=== PATIENT | male | born 1935 | race Caucasian/White ===

== ENCOUNTER 2018-10-29 09:13 | Inpatient (IN) | payer OTHER, MEDICARE ==
[2018-10-29 09:27] VITALS: BMI 27.1
--- NOTE | 2018-10-29 09:31 | PDOC ---
History of Present Illness - General Chief Complaint: Urinary Problem Stated Complaint: PAIN Time Seen by Provider: 10/29/18 09:29 History Source: Patient - History of Present Illness Initial Comments: 10/29/18 09:51 83 year old male with a PMH of CAD, HLD, HTN, Gout, Anemia, B-12, Diverticulitis , Prostate CA (s/p seed implantation), nephrolithiasis presents to the ED c/o 2 day h/o hematuria and assocaited abdominal fullness. Hematuria noted yesterday evening and hematuria with decreased urination/abdominal pressure prompting visit to the ED this morning. No associated fevers/chills. The patient denies chest pain, shortness of breath, diarrhea/constipation, nausea vomiting. 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 Jay Jay Rhodes As per EMR, patient last evaluated in our ED in 06/2013 for rectal bleed. Past History - Past Medical History Allergies/Adverse Reactions: Allergies Allergy/AdvReac Type Severity Reaction Status Date / Time No Known Allergies Allergy Verified 10/29/18 09:23 Home Medications: Ambulatory Orders Omeprazole [Prilosec (RX)] 20 mg PO DAILY #0 capsule.dr 07/13/13 Simvastatin [Zocor -] 40 mg PO HS #0 tablet 07/13/13 Tamsulosin HCl [Flomax -] 0.4 mg PO DAILY #0 cap.er.24h 07/13/13 Aspirin [ASA -] 81 mg PO DAILY 11/09/15 Multivitamins [Multivit ([facility] Formul[facility])] 1 tab PO DAILY 11/09/15 Polyethylene Glycol 3350 [Miralax 119 gm Btl -] 17 gm PO DAILY 11/09/15 Psyllium Husk (with Sugar) [Metamucil Packet] 3.4 gm PO HS 11/09/15 Amlodipine Besylate 5 mg PO DAILY 10/29/18 Fenofibrate Nanocrystallized [Tricor] 160 mg PO DAILY 10/29/18 Metoprolol Succinate [Toprol Xl] 50 mg PO DAILY 10/29/18 Anemia: No Asthma: No Cancer: Yes (PROSTATE) Cardiac Disorders: No CVA: No COPD: No CHF: No Dementia: No Diabetes: No GI Disorders: Yes (DIVERTICULOSIS/DIVERTICULITIS) Disorders: Yes (PROSTATE DISEASE WITH SEED IMPLANTATION,RADIATION) HTN: Yes Hypercholesterolemia: Yes Liver Disease: No Seizures: No Thyroid Disease: No - Surgical History Abdominal Surgery: Yes (BILATERAL INGUINAL HERNIA) Appendectomy: No Cardiac Surgery: No Cholecystectomy: No Lung Surgery: No Neurologic Surgery: No Orthopedic Surgery: No - Immunization History Immunization Up to Date: Yes - Suicide/Smoking/Psychosocial Hx Smoking Status: No Smoking History: Never smoked Have you smoked in the past 12 months: No Number of Cigarettes Smoked Daily: 0 Hx Alcohol Use: No Drug/Substance Use Hx: No Substance Use Type: None Hx Substance Use Treatment: No Review of Systems - Review of Systems Constitutional: No: Chills, Fever HEENTM: No: Blurred Vision, Double Vision Respiratory: No: Shortness of Breath Cardiac (ROS): No: Chest Pain, Lightheadedness, Palpitations, Syncope ABD/GI: No: Constipated, Diarrhea *Physical Exam - Vital Signs Last Vital Signs Temp Pulse Resp BP Pulse Ox 97.8 F 88 18 202/87 H 97 10/29/18 09:23 10/29/18 09:23 10/29/18 09:23 10/29/18 09:23 10/29/18 09:23 - Physical Exam General Appearance: Yes: Nourished, Appropriately Dressed HEENT: positive: Normal Voice, Hearing Grossly Normal Neck: positive: Trachea midline, Supple Respiratory/Chest: positive: Lungs Clear Cardiovascular: positive: S1, S2 Gastrointestinal/Abdominal: positive: Normal Bowel Sounds, Soft, Other ( suprapubic distension, TTP) Male Genitalia: negative: CVAT Extremity: positive: Normal Capillary Refill, Normal Inspection Integumentary: positive: Normal Color, Dry, Warm Neurologic: positive: Fully Oriented, Alert Moderate Sedation - Procedure Monitoring Vital Signs: Procedure Monitoring Vital Signs Temperature 97.8 F 10/29/18 09:23 Pulse Rate 88 10/29/18 09:23 Respiratory Rate 18 10/29/18 09:23 Blood Pressure 202/87 H 10/29/18 09:23 O2 Sat by Pulse Oximetry (%) 97 10/29/18 09:23 ED Treatment Course - LABORATORY CBC & Chemistry Diagram: 10/29/18 09:30 10/29/18 09:30 Medical Decision Making - Medical Decision Making 10/29/18 09:51 83 year old male PMH of nephrolithiasis and Prostate CA (s/p seed placement) w/ gross hematuria and suprapubic pain. No flank pain. Hypertensive (208/87) @ presentation. Bedside U/S shows 610 mL in bladder No CVA tenderness on PE. Frontal diagnosis: nephrolithiasis, UTI, renal failure as well as urinary retention 2/2 BPH vs. obstructive nephrolithiasis vs. Prostate CA. Will place triple lumen catheter for CBI. Consider U/S or CT scan for evaluation of renal/ bladder pathology if SiSx not improved with catheterization. Morphine for pain control. 10/29/18 10:32 Unable to advance triple lumen past prostate 10/29/18 10:46 16 [place] coudet placed; bloody urine returned 10/29/18 11:18 Patient reassessed @ bedside, s/p Morphine Repeat BP 183/77 Bag shows 600+ mL of chong hematuria 10/29/18 12:23 Attending discussed case w/ Dr. Aguirre; patient likely requires CBI given continuous hematuria. Will admit for CBI. Attending counseled patient on plan of care, amenable to admission Case d/w with Kylie Jackson; patient admitted to Dr. Roman *DC/Admit/Observation/Transfer Diagnosis at time of Disposition: Hematuria - Discharge Dispostion Condition at time of disposition: Fair Decision to Admit order: Yes - Referrals - Patient Instructions - Post Discharge Activity
--- NOTE | 2018-10-29 09:32 | PDOC ---
Attending Attestation - HPI HPI: The patient is an 83 year old male, with a significant PMH of coronary disease, HLD, HTN, gout, anemia, B12 deficiency, diverticulitis, and prostate cancer (s/ p seed implantation), who presents to the emergency department today complaining of hematuria and abdominal distention/pressure for 2 days. Patient reports a normal urination last night, tinged with blood. This morning, he could not urinate and reports associated abdominal pressure and distention, which is what prompted his visit to the ED. The patient denies chest pain, shortness of breath, headache and dizziness. Denies fever, chills, nausea, vomit, diarrhea and constipation. Denies dysuria. Allergies: NKA Past surgical history: Prostate seed implants, bilateral renal nephrolithiasis, bilateral cataract repair, and hernia repair. Social history: No reported PCP: Dr. Rhodes 10/29/18 10:12 - Medical Decision Making 11:02 AM- Spoke with Dr. Huston concerning patient, he is aware of patient's state 12:04 AM- Updated Dr. Huston on patient's admission Documentation prepared by AJIT Tellez, acting as medical clinic manager for Ric Hyatt MD. 10/29/18 10:12 <Jaelyn Haque - Last Filed: 10/29/18 12:08> - Resident Resident Name: Bronwyn Jacques - ED Attending Attestation I have performed the following: I have examined & evaluated the patient, The case was reviewed & discussed with the resident, I agree w/resident's findings & plan, Exceptions are as noted - HPI HPI: 10/29/18 09:31 83 year old male with history of coronary disease, gout, hyperlipidemia, hypertension, anemia, B12 deficiency, diverticulitis, prostate ca c/ seed implantation presents with abdominal distension and hematuria. The patient urinated normally yesterday yesterday tonight. This morning, noted increasing lower abdominal pressure and hematuria/blood clots. No fevers, chills. Denies dysuria. No nausea, vomiting, diarrhea. - Physicial Exam PE: 10/29/18 09:56 GENERAL: Awake, alert, and fully oriented, uncomfortable appearing. HEAD: No signs of trauma EYES: EOMI, sclera anicteric, conjunctiva clear ENT: Auricles normal inspection, hearing grossly normal, nares patent, Moist mucosa NECK: Normal ROM, supple ABDOMEN: +distended. lower abdominal discomfort on palpation. No guarding, no rebound. No masses EXTREMITIES: Normal range of motion, no edema. No clubbing or cyanosis. No cords, erythema, or tenderness NEUROLOGICAL: Cranial nerves II through XII grossly intact. Normal speech, SKIN: Warm, Dry, normal turgor, no rashes or lesions noted. - Medical Decision Making 10/29/18 09:56 Vital Signs Temp Pulse Resp BP Pulse Ox 97.8 F 88 18 202/87 H 97 10/29/18 09:23 10/29/18 09:23 10/29/18 09:23 10/29/18 09:23 10/29/18 09:23 Differential includes: urinary retention in setting of possibly hemorrhagic cystitis, prostatitis. Bedside ultrasound to visualize post void residual. If retaining urine, place a three way catheter for bladder irrigation. Labs to r/o renal failure. UA to r/o UTI Reassess. 10/29/18 11:29 CBC, BMP 10/29/18 09:30 10/29/18 09:30 CMP Sodium 139 mmol/L (136-145) 10/29/18 09:30 Potassium 3.9 mmol/L (3.5-5.1) 10/29/18 09:30 Chloride 107 mmol/L (98-107) 10/29/18 09:30 Carbon Dioxide 20 mmol/L (21-32) L 10/29/18 09:30 Anion Gap 11 MMOL/L (8-16) 10/29/18 09:30 BUN 19 mg/dL (7-18) H 10/29/18 09:30 Creatinine 0.8 mg/dL (0.55-1.3) 10/29/18 09:30 Creat Clearance w eGFR > 60 (>60) 10/29/18 09:30 Random Glucose 122 mg/dL (74-106) H 10/29/18 09:30 Calcium 9.4 mg/dL (8.5-10.1) 10/29/18 09:30 Total Bilirubin 0.5 mg/dL (0.2-1) 10/29/18 09:30 AST 22 U/L (15-37) 10/29/18 09:30 ALT 21 U/L (13-61) 10/29/18 09:30 Alkaline Phosphatase 48 U/L (45-117) 10/29/18 09:30 Total Protein 7.2 g/dl (6.4-8.2) 10/29/18 09:30 Albumin 3.8 g/dl (3.4-5.0) 10/29/18 09:30 UA pending. Triple lumen batres catheter for bladder irrigation attempted. However, unable to advance past prostate. 16 [place] coudet placed, with return of approx 700 cc of bloody urine. Pt drained but with lots of blood. Dr. Lopez consulted and he is aware. If patient continues to have persistent bloody drainage, will need to admit for CBI. <Ric Hyatt - Last Filed: 10/29/18 18:12> Heart Score/ECG Review #1 ECG reviewed & interpreted by me at: 12:30 10/29/18 18:12 NSR 74, LVH, no std/kristyn, left axis deviation, QTC 432 msec <Ric Hyatt - Last Filed: 10/29/18 18:12>
[2018-10-29] MEDS ORDERED: morphine CARPU-JECT 4 MG/1 ML DISP.SYRIN IVPUSH ONE (09:48)
[2018-10-29] MEDS ORDERED: morphine SULFATE 4 MG/ML VIAL ONE (10:02)
[2018-10-29 10:05] LABS: BASO % 0.2 % (0-2.0); EOS % 0.6 % (0-4.5); HEMATOCRIT 43.7 % (35.4-49); LYMPH % 11.5 % (8-40); MCHC 34.3 g/dl (32.0-35.9); MEAN CELL VOLUME 90.4 fl (80-96); MEAN PLT VOLUME 9.7 fl (7.5-11.1); MONO % 6.9 % (3.8-10.2); NEUT % 80.8 % (42.8-82.8); PLATELET COUNT 252 K/MM3 (134-434); RBC 4.84 M/mm3 (4.00-5.60); RDW 13.7 % (11.9-15.9); WHITE BLOOD COUNT 11.7 K/mm3 (4.0-10.0)
[2018-10-29 10:41] LABS: ALBUMIN 3.8 g/dl (3.4-5.0); ALK PHOS 48 U/L (45-117); ANION GAP 11 MMOL/L (8-16); BILIRUBIN,TOTAL 0.5 mg/dL (0.2-1); BLOOD UREA NITROGEN 19 mg/dL (7-18); CALCIUM 9.4 mg/dL (8.5-10.1); CHLORIDE 107 mmol/L (98-107); CO2 20 mmol/L (21-32); CREATININE 0.8 mg/dL (0.55-1.3); GLUCOSE,RANDOM 122 mg/dL (74-106); POTASSIUM 3.9 mmol/L (3.5-5.1); SGOT/AST 22 U/L (15-37); SGPT/ALT 21 U/L (13-61); SODIUM 139 mmol/L (136-145); TOT PROT 7.2 g/dl (6.4-8.2)
--- NOTE | 2018-10-29 13:12 | CON.GU ---
Consult - History of Present Illness History of Present Illness: 83 yo male with h/p prostate cancer s/p seed placement years ago. Now admitted with suprapubic pain, urinary retention and gross hematuria. No flank pain - Alcohol/Substance Use Hx Alcohol Use: No - Smoking History Smoking history: Never smoked Have you smoked in the past 12 months: No Aproximately how many cigarettes per day: 0 Home Medications - Allergies Allergies/Adverse Reactions: Allergies Allergy/AdvReac Type Severity Reaction Status Date / Time No Known Allergies Allergy Verified 10/29/18 09:23 - Home Medications Home Medications: Ambulatory Orders Fenofibrate Nanocrystallized [Tricor] 145 mg PO DAILY #0 tablet 07/13/13 Mesalamine Suppository [Canasa Suppository -] 1,000 mg RC HS #0 supp 07/13/13 Metoprolol/Hydrochlorothiazide [Metoprolol-Hctz 50-25 mg Tab] 1 each PO DAILY # 0 tablet 07/13/13 Omeprazole [Prilosec (RX)] 20 mg PO DAILY #0 capsule.dr 07/13/13 Simvastatin [Zocor -] 40 mg PO HS #0 tablet 07/13/13 Tamsulosin HCl [Flomax -] 0.4 mg PO DAILY #0 cap.er.24h 07/13/13 Aspirin [ASA -] 81 mg PO DAILY 11/09/15 Cholecalciferol (Vitamin D3) [Vitamin D3] 1,000 unit PO DAILY 11/09/15 Docusate Sodium [Colace -] 200 mg PO HS 11/09/15 Multivitamins [Multivit ([facility])] 1 tab PO DAILY 11/09/15 Polyethylene Glycol 3350 [Miralax 119 gm Btl -] 17 gm PO DAILY 11/09/15 Psyllium Husk (with Sugar) [Metamucil Packet] 3.4 gm PO HS 11/09/15 Review of Systems - Review of Systems Genitourinary: reports: Hematuria Physical Exam- Vital Signs: Vital Signs Temperature 97.8 F 10/29/18 09:23 Pulse Rate 77 10/29/18 12:33 Respiratory Rate 18 10/29/18 12:33 Blood Pressure 151/59 L 10/29/18 12:33 O2 Sat by Pulse Oximetry (%) 98 10/29/18 12:33 Renal/: Yes: Batres Present, Hematuria Labs: CBC, BMP 10/29/18 09:30 10/29/18 09:30 Problem List - Problems (1) Gross hematuria Assessment/Plan: batres to SD, start flomax, irrigate batres, hold ASA, CT scan ordered, await culture Code(s): R31.0 - GROSS HEMATURIA
--- NOTE | 2018-10-29 13:21 | HP ---
Admitting History and Physical - Primary Care Physician PCP: Osmin Rhodes - Admission Chief Complaint: hematuria History of Present Illness: 83 year old male pmh of HTN, HLD,CAD, prostate ca s/p xrt/implanted seed comes in with hematuria. Pt reports inability to void adequately since this am. When attempted to void, he noted only drops of bright red blood. Due to inability to empty bladder, he reports having increased bladder pressure/pain which urged him to come to ED. He currently feels better after batres placement. He denies any chest pain, sob, lightheadedness, fever/chills, dysuria, abd pain, n/v/d, or recent medication change. Pt is without any other significant complaint. History Source: Patient, Medical Record Limitations to Obtaining History: No Limitations - Past Medical History Cardiovascular: Yes: CAD, HTN, Hyperlipdemia Gastrointestinal: Yes: Hemorrhoids Renal/: Yes: Cancer (bladder ca s/p radiation,implanted seed, 07/02) - Past Surgical History Past Surgical History: Yes: Hernia Repair, Tonsillectomy - Smoking History Smoking history: Never smoked Have you smoked in the past 12 months: No Aproximately how many cigarettes per day: 0 - Alcohol/Substance Use Hx Alcohol Use: No History of Substance Use: reports: None - Social History Usual Living Arrangement: Yes: With Spouse ADL: Independent History of Recent Travel: No Home Medications - Allergies Allergies/Adverse Reactions: Allergies Allergy/AdvReac Type Severity Reaction Status Date / Time No Known Allergies Allergy Verified 10/29/18 09:23 - Home Medications Home Medications: Ambulatory Orders Omeprazole [Prilosec (RX)] 20 mg PO DAILY #0 capsule.dr 07/13/13 Simvastatin [Zocor -] 40 mg PO HS #0 tablet 07/13/13 Tamsulosin HCl [Flomax -] 0.4 mg PO DAILY #0 cap.er.24h 07/13/13 Aspirin [ASA -] 81 mg PO DAILY 11/09/15 Multivitamins [Multivit ([facility] Formul[facility])] 1 tab PO DAILY 11/09/15 Polyethylene Glycol 3350 [Miralax 119 gm Btl -] 17 gm PO DAILY 11/09/15 Psyllium Husk (with Sugar) [Metamucil Packet] 3.4 gm PO HS 11/09/15 Amlodipine Besylate 5 mg PO DAILY 10/29/18 Fenofibrate Nanocrystallized [Tricor] 160 mg PO DAILY 10/29/18 Metoprolol Succinate [Toprol Xl] 50 mg PO DAILY 10/29/18 Family Disease History - Family Disease History Family Disease History: Heart Disease: Mother, Other: Father (Renal failure) Review of Systems Findings/Remarks: as per hpi Physical Examination Vital Signs: Vital Signs Temperature 97.8 F 10/29/18 09:23 Pulse Rate 77 10/29/18 12:33 Respiratory Rate 18 10/29/18 12:33 Blood Pressure 151/59 L 10/29/18 12:33 O2 Sat by Pulse Oximetry (%) 98 10/29/18 12:33 Constitutional: Yes: Well Nourished, No Distress, Calm Cardiovascular: Yes: Regular Rate and Rhythm, Murmur Respiratory: Yes: WNL, Regular, CTA Bilaterally. No: Accessory Muscle Use, SOB , Tachypnea, Wheezes Gastrointestinal: Yes: WNL, Normal Bowel Sounds, Soft. No: Distention, Tenderness Renal/: Yes: Batres Present, Hematuria Edema: Yes Edema: LLE: Trace, RLE: Trace Neurological: Yes: WNL, Alert, Oriented Psychiatric: Yes: WNL, Alert, Oriented Labs: CBC, BMP 10/29/18 09:30 10/29/18 09:30 Imaging - Results Cat Scan: Pending Problem List - Problems (1) Gross hematuria Assessment/Plan: persists bladder distention/pressure resolved s/p batres UA reviewed-uti less likely await urine culture abd/pelvic ct pending hold asa saline irrigation q4hrs flomax urology following Code(s): R31.0 - GROSS HEMATURIA (2) Leukocytosis Assessment/Plan: borderline elevation await infectious work up monitor for now Code(s): D72.829 - ELEVATED WHITE BLOOD CELL COUNT, UNSPECIFIED (3) CAD (coronary artery disease) Assessment/Plan: no acute ACS continue statin, hold asa Code(s): I25.10 - ATHSCL HEART DISEASE OF [place] CORONARY ARTERY W/O ANG PCTRS Qualifiers: Coronary Disease-Associated Artery/Lesion type: [place] artery [place] vs. transplanted heart: [place] heart Associated angina: without angina Qualified Code(s): I25.10 - Atherosclerotic heart disease of [place] coronary artery without angina pectoris (4) HTN (hypertension) Assessment/Plan: controlled continue metoprolol, amlodipine Code(s): I10 - ESSENTIAL (PRIMARY) HYPERTENSION Qualifiers: Hypertension type: essential hypertension Qualified Code(s): I10 - Essential (primary) hypertension (5) HLD (hyperlipidemia) Assessment/Plan: stable continue statin Code(s): E78.5 - HYPERLIPIDEMIA, UNSPECIFIED Assessment/Plan Dispo: home when urology cleared
[2018-10-29 13:42] LABS: URINE APPEARANCE CLOUDY; URINE BILIRUBIN NEGATIVE (<2.0 mg/dL); URINE COLOR RED; URINE GLUCOSE (UA) NEGATIVE (NEGATIVE); URINE KETONE NEGATIVE (NEGATIVE); URINE LEUK ESTERASE NEGATIVE (NEGATIVE); URINE NITRITE NEGATIVE (NEGATIVE); URINE PROTEIN 2+ (NEGATIVE); URINE UROBILINOGEN NEGATIVE mg/dL (0.2-1.0)
[2018-10-29] MEDS ORDERED: TAMSULOSIN HCL 0.4 MG CAP ONE (14:59)
[2018-10-29] MEDS: TAMSULOSIN HCL 0.4 MG CAP PO SCH (15:02)
--- NOTE | 2018-10-29 16:14 | EKG ---
Test Reason : Blood Pressure : / mmHG Vent. Rate : 074 BPM Atrial Rate : 074 BPM P-R Int : 158 ms QRS Dur : 112 ms QT Int : 390 ms P-R-T Axes : 071 -26 009 degrees QTc Int : 432 ms NORMAL SINUS RHYTHM MINIMAL VOLTAGE CRITERIA FOR LVH, MAY BE NORMAL VARIANT SEPTAL INFARCT , AGE UNDETERMINED ABNORMAL ECG WHEN COMPARED WITH ECG OF 10-JUL-2013 11:19, SEPTAL INFARCT IS NOW PRESENT Confirmed by SAMEER BERNARD, COLLEEN ([id number]) on 10/29/2018 4:13:59 PM Referred By: Confirmed By:COLLEEN ESTRELLA MD
[2018-10-29] MEDS: amLODIPine BESYLATE 5 MG TABLET (FP) PO SCH (19:04)
[2018-10-29] MEDS ORDERED: DEXTROSE 5%-WATER - 50 ML IVPB ONE (19:11)
[2018-10-29] MEDS ORDERED: cefTRIAXone SODIUM 1 GM VIAL ONE (19:11)
[2018-10-29] MEDS: CEFTRIAXONE 1 GM in DEXTROSE 5%-WATER - 50 ML IVPB SCH (19:34)
[2018-10-29] MEDS: ATORVASTATIN CA 20 MG TABLET (FP) PO SCH (22:52)
[2018-10-30 07:18] LABS: BASO % 0.4 % (0-2.0); HEMOGLOBIN 12.7 GM/dL (11.7-16.9); LYMPH % 11.4 % (8-40); MCH 29.9 pg (25.7-33.7); MCHC 32.5 g/dl (32.0-35.9); MEAN CELL VOLUME 91.8 fl (80-96); MEAN PLT VOLUME 10.2 fl (7.5-11.1); MONO % 9.2 % (3.8-10.2); PLATELET COUNT 208 K/MM3 (134-434); RBC 4.25 M/mm3 (4.00-5.60); RDW 13.7 % (11.9-15.9); WHITE BLOOD COUNT 11.4 K/mm3 (4.0-10.0)
[2018-10-30 07:44] LABS: ANION GAP 9 MMOL/L (8-16); BLOOD UREA NITROGEN 18 mg/dL (7-18); CALCIUM 8.4 mg/dL (8.5-10.1); CHLORIDE 108 mmol/L (98-107); CO2 22 mmol/L (21-32); CREATININE 0.6 mg/dL (0.55-1.3); GLUCOSE,RANDOM 92 mg/dL (74-106); POTASSIUM 3.8 mmol/L (3.5-5.1); SODIUM 139 mmol/L (136-145)
--- NOTE | 2018-10-30 09:20 | PN ---
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, Physician Chief Complaint: Pt sitting in bed in no acute distress. reports feeling better. denies any chest pain, sob, dysuria, flank pain, n/v/d - Current Medication List Current Medications: Active Medications Amlodipine Besylate (Norvasc -) 5 mg PO DAILY [facility] Last Admin: 10/29/18 19:04 Dose: 5 mg Atorvastatin Calcium (Lipitor -) 20 mg PO HS [facility] Last Admin: 10/29/18 22:52 Dose: 20 mg Ceftriaxone Sodium 1 gm/ (Dextrose) 50 mls @ 100 mls/hr IVPB DAILY [facility]; Protocol Last Admin: 10/29/18 19:34 Dose: 100 mls/hr Metoprolol Succinate (Toprol Xl -) 50 mg PO DAILY [facility] Last Admin: 10/29/18 19:04 Dose: 50 mg Polyethylene Glycol (Miralax (For Daily Use) -) 17 gm PO DAILY [facility] Tamsulosin HCl (Flomax -) 0.4 mg PO DAILY@0830 [facility] Last Admin: 10/29/18 15:02 Dose: 0.4 mg - Objective Vital Signs: Vital Signs Temperature 98.4 F 10/30/18 05:30 Pulse Rate 65 10/30/18 05:30 Respiratory Rate 18 10/30/18 05:30 Blood Pressure 127/70 10/30/18 05:30 O2 Sat by Pulse Oximetry (%) 95 10/29/18 21:28 Constitutional: Yes: Well Nourished, No Distress, Calm Cardiovascular: Yes: Regular Rate and Rhythm, Murmur Respiratory: Yes: WNL, Regular, CTA Bilaterally. No: Accessory Muscle Use, SOB , Tachypnea, Wheezes Gastrointestinal: Yes: WNL, Normal Bowel Sounds, Soft. No: Distention, Tenderness Genitourinary: Yes: [place] Present, Hematuria. No: CVA Tenderness - Left, CVA Tenderness - Right Extremities: Yes: WNL Edema: No Neurological: Yes: WNL, Alert, Oriented Psychiatric: Yes: WNL, Alert, Oriented Labs: CBC, BMP 10/30/18 06:30 10/30/18 06:30 Assessment/Plan (1) Gross hematuria Assessment/Plan: persists abd/pelvic ct- 5mm left UPJ stone w/ hydronephrosis urine culture neg, however will continue empiric ceftriaxone until urine clears hold asa saline irrigation q4hrs flomax urology following Code(s): R31.0 - GROSS HEMATURIA (2) Ureteral calculus, left Assessment/Plan: as above Code(s): N20.1 - CALCULUS OF URETER (3) 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 Assessment/Plan: as above monitor renal function tx underlying Code(s): N13.2 - HYDRONEPHROSIS WITH RENAL AND URETERAL CALCULOUS OBSTRUCTION (4) Leukocytosis Assessment/Plan: borderline elevation await infectious work up monitor for now Code(s): D72.829 - ELEVATED [place] BLOOD CELL COUNT, UNSPECIFIED (5) CAD (coronary artery disease) Assessment/Plan: no acute ACS continue statin, hold asa Code(s): I25.10 - ATHSCL HEART DISEASE OF [place] CORONARY ARTERY W/O ANG PCTRS Qualifiers: Coronary Disease-Associated Artery/Lesion type: [place] artery [place] vs. transplanted heart: [place] heart Associated angina: without angina Qualified Code(s): I25.10 - Atherosclerotic heart disease of [place] coronary artery without angina pectoris (6) HTN (hypertension) Assessment/Plan: controlled continue metoprolol, amlodipine Code(s): I10 - ESSENTIAL (PRIMARY) HYPERTENSION Qualifiers: Hypertension type: essential hypertension Qualified Code(s): I10 - Essential (primary) hypertension (7) HLD (hyperlipidemia) Assessment/Plan: stable continue statin Code(s): E78.5 - HYPERLIPIDEMIA, UNSPECIFIED Dispo: home when urology cleared
[2018-10-30] MEDS ORDERED: cefTRIAXone SODIUM 1 GM VIAL ONE (09:51)
[2018-10-30] MEDS ORDERED: DEXTROSE 5%-WATER - 50 ML IVPB ONE (09:52)
[2018-10-30] MEDS: amLODIPine BESYLATE 5 MG TABLET (FP) PO SCH (10:24)
[2018-10-30] MEDS: TAMSULOSIN HCL 0.4 MG CAP PO SCH (10:24)
[2018-10-30] MEDS: POLYETHYLENE GLYCOL 3350 119 GM BTL PO SCH (10:24)
[2018-10-30] MEDS: CEFTRIAXONE 1 GM in DEXTROSE 5%-WATER - 50 ML IVPB SCH (10:25)
--- NOTE | 2018-10-30 12:03 | PN ---
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 (short form) - Note 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: still with hematuria batres irrigated today CT with 5mm Left UPJ stone and hydronephrosis but pt denies flank pain no suprapubic pain cont flomax, abx hold ASA cont bladder irrigation Problem List - Problems (1) Gross hematuria Code(s): R31.0 - GROSS HEMATURIA
[2018-10-30] MEDS: SODIUM CHLORIDE 1,000 ML IV SCH (17:19)
[2018-10-30] MEDS: ATORVASTATIN CA 20 MG TABLET (FP) PO SCH (21:53)
[2018-10-31] MEDS: SODIUM CHLORIDE 1,000 ML IV SCH ×2 (04:18→19:30)
[2018-10-31 06:41] LABS: BASO % 1.1 % (0-2.0); EOS % 2.9 % (0-4.5); HEMATOCRIT 37.2 % (35.4-49); HEMOGLOBIN 12.9 GM/dL (11.7-16.9); LYMPH % 13.5 % (8-40); MCH 31.6 pg (25.7-33.7); MCHC 34.8 g/dl (32.0-35.9); MEAN CELL VOLUME 90.9 fl (80-96); MEAN PLT VOLUME 9.8 fl (7.5-11.1); MONO % 8.8 % (3.8-10.2); NEUT % 73.7 % (42.8-82.8); PLATELET COUNT 202 K/MM3 (134-434); RBC 4.09 M/mm3 (4.00-5.60); RDW 13.8 % (11.9-15.9); WHITE BLOOD COUNT 9.9 K/mm3 (4.0-10.0)
[2018-10-31 07:22] LABS: ANION GAP 8 MMOL/L (8-16); BLOOD UREA NITROGEN 17 mg/dL (7-18); CALCIUM 7.9 mg/dL (8.5-10.1); CHLORIDE 109 mmol/L (98-107); CO2 23 mmol/L (21-32); CREATININE 0.6 mg/dL (0.55-1.3); GLUCOSE,RANDOM 90 mg/dL (74-106); POTASSIUM 3.7 mmol/L (3.5-5.1); SODIUM 140 mmol/L (136-145)
--- NOTE | 2018-10-31 09:58 | PN ---
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 (short form) - Note 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: still with hematuria, slightly improved no suprapubic pain/no flank pain urine cx neg WBC now normal cont flomax hold ASA cont bladder irrigation Problem List - Problems (1) Gross hematuria Code(s): R31.0 - GROSS HEMATURIA
[2018-10-31] MEDS ORDERED: DEXTROSE 5%-WATER - 50 ML IVPB ONE (10:14)
[2018-10-31] MEDS ORDERED: cefTRIAXone SODIUM 1 GM VIAL ONE (10:14)
[2018-10-31] MEDS: CEFTRIAXONE 1 GM in DEXTROSE 5%-WATER - 50 ML IVPB SCH (10:16)
[2018-10-31] MEDS: TAMSULOSIN HCL 0.4 MG CAP PO SCH (10:16)
[2018-10-31] MEDS: amLODIPine BESYLATE 5 MG TABLET (FP) PO SCH (10:16)
[2018-10-31] MEDS: POLYETHYLENE GLYCOL 3350 119 GM BTL PO SCH (10:17)
--- NOTE | 2018-10-31 13:09 | PN ---
Physical Exam: SUBJECTIVE: Patient seen and examined, denies any abdominal or back pain or urinary symptoms, dyspnea or new concerns. Tolerating diet, no fevers/chills. OBJECTIVE: Vital Signs Period Temp Pulse Resp BP Sys/Donald Pulse Ox Last 24 Hr 97.9 F-98.4 F 62-70 18-20 137-149/49-58 94-96 GENERAL: The patient is awake, alert, and fully oriented, in no acute distress. HEAD: Normal with no signs of trauma. EYES: PERRL, extraocular movements intact, sclera anicteric, conjunctiva clear. No ptosis. ENT: Ears normal, nares patent, oropharynx clear without exudates, moist mucous membranes. NECK: Trachea midline, full range of motion, supple. LUNGS: Breath sounds equal, clear to auscultation bilaterally, no wheezes, no crackles, no accessory muscle use. HEART: Regular rate and rhythm, S1, S2 ABDOMEN: Soft, nontender, nondistended, normoactive bowel sounds, no guarding, no rebound, no CVA or suprpubic tenderness, ongoing bloody drainage in batres bag MUSCULOSKELETAL: no spinal tenderness EXTREMITIES: 2+ pulses, warm, well-perfused, no edema. PSYCH: Normal mood, normal affect. SKIN: Warm, dry, normal turgor, no rashes or lesions noted Laboratory Results - last 24 hr 10/31/18 10/31/18 05:50 05:50 WBC 9.9 RBC 4.09 Hgb 12.9 Hct 37.2 MCV 90.9 MCH 31.6 MCHC 34.8 RDW 13.8 Plt Count 202 MPV 9.8 Absolute Neuts (auto) 7.3 Neutrophils % 73.7 Lymphocytes % 13.5 Monocytes % 8.8 Eosinophils % 2.9 Basophils % 1.1 Nucleated RBC % 0 Sodium 140 Potassium 3.7 Chloride 109 H Carbon Dioxide 23 Anion Gap 8 BUN 17 Creatinine 0.6 Creat Clearance w eGFR > 60 Random Glucose 90 Calcium 7.9 L Active Medications Generic Name Dose Route Start Last Admin Trade Name Freq PRN Reason Stop Dose Admin Amlodipine Besylate 5 mg 10/29/18 16:15 10/31/18 10:16 Norvasc - PO 5 mg DAILY SHELLIE Administration Atorvastatin Calcium 20 mg 10/29/18 22:00 10/30/18 21:53 Lipitor - PO 20 mg HS SHELLIE Administration Ceftriaxone Sodium 1 gm/ 50 mls @ 100 mls/hr 10/29/18 18:30 10/31/18 10:16 Dextrose IVPB 100 mls/hr DAILY SHELLIE Administration Protocol Sodium Chloride 1,000 mls @ 100 mls/hr 10/30/18 16:45 10/31/18 04:18 Normal Saline - IV 100 mls/hr ASDIR SHELLIE Administration Metoprolol Succinate 50 mg 10/29/18 16:30 10/31/18 10:16 Toprol Xl - PO 50 mg DAILY SHELLIE Administration Polyethylene Glycol 17 gm 10/30/18 10:00 10/31/18 10:17 Miralax (For Daily Use) - PO 17 gm DAILY SHELLIE Administration Tamsulosin HCl 0.4 mg 10/29/18 13:29 10/31/18 10:16 Flomax - PO 0.4 mg DAILY@0830 SHELLIE Administration Microbiology 10/29/18 13:20 Urine - Urine Clean Catch Urine Culture - Final NO GROWTH OBTAINED ASSESSMENT/PLAN: 83 HTN, HLD,CAD, prostate ca s/p xrt/implanted seeds, nephrolithiasis admitted with hematuria and obstructing left ureteropelvic junction stone with mild to mod hydronephrosis -Hematuria -Obtructing left ureteropelvic junction stone with mild to moderate hydronephrosis -Prostate ca s/p xrt/implanted seeds -HTN -HLD -CAD Plan: Ongoing hematuria, h/h hemodynamics stable. Urology input noted. Will follow up for possible cystoscopy if fails to improve. Continue flomax Discussed with Dr. Huston, given stable Cr and no pain concerns from obstructive stone, conservative management for now. Continue IVF. Urine cx neg. WBC normalized. D/c ceftriaxone and monitor. Continue amlodipine/metoprolol/statin. DVTPPX with SCDs. Dispo plan for home d/c when medical issues resolve. Plan discussed with patient and nursing in detail, all questions answered. Visit type - Emergency Visit Emergency Visit: Yes ED Registration Date: 10/30/18 Care time: The patient presented to the Emergency Department on the above date and was hospitalized for further evaluation of their emergent condition. - New Patient This patient is new to me today: No - Critical Care Critical Care patient: No - Discharge Referral Referred to [facility] Med P.C.: No
[2018-10-31] MEDS: PANTOPRAZOLE 40 MG TABLET (FP) PO SCH (16:05)
[2018-10-31] MEDS: ATORVASTATIN CA 20 MG TABLET (FP) PO SCH (21:38)
[2018-11-01] MEDS: SODIUM CHLORIDE 1,000 ML IV SCH ×2 (02:10→21:41)
[2018-11-01 06:50] LABS: BASO % 0.6 % (0-2.0); EOS % 3.7 % (0-4.5); HEMATOCRIT 39.6 % (35.4-49); HEMOGLOBIN 12.8 GM/dL (11.7-16.9); LYMPH % 15.2 % (8-40); MCH 29.4 pg (25.7-33.7); MCHC 32.3 g/dl (32.0-35.9); MEAN PLT VOLUME 9.5 fl (7.5-11.1); MONO % 8.1 % (3.8-10.2); NEUT % 72.4 % (42.8-82.8); PLATELET COUNT 196 K/MM3 (134-434); RBC 4.35 M/mm3 (4.00-5.60); RDW 13.8 % (11.9-15.9)
--- NOTE | 2018-11-01 07:19 | PN ---
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 (short form) - Note 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: afebrile urine less bloody, pink this am no suprapubic pain/no flank pain urine cx neg WBC remains normal, HCT stable cont flomax hold ASA cont bladder irrigation trial of void when urine clear Problem List - Problems (1) Gross hematuria Code(s): R31.0 - GROSS HEMATURIA
[2018-11-01] MEDS ORDERED: DEXTROSE 5%-WATER - 50 ML IVPB ONE (09:52)
[2018-11-01] MEDS ORDERED: cefTRIAXone SODIUM 1 GM VIAL ONE (09:52)
[2018-11-01] MEDS: PANTOPRAZOLE 40 MG TABLET (FP) PO SCH (10:08)
[2018-11-01] MEDS: amLODIPine BESYLATE 5 MG TABLET (FP) PO SCH (10:08)
[2018-11-01] MEDS: POLYETHYLENE GLYCOL 3350 119 GM BTL PO SCH (10:09)
[2018-11-01] MEDS: CEFTRIAXONE 1 GM in DEXTROSE 5%-WATER - 50 ML IVPB SCH (10:09)
[2018-11-01] MEDS: TAMSULOSIN HCL 0.4 MG CAP PO SCH (10:09)
[2018-11-01 12:32] LABS: ANION GAP 7 MMOL/L (8-16); BLOOD UREA NITROGEN 15 mg/dL (7-18); CHLORIDE 110 mmol/L (98-107); CO2 24 mmol/L (21-32); CREATININE 0.6 mg/dL (0.55-1.3); GLUCOSE,RANDOM 86 mg/dL (74-106); POTASSIUM 3.7 mmol/L (3.5-5.1); SODIUM 142 mmol/L (136-145)
--- NOTE | 2018-11-01 14:24 | PN ---
Physical Exam: SUBJECTIVE: Patient seen and examined, ongoing bloody urine, no new fevers/ chills, back or abdominal pain or urinary symptoms. OBJECTIVE: Vital Signs Period Temp Pulse Resp BP Sys/Donald Pulse Ox Last 24 Hr 97.6 F-97.9 F 66-72 18-18 144-155/56-70 96-96 GENERAL: The patient is awake, alert, and fully oriented, in no acute distress. HEAD: Normal with no signs of trauma. EYES: PERRL, extraocular movements intact, sclera anicteric, conjunctiva clear. No ptosis. ENT: Ears normal, nares patent, oropharynx clear without exudates, moist mucous membranes. NECK: Trachea midline, full range of motion, supple. LUNGS: Breath sounds equal, clear to auscultation bilaterally, no wheezes, no crackles, no accessory muscle use. HEART: Regular rate and rhythm, S1, S2 without murmur, rub or gallop. ABDOMEN: Soft, nontender, nondistended, normoactive bowel sounds, no guarding, no rebound, no hepatosplenomegaly, no masses. EXTREMITIES: 2+ pulses, warm, well-perfused, no edema. NEUROLOGICAL: Cranial nerves II through XII grossly intact. Normal speech, gait not observed. PSYCH: Normal mood, normal affect. SKIN: Warm, dry, normal turgor, no rashes or lesions noted Laboratory Results - last 24 hr 11/01/18 11/01/18 05:55 05:55 WBC 9.0 RBC 4.35 Hgb 12.8 Hct 39.6 MCV 91.0 MCH 29.4 MCHC 32.3 RDW 13.8 Plt Count 196 MPV 9.5 Absolute Neuts (auto) 6.5 Neutrophils % 72.4 Lymphocytes % 15.2 Monocytes % 8.1 Eosinophils % 3.7 Basophils % 0.6 Nucleated RBC % 0 Sodium 142 Potassium 3.7 Chloride 110 H Carbon Dioxide 24 Anion Gap 7 L BUN 15 Creatinine 0.6 Creat Clearance w eGFR > 60 Random Glucose 86 Calcium 8.0 L Active Medications Generic Name Dose Route Start Last Admin Trade Name Freq PRN Reason Stop Dose Admin Amlodipine Besylate 5 mg 10/29/18 16:15 11/01/18 10:08 Norvasc - PO 5 mg DAILY SHELLIE Administration Atorvastatin Calcium 20 mg 10/29/18 22:00 10/31/18 21:38 Lipitor - PO 20 mg HS SHELLIE Administration Sodium Chloride 1,000 mls @ 100 mls/hr 10/30/18 16:45 11/01/18 02:10 Normal Saline - IV 100 mls/hr ASDIR SHELLIE Administration Metoprolol Succinate 50 mg 10/29/18 16:30 11/01/18 10:08 Toprol Xl - PO 50 mg DAILY SHELLIE Administration Pantoprazole Sodium 40 mg 10/31/18 16:00 11/01/18 10:08 Protonix - PO 40 mg DAILY SHELLIE Administration Polyethylene Glycol 17 gm 10/30/18 10:00 11/01/18 10:09 Miralax (For Daily Use) - PO 17 gm DAILY SHELLIE Administration Tamsulosin HCl 0.4 mg 10/29/18 13:29 11/01/18 10:09 Flomax - PO 0.4 mg DAILY@0830 SHELLIE Administration Microbiology 10/29/18 13:20 Urine - Urine Clean Catch Urine Culture - Final NO GROWTH OBTAINED ASSESSMENT/PLAN: 83 HTN, HLD,CAD, prostate ca s/p xrt/implanted seeds, nephrolithiasis admitted with hematuria and obstructing left ureteropelvic junction stone with mild to mod hydronephrosis -Hematuria -Obtructing left ureteropelvic junction stone with mild to moderate hydronephrosis -Prostate ca s/p xrt/implanted seeds -HTN -HLD -CAD Plan: Ongoing hematuria, h/h, hemodynamics stable. Urology input noted. Will follow up for possible cystoscopy if fails to improve. Continue flomax Discussed with Dr. Huston, given stable Cr and no pain concerns from obstructive stone, conservative management for now. Continue IVF. Urine cx neg. WBC normalized. D/c ceftriaxone and monitor. Voiding trial when hematuria clears. Continue amlodipine/metoprolol/statin. DVTPPX with SCDs. Dispo plan for home d/c when medical issues resolve. Plan discussed with patient and nursing in detail, all questions answered. Visit type - Emergency Visit Emergency Visit: Yes ED Registration Date: 10/30/18 Care time: The patient presented to the Emergency Department on the above date and was hospitalized for further evaluation of their emergent condition. - New Patient This patient is new to me today: No - Critical Care Critical Care patient: No - Discharge Referral Referred to [facility] Med P.C.: No
[2018-11-01] MEDS: ATORVASTATIN CA 20 MG TABLET (FP) PO SCH (21:41)
[2018-11-02 06:36] LABS: BASO % 0.6 % (0-2.0); EOS % 3.8 % (0-4.5); HEMATOCRIT 36.3 % (35.4-49); HEMOGLOBIN 12.8 GM/dL (11.7-16.9); LYMPH % 12.4 % (8-40); MCH 31.7 pg (25.7-33.7); MCHC 35.4 g/dl (32.0-35.9); MEAN CELL VOLUME 89.6 fl (80-96); MEAN PLT VOLUME 9.9 fl (7.5-11.1); MONO % 7.6 % (3.8-10.2); NEUT % 75.6 % (42.8-82.8); PLATELET COUNT 204 K/MM3 (134-434); RBC 4.05 M/mm3 (4.00-5.60); RDW 13.4 % (11.9-15.9); WHITE BLOOD COUNT 9.4 K/mm3 (4.0-10.0)
[2018-11-02 07:35] LABS: ANION GAP 8 MMOL/L (8-16); BLOOD UREA NITROGEN 15 mg/dL (7-18); CHLORIDE 110 mmol/L (98-107); CO2 22 mmol/L (21-32); CREATININE 0.6 mg/dL (0.55-1.3); GLUCOSE,RANDOM 88 mg/dL (74-106); POTASSIUM 3.8 mmol/L (3.5-5.1); SODIUM 141 mmol/L (136-145)
[2018-11-02] MEDS: PANTOPRAZOLE 40 MG TABLET (FP) PO SCH (09:04)
[2018-11-02] MEDS: amLODIPine BESYLATE 5 MG TABLET (FP) PO SCH (09:04)
[2018-11-02] MEDS: POLYETHYLENE GLYCOL 3350 119 GM BTL PO SCH (09:04)
[2018-11-02] MEDS: TAMSULOSIN HCL 0.4 MG CAP PO SCH (09:05)
--- NOTE | 2018-11-02 09:28 | PN ---
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, Physician Chief Complaint: Pt sitting in bed in no acute distress. urine clearing up. denies any chest pain , sob, dysuria, flank pain, n/v/d - Current Medication List Current Medications: Active Medications Amlodipine Besylate (Norvasc -) 5 mg PO DAILY [facility] Last Admin: 11/02/18 09:04 Dose: 5 mg Atorvastatin Calcium (Lipitor -) 20 mg PO HS [facility] Last Admin: 11/01/18 21:41 Dose: 20 mg Sodium Chloride (Normal Saline -) 1,000 mls @ 100 mls/hr IV ASDIR [facility] Last Admin: 11/01/18 21:41 Dose: 100 mls/hr Metoprolol Succinate (Toprol Xl -) 50 mg PO DAILY [facility] Last Admin: 11/02/18 09:05 Dose: 50 mg Pantoprazole Sodium (Protonix -) 40 mg PO DAILY [facility] Last Admin: 11/02/18 09:04 Dose: 40 mg Polyethylene Glycol (Miralax (For Daily Use) -) 17 gm PO DAILY [facility] Last Admin: 11/02/18 09:04 Dose: 17 gm Tamsulosin HCl (Flomax -) 0.4 mg PO DAILY@0830 [facility] Last Admin: 11/02/18 09:05 Dose: 0.4 mg - Objective Vital Signs: Vital Signs Temperature 97.8 F 11/02/18 06:00 Pulse Rate 65 11/02/18 06:00 Respiratory Rate 18 11/02/18 06:00 Blood Pressure 144/53 L 11/02/18 06:00 O2 Sat by Pulse Oximetry (%) 95 11/01/18 21:00 Constitutional: Yes: Well Nourished, No Distress, Calm Cardiovascular: Yes: Regular Rate and Rhythm, Murmur Respiratory: Yes: WNL, Regular, CTA Bilaterally. No: Accessory Muscle Use, SOB , Tachypnea, Wheezes Gastrointestinal: Yes: WNL, Normal Bowel Sounds, Soft, Abdomen, Obese. No: Distention, Tenderness Genitourinary: Yes: Galindo Present, Hematuria (improving) Extremities: Yes: WNL Edema: No Neurological: Yes: WNL, Alert, Oriented Psychiatric: Yes: WNL, Alert, Oriented Labs: CBC, BMP 11/02/18 06:00 11/02/18 06:00 Assessment/Plan (1) Gross hematuria Assessment/Plan: improving abd/pelvic ct- 5mm left UPJ stone w/ hydronephrosis hold asa saline irrigation q4hrs flomax possible cystoscopy per uro Code(s): R31.0 - GROSS HEMATURIA (2) Ureteral calculus, left Assessment/Plan: as above Code(s): N20.1 - CALCULUS OF URETER (3) 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 Assessment/Plan: as above monitor renal function tx underlying Code(s): N13.2 - HYDRONEPHROSIS WITH RENAL AND URETERAL CALCULOUS OBSTRUCTION (4) Leukocytosis Assessment/Plan: borderline elevation await infectious work up monitor for now Code(s): D72.829 - ELEVATED WHITE BLOOD CELL COUNT, UNSPECIFIED (5) CAD (coronary artery disease) Assessment/Plan: no acute ACS continue statin, hold asa Code(s): I25.10 - ATHSCL HEART DISEASE OF [place] CORONARY ARTERY W/O ANG PCTRS Qualifiers: Coronary Disease-Associated Artery/Lesion type: [place] artery [place] vs. transplanted heart: [place] heart Associated angina: without angina Qualified Code(s): I25.10 - Atherosclerotic heart disease of [place] coronary artery without angina pectoris (6) HTN (hypertension) Assessment/Plan: controlled continue metoprolol, amlodipine Code(s): I10 - ESSENTIAL (PRIMARY) HYPERTENSION Qualifiers: Hypertension type: essential hypertension Qualified Code(s): I10 - Essential (primary) hypertension (7) HLD (hyperlipidemia) Assessment/Plan: stable continue statin Code(s): E78.5 - HYPERLIPIDEMIA, UNSPECIFIED Dispo: home when urology cleared
--- NOTE | 2018-11-02 13:16 | PN ---
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 (short form) - Note 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: afebrile urine color similar no suprapubic pain/no flank pain WBC remains normal, HCT stable cont flomax hold ASA cont bladder irrigation trial of void when urine clear cystoscopy later this week if hematuria fails to clear Problem List - Problems (1) Gross hematuria Code(s): R31.0 - GROSS HEMATURIA
[2018-11-02] MEDS: SODIUM CHLORIDE 1,000 ML IV SCH (16:10)
[2018-11-02] MEDS: ATORVASTATIN CA 20 MG TABLET (FP) PO SCH (22:26)
[2018-11-03] MEDS: SODIUM CHLORIDE 1,000 ML IV SCH ×2 (01:30→21:34)
[2018-11-03 06:27] LABS: BASO % 0.6 % (0-2.0); EOS % 3.8 % (0-4.5); HEMATOCRIT 38.2 % (35.4-49); HEMOGLOBIN 12.5 GM/dL (11.7-16.9); LYMPH % 15.7 % (8-40); MCH 29.6 pg (25.7-33.7); MCHC 32.8 g/dl (32.0-35.9); MEAN CELL VOLUME 90.4 fl (80-96); MEAN PLT VOLUME 10.1 fl (7.5-11.1); MONO % 8.5 % (3.8-10.2); NEUT % 71.4 % (42.8-82.8); PLATELET COUNT 195 K/MM3 (134-434); RBC 4.22 M/mm3 (4.00-5.60); RDW 13.2 % (11.9-15.9)
[2018-11-03 06:57] LABS: ANION GAP 9 MMOL/L (8-16); BLOOD UREA NITROGEN 14 mg/dL (7-18); CHLORIDE 110 mmol/L (98-107); CO2 23 mmol/L (21-32); CREATININE 0.6 mg/dL (0.55-1.3); GLUCOSE,RANDOM 84 mg/dL (74-106); POTASSIUM 3.9 mmol/L (3.5-5.1); SODIUM 142 mmol/L (136-145)
--- NOTE | 2018-11-03 09:32 | PN ---
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 (short form) - Note 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: afebrile urine less bloody no suprapubic pain/no flank pain cont flomax hold ASA cont bladder irrigation renal sono to r/o hydronephrosis, if still present then will plan for cystoscopy/laser litho of ureteral stone on Problem List - Problems (1) Gross hematuria Code(s): R31.0 - GROSS HEMATURIA
[2018-11-03] MEDS: PANTOPRAZOLE 40 MG TABLET (FP) PO SCH (09:40)
[2018-11-03] MEDS: TAMSULOSIN HCL 0.4 MG CAP PO SCH (09:40)
[2018-11-03] MEDS: amLODIPine BESYLATE 5 MG TABLET (FP) PO SCH (09:40)
[2018-11-03] MEDS: POLYETHYLENE GLYCOL 3350 119 GM BTL PO SCH (09:40)
--- NOTE | 2018-11-03 09:54 | PN ---
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, Physician Chief Complaint: Pt sitting in bed in no acute distress. urine clearing up. denies any chest pain , sob, dysuria, flank pain, n/v/d - Current Medication List Current Medications: Active Medications Amlodipine Besylate (Norvasc -) 5 mg PO DAILY [facility] Last Admin: 11/03/18 09:40 Dose: 5 mg Atorvastatin Calcium (Lipitor -) 20 mg PO HS [facility] Last Admin: 11/02/18 22:26 Dose: 20 mg Sodium Chloride (Normal Saline -) 1,000 mls @ 100 mls/hr IV ASDIR [facility] Last Admin: 11/03/18 01:30 Dose: 100 mls/hr Metoprolol Succinate (Toprol Xl -) 50 mg PO DAILY [facility] Last Admin: 11/03/18 09:40 Dose: 50 mg Pantoprazole Sodium (Protonix -) 40 mg PO DAILY [facility] Last Admin: 11/03/18 09:40 Dose: 40 mg Polyethylene Glycol (Miralax (For Daily Use) -) 17 gm PO DAILY [facility] Last Admin: 11/03/18 09:40 Dose: 17 gm Tamsulosin HCl (Flomax -) 0.4 mg PO DAILY@0830 [facility] Last Admin: 11/03/18 09:40 Dose: 0.4 mg - Objective Vital Signs: Vital Signs Temperature 98.0 F 11/03/18 06:00 Pulse Rate 67 11/03/18 06:00 Respiratory Rate 20 11/03/18 06:00 Blood Pressure 155/60 11/03/18 06:00 O2 Sat by Pulse Oximetry (%) 94 L 11/02/18 21:00 Constitutional: Yes: Well Nourished, No Distress, Calm Respiratory: Yes: WNL, Regular, CTA Bilaterally. No: Accessory Muscle Use, SOB , Tachypnea, Wheezes Gastrointestinal: Yes: WNL, Normal Bowel Sounds, Soft, Abdomen, Obese. No: Distention, Tenderness Genitourinary: Yes: Galindo Present, Hematuria. No: Bladder Distention Extremities: Yes: WNL Edema: No Neurological: Yes: WNL, Alert, Oriented Psychiatric: Yes: WNL, Alert, Oriented Labs: CBC, BMP 11/03/18 06:00 11/03/18 06:00 Assessment/Plan (1) Gross hematuria Assessment/Plan: improving abd/pelvic ct- 5mm left UPJ stone w/ hydronephrosis hold asa saline irrigation q4hrs flomax renal us to assess hydronephrosis possible cystoscopy on urology following Code(s): R31.0 - GROSS HEMATURIA (2) Ureteral calculus, left Assessment/Plan: as above Code(s): N20.1 - CALCULUS OF URETER (3) 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 Assessment/Plan: as above renal function stable as above Code(s): N13.2 - HYDRONEPHROSIS WITH RENAL AND URETERAL CALCULOUS OBSTRUCTION (4) Leukocytosis Assessment/Plan: borderline elevation await infectious work up monitor for now Code(s): D72.829 - ELEVATED WHITE BLOOD CELL COUNT, UNSPECIFIED (5) CAD (coronary artery disease) Assessment/Plan: no acute ACS continue statin, hold asa Code(s): I25.10 - ATHSCL HEART DISEASE OF [place] CORONARY ARTERY W/O ANG PCTRS Qualifiers: Coronary Disease-Associated Artery/Lesion type: [place] artery [place] vs. transplanted heart: [place] heart Associated angina: without angina Qualified Code(s): I25.10 - Atherosclerotic heart disease of [place] coronary artery without angina pectoris (6) HTN (hypertension) Assessment/Plan: controlled continue metoprolol, amlodipine Code(s): I10 - ESSENTIAL (PRIMARY) HYPERTENSION Qualifiers: Hypertension type: essential hypertension Qualified Code(s): I10 - Essential (primary) hypertension (7) HLD (hyperlipidemia) Assessment/Plan: stable continue statin Code(s): E78.5 - HYPERLIPIDEMIA, UNSPECIFIED Dispo: home when urology cleared
[2018-11-03] MEDS ORDERED: amLODIPine BESYLATE 5 MG TABLET (FP) PO ONE (13:11)
[2018-11-03] MEDS: ATORVASTATIN CA 20 MG TABLET (FP) PO SCH (21:34)
[2018-11-04 06:13] LABS: BASO % 0.6 % (0-2.0); EOS % 3.7 % (0-4.5); HEMOGLOBIN 12.6 GM/dL (11.7-16.9); LYMPH % 15.1 % (8-40); MCHC 33.1 g/dl (32.0-35.9); MEAN CELL VOLUME 90.8 fl (80-96); MEAN PLT VOLUME 9.9 fl (7.5-11.1); MONO % 8.2 % (3.8-10.2); NEUT % 72.4 % (42.8-82.8); PLATELET COUNT 193 K/MM3 (134-434); RBC 4.19 M/mm3 (4.00-5.60); RDW 13.5 % (11.9-15.9); WHITE BLOOD COUNT 8.7 K/mm3 (4.0-10.0)
[2018-11-04 06:38] LABS: ANION GAP 7 MMOL/L (8-16); BLOOD UREA NITROGEN 12 mg/dL (7-18); CALCIUM 8.3 mg/dL (8.5-10.1); CHLORIDE 110 mmol/L (98-107); CO2 25 mmol/L (21-32); CREATININE 0.6 mg/dL (0.55-1.3); GLUCOSE,RANDOM 88 mg/dL (74-106); SODIUM 142 mmol/L (136-145)
[2018-11-04] MEDS: SODIUM CHLORIDE 1,000 ML IV SCH ×2 (06:39→21:23)
[2018-11-04] MEDS: TAMSULOSIN HCL 0.4 MG CAP PO SCH (09:00)
[2018-11-04] MEDS: amLODIPine BESYLATE 5 MG TABLET (FP) PO SCH (09:00)
[2018-11-04] MEDS: PANTOPRAZOLE 40 MG TABLET (FP) PO SCH (09:00)
[2018-11-04] MEDS: POLYETHYLENE GLYCOL 3350 119 GM BTL PO SCH (09:00)
--- NOTE | 2018-11-04 12:56 | PN ---
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, Physician Chief Complaint: Pt sitting in bed in no acute distress. still w/ hematuria. denies any chest pain, sob, dysuria, flank pain, n/v/d - Current Medication List Current Medications: Active Medications Amlodipine Besylate (Norvasc -) 5 mg PO DAILY [facility] Last Admin: 11/04/18 09:00 Dose: 5 mg Atorvastatin Calcium (Lipitor -) 20 mg PO HS [facility] Last Admin: 11/03/18 21:34 Dose: 20 mg Sodium Chloride (Normal Saline -) 1,000 mls @ 100 mls/hr IV ASDIR [facility] Last Admin: 11/04/18 06:39 Dose: 100 mls/hr Metoprolol Succinate (Toprol Xl -) 50 mg PO DAILY [facility] Last Admin: 11/04/18 09:00 Dose: 50 mg Pantoprazole Sodium (Protonix -) 40 mg PO DAILY [facility] Last Admin: 11/04/18 09:00 Dose: 40 mg Polyethylene Glycol (Miralax (For Daily Use) -) 17 gm PO DAILY [facility] Last Admin: 11/04/18 09:00 Dose: 17 gm Tamsulosin HCl (Flomax -) 0.4 mg PO DAILY@0830 [facility] Last Admin: 11/04/18 09:00 Dose: 0.4 mg - Objective Vital Signs: Vital Signs Temperature 97.9 F 11/04/18 08:58 Pulse Rate 72 11/04/18 08:58 Respiratory Rate 18 11/04/18 08:58 Blood Pressure 149/56 L 11/04/18 08:58 O2 Sat by Pulse Oximetry (%) 94 L 11/04/18 08:58 Constitutional: Yes: Well Nourished, No Distress, Calm Cardiovascular: Yes: Regular Rate and Rhythm, Murmur Respiratory: Yes: WNL, Regular, CTA Bilaterally. No: Accessory Muscle Use, Wheezes Gastrointestinal: Yes: WNL, Normal Bowel Sounds, Soft. No: Distention, Tenderness Genitourinary: Yes: Galindo Present, Hematuria Extremities: Yes: WNL Edema: No Neurological: Yes: WNL, Alert, Oriented Psychiatric: Yes: WNL, Alert, Oriented Labs: CBC, BMP 11/04/18 06:00 11/04/18 06:00 Assessment/Plan (1) Gross hematuria Assessment/Plan: persists renal us- no evidence of hydronephrosis hold asa saline irrigation q4hrs flomax cystoscopy tmrw urology following Code(s): R31.0 - GROSS HEMATURIA (2) Ureteral calculus, left Assessment/Plan: as above Code(s): N20.1 - CALCULUS OF URETER (3) 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 Assessment/Plan: as above renal function stable as above Code(s): N13.2 - HYDRONEPHROSIS WITH RENAL AND URETERAL CALCULOUS OBSTRUCTION (4) Leukocytosis Assessment/Plan: resolved infectious work up neg Code(s): D72.829 - ELEVATED WHITE BLOOD CELL COUNT, UNSPECIFIED (5) CAD (coronary artery disease) Assessment/Plan: no acute ACS continue statin, hold asa Code(s): I25.10 - ATHSCL HEART DISEASE OF [place] CORONARY ARTERY W/O ANG PCTRS Qualifiers: Coronary Disease-Associated Artery/Lesion type: [place] artery [place] vs. transplanted heart: [place] heart Associated angina: without angina Qualified Code(s): I25.10 - Atherosclerotic heart disease of [place] coronary artery without angina pectoris (6) HTN (hypertension) Assessment/Plan: controlled continue metoprolol, amlodipine Code(s): I10 - ESSENTIAL (PRIMARY) HYPERTENSION Qualifiers: Hypertension type: essential hypertension Qualified Code(s): I10 - Essential (primary) hypertension (7) HLD (hyperlipidemia) Assessment/Plan: stable continue statin Code(s): E78.5 - HYPERLIPIDEMIA, UNSPECIFIED Dispo: home when urology cleared
--- NOTE | 2018-11-04 15:47 | EKG ---
Test Reason : Blood Pressure : / mmHG Vent. Rate : 065 BPM Atrial Rate : 065 BPM P-R Int : 194 ms QRS Dur : 116 ms QT Int : 408 ms P-R-T Axes : 020 -29 008 degrees QTc Int : 424 ms NORMAL SINUS RHYTHM LEFT VENTRICULAR HYPERTROPHY WITH QRS WIDENING ABNORMAL ECG WHEN COMPARED WITH ECG OF 29-OCT-2018 12:28, NO SIGNIFICANT CHANGE WAS FOUND Confirmed by MUSA BERNARD, MICHEL ([id number]) on 11/04/2018 3:46:31 PM Referred By: Abdulaziz BOLES Confirmed By:MICHEL VIGIL MD
--- NOTE | 2018-11-04 16:47 | CON.CARD ---
Cardiology Consult (text) - Consultation Consultation Note: cc: hematuria hpi: 83 m hx htn,hld, prostate ca s/p xrt/seeds, here with hematuria. No hx hrt dz, no cp sob palps dizzy loc pnd orthopnea le edema. Going for cysto/ laser litho of stone tomorrow. pmh: per hpi psh: hernia social: no tob fam: no premature cad ros: per hpi; no nvd fever cough sung vision changes gib wt loss meds: Home Medications Medication Instructions Recorded Omeprazole [Prilosec (RX)] 20 mg PO DAILY #0 capsule.dr 07/13/13 Simvastatin [Zocor -] 40 mg PO HS #0 tablet 07/13/13 Tamsulosin HCl [Flomax -] 0.4 mg PO DAILY #0 cap.er.24h 07/13/13 Aspirin [ASA -] 81 mg PO DAILY 11/09/15 Multivitamins [Multivit ([facility] 1 tab PO DAILY 11/09/15 Formulary)] Polyethylene Glycol 3350 [Miralax 17 gm PO DAILY 11/09/15 119 gm Btl -] Psyllium Husk (with Sugar) 3.4 gm PO HS 11/09/15 [Metamucil Packet] Amlodipine Besylate 5 mg PO DAILY 10/29/18 Fenofibrate Nanocrystallized 160 mg PO DAILY 10/29/18 [Tricor] Metoprolol Succinate [Toprol Xl] 50 mg PO DAILY 10/29/18 pe: Vital Signs Period Temp Pulse Resp BP Sys/Donadl Pulse Ox Last 24 Hr 97.3 F-98.2 F 62-72 16-18 131-154/43-67 94-94 nad no jvd rrr s1s2 no mrg cta bl nl eff aaox3 no le e/c/c abd nt nd pos bs no jaundice diaphoresis pos dp pt no carotid bruits Laboratory Last Values WBC 8.7 K/mm3 (4.0-10.0) 11/04/18 06:00 RBC 4.19 M/mm3 (4.00-5.60) 11/04/18 06:00 Hgb 12.6 GM/dL (11.7-16.9) 11/04/18 06:00 Hct 38.0 % (35.4-49) 11/04/18 06:00 MCV 90.8 fl (80-96) 11/04/18 06:00 MCH 30.0 pg (25.7-33.7) 11/04/18 06:00 MCHC 33.1 g/dl (32.0-35.9) 11/04/18 06:00 RDW 13.5 % (11.9-15.9) 11/04/18 06:00 Plt Count 193 K/MM3 (134-434) 11/04/18 06:00 MPV 9.9 fl (7.5-11.1) 11/04/18 06:00 Absolute Neuts (auto) 6.3 K/mm3 (1.5-8.0) 11/04/18 06:00 Neutrophils % 72.4 % (42.8-82.8) 11/04/18 06:00 Lymphocytes % 15.1 % (8-40) 11/04/18 06:00 Monocytes % 8.2 % (3.8-10.2) 11/04/18 06:00 Eosinophils % 3.7 % (0-4.5) 11/04/18 06:00 Basophils % 0.6 % (0-2.0) 11/04/18 06:00 Nucleated RBC % 0 % (0-0) 11/04/18 06:00 Sodium 142 mmol/L (136-145) 11/04/18 06:00 Potassium 4.0 mmol/L (3.5-5.1) 11/04/18 06:00 Chloride 110 mmol/L (98-107) H 11/04/18 06:00 Carbon Dioxide 25 mmol/L (21-32) 11/04/18 06:00 Anion Gap 7 MMOL/L (8-16) L 11/04/18 06:00 BUN 12 mg/dL (7-18) 11/04/18 06:00 Creatinine 0.6 mg/dL (0.55-1.3) 11/04/18 06:00 Creat Clearance w eGFR > 60 (>60) 11/04/18 06:00 Random Glucose 88 mg/dL (74-106) 11/04/18 06:00 Calcium 8.3 mg/dL (8.5-10.1) L 11/04/18 06:00 Total Bilirubin 0.5 mg/dL (0.2-1) 01/03/19 09:30 AST 22 U/L (15-37) 10/29/18 09:30 ALT 21 U/L (13-61) 10/29/18 09:30 Alkaline Phosphatase 48 U/L (45-117) 10/29/18 09:30 Total Protein 7.2 g/dl (6.4-8.2) 10/29/18 09:30 Albumin 3.8 g/dl (3.4-5.0) 10/29/18 09:30 Urine Color Red 10/29/18 13:20 Urine Appearance Cloudy 10/29/18 13:20 Urine pH 8.0 (5.0-8.0) 10/29/18 13:20 Ur Specific [place] 1.012 (1.010-1.035) 10/29/18 13:20 Urine Protein 2+ (NEGATIVE) H 10/29/18 13:20 Urine Glucose (UA) Negative (NEGATIVE) 10/29/18 13:20 Urine Ketones Negative (NEGATIVE) 10/29/18 13:20 Urine Blood 3+ (NEGATIVE) H 10/29/18 13:20 Urine Nitrite Negative (NEGATIVE) 10/29/18 13:20 Urine Bilirubin Negative (<2.0 mg/dL) 10/29/18 13:20 Urine Urobilinogen Negative mg/dL (0.2-1.0) 10/29/18 13:20 Ur Leukocyte Esterase Negative (NEGATIVE) 10/29/18 13:20 Urine WBC (Auto) 5 /hpf (3-5) 10/29/18 13:20 Urine RBC (Auto) 2067 /hpf (0-3) 10/29/18 13:20 echo 03/2012: nl lvef, mild ar ecg: sr, nl intervals, no ischemic changes, no sig change priors a/p: 83 m hx htn,hld, prostate ca s/p xrt/seeds, here with hematuria. htn: -cont toprol, norvasc hld: -cont statin hematuria: -gu following -no cardiac contraindications to planned cysto/laser litho.
[2018-11-04] MEDS: ATORVASTATIN CA 20 MG TABLET (FP) PO SCH (21:23)
[2018-11-05 06:15] LABS: BASO % 0.6 % (0-2.0); HEMATOCRIT 37.9 % (35.4-49); HEMOGLOBIN 12.5 GM/dL (11.7-16.9); LYMPH % 13.5 % (8-40); MCH 29.7 pg (25.7-33.7); MCHC 32.9 g/dl (32.0-35.9); MEAN CELL VOLUME 90.2 fl (80-96); MONO % 8.2 % (3.8-10.2); NEUT % 73.7 % (42.8-82.8); PLATELET COUNT 207 K/MM3 (134-434); RDW 13.5 % (11.9-15.9); WHITE BLOOD COUNT 9.4 K/mm3 (4.0-10.0)
[2018-11-05 06:45] LABS: ANION GAP 6 MMOL/L (8-16); BLOOD UREA NITROGEN 12 mg/dL (7-18); CALCIUM 8.2 mg/dL (8.5-10.1); CHLORIDE 108 mmol/L (98-107); CO2 25 mmol/L (21-32); CREATININE 0.6 mg/dL (0.55-1.3); GLUCOSE,RANDOM 83 mg/dL (74-106); SODIUM 139 mmol/L (136-145)
[2018-11-05] MEDS: SODIUM CHLORIDE 1,000 ML IV SCH (06:45)
[2018-11-05] MEDS: amLODIPine BESYLATE 5 MG TABLET (FP) PO SCH (09:27)
[2018-11-05] MEDS: TAMSULOSIN HCL 0.4 MG CAP PO SCH (09:28)
[2018-11-05] MEDS: PANTOPRAZOLE 40 MG TABLET (FP) PO SCH (09:28)
[2018-11-05] MEDS: POLYETHYLENE GLYCOL 3350 119 GM BTL PO SCH (09:28)
--- NOTE | 2018-11-05 11:27 | PN ---
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 (short form) - Note 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: s: no cp sob palps dizzy o: Vital Signs Period Temp Pulse Resp BP Sys/Donald Pulse Ox Last 24 Hr 97.9 F-98.6 F 63-73 16-20 131-169/43-71 94 nad no jvd rrr s1s2 no mrg cta bl nl eff aaox3 no le e/c/c abd nt nd pos bs no jaundice diaphoresis Current Medications Generic Name Dose Route Start Last Admin Trade Name Freq PRN Reason Stop Dose Admin Amlodipine Besylate 5 mg 10/29/18 16:15 11/05/18 09:27 Norvasc - PO 5 mg DAILY SHELLIE Administration Atorvastatin Calcium 20 mg 10/29/18 22:00 11/04/18 21:23 Lipitor - PO 20 mg HS SHELLIE Administration Sodium Chloride 1,000 mls @ 100 mls/hr 10/30/18 16:45 11/05/18 06:45 Normal Saline - IV 100 mls/hr ASDIR SHELLIE Administration Metoprolol Succinate 50 mg 10/29/18 16:30 11/05/18 09:27 Toprol Xl - PO 50 mg DAILY SHELLIE Administration Pantoprazole Sodium 40 mg 10/31/18 16:00 11/05/18 09:28 Protonix - PO Not Given DAILY [facility] Polyethylene Glycol 17 gm 10/30/18 10:00 11/05/18 09:28 Miralax (For Daily Use) - PO Not Given DAILY [facility] Tamsulosin HCl 0.4 mg 10/29/18 13:29 11/05/18 09:28 Flomax - PO Not Given DAILY@0830 [facility] CBC, BMP 11/05/18 05:55 11/05/18 05:55 echo 03/2012: nl lvef, mild ar ecg: sr, nl intervals, no ischemic changes, no sig change priors a/p: 83 m hx htn,hld, prostate ca s/p xrt/seeds, here with hematuria. htn: -cont toprol, norvasc hld: -cont statin hematuria: -gu following -no cardiac contraindications to planned cysto/laser litho.
--- NOTE | 2018-11-05 11:33 | PN ---
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, Physician Chief Complaint: Pt sitting in bed in no acute distress. still w/ hematuria. denies any chest pain, sob, dysuria, flank pain, n/v/d - Current Medication List Current Medications: Active Medications Amlodipine Besylate (Norvasc -) 5 mg PO DAILY [facility] Last Admin: 11/05/18 09:27 Dose: 5 mg Atorvastatin Calcium (Lipitor -) 20 mg PO HS [facility] Last Admin: 11/04/18 21:23 Dose: 20 mg Sodium Chloride (Normal Saline -) 1,000 mls @ 100 mls/hr IV ASDIR [facility] Last Admin: 11/05/18 06:45 Dose: 100 mls/hr Metoprolol Succinate (Toprol Xl -) 50 mg PO DAILY [facility] Last Admin: 11/05/18 09:27 Dose: 50 mg Pantoprazole Sodium (Protonix -) 40 mg PO DAILY [facility] Last Admin: 11/05/18 09:28 Dose: Not Given Polyethylene Glycol (Miralax (For Daily Use) -) 17 gm PO DAILY [facility] Last Admin: 11/05/18 09:28 Dose: Not Given Tamsulosin HCl (Flomax -) 0.4 mg PO DAILY@0830 [facility] Last Admin: 11/05/18 09:28 Dose: Not Given - Objective Vital Signs: Vital Signs Temperature 98.6 F 11/05/18 09:25 Pulse Rate 68 11/05/18 09:25 Respiratory Rate 20 11/05/18 09:25 Blood Pressure 169/65 11/05/18 09:25 O2 Sat by Pulse Oximetry (%) 94 L 11/04/18 21:00 Constitutional: Yes: Well Nourished, No Distress, Calm Cardiovascular: Yes: Regular Rate and Rhythm, Murmur Respiratory: Yes: WNL, Regular, CTA Bilaterally. No: Accessory Muscle Use, Poor Air Entry, Rhonchi, SOB, SOB on Exertion, Tachypnea, Wheezes Gastrointestinal: Yes: WNL, Normal Bowel Sounds, Soft, Abdomen, Obese. No: Distention, Tenderness Genitourinary: Yes: Galindo Present, Hematuria Extremities: Yes: WNL Edema: No Neurological: Yes: WNL, Alert, Oriented Psychiatric: Yes: WNL, Alert, Oriented Labs: CBC, BMP 11/05/18 05:55 11/05/18 05:55 Assessment/Plan (1) Gross hematuria Assessment/Plan: persists renal us- no evidence of hydronephrosis hold asa saline irrigation q4hrs flomax cystoscopy today urology following Code(s): R31.0 - GROSS HEMATURIA (2) Ureteral calculus, left Assessment/Plan: as above Code(s): N20.1 - CALCULUS OF URETER (3) 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 Assessment/Plan: as above renal function stable as above Code(s): N13.2 - HYDRONEPHROSIS WITH RENAL AND URETERAL CALCULOUS OBSTRUCTION (4) Leukocytosis Assessment/Plan: ruled out Code(s): D72.829 - ELEVATED WHITE BLOOD CELL COUNT, UNSPECIFIED (5) CAD (coronary artery disease) Assessment/Plan: no acute ACS continue statin, hold asa Code(s): I25.10 - ATHSCL HEART DISEASE OF [place] CORONARY ARTERY W/O ANG PCTRS Qualifiers: Coronary Disease-Associated Artery/Lesion type: [place] artery [place] vs. transplanted heart: [place] heart Associated angina: without angina Qualified Code(s): I25.10 - Atherosclerotic heart disease of [place] coronary artery without angina pectoris (6) HTN (hypertension) Assessment/Plan: controlled continue metoprolol, amlodipine Code(s): I10 - ESSENTIAL (PRIMARY) HYPERTENSION Qualifiers: Hypertension type: essential hypertension Qualified Code(s): I10 - Essential (primary) hypertension (7) HLD (hyperlipidemia) Assessment/Plan: stable continue statin Code(s): E78.5 - HYPERLIPIDEMIA, UNSPECIFIED Dispo: home when urology cleared
[2018-11-05] MEDS ORDERED: amLODIPine BESYLATE 5 MG TABLET (FP) PO ONE (11:45)
[2018-11-05] MEDS ORDERED: LIDOCAINE HCL 2% JELLY 10 ML CARTRIDGE ONE (12:47)
[2018-11-05] MEDS ORDERED: ceFAZolin SODIUM 1 GM VIAL IVPB ONE ×2 (13:08)
[2018-11-05] MEDS ORDERED: ceFAZolin SODIUM 1 GM VIAL ONE (13:08)
[2018-11-05] MEDS ORDERED: IOHEXOL 300 MG/ML INFUS..BTL IV ONE (13:11)
[2018-11-05] MEDS ORDERED: LIDOCAINE HCL 2% JELLY 10 ML CARTRIDGE TP ONE (13:34)
--- NOTE | 2018-11-05 13:41 | OP ---
Operative Note - Note: Operative Date: 11/05/18 Pre-Operative Diagnosis: hematuria/left ureteral stone Operation: cysto/evac of clots/left ureteroscopy/laser litho Post-Operative Diagnosis: Same as Pre-op Surgeon: Tevin Huston Anesthesia: General Operative Report Dictated: Yes
[2018-11-05] MEDS ORDERED: oxyCODONE HCL 5 MG TABLET PO PRN (13:54)
[2018-11-05] MEDS ORDERED: PROMETHAZINE HCL 25 MG/1 ML VIAL IVPUSH PRN (13:54)
[2018-11-05] MEDS ORDERED: ONDANSETRON 4 MG/2 ML VIAL IVPUSH PRN (13:54)
--- NOTE | 2018-11-05 14:29 | OP ---
DATE OF OPERATION: DATE OF DICTATION: 11/05/2018 PREOPERATIVE DIAGNOSIS: Gross hematuria and left ureteral stone. POSTOPERATIVE DIAGNOSIS: Gross hematoma and left ureteral stone. PROCEDURE: Cystoscopy, evacuation of clots, left ureteroscopy, laser lithotripsy, and stent placement. SURGEON: Tevin Huston MD INDICATION: The patient is an 83-year-old male with a history of prostate cancer, status post radioactive seeds in the past now with persistent post hematuria and CT findings of a 5-mm obstructing stone in the left kidney taken to the OR for an ureteroscopy, laser lithotripsy, and cystoscopy. DESCRIPTION OF PROCEDURE: The patient was taken to the OR, laid supine on the operating table. After cardiac monitoring administered, general anesthesia was established and he was prepped and draped in the dorsal lithotomy position. The 22-sheath [place] cystoscope was inserted without difficulty the normal prosthetic urethra was erythematous and indicative of recent bleeding. The bladder was visualized and there were several clots noted in the bladder and these were evacuated with the Bragster evacuator but no tumors or stones were noted in the bladder. Attention was turned to the left ureteral orifice and this was intubated with a ureteral catheter. Contrast was injected for a retrograde pyelogram. There was hydronephrosis to the level of the proximal ureter where the stone was seen. A guidewire was advanced and a dual lumen catheter was then advanced and then the second guidewire was advanced to the level of the stone. Over the second guidewire a flexible ureteroscope was advanced to the level of the some. The stone was seen in the ureter, it was pulverized to a fine dust in 1 to 2 mm fragments with the Holmium laser fiber until the whole stone was fragmented. Repeat ureteroscopy revealed no evidence of any residual stone fragments. The ureteroscope was then removed and a 7-[place]omb[place] 24-cm double-tip pigtail stent was then advanced in a monorail fashion. Fluoroscopy confirmed the stent to be in a good position. The patient was then awoken from anesthesia and transferred to the recovery room in stable condition. There were no complications. ESTIMATED BLOOD LOSS: Minimal. Ronny [id number]
--- NOTE | 2018-11-06 08:39 | PN ---
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 (short form) - Note 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: POD #1 - s/p cysto/laser lithotripsy/stent placement. VSS. Pt. doing well, resting comfortably in bed. No complaints. No apparent anesthetic complications noted. Continue current care.
[2018-11-06] MEDS: amLODIPine BESYLATE 5 MG TABLET (FP) PO SCH (09:58)
[2018-11-06] MEDS: TAMSULOSIN HCL 0.4 MG CAP PO SCH (09:58)
[2018-11-06] MEDS ORDERED: amLODIPine BESYLATE 5 MG TABLET (FP) PO SCH (10:00)
--- NOTE | 2018-11-06 10:11 | PN ---
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, Physician Chief Complaint: Pt sitting in bed in no acute distress. still w/ hematuria. denies any chest pain, sob, dysuria, flank pain, n/v/d - Current Medication List Current Medications: Active Medications Amlodipine Besylate (Norvasc -) 5 mg PO DAILY [facility] Last Admin: 11/06/18 09:58 Dose: 5 mg Metoprolol Succinate (Toprol Xl -) 50 mg PO DAILY [facility] Last Admin: 11/06/18 09:58 Dose: 50 mg Oxycodone HCl (Roxicodone -) 5 mg PO Q4H PRN PRN Reason: PAIN LEVEL 1-5 Stop: 11/06/18 13:53 Tamsulosin HCl (Flomax -) 0.4 mg PO DAILY@0830 [facility] Last Admin: 11/06/18 09:58 Dose: 0.4 mg - Objective Vital Signs: Vital Signs Temperature 98.1 F 11/05/18 22:00 Pulse Rate 69 11/05/18 22:00 Respiratory Rate 18 11/05/18 22:00 Blood Pressure 134/54 L 11/05/18 22:00 O2 Sat by Pulse Oximetry (%) 95 11/05/18 21:00 Constitutional: Yes: Well Nourished, No Distress, Calm Cardiovascular: Yes: Regular Rate and Rhythm, Murmur Respiratory: Yes: WNL, Regular, CTA Bilaterally. No: Accessory Muscle Use, SOB , Tachypnea, Wheezes Gastrointestinal: Yes: WNL, Normal Bowel Sounds, Soft. No: Distention, Tenderness Genitourinary: Yes: Galindo Present, Hematuria Extremities: Yes: WNL Edema: No Neurological: Yes: WNL, Alert, Oriented Psychiatric: Yes: WNL, Alert, Oriented Labs: CBC, BMP 11/05/18 05:55 11/05/18 05:55 Assessment/Plan (1) Gross hematuria Assessment/Plan: persists, slight improvement s/p cystoscopy/stent hold asa saline irrigation q4hrs flomax urology following Code(s): R31.0 - GROSS HEMATURIA (2) Ureteral calculus, left Assessment/Plan: as above Code(s): N20.1 - CALCULUS OF URETER (3) 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 Assessment/Plan: as above renal function stable Code(s): N13.2 - HYDRONEPHROSIS WITH RENAL AND URETERAL CALCULOUS OBSTRUCTION (4) Leukocytosis Assessment/Plan: ruled out Code(s): D72.829 - ELEVATED [place] BLOOD CELL COUNT, UNSPECIFIED (5) CAD (coronary artery disease) Assessment/Plan: no acute ACS continue statin, hold asa Code(s): I25.10 - ATHSCL HEART DISEASE OF [place] CORONARY ARTERY W/O ANG PCTRS Qualifiers: Coronary Disease-Associated Artery/Lesion type: [place] artery [place] vs. transplanted heart: [place] heart Associated angina: without angina Qualified Code(s): I25.10 - Atherosclerotic heart disease of [place] coronary artery without angina pectoris (6) HTN (hypertension) Assessment/Plan: controlled continue metoprolol, amlodipine Code(s): I10 - ESSENTIAL (PRIMARY) HYPERTENSION Qualifiers: Hypertension type: essential hypertension Qualified Code(s): I10 - Essential (primary) hypertension (7) HLD (hyperlipidemia) Assessment/Plan: stable continue statin Code(s): E78.5 - HYPERLIPIDEMIA, UNSPECIFIED Dispo: home when urology cleared, left message for to call back, has not received a response
--- NOTE | 2018-11-06 15:14 | PN ---
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 (short form) - Note 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: - Note 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: s: no cp sob palps dizzy, s/p cysto/stent. +hematuria o: Vital Signs Period Temp Pulse Resp BP Sys/Donald Pulse Ox Last 24 Hr 97.7 F-98.5 F 63-69 16-20 134-155/54-68 94-99 nad no jvd rrr s1s2 no mrg cta bl nl eff aaox3 no le e/c/c abd nt nd pos bs no jaundice diaphoresis Current Medications Amlodipine Besylate (Norvasc -) 5 mg PO DAILY [facility] Last Admin: 11/06/18 09:58 Dose: 5 mg Metoprolol Succinate (Toprol Xl -) 50 mg PO DAILY [facility] Last Admin: 11/06/18 09:58 Dose: 50 mg Tamsulosin HCl (Flomax -) 0.4 mg PO DAILY@0830 [facility] Last Admin: 11/06/18 09:58 Dose: 0.4 mg echo 03/2012: nl lvef, mild ar ecg: sr, nl intervals, no ischemic changes, no sig change priors a/p: 83 m hx htn,hld, prostate ca s/p xrt/seeds, here with hematuria. htn: -cont toprol, norvasc hld: -cont statin hematuria: -gu following, holding home aspirin - s/p cystoscopy/stent
--- NOTE | 2018-11-06 15:31 | DS ---
Physical Examination Vital Signs: Vital Signs Temperature 97.7 F 11/06/18 14:18 Pulse Rate 64 11/06/18 14:18 Respiratory Rate 18 11/06/18 14:18 Blood Pressure 153/57 L 11/06/18 14:18 O2 Sat by Pulse Oximetry (%) 95 11/06/18 09:00 Labs: CBC, BMP 11/05/18 05:55 11/05/18 05:55 Discharge Summary Reason For Visit: HEMATURIA Current Active Problems CAD (coronary artery disease) (Acute) Gross hematuria (Acute) HLD (hyperlipidemia) (Acute) HTN (hypertension) (Acute) Hematuria (Acute) 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 (Acute) Left nephrolithiasis (Acute) Leukocytosis (Acute) Ureteral calculus, left (Acute) Hospital Course: 83 year old male pmh of prostate ca s/p xrt/implanted seed, admitted for evaluation of hematuria and acute urinary retention. UA/UC negative. Acute urinary retention resolved s/p batres. Hematuria persisted, abd/pelvic CT revealed 5mm left UPJ stone w/ hydronephrosis. Repeat Renal US revealed b/l nephrolithiasis w/ no signs of hydronephrosis. pt underwent cystoscopy/stent placement yesterday, source of bleeding appears from prostate per urology. Case discussed w/ urology and pt has been cleared for discharge home with batres. Otherwise, pt has remained stable throughout his stay, vitals stable, labs unremarkable. Advise follow up with urology on Friday. Pt is medically stable for discharge home Condition: Good - Instructions Diet, Activity, Other Instructions: hold aspirin batres care f/u as directed Referrals: Tevin Huston MD [Staff Physician] - 11/09/18 Osmin Rhodes MD [Primary Care Provider] - 1 Week Disposition: VNS/HOME HEALTH CARE - Home Medications Comprehensive Discharge Medication List: Ambulatory Orders Omeprazole [Prilosec (RX)] 20 mg PO DAILY #0 capsule. 07/13/13 Simvastatin [Zocor -] 40 mg PO HS #0 tablet 07/13/13 Tamsulosin HCl [Flomax -] 0.4 mg PO DAILY #0 cap.er.24h 07/13/13 Multivitamins [Multivit ([facility] Formul[facility])] 1 tab PO DAILY 11/09/15 Polyethylene Glycol 3350 [Miralax 119 gm Btl -] 17 gm PO DAILY 11/09/15 Psyllium Husk (with Sugar) [Metamucil Packet] 3.4 gm PO HS 11/09/15 Amlodipine Besylate 5 mg PO DAILY 10/29/18 Fenofibrate Nanocrystallized [Tricor] 160 mg PO DAILY 10/29/18 Metoprolol Succinate [Toprol Xl] 50 mg PO DAILY 10/29/18
[2018-11-07] MEDS: TAMSULOSIN HCL 0.4 MG CAP PO SCH (08:18)
[2018-11-07] MEDS: amLODIPine BESYLATE 5 MG TABLET (FP) PO SCH (09:18)
--- NOTE | 2018-11-07 10:19 | PN ---
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 (short form) - Note 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: s: no cp sob palps dizzy o: Vital Signs Period Temp Pulse Resp BP Sys/Donald Pulse Ox Last 24 Hr 97.7 F-98.3 F 64-79 16-20 139-153/54-63 95 nad no jvd rrr s1s2 no mrg cta bl nl eff aaox3 no le e/c/c abd nt nd pos bs no jaundice diaphoresis Current Medications Generic Name Dose Route Start Last Admin Trade Name Freq PRN Reason Stop Dose Admin Amlodipine Besylate 5 mg 11/06/18 10:00 11/07/18 09:18 Norvasc - PO 5 mg DAILY SHELLIE Administration Metoprolol Succinate 50 mg 11/06/18 10:00 11/07/18 09:18 Toprol Xl - PO 50 mg DAILY SHELLIE Administration Tamsulosin HCl 0.4 mg 11/06/18 09:19 11/07/18 08:18 Flomax - PO 0.4 mg DAILY@0830 SHELLIE Administration CBC, BMP 11/05/18 05:55 11/05/18 05:55 echo 03/2012: nl lvef, mild ar ecg: sr, nl intervals, no ischemic changes, no sig change priors a/p: 83 m hx htn,hld, prostate ca s/p xrt/seeds, here with hematuria. htn: -cont toprol, norvasc hld: -cont statin hematuria, renal stone: -s/p ureter stent -gu following
--- NOTE | 2018-11-07 15:58 | PN ---
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, Physician Chief Complaint: Mr Trammell is without complaint. Denies cp, sob, n/v. - Current Medication List Current Medications: Active Medications Amlodipine Besylate (Norvasc -) 5 mg PO DAILY [facility] Last Admin: 11/07/18 09:18 Dose: 5 mg Metoprolol Succinate (Toprol Xl -) 50 mg PO DAILY [facility] Last Admin: 11/07/18 09:18 Dose: 50 mg Tamsulosin HCl (Flomax -) 0.4 mg PO DAILY@0830 [facility] Last Admin: 11/07/18 08:18 Dose: 0.4 mg - Objective Vital Signs: Vital Signs Temperature 36.8 C 11/07/18 14:53 Pulse Rate 69 11/07/18 14:53 Respiratory Rate 18 11/07/18 14:53 Blood Pressure 135/54 L 11/07/18 14:53 O2 Sat by Pulse Oximetry (%) 95 11/07/18 09:00 Constitutional: Yes: Well Nourished, No Distress, Calm Cardiovascular: Yes: Regular Rate and Rhythm. No: Gallop, Murmur, Rub Respiratory: Yes: Regular, CTA Bilaterally. No: Rales, Rhonchi, Wheezes Gastrointestinal: Yes: Normal Bowel Sounds, Soft. No: Distention, Tenderness Extremities: Yes: WNL Edema: No Labs: CBC, BMP 11/05/18 05:55 11/05/18 05:55 Problem List - Problems (1) Gross hematuria Code(s): R31.0 - GROSS HEMATURIA (2) Ureteral calculus, left Code(s): N20.1 - CALCULUS OF URETER (3) 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 Code(s): N13.2 - HYDRONEPHROSIS WITH RENAL AND URETERAL CALCULOUS OBSTRUCTION (4) CAD (coronary artery disease) Code(s): I25.10 - ATHSCL HEART DISEASE OF [place] CORONARY ARTERY W/O ANG PCTRS Qualifiers: Coronary Disease-Associated Artery/Lesion type: [place] artery [place] vs. transplanted heart: [place] heart Associated angina: without angina Qualified Code(s): I25.10 - Atherosclerotic heart disease of [place] coronary artery without angina pectoris (5) HLD (hyperlipidemia) Code(s): E78.5 - HYPERLIPIDEMIA, UNSPECIFIED (6) HTN (hypertension) Code(s): I10 - ESSENTIAL (PRIMARY) HYPERTENSION Qualifiers: Hypertension type: essential hypertension Qualified Code(s): I10 - Essential (primary) hypertension Assessment/Plan -continue current management -seen by PT today per family request -discharge order in place, family will pick patient up in the morning
[2018-11-08] MEDS: TAMSULOSIN HCL 0.4 MG CAP PO SCH (08:42)
[2018-11-08] MEDS: amLODIPine BESYLATE 5 MG TABLET (FP) PO SCH (09:00)
--- NOTE | 2018-11-08 12:59 | DS ---
Physical Examination Vital Signs: Vital Signs Temperature 36.7 C 11/08/18 06:00 Pulse Rate 75 11/08/18 06:00 Respiratory Rate 20 11/08/18 06:00 Blood Pressure 147/71 11/08/18 06:00 O2 Sat by Pulse Oximetry (%) 96 11/07/18 21:00 Constitutional: Yes: Well Nourished, No Distress, Calm Cardiovascular: Yes: Regular Rate and Rhythm. No: Gallop, Murmur, Rub Respiratory: Yes: Regular, CTA Bilaterally. No: Rales, Rhonchi, Wheezes Gastrointestinal: Yes: Normal Bowel Sounds, Soft. No: Distention, Tenderness Renal/: Yes: Batres Present Extremities: Yes: WNL Edema: No Labs: CBC, BMP 11/05/18 05:55 11/05/18 05:55 Discharge Summary Reason For Visit: HEMATURIA Current Active Problems CAD (coronary artery disease) (Acute) Gross hematuria (Acute) HLD (hyperlipidemia) (Acute) HTN (hypertension) (Acute) Hematuria (Acute) 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 (Acute) Left nephrolithiasis (Acute) Leukocytosis (Acute) Ureteral calculus, left (Acute) Hospital Course: Please refer to discharge summary dictated on 11/06 for full course. Discharge was disputed and family requested PT to see. PT came and saw the patient, recommended rolling walker. This was ordered. Discharge has been approved. Condition: Good - Instructions Diet, Activity, Other Instructions: hold aspirin batres care f/u as directed Referrals: Tevin Huston MD [Staff Physician] - 11/09/18 Osmin Rhodes MD [Primary Care Provider] - 1 Week Disposition: VNS/HOME HEALTH CARE - Home Medications Comprehensive Discharge Medication List: Ambulatory Orders Omeprazole [Prilosec (RX)] 20 mg PO DAILY #0 capsule.dr 07/13/13 Simvastatin [Zocor -] 40 mg PO HS #0 tablet 07/13/13 Tamsulosin HCl [Flomax -] 0.4 mg PO DAILY #0 cap.er.24h 07/13/13 Multivitamins [Multivit ([facility] Formul[facility])] 1 tab PO DAILY 11/09/15 Polyethylene Glycol 3350 [Miralax 119 gm Btl -] 17 gm PO DAILY 11/09/15 Psyllium Husk (with Sugar) [Metamucil Packet] 3.4 gm PO HS 11/09/15 Amlodipine Besylate 5 mg PO DAILY 10/29/18 Fenofibrate Nanocrystallized [Tricor] 160 mg PO DAILY 10/29/18 Metoprolol Succinate [Toprol Xl] 50 mg PO DAILY 10/29/18 Osvaldo [Ultra-Light Rollator] 1 each ASDIR #1 each 11/08/18
[2018-11-08 16:11] VITALS: BP 152/56; PULSE 73; TEMP 98.2
== END 2018-11-08 15:32 | disposition home health service (06) | DRG 670 ==
LOC: JER 09:13 → JERBED 11:56 → J4S 18:13 → OBSVTOIN 10-30 16:27
PROVIDERS: ADMIT Hospitalist; ATTEND Nurse Practitioner Family
PROC: 3C1ZX8Z Irrigation of Indwelling Device using Irrigating Substance, External Approach (ICD-10-PCS; 2018-10-30)
PROC: 0TC78ZZ Extirpation of Matter from Left Ureter, Via Natural or Artificial Opening Endoscopic (ICD-10-PCS; principal; 2018-11-05 12:00)
PROC: BT1DZZZ Fluoroscopy of Right Kidney, Ureter and Bladder (ICD-10-PCS; 2018-11-05 12:00)
PROC: 0TCB8ZZ Extirpation of Matter from Bladder, Via Natural or Artificial Opening Endoscopic (ICD-10-PCS; 2018-11-05 12:00)
DX: N13.2 Hydronephrosis with renal and ureteral calculous obstruction (principal); R31.0 Gross hematuria; I25.10 Atherosclerotic heart disease of native coronary artery without angina pectoris; I10 Essential (primary) hypertension; E78.5 Hyperlipidemia, unspecified; K57.30 Diverticulosis of large intestine without perforation or abscess without bleeding; Z85.46 Personal history of malignant neoplasm of prostate; M10.9 Gout, unspecified; D51.9 Vitamin B12 deficiency anemia, unspecified; D72.829 Elevated white blood cell count, unspecified
CPT/HCPCS: 36415; 74018-TC-FY; 74178-TC; 76000-TC-FY; 76775-TC; 80048; 80053; 81003; 81015; 85025; 87086; 93005; 93010; 94760; 97116-GP; 99283-25; G0378; J7030

== ENCOUNTER 2018-11-20 03:28 | Emergency (ER) | payer OTHER, MEDICARE ==
[2018-11-20 03:43] VITALS: TEMP 97.7; BMI 23.7
--- NOTE | 2018-11-20 04:01 | PDOC ---
History of Present Illness - General Chief Complaint: Urinary Problem Stated Complaint: PCP SENT - History of Present Illness Initial Comments: 11/20/18 04:11 83M pmh of prostate CA s/p rad therapy/seed sent by Dr Huston fore urinary retention. Pt has been having recurrent and worsening episodes of obstruction 2 /2 prostate. He states that he just recently had an indwelling catheter removed with good UOP. This evening, his UOP decreased to a trickle and then stopped completely around 10pm. By 2am he was distended and very uncomfortable. No n/v, sob, cp, f/c, sick contacts, recent travel Past History - Past Medical History Allergies/Adverse Reactions: Allergies Allergy/AdvReac Type Severity Reaction Status Date / Time No Known Allergies Allergy Verified 11/20/18 03:42 Home Medications: Ambulatory Orders Omeprazole [Prilosec (RX)] 20 mg PO DAILY #0 capsule. 07/13/13 Simvastatin [Zocor -] 40 mg PO HS #0 tablet 07/13/13 Tamsulosin HCl [Flomax -] 0.4 mg PO DAILY #0 cap.er.24h 07/13/13 Multivitamins [Multivit ([facility] Formul[facility])] 1 tab PO DAILY 11/09/15 Polyethylene Glycol 3350 [Miralax 119 gm Btl -] 17 gm PO DAILY 11/09/15 Psyllium Husk (with Sugar) [Metamucil Packet] 3.4 gm PO HS 11/09/15 Amlodipine Besylate 5 mg PO DAILY 10/29/18 Fenofibrate Nanocrystallized [Tricor] 160 mg PO DAILY 10/29/18 Metoprolol Succinate [Toprol Xl] 50 mg PO DAILY 10/29/18 Walker [Ultra-Light Rollator] 1 each ASDIR #1 each 11/08/18 Sulfamethoxazole/Trimethoprim [Bactrim Ds -] 1 tab PO BID #6 tablet 11/20/18 Anemia: No Asthma: No Cancer: Yes (PROSTATE) Cardiac Disorders: No CVA: No COPD: No CHF: No Dementia: No Diabetes: No GI Disorders: Yes (DIVERTICULOSIS/DIVERTICULITIS) Disorders: Yes (PROSTATE DISEASE WITH SEED IMPLANTATION,RADIATION) HTN: Yes Hypercholesterolemia: Yes Liver Disease: No Seizures: No Thyroid Disease: No - Surgical History Abdominal Surgery: Yes (BILATERAL INGUINAL HERNIA) Appendectomy: No Cardiac Surgery: No Cholecystectomy: No Lung Surgery: No Neurologic Surgery: No Orthopedic Surgery: No - Immunization History Immunization Up to Date: Yes - Suicide/Smoking/Psychosocial Hx Smoking Status: No Smoking History: Never smoked Have you smoked in the past 12 months: No Number of Cigarettes Smoked Daily: 0 Information on smoking cessation initiated: No Hx Alcohol Use: No Drug/Substance Use Hx: No Substance Use Type: None Hx Substance Use Treatment: No Review of Systems - Review of Systems Comments:: 11/20/18 04:14 10 systems negative except as noted in HPI *Physical Exam - Vital Signs Last Vital Signs Temp Pulse Resp BP Pulse Ox 97.7 F 98 H 18 161/88 99 11/20/18 03:42 11/20/18 03:42 11/20/18 03:42 11/20/18 03:42 11/20/18 03:42 - Physical Exam Comments: 11/20/18 04:15 GENERAL: Well-appearing, well-nourished. No apparent distress. HEENT: Normocephalic, atraumatic. PERRL, EOM intact. CARDIOVASCULAR: Normal S1, S2. Regular rate and rhythm. PULMONARY: Clear to auscultation bilaterally. ABDOMEN: Soft, non-tender, no distended, batres was already placed and draining clear yellow urine when I examined the patient EXTREMITIES: Normal ROM in all four extremities. No gross deformities. SKIN: Warm, dry. No rash NEUROLOGICAL: No focal neurological deficits. Moderate Sedation - Procedure Monitoring Vital Signs: Procedure Monitoring Vital Signs Temperature 97.7 F 11/20/18 03:42 Pulse Rate 98 H 11/20/18 03:42 Respiratory Rate 18 11/20/18 03:42 Blood Pressure 161/88 11/20/18 03:42 O2 Sat by Pulse Oximetry (%) 99 11/20/18 03:42 Medical Decision Making - Medical Decision Making 11/20/18 04:17 Patient with acute recurrence of urinary retention from known etiology Spoke with Dr. Huston prior to patient's arrival. Will place batres catheter with leg bag, follow up with Dr. Huston within the week f/u ua, ucx *DC/Admit/Observation/Transfer Diagnosis at time of Disposition: Urinary (tract) obstruction - Discharge Dispostion Disposition: HOME Condition at time of disposition: Improved Decision to Admit order: No - Prescriptions Prescriptions: Sulfamethoxazole/Trimethoprim [Bactrim Ds -] 1 tab PO BID #6 tablet - Referrals - Patient Instructions - Post Discharge Activity
[2018-11-20 04:10] LABS: URINE APPEARANCE CLEAR; URINE BILIRUBIN NEGATIVE (<2.0 mg/dL); URINE COLOR LTYELLOW; URINE GLUCOSE (UA) NEGATIVE (NEGATIVE); URINE KETONE NEGATIVE (NEGATIVE); URINE LEUK ESTERASE TRACE (NEGATIVE); URINE NITRITE NEGATIVE (NEGATIVE); URINE PROTEIN 1+ (NEGATIVE); URINE UROBILINOGEN NEGATIVE mg/dL (0.2-1.0)
[2018-11-20 04:50] LABS: URINE BACTERIA RARE /hpf (NONE SEEN); URINE HYALINE CAST 1 /lpf; URINE MUCUS RARE
[2018-11-20 05:52] VITALS: BP 157/79; PULSE 92
== END 2018-11-20 05:58 | disposition home or self-care (01) ==
LOC: JER 03:28
PROC: 0T9B70Z Drainage of Bladder with Drainage Device, Via Natural or Artificial Opening (ICD-10-PCS; principal; 2018-11-20)
DX: N13.8 Other obstructive and reflux uropathy (principal); I10 Essential (primary) hypertension; E78.00 Pure hypercholesterolemia, unspecified; Z85.46 Personal history of malignant neoplasm of prostate; Z87.19 Personal history of other diseases of the digestive system
CPT/HCPCS: 51702; 81003; 81015; 87086; 99282-25

== ENCOUNTER 2019-12-26 12:44 | Emergency (ER) | payer OTHER, MEDICARE ==
[2019-12-26 12:49] VITALS: TEMP 97.8; BMI 26.4
--- NOTE | 2019-12-26 13:19 | PDOC ---
History of Present Illness - General Chief Complaint: Urinary Catheter Problem Stated Complaint: ABDOMINAL PAIN Time Seen by Provider: 12/26/19 13:17 Past History - Past Medical History Allergies/Adverse Reactions: Allergies Allergy/AdvReac Type Severity Reaction Status Date / Time No Known Allergies Allergy Verified 11/20/18 03:42 Home Medications: Ambulatory Orders Omeprazole [Prilosec (RX)] 20 mg PO DAILY #0 capsule.dr 07/13/13 Simvastatin [Zocor -] 40 mg PO HS #0 tablet 07/13/13 Tamsulosin HCl [Flomax -] 0.4 mg PO DAILY #0 cap.er.24h 07/13/13 Multivitamins [Multivit ([facility] Formul[facility])] 1 tab PO DAILY 11/09/15 Polyethylene Glycol 3350 [Miralax 119 gm Btl -] 17 gm PO DAILY 11/09/15 Psyllium Husk (with Sugar) [Metamucil Packet] 3.4 gm PO HS 11/09/15 Amlodipine Besylate 5 mg PO DAILY 10/29/18 Fenofibrate Nanocrystallized [Tricor] 160 mg PO DAILY 10/29/18 Metoprolol Succinate [Toprol Xl] 50 mg PO DAILY 10/29/18 Walker [Ultra-Light Rollator] 1 each MC ASDIR #1 each 11/08/18 Sulfamethoxazole/Trimethoprim [Bactrim Ds -] 1 tab PO BID #6 tablet 11/20/18 Cephalexin [Keflex] 500 mg PO BID 14 Days #28 capsule 12/26/19 Anemia: No Asthma: No Cancer: Yes (PROSTATE) Cardiac Disorders: No CVA: No COPD: No CHF: No Dementia: No Diabetes: No GI Disorders: Yes (DIVERTICULOSIS/DIVERTICULITIS) Disorders: Yes (PROSTATE DISEASE WITH SEED IMPLANTATION,RADIATION) HTN: Yes Hypercholesterolemia: Yes Liver Disease: No Seizures: No Thyroid Disease: No - Surgical History Abdominal Surgery: Yes (BILATERAL INGUINAL HERNIA) Appendectomy: No Cardiac Surgery: No Cholecystectomy: No Lung Surgery: No Neurologic Surgery: No Orthopedic Surgery: No - Immunization History Immunization Up to Date: Yes - Psycho Social/Smoking Cessation Hx Smoking Status: No Smoking History: Never smoked Have you smoked in the past 12 months: No Number of Cigarettes Smoked Daily: 0 Hx Alcohol Use: No Drug/Substance Use Hx: No Substance Use Type: None Hx Substance Use Treatment: No *Physical Exam - Vital Signs Last Vital Signs Temp Pulse Resp BP Pulse Ox 97.8 F 73 18 197/87 H 99 12/26/19 12:46 12/26/19 12:46 12/26/19 12:46 12/26/19 12:46 12/26/19 12:46 12/26/19 14:06 84 y/o male PMH prostate CA s/p rad c/o abdominal pain. Pt reports that for the last year he has required a chronic Galindo, which is changed every month at Dr. Lopez's office. His next appointment is this coming Friday. He last emptied his leg bag yesterday and it was clear-yellow urine. He denies FNVD, chills, and constipation. He noted that the bag was not filling as it normally does and came to the ED. While here, his Galindo Catheter was changed and he experienced immediate relief. No new meds/herbs, drugs/supplements No recent illness, sick contacts, or recent travel REVIEW OF SYSTEMS CONSTITUTIONAL: Absent: fever, chills, diaphoresis, generalized weakness, malaise, loss of appetite, weight change HEENT: Absent: rhinorrhea, nasal congestion, throat pain, throat swelling, difficulty swallowing, mouth swelling, ear pain, eye pain, visual changes CARDIOVASCULAR: Absent: chest pain, syncope, palpitations, irregular heart rate, lightheadedness , peripheral edema RESPIRATORY: Absent: cough, shortness of breath, dyspnea with exertion, orthopnea, wheezing, stridor, hemoptysis GASTROINTESTINAL: Absent: abdominal pain, abdominal distension, nausea, vomiting, diarrhea, constipation, melena, hematochezia GENITOURINARY: Absent: dysuria, frequency, urgency, hesitancy, hematuria, flank pain, genital pain MUSCULOSKELETAL: Absent: myalgia, arthralgia, joint swelling, back pain, neck pain SKIN: Absent: rash, itching, pallor HEMATOLOGIC/IMMUNOLOGIC: Absent: easy bleeding, easy bruising, lymphadenopathy, frequent infections ENDOCRINE: Absent: unexplained weight gain, unexplained weight loss, heat intolerance, cold intolerance NEUROLOGIC: Absent: headache, focal weakness or paresthesias, dizziness, unsteady gait, seizure, mental status changes, bladder or bowel incontinence PSYCHIATRIC: Absent: anxiety, depression, suicidal or homicidal ideation, hallucinations. GENERAL: AO x3 NAD HEAD: NCAT EYES: MARYCHUY, EOMI, sclera anicteric, conjunctiva clear. No ptosis. ENT: Ears normal, nares patent, oropharynx clear without exudates, dry mucous membranes. NECK: Trachea midline, full range of motion, supple. LUNGS: CTAB , no wheezes, no crackles, no accessory muscle use. HEART: RRR, S1, S2 without murmur, rub or gallop. ABDOMEN: Soft, nontender, nondistended, hyperactive bowel sounds, no guarding, no rebound, no hepatosplenomegaly, no masses. EXTREMITIES: 2+ pulses, warm, well-perfused, no edema. NEUROLOGICAL: Cranial nerves II through XII grossly intact. Normal speech, gait not observed. Strength 5/5 in UE and LE BL in flexors and extensors. PSYCH: Normal mood, normal affect. SKIN: Warm, dry, normal turgor, no rashes or lesions noted # Urinary retention 2/2 to chronic Galindo VS - CBC, CMP, UA, EKG 12/26/19 14:19 CBC WNL UA with blood and 2+ LE 1 g Rocephin now Review labs and if NL send home on Keflex 12/26/19 14:57 Pt dc to home with instructions to f/u with PCP Dr. Rhodes and urology, Dr. Huston within 1 week. ED Treatment Course - LABORATORY CBC & Chemistry Diagram: 12/26/19 14:15 12/26/19 14:15 Discharge - Discharge Information Problems reviewed: Yes Clinical Impression/Diagnosis: UTI (urinary tract infection) Qualifiers: Urinary tract infection type: acute cystitis Hematuria presence: with hematuria Qualified Code(s): N30.01 - Acute cystitis with hematuria Condition: Improved Disposition: HOME - Admission No - Additional Discharge Information Plan of Treatment: YOUR VISIT You came to the hospital because you were experiencing abdominal pain. You were seen in the emergency department for care of this symptom. While here your Galindo catheter was changed. It was found that you are suffering from a urinary tract You are now stable and may return home. MEDICATIONS Please continue to take your home medications as prescribed. You one have *NEW * mediation. - Cephalexin 500 mg twice a day for 14 days ADDITIONAL CARE Please make an appointment to see your primary care provider, Dr. Rhodes, 1 week from today. Please make an appointment to see your urologist, Dr. Lopez, 1 week from today. ADDITIONAL INFORMATION Please call 911 or come directly to the emergency department if you experience recurrence of the symptoms that brought you to the hospital, unusual headache, vision change, shortness of breath, chest pain, numbness, tingling, loss of alertness/awareness, loss of function, unusual bleeding or any alarming symptoms. Prescriptions: Cephalexin [Keflex] 500 mg PO BID 14 Days #28 capsule - Follow up/Referral Referrals: Osmin Rhodes MD [Primary Care Provider] - Tevin Huston MD [Staff Physician] - - Patient Discharge Instructions - Post Discharge Activity
[2019-12-26] MEDS ORDERED: SODIUM CHLORIDE 500 ML IV STA (14:06)
--- NOTE | 2019-12-26 14:10 | PDOC ---
Documentation entered by Sin Taylor SCRIBE, acting as scribe for Ratna León DO. Ratna León DO: This documentation has been prepared by the Brandon agrawal Daniel, SCRIBE, under my direction and personally reviewed by me in its entirety. I confirm that the documentation accurately reflects all work, treatment, procedures, and medical decision making performed by me. Attending Attestation - Resident Resident Name: Les Kim - ED Attending Attestation I have performed the following: I have examined & evaluated the patient, The case was reviewed & discussed with the resident, I agree w/resident's findings & plan, Exceptions are as noted - HPI HPI: 12/26/19 13:57 The patient is an 84 year old male with a past medical history of prostate cancer here today for evaluation of inability to urinate. The patient reports that for the past year he has intermittently had difficulty urinating and has had to have his catheter changed. He states that today he has been unable to urinate for the past 4 hours. Patient denies headache, lightheadedness. Denies fever, chills. Denies chest pain, shortness of breath. Denies nausea, vomiting, diarrhea, abdominal pain. Allergies: NKA PCP: Osmin Rhodes Urologist: Tevin Huston - Physicial Exam PE: 12/26/19 14:05 Constitutional: Awake, alert, oriented. No acute distress. Head: Normocephalic. Atraumatic Eyes: PERRL. EOMI. Conjunctivae are not pale. ENT: Mucous membranes are moist and intact. Posterior pharynx without exudates or erythema. Uvula midline. Neck: Supple. Full ROM. No lymphadenopathy. Cardiovascular: Regular rate. Regular rhythm. S1, S2 regular. Distal pulses are 2+ and symmetric. Pulmonary/Chest: No evidence of respiratory distress. Clear to auscultation bilaterally No wheezing, rales or rhonchi. Abdominal: +[address] connected to a leg bag with 100 cc's of concentrated urine. Soft and non-distended. There is no tenderness. No rebound , guarding or rigidity. No organomegaly. No palpable masses. Good bowel sounds. Back: No CVA tenderness. Musculoskeletal: No edema. No cyanosis. No clubbing. Full range of motion in all extremities. No calf tenderness. Radial/pedal pulses are intact and 2+ bilaterally Skin: Skin is warm and dry. No petechiae. No purpura. Neurological: Alert and oriented to person, place, and time. Cranial nerves II -XII are grossly intact. Normal speech. Strength is grossly symmetric. No sensory deficits. Psychiatric: Good eye contact. Normal interaction, affect and behavior. - Medical Decision Making 12/26/19 14:08 a/p: 84yo male with chronic indwelling catheter with clogged catheter today -pt with urinary retention, abd pain -catheter changed to an 18f catheter without difficulty, draining dark concentrated urine -no f/c. -no flank pain, no n/v/d -no constipation -will send labs, ua, ucx -pt has appt with dr. spain for friday -will give po intake, ivf hydration -will monitor and reassess 12/26/19 15:04 no elevated wbc chem pendng discussed abx answered all quesitons pt feeling much better 12/26/19 15:48 labs reviewed normal cr has uro appt friday stable for dc to home
[2019-12-26 14:12] LABS: EPI CELLS 16.7 /HPF (0-5/HPF); HYALINE CASTS 11 /lpf (0-8); URINE APPEARANCE CLOUDY; URINE BACTERIA 15.3 /hpf (NEGATIVE); URINE BILIRUBIN NEGATIVE (NEGATIVE); URINE COLOR ORANGE; URINE GLUCOSE (UA) NEGATIVE (NEGATIVE); URINE KETONE NEGATIVE (NEGATIVE); URINE LEUK ESTERASE 2+ (NEGATIVE); URINE NITRITE NEGATIVE (NEGATIVE); URINE PROTEIN 2+ (NEGATIVE); URINE RBC 1654 /hpf (0-4); URINE UROBILINOGEN 0.2 mg/dL (0.2-1.0); URINE WBC 63 /hpf (0-5)
[2019-12-26] MEDS ORDERED: CEFTRIAXONE 1,000 MG in DEXTROSE 5%-WATER - 50 ML IVPB ONE (14:45)
[2019-12-26 14:50] LABS: BASO % 1.5 % (0-2.0); HEMATOCRIT 44.4 % (35.4-49); HEMOGLOBIN 15.2 GM/dL (11.7-16.9); LYMPH % 12.2 % (8-40); MCH 30.4 pg (25.7-33.7); MCHC 34.2 g/dl (32.0-35.9); MEAN CELL VOLUME 88.8 fl (80-96); MEAN PLT VOLUME 10.1 fl (7.5-11.1); MONO % 10.1 % (3.8-10.2); NEUT % 75.2 % (42.8-82.8); PLATELET COUNT 280 K/MM3 (134-434); RBC 5.01 M/mm3 (4.00-5.60); RDW 13.6 % (11.9-15.9); WHITE BLOOD COUNT 9.7 K/mm3 (4.0-10.0)
[2019-12-26 15:05] VITALS: BP 153/74; PULSE 77
[2019-12-26] MEDS ORDERED: CEFTRIAXONE 1 GM/50 ML BAG ONE (15:07)
[2019-12-26 15:46] LABS: ALBUMIN 3.4 g/dl (3.4-5.0); BILIRUBIN,TOTAL 0.4 mg/dL (0.2-1); CALCIUM 9.5 mg/dL (8.5-10.1); CREATININE 0.9 mg/dL (0.55-1.3); POTASSIUM 4.4 mmol/L (3.5-5.1); TOT PROT 7.1 g/dl (6.4-8.2)
== END 2019-12-26 15:30 | disposition home or self-care (01) ==
LOC: JER 12:44
PROC: 0T2BX0Z Change Drainage Device in Bladder, External Approach (ICD-10-PCS; principal; 2019-12-26)
PROC: 3E0337Z Introduction of Electrolytic and Water Balance Substance into Peripheral Vein, Percutaneous Approach (ICD-10-PCS; 2019-12-26)
PROC: 3E03329 Introduction of Other Anti-infective into Peripheral Vein, Percutaneous Approach (ICD-10-PCS; 2019-12-26)
DX: T83.098A Other mechanical complication of other urinary catheter, initial encounter (principal); N30.01 Acute cystitis with hematuria; I10 Essential (primary) hypertension; E78.00 Pure hypercholesterolemia, unspecified; Z85.46 Personal history of malignant neoplasm of prostate; Z87.19 Personal history of other diseases of the digestive system
CPT/HCPCS: 36415; 80053; 81003; 85025; 87086; 99284-25

== ENCOUNTER 2020-01-23 10:23 | Emergency (ER) | payer OTHER, MEDICARE ==
[2020-01-23 10:28] VITALS: TEMP 98; BMI 27.1
--- NOTE | 2020-01-23 10:32 | PDOC ---
History of Present Illness - General Chief Complaint: Urinary Catheter Problem Stated Complaint: URINARY CATHETER PROBLEM Time Seen by Provider: 01/23/20 10:25 History Source: Patient Exam Limitations: No Limitations - History of Present Illness Travel History: No Initial Comments: 01/23/20 10:29 84 y/o male with urinary retention and discomfort for last hr. Has had his Galindo blocked in the past. Did not want to wait long like last time. Denies fever, chills, back pain SOB or cough. Denies dysuria. Pain Radiation: reports: no radiation Past History - Past Medical History Allergies/Adverse Reactions: Allergies Allergy/AdvReac Type Severity Reaction Status Date / Time No Known Allergies Allergy Verified 01/23/20 10:24 Home Medications: Ambulatory Orders Omeprazole [Prilosec (RX)] 20 mg PO DAILY #0 capsule.dr 07/13/13 Simvastatin [Zocor -] 40 mg PO HS #0 tablet 07/13/13 Tamsulosin HCl [Flomax -] 0.4 mg PO DAILY #0 cap.er.24h 07/13/13 Multivitamins [Multivit ([facility] Formul[facility])] 1 tab PO DAILY 11/09/15 Polyethylene Glycol 3350 [Miralax 119 gm Btl -] 17 gm PO DAILY 11/09/15 Psyllium Husk (with Sugar) [Metamucil Packet] 3.4 gm PO HS 11/09/15 Amlodipine Besylate 5 mg PO DAILY 10/29/18 Fenofibrate Nanocrystallized [Tricor] 160 mg PO DAILY 10/29/18 Metoprolol Succinate [Toprol Xl] 50 mg PO DAILY 10/29/18 Walker [Ultra-Light Rollator] 1 each ASDIR #1 each 11/08/18 Sulfamethoxazole/Trimethoprim [Bactrim Ds -] 1 tab PO BID #6 tablet 11/20/18 Cephalexin [Keflex] 500 mg PO BID 14 Days #28 capsule 12/26/19 Anemia: No Asthma: No Cancer: Yes (PROSTATE) Cardiac Disorders: No CVA: No COPD: No CHF: No Dementia: No Diabetes: No GI Disorders: Yes (DIVERTICULOSIS/DIVERTICULITIS) Disorders: Yes (PROSTATE DISEASE WITH SEED IMPLANTATION,RADIATION) HTN: Yes Hypercholesterolemia: Yes Liver Disease: No Seizures: No Thyroid Disease: No - Surgical History Abdominal Surgery: Yes (BILATERAL INGUINAL HERNIA) Appendectomy: No Cardiac Surgery: No Cholecystectomy: No Lung Surgery: No Neurologic Surgery: No Orthopedic Surgery: No - Immunization History Immunization Up to Date: Yes - Psycho Social/Smoking Cessation Hx Smoking Status: No Smoking History: Never smoked Have you smoked in the past 12 months: No Number of Cigarettes Smoked Daily: 0 Information on smoking cessation initiated: No Hx Alcohol Use: No Drug/Substance Use Hx: No Substance Use Type: None Hx Substance Use Treatment: No Review of Systems - Review of Systems Able to Perform ROS?: Yes Is the patient limited Wolof proficient: No Constitutional: No: Chills, Fever Respiratory: No: Cough, Shortness of Breath Cardiac (ROS): No: Chest Pain ABD/GI: No: Nausea, Vomiting : No: Burning, Dysuria, Incontinence All Other Systems: Reviewed and Negative *Physical Exam - Vital Signs Last Vital Signs Temp Pulse Resp BP Pulse Ox 98 F 85 18 222/86 H 100 01/23/20 10:23 01/23/20 10:23 01/23/20 10:23 01/23/20 10:01/23/20 10:23 - Physical Exam General Appearance: Yes: Nourished, Appropriately Dressed. No: Apparent Distress HEENT: positive: EOMI, JENIFER, Normal ENT Inspection, Normal Voice Neck: positive: Trachea midline, Normal Thyroid, Supple. negative: Tender, Rigid Respiratory/Chest: positive: Lungs Clear, Normal Breath Sounds Cardiovascular: positive: Regular Rhythm, Regular Rate, S1, S2. negative: Edema, JVD, Murmur Vascular Pulses: Femoral (R): 4+, Femoral (L): 4+, Carotid (R): 4+, Carotid (L): 4+, Dorsalis-Pedis (R): 4+, Doralis-Pedis (L): 4+ Gastrointestinal/Abdominal: positive: Normal Bowel Sounds, Soft. negative: Tender (mild suprapubic tenderness, Galindo in place), Flat (mild distention) Lymphatic: negative: Adenopathy, Tenderness, Other Musculoskeletal: positive: Normal Inspection. negative: CVA Tenderness Integumentary: positive: Normal Color, Dry, Warm Neurologic: positive: fraud representative II-XII NML intact, Fully Oriented, Alert, Normal Mood/Affect, Normal Response, Motor Strength / ED Treatment Course - ADDITIONAL ORDERS Additional order review: 03/29/20 10:31 Patient with Galindo problem, will try to change out Advised by his Urologist to come in ED 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 - 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: 01/23/20 10:42 Galindo changed, mild blood at meatus, patient feeling much better. Urinary output 300ml If worsen patient will return to ER Discharge - Discharge Information Problems reviewed: Yes Clinical Impression/Diagnosis: Urinary retention Galindo catheter problem Qualifiers: Encounter type: initial encounter Qualified Code(s): T83.9XXA - Unspecified complication of genitourinary prosthetic device, implant and graft, initial encounter Condition: Improved Disposition: HOME - Admission No - Follow up/Referral Referrals: Osmin Rhodes MD [Primary Care Provider] - - Patient Discharge Instructions Patient Printed Discharge Instructions: DI for Urinary Retention in Men, How to Care for Your Galindo Catheter -- Male Additional Instructions: Continue to monitor Follow up with your Urologist If worsen return to ER - Post Discharge Activity
[2020-01-23 12:10] VITALS: BP 155/65; PULSE 79
== END 2020-01-23 11:15 | disposition home or self-care (01) ==
LOC: FER 10:23
DX: T83.098A Other mechanical complication of other urinary catheter, initial encounter (principal)
CPT/HCPCS: 99282-25

== ENCOUNTER 2020-04-28 18:40 | Emergency (ER) | payer OTHER, MEDICARE ==
[2020-04-28 18:46] VITALS: BP 168/74; PULSE 108; TEMP 98.3; BMI 26.2
[2020-04-28] MEDS ORDERED: CIPROFLOXACIN 500 MG TABLET (RESTRICTED TO ID) PO ONE (19:57)
[2020-04-28] MEDS ORDERED: CIPROFLOXACIN 250 MG TABLET (RESTRICTED TO ID) PO ONE (19:59)
--- NOTE | 2020-04-29 01:16 | PDOC ---
Documentation entered by Fabby Mike SCRIBE, acting as scribe for Maria G Ballesteros MD. Maria G Ballesteros MD: This documentation has been prepared by the mindyibeRashid Lincy, SCRIBE, under my direction and personally reviewed by me in its entirety. I confirm that the documentation accurately reflects all work, treatment, procedures, and medical decision making performed by me. History of Present Illness - General Chief Complaint: Urinary Problem Stated Complaint: URINARY RETENTION Time Seen by Provider: 04/28/20 19:29 History Source: Patient Exam Limitations: No Limitations - History of Present Illness Initial Comments: 04/28/20 20:05 The patient is an 84-year-old male with a past medical history significant for Prostate CA s/p radiation therapy and seed implants who presents to the emergency department with urinary retention secondary to batres not draining. The patient reports hes been using an indwelling catheter for over a year, with the batres change every 3 weeks at the urologist office, the patient reports he has an appointment with urology this coming Friday. The patient presents today for urinary retention secondary to batres blocked with blood clots. Denies fever or chills. Allergies: NKA Past History - Medical History Allergies/Adverse Reactions: Allergies Allergy/AdvReac Type Severity Reaction Status Date / Time No Known Allergies Allergy Verified 04/28/20 18:42 Home Medications: Ambulatory Orders Simvastatin [Zocor -] 40 mg PO HS #0 tablet 07/13/13 Multivitamins [Multivit ([facility] Form[facility])] 1 tab PO DAILY 11/09/15 Polyethylene Glycol 3350 [Miralax 119 gm Btl -] 17 gm PO DAILY 11/09/15 Psyllium Husk (with Sugar) [Metamucil Packet] 3.4 gm PO HS 11/09/15 Amlodipine Besylate 5 mg PO DAILY 10/29/18 Fenofibrate Nanocrystallized [Tricor] 160 mg PO DAILY 10/29/18 Metoprolol Succinate [Toprol Xl] 50 mg PO DAILY 10/29/18 Walker [Ultra-Light Rollator] 1 each ASDIR #1 each 11/08/18 Ciprofloxacin [Cipro (Restricted To Id)] 500 mg PO Q12H #6 tablet 04/28/20 Anemia: No Asthma: No Cancer: Yes (PROSTATE) Cardiac Disorders: No CVA: No COPD: No CHF: No Dementia: No Diabetes: No GI Disorders: Yes (DIVERTICULOSIS/DIVERTICULITIS) Disorders: Yes (PROSTATE DISEASE WITH SEED IMPLANTATION,RADIATION) HTN: Yes Hypercholesterolemia: Yes Liver Disease: No Seizures: No Thyroid Disease: No - Surgical History Abdominal Surgery: Yes (BILATERAL INGUINAL HERNIA) Appendectomy: No Cardiac Surgery: No Cholecystectomy: No Lung Surgery: No Neurologic Surgery: No Orthopedic Surgery: No - Immunization History Immunization Up to Date: Yes - Psycho-Social/Smoking History Smoking Status: No Smoking History: Never smoked Have you smoked in the past 12 months: No Number of Cigarettes Smoked Daily: 0 Information on smoking cessation initiated: No - Substance Abuse Hx (Audit-C & DAST Scrn) How often the patient has a drink containing alcohol: Never Score: In Men: 4 or > Positive; In Women: 3 or > Positive: 0 Screen Result (Pos requires Nsg. Audit-10AR): Negative In the last yr the pt used illegal drug/Rx for NonMed reason: No Score: Yes response is considered Positive: 0 Screen Result (Positive result requires Nsg. DAST-10): Negative Review of Systems - Review of Systems Able to Perform ROS?: Yes Comments:: 04/28/20 20:06 CONSTITUTIONAL: Pt denies Fever, Chills, weakness. HEENT: denies vision changes, sore throat RESPIRATORY: Denies cough, sob, hemoptysis CARDIAC: denies chest pain, palpitations, lightheadedness, leg swelling ABD/GI: denies abd pain, nausea, vomiting, blood per rectum, melena, diarrhea : +urinary retention. Batres not draining. MSK: denies back pain, joint swelling SKIN: denies bruising, erythema, rash NEUROLOGICAL: denies headache, numbness, focal weakness, tingling, ataxia, weakness HEMATOLOGICAL: denies anemia, easy bruising, easy bleeding *Physical Exam - Vital Signs Last Vital Signs Temp Pulse Resp BP Pulse Ox 98.3 F 108 H 20 168/74 100 04/28/20 18:40 04/28/20 18:40 04/28/20 18:40 04/28/20 18:40 04/28/20 18:40 - Physical Exam 04/28/20 20:13 GENERAL: The patient is awake, alert, and fully oriented, in moderate distress secondary to abdominal pain. . HEAD: Normal with no signs of trauma. EYES: Pupils equal, round and reactive to light, extraocular movements intact, sclera anicteric, conjunctiva clear with no pallor. NECK: Normal range of motion, supple. ABDOMEN: +moderate suprapubic distention and tenderness without masses, guarding or rebound. : Grossly normal without evidence of lesion, masses or other abnormality. EXTREMITIES: Normal range of motion, no edema. Under sterile conditions, new 20 Bulgarian urinary catheter (provided by the patient) introduced into urinary bladder. A few small clots of blood drained at onset followed by a light red urine. Approximately 500 mL urine was drained. Medical Decision Making - Medical Decision Making As noted above, this 84-year-old man with a history of prostate carcinoma and indwelling urinary catheter for more than a year presents with urinary retention. The patient has had multiple episodes of urinary retention secondary to formation of blood clots in his bladder; he has presented to the ER here for removal of existing catheter and placement of new one. Today, after the existing catheter was removed (patient did not want it to be irrigated), the patient developed some discomfort secondary to urinary retention. At that time, as noted above, under sterile conditions a new 20 Bulgarian urinary catheter was placed with free flow of pink urine. Patient had full relief of his discomfort on drainage of the retained urine. Patient will be started on 3-day course of ciprofloxacin 500 mg twice a day with first dose given here in the ER. The patient was scheduled to see his urologist, Dr. Huston on May 02. He will keep this appointment but return to the ER if he has any further urinary retention or if he develops fever/chills, abdominal pain or vomiting Discharge - Discharge Information Problems reviewed: Yes Clinical Impression/Diagnosis: Obstructed Batres catheter Qualifiers: Encounter type: initial encounter Qualified Code(s): T83.091A - Other mechanical complication of indwelling urethral catheter, initial encounter Condition: Stable Disposition: HOME - Additional Discharge Information Prescriptions: Ciprofloxacin [Cipro (Restricted To Id)] 500 mg PO Q12H #6 tablet - Follow up/Referral Referrals: Tevin Huston MD [Staff Physician] - Call tomorrow - Patient Discharge Instructions Patient Printed Discharge Instructions: DI for Urinary Retention in Men Additional Instructions: Continue Batres catheter care as usual Continue drinking fluids to prevent further clots as discussed Cipro 500 mg twice a day for 3 days to prevent urinary tract infection Call Dr. Huston tomorrow to inform him of today's ER visit Follow-up as arranged with Dr. Huston Return to ER if you have any further difficulty with urinary retention or you experience pain, distention, fever - Post Discharge Activity
== END 2020-04-28 20:24 | disposition home or self-care (01) ==
LOC: FER 18:40
PROC: 0T9B70Z Drainage of Bladder with Drainage Device, Via Natural or Artificial Opening (ICD-10-PCS; principal; 2020-04-28)
DX: T83.091A Other mechanical complication of indwelling urethral catheter, initial encounter (principal)
CPT/HCPCS: 99283-25

== ENCOUNTER 2020-05-18 21:32 | Inpatient (IN) | payer OTHER, MEDICARE ==
--- NOTE | 2020-05-18 21:43 | PDOC ---
Rapid Medical Evaluation Time Seen by Provider: 05/18/20 21:39 Medical Evaluation: Allergies Allergy/AdvReac Type Severity Reaction Status Date / Time No Known Allergies Allergy Verified 04/28/20 18:42 05/18/20 21:39 85 year old male pmhx prostate cancer, HTN, CAD, HLD 2pm changed batres now gross hematuria with clots. Not on AC PE: Leg bag with clots and blood Plan: Labs UA Pt to precede toED for further management and care
[2020-05-18 21:50] VITALS: BMI 23.7
--- NOTE | 2020-05-18 22:30 | PDOC ---
History of Present Illness - General Chief Complaint: Urinary Catheter Problem Stated Complaint: PAIN Time Seen by Provider: 05/18/20 21:39 - History of Present Illness Initial Comments: 85 yo male with PMH of obstructive prostate cancer, obstructive uropathy, chronic indwelling batres presents with hematuria. Hematuria began 8 hours ago when he went to the urologist to have his batres changed (q4 weeks). Prior to the batres change, he was able to produce clear urine. He is currently not on any blood thinners. He denies fevers, chills, nausea, vomiting, diarrhea, flank pain, suprapubic pain, cp, sob. He follows with Dr. Huston and Dr. Diggs. Past History - Medical History Allergies/Adverse Reactions: Allergies Allergy/AdvReac Type Severity Reaction Status Date / Time No Known Allergies Allergy Verified 04/28/20 18:42 Home Medications: Ambulatory Orders Simvastatin [Zocor -] 40 mg PO HS #0 tablet 07/13/13 Multivitamins [Multivit ([facility] Formulary)] 1 tab PO DAILY 11/09/15 Polyethylene Glycol 3350 [Miralax 119 gm Btl -] 17 gm PO DAILY 11/09/15 Psyllium Husk (with Sugar) [Metamucil Packet] 3.4 gm PO HS 11/09/15 Amlodipine Besylate 5 mg PO DAILY 10/29/18 Walker [Ultra-Light Rollator] 1 each ASDIR #1 each 11/08/18 Fenofibrate Nanocrystallized [Triglide] 160 mg PO DAILY 05/19/20 Metoprolol Succinate [Toprol Xl] 25 mg PO DAILY 05/19/20 Anemia: No Asthma: No Cancer: Yes (PROSTATE) Cardiac Disorders: No CVA: No COPD: No CHF: No Dementia: No Diabetes: No GI Disorders: Yes (DIVERTICULOSIS/DIVERTICULITIS) Disorders: Yes (PROSTATE DISEASE WITH SEED IMPLANTATION,RADIATION) HTN: Yes Hypercholesterolemia: Yes Liver Disease: No Seizures: No Thyroid Disease: No - Surgical History Abdominal Surgery: Yes (BILATERAL INGUINAL HERNIA) Appendectomy: No Cardiac Surgery: No Cholecystectomy: No Lung Surgery: No Neurologic Surgery: No Orthopedic Surgery: No - Immunization History Immunization Up to Date: Yes - Psycho-Social/Smoking History Smoking Status: No Smoking History: Never smoked Have you smoked in the past 12 months: No Number of Cigarettes Smoked Daily: 0 - Substance Abuse Hx (Audit-C & DAST Scrn) How often the patient has a drink containing alcohol: Never Score: In Men: 4 or > Positive; In Women: 3 or > Positive: 0 Screen Result (Pos requires Nsg. Audit-10AR): Negative In the last yr the pt used illegal drug/Rx for NonMed reason: No Score: Yes response is considered Positive: 0 Screen Result (Positive result requires Nsg. DAST-10): Negative Review of Systems - Review of Systems Able to Perform ROS?: Yes Constitutional: No: Chills, Diaphoresis HEENTM: No: Eye Pain, Double Vision Respiratory: No: Cough, Orthopnea, Shortness of Breath Cardiac (ROS): No: Chest Pain, Palpitations ABD/GI: No: Diarrhea, Nausea, Vomiting : Yes: Hematuria. No: Dysuria, Flank Pain Musculoskeletal: No: Muscle Pain, Muscle Weakness Integumentary: No: Dryness, Erythema, Flushing, Lesions Neurological: No: Headache, Dizziness Psychiatric: No: Anxiety, Depression, Emotional Problems Endocrine: No: Intolerance to Cold, Intolerance to Heat *Physical Exam - Vital Signs Last Vital Signs Temp Pulse Resp BP Pulse Ox 98.5 F 111 H 19 151/74 99 05/18/20 21:35 05/18/20 21:35 05/18/20 21:35 05/18/20 21:35 05/18/20 21:35 - Physical Exam General Appearance: Yes: Appropriately Dressed. No: Apparent Distress, Disheveled HEENT: positive: EOMI, Normal Voice Respiratory/Chest: positive: Lungs Clear, Normal Breath Sounds. negative: Respiratory Distress Cardiovascular: positive: Regular Rhythm, Regular Rate, S1, S2. negative: JVD Gastrointestinal/Abdominal: positive: Flat, Soft. negative: Tender Male Genitalia: positive: hematuria. negative: testicular mass, hernia Lymphatic: negative: Adenopathy ED Treatment Course - LABORATORY CBC & Chemistry Diagram: 05/19/20 18:45 05/19/20 18:45 Medical Decision Making - Medical Decision Making 85 yo male with PMH of prostate cancer, obstructive uropathy, indwelling catheter presents with hematuria s/p catheter change at his urologist office. He is tachycardic (111) and has leukocytosis (30). He has been on ciprofloxacin for 1 day by his urologist for UTI prophylaxis. He is given 1g ceftriaxone in the ED (pt has a sulfa allergy). Pt was admitted to medicine and signed out to night team. 05/19/20 22:31 Discharge - Discharge Information Problems reviewed: Yes Clinical Impression/Diagnosis: Hematuria, Leukocytosis Condition: Fair - Admission Yes - Follow up/Referral - Patient Discharge Instructions - Post Discharge Activity
[2020-05-18 22:37] LABS: HEMATOCRIT 31.7 % (35.4-49); HEMOGLOBIN 10.1 GM/dL (11.7-16.9); MCH 25.5 pg (25.7-33.7); MCHC 31.8 g/dl (32.0-35.9); MEAN CELL VOLUME 80.2 fl (80-96); MEAN PLT VOLUME 8.8 fl (7.5-11.1); PLATELET COUNT 374 K/MM3 (134-434); RBC 3.95 M/mm3 (4.00-5.60); RDW 15.2 % (11.9-15.9)
[2020-05-18 22:42] LABS: WHITE BLOOD COUNT 30.5 K/mm3 (4.0-10.0)
[2020-05-18 23:05] LABS: ALBUMIN 2.2 g/dl (3.4-5.0); BILIRUBIN,TOTAL 0.4 mg/dL (0.2-1); BLOOD UREA NITROGEN 21.2 mg/dL (7-18); CALCIUM 8.2 mg/dL (8.5-10.1); CREATININE 1.2 mg/dL (0.55-1.3); POTASSIUM 4.4 mmol/L (3.5-5.1)
[2020-05-18] MEDS ORDERED: LACTATED RINGERS SOLUTION 1000 ML INFUS.BAG IV ONE (23:19)
--- NOTE | 2020-05-18 23:19 | PDOC ---
Documentation entered by Lizet Wharton SCRIBE, acting as scribe for Ratna León DO. Ratna León DO: This documentation has been prepared by the nghia, Lizet Wharton SCRIBE, under my direction and personally reviewed by me in its entirety. I confirm that the documentation accurately reflects all work, treatment, procedures, and medical decision making performed by me. Attending Attestation - Resident Resident Name: LaciabidaFrankmaryuri - ED Attending Attestation I have performed the following: I have examined & evaluated the patient, The case was reviewed & discussed with the resident, I agree w/resident's findings & plan, Exceptions are as noted - HPI HPI: 05/18/20 22:01 Patient is an 85 year old male with a significant past medical history of diverticulitis, colon lesions, prostate CA s/p radiation therapy, seed implants, HTN, hypercholesterolemia, and sciatica, who presents to the ED with... Patient stated that around 2pm today he went to urology office to change his catheter (gets it changed every 3-4 weeks) and ever since has had trouble urinating and has been "peeing blood". Patient disclosed he currently feels pressure and that his bladder is only "a little full". Patient said there was no bleeding before recent catheter change. Patient denies: fever, chills, headache, chest pain, abdominal pain, or any other related symptoms. Allergies: NKDA PCP: Dr. Osmin Rhodes Urology: Dr. Lorenzo - Physicial Exam PE: 05/18/20 22:52 gen: aaox3, uncomfortable, pale heart: +s1s2 tachy lungs: cta b/l abd: soft, nt/nd, batres catheter in place with blood in the batres bag, no leakage from the penile meatus ext: no c/c/e - Medical Decision Making 05/18/20 23:15 a/p: 85yo male with hx of prostate ca with a chronic indwelling batres catheter -had batres changed today and had persistent bleeding since -pt without drainage from the catheter -22f batres in place -will change and flush batres, will send labs -will monitor and discuss 05/18/20 23:18 pt with WBC 30 on cipro -will send cultures -will start abx Heart Score/ECG Review - ECG Intrepretation Comment:: 05/18/20 23:46 sinus at 90, pac, nl axis, poor r wave progression, abnl ekg, no acute st/t wave findings Discharge - Discharge Information Problems reviewed: Yes Clinical Impression/Diagnosis: Hematuria, Leukocytosis Condition: Fair - Admission Yes - Follow up/Referral Referrals: Osmin Rhodes MD [Primary Care Provider] - - Patient Discharge Instructions - Post Discharge Activity
[2020-05-18] MEDS ORDERED: CEFTRIAXONE 1 GM in DEXTROSE 5%-WATER - 50 ML IVPB ONE (23:24)
[2020-05-19] MEDS ORDERED: SODIUM CHLORIDE 0.9% 500 ML INFUS.BAG IV ONE (00:48)
--- NOTE | 2020-05-19 01:04 | PN ---
Teaching Attending Note Name of Resident: Judy Herzog ATTENDING PHYSICIAN STATEMENT I saw and evaluated the patient. I reviewed the resident's note and discussed the case with the resident. I agree with the resident's findings and plan as documented. SUBJECTIVE: 85 years old M with PMH of diverticulitis, colon lesions, prostate CA s/p radiation therapy, seed implants, HTN, hypercholesterolemia, and sciatica presented to ED with peeing blood and supra pubic abd pressure/pain. he went to his urologist around 2 pm today for changing batres which he gets it changes every 3-4 weeks. after that he started having hematuria with clots and worsening of abd pain. he denies chest pain, SOB,nausea, vomiting, fever. LOC, diarrhea OBJECTIVE: Last Vital Signs Temp Pulse Resp BP Pulse Ox 98.5 F 111 H 19 151/74 99 05/18/20 21:35 05/18/20 21:35 05/18/20 21:35 05/18/20 21:35 05/18/20 21:35 GENERAL : in moderate distress due to pain, normal built elderly male HEENT: PERRLA, EOMI, NC/AT NECK: supple, no lymphadenopathy, thyroid WNL CARDIOVASCULAR: tachycardia s1s2+, No MRG LUNGS/RESPIRATORY: no respiratory distress, CTAB GI/ABDOMEN: suprapubic tenderness and distension +BS, no organomegaly MSK/EXTREMITIES: trace pitting edema edema, peripheral pulses + DERM/SKIN: warm and dry, no pallor, no jaundice, no rash, no pathologic- appearing bruising, no skin breakdown, no cuts, no lesions NEUROLOGICAL: GCS 15, CN II-XII grossly intact,No focal neurologic deficit batres in place not draining - some blood noted in batres WBC 30 he was on cipro for UTI ASSESSMENT AND PLAN: severe hematuria with clots after batres insertion ? traumatic urethral/bladder injury sepsis likely due to complicated UTI r/o other intra abd source prostate CA s/p radiation therapy, seed implants, HTN, hypercholesterolemia, and sciatica Admit to floor CT and with IV contrast Stat urology consult IV hydration 2 L bolus followed by 100 ml/hour IV antibiotics vancomycin/meropenem blood culture, urine culture, pro sepideh, lactate analgesia morphine PRN hold antihypertensives for now DVT ppx SCD repeat CBC in 6 hours discussed with resident staff in details.
[2020-05-19] MEDS ORDERED: SODIUM CHLORIDE 1,000 ML IV SCH ×3 (01:15→19:29)
[2020-05-19] MEDS ORDERED: MEROPENEM 1 GM in DEXTROSE 5%-WATER 100 ML IVPB ONE (01:16)
[2020-05-19] MEDS ORDERED: MORPHINE SULFATE 2 MG/ML VIAL IVPUSH ONE ×2 (01:20→02:37)
[2020-05-19] MEDS ORDERED: MORPHINE SULFATE 2 MG/ML VIAL IVPUSH PRN ×2 (01:20→01:34)
[2020-05-19] MEDS ORDERED: morphine CARPU-JECT 8 MG/1 ML DISP.SYRIN IVPUSH ONE ×2 (01:20→02:37)
[2020-05-19] MEDS ORDERED: MORPHINE SULFATE 2 MG/ML VIAL ONE ×3 (01:25→02:48)
--- NOTE | 2020-05-19 01:32 | HP ---
CHIEF COMPLAINT: Hematuria s/p chronic indwelling Galindo insertion PCP: Dr. Osmin Rhodes Urologist: Dr. Tevin Aguirre HISTORY OF PRESENT ILLNESS: Pt is a 85 year old male with PMHx of prostate cancer s/p radiation and seed implantation, HTN, CAD, HLD, sciatica, diverticulitis presenting to the ED with dark red blood producing from Galindo. Pt states he has a chronic indwelling Galindo catheter for the past year that he has replaced every 3-4 weeks. Pt went to the urologist office today to have replacement of Galindo. After returning home, pt had regular light blood after Galindo insertion which then progressed throughout the afternoon to more red blood. Pt then states this progressed to dark red blood in the evening which caused him to present to the ED. Pt is still draining dark red blood into his Galindo bag. Pt states he has seen clots in his Galindo bag as well. There is minimal drainage in the ED. Pt also has distended abdomen which he states is always present for him. Denies any ASA, ibuprofen, or any anticoagulation use. Pt is complaining of suprapubic tenderness and pressure. There is no blood seen in the urethral meatus. Denies fever/chills, nausea/vomiting, headache, flank pain, CP, SOB and abdominal pain. Admits to suprapubic Denies any recent travel or sick contacts. Pt was given 1L bolus LR in the ED. EKG is NSR with no ischemic changes. PAST MEDICAL HISTORY: As stated above Social History: Smoking: Denies Alcohol: Denies Drugs: Denies Allergies No Known Allergies Allergy (Verified 04/28/20 18:42) HOME MEDICATIONS: Home Medications Medication Instructions Recorded Simvastatin [Zocor -] 40 mg PO HS #0 tablet 07/13/13 Multivitamins [Multivit ([facility] 1 tab PO DAILY 11/09/15 Formulary)] Polyethylene Glycol 3350 [Miralax 17 gm PO DAILY 11/09/15 119 gm Btl -] Psyllium Husk (with Sugar) 3.4 gm PO HS 11/09/15 [Metamucil Packet] Amlodipine Besylate 5 mg PO DAILY 10/29/18 Fenofibrate Nanocrystallized 160 mg PO DAILY 10/29/18 [Tricor] Metoprolol Succinate [Toprol Xl] 50 mg PO DAILY 10/29/18 Walker [Ultra-Light Rollator] 1 each ASDIR #1 each 11/08/18 Ciprofloxacin [Cipro (Restricted 500 mg PO Q12H #6 tablet 04/28/20 To Id)] REVIEW OF SYSTEMS CONSTITUTIONAL: Absent: fever, chills, diaphoresis, generalized weakness, malaise, loss of appetite, weight change HEENT: Absent: rhinorrhea, nasal congestion, throat pain, throat swelling, difficulty swallowing, mouth swelling, ear pain, eye pain, visual changes CARDIOVASCULAR: Absent: chest pain, syncope, palpitations, irregular heart rate, lightheadedness, peripheral edema RESPIRATORY: Absent: cough, shortness of breath, dyspnea with exertion, orthopnea, wheezing, stridor, hemoptysis GASTROINTESTINAL: Absent: abdominal pain, abdominal distension, nausea, vomiting, diarrhea, constipation, melena, hematochezia GENITOURINARY: Chronic indwelling Galindo catheter. Admits hematuria Absent: dysuria, frequency, urgency, hesitancy, flank pain, genital pain MUSCULOSKELETAL: Absent: myalgia, arthralgia, joint swelling, back pain, neck pain SKIN: Absent: rash, itching, pallor HEMATOLOGIC/IMMUNOLOGIC: Absent: easy bleeding, easy bruising, lymphadenopathy, frequent infections ENDOCRINE: Absent: unexplained weight gain, unexplained weight loss, heat intolerance, cold intolerance NEUROLOGIC: Absent: headache, focal weakness or paresthesias, dizziness, unsteady gait, seizure, mental status changes, bowel incontinence PSYCHIATRIC: Absent: anxiety, depression, suicidal or homicidal ideation, hallucinations. PHYSICAL EXAMINATION Vital Signs - 24 hr 05/18/20 21:35 Temperature 98.5 F Pulse Rate 111 H Respiratory 19 Rate Blood Pressure 151/74 O2 Sat by Pulse 99 Oximetry (%) GENERAL: Awake, alert, and fully oriented, in no acute distress. HEAD: Normal with no signs of trauma. EYES: Pupils equal, round and reactive to light, extraocular movements intact, sclera anicteric, conjunctiva clear. No lid lag. EARS, NOSE, THROAT: Ears normal, nares patent, oropharynx clear without exudates. Moist mucous membranes. NECK: Normal range of motion, supple without lymphadenopathy, JVD, or masses. LUNGS: Breath sounds equal, clear to auscultation bilaterally. No wheezes, and no crackles. No accessory muscle use. HEART: Tachycardic. Regular rhythm, normal S1 and S2 without murmur, rub or gallop. ABDOMEN: Distended, suprapubic tenderness. Normoactive bowel sounds, no guarding, no rebound, no masses. No hepatomegaly or splenomegaly. MUSCULOSKELETAL: Normal range of motion at all joints. No bony deformities or tenderness. No CVA tenderness. UPPER EXTREMITIES: 2+ pulses, warm, well-perfused. No cyanosis. No clubbing. No peripheral edema. LOWER EXTREMITIES: 2+ pulses, warm, well-perfused. No calf tenderness. No peripheral edema. NEUROLOGICAL: Cranial nerves II-XII intact. Normal speech. Normal gait. PSYCHIATRIC: Cooperative. Good eye contact. Appropriate mood and affect. SKIN: Warm, dry, normal turgor, no rashes or lesions noted, normal capillary refill. Laboratory Results - last 24 hr 05/18/20 05/18/20 22:30 22:30 WBC 30.5 H* RBC 3.95 L Hgb 10.1 L Hct 31.7 L D MCV 80.2 MCH 25.5 L D MCHC 31.8 L RDW 15.2 D Plt Count 374 D MPV 8.8 D Sodium 131 L Potassium 4.4 Chloride 101 Carbon Dioxide 19 L Anion Gap 11 BUN 21.2 H Creatinine 1.2 Est GFR (CKD-EPI)AfAm 63.52 Est GFR (CKD-EPI)NonAf 54.81 Random Glucose 142 H Calcium 8.2 L Total Bilirubin 0.4 AST 21 ALT 15 Alkaline Phosphatase 57 Total Protein 6.0 L Albumin 2.2 L ASSESSMENT/PLAN: Pt is a 85 yo M with PMHx prostate CA s/p radiation and seed implantation, HTN, CAD and HLD presenting with hematuria after traumatic insertion of chronic indwelling Galindo at urologist office, draining dark red blood with clots, suprapubic abdominal pain and pressure and WBC count of 30.5 admitted for sepsis. Pt is tachycardic, and in distress. #Sepsis secondary to UTI/abdominal source - Tachy (111), WBC (30.5) with source - Cr 1.2; BUN 21.2 - Hematuria likely secondary to traumatic Galindo insertion - UA, UCx and BCx pending - NS at 100cc/hr; 1L LR bolus and 1L NS in ED - 2g Morphine q4h PRN - Vancomycin 1g BID and Meropenem 1g q8h for broad coverage - CT abdomen/pelvis pending - Avoid NSAIDs, ASA, and any blood thinners - Consulted and spoke to Urology (Dr. Aguirre) ; agreed with above plan of CT ab/pelvis, broad spectrum coverage with Meropenem/Vanc, IVF and will follow up in AM #Hx of HTN -Hold HTN medicine in setting of acute illness #Hx of HLD -Continue meds Prophylaxis: -SCD; no chemical treatment at this time due to hematuria FEN: -NS at 100cc/hr -NPO for urology evaluation Dispo: Admitted to med-surg for sepsis secondary to UTI or abdominal source, s/p traumatic indwelling Galindo insertion. Consulted Urology (Dr. Aguirre) who will evaluate in AM. Family Medical History Family History: Unremarkable Problem List - Problem (1) Gross hematuria Code(s): R31.0 - GROSS HEMATURIA (2) Hematuria Code(s): R31.9 - HEMATURIA, UNSPECIFIED (3) Leukocytosis Code(s): D72.829 - ELEVATED WHITE BLOOD CELL COUNT, UNSPECIFIED (4) Prostate cancer Code(s): C61 - MALIGNANT NEOPLASM OF PROSTATE (5) Pulmonary nodules Code(s): R91.8 - OTHER NONSPECIFIC ABNORMAL FINDING OF LUNG FIELD (6) CAD (coronary artery disease) Code(s): I25.10 - ATHSCL HEART DISEASE OF [place] CORONARY ARTERY W/O ANG PCTRS Qualifiers: Coronary Disease-Associated Artery/Lesion type: [place] artery [place] vs. transplanted heart: [place] heart Associated angina: without angina Qualified Code(s): I25.10 - Atherosclerotic heart disease of [place] coronary artery without angina pectoris (7) Galindo catheter problem Code(s): T83.9XXA - UNSP COMPLICATION OF GENITOURINARY PROSTH DEV/GRFT, INIT Qualifiers: Encounter type: initial encounter Qualified Code(s): T83.9XXA - Unspecified complication of genitourinary prosthetic device, implant and graft, initial encounter (8) HLD (hyperlipidemia) Code(s): E78.5 - HYPERLIPIDEMIA, UNSPECIFIED (9) HTN (hypertension) Code(s): I10 - ESSENTIAL (PRIMARY) HYPERTENSION Qualifiers: Hypertension type: essential hypertension Qualified Code(s): I10 - Essential (primary) hypertension (10) 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 Code(s): N13.2 - HYDRONEPHROSIS WITH RENAL AND URETERAL CALCULOUS OBSTRUCTION (11) Left nephrolithiasis Code(s): N20.0 - CALCULUS OF KIDNEY (12) Obstructed Galindo catheter Code(s): T83.091A - [facility] [place] COMPL OF INDWELLING URETHRAL CATHETER, INIT Qualifiers: Encounter type: initial encounter Qualified Code(s): T83.091A - Other mechanical complication of indwelling urethral catheter, initial encounter (13) UTI (urinary tract infection) Code(s): N39.0 - URINARY TRACT INFECTION, SITE NOT SPECIFIED Qualifiers: Urinary tract infection type: acute cystitis Hematuria presence: with hematuria Qualified Code(s): N30.01 - Acute cystitis with hematuria (14) Ureteral calculus, left Code(s): N20.1 - CALCULUS OF URETER (15) Urinary (tract) obstruction Code(s): N13.9 - OBSTRUCTIVE AND REFLUX UROPATHY, UNSPECIFIED (16) Urinary retention Code(s): R33.9 - RETENTION OF URINE, UNSPECIFIED Visit type - Medication Review Med list reviewed for High Risk Meds patients 65 and older: No - Emergency Visit Emergency Visit: Yes ED Registration Date: 05/18/20 Care time: The patient presented to the Emergency Department on the above date and was hospitalized for further evaluation of their emergent condition. - New Patient This patient is new to me today: Yes Date on this admission: 05/18/20 - Critical Care Critical Care patient: No ATTENDING PHYSICIAN STATEMENT I saw and evaluated the patient. I reviewed the resident's note and discussed the case with the resident. I agree with the resident's findings and plan as documented. SUBJECTIVE: OBJECTIVE: ASSESSMENT AND PLAN:
[2020-05-19] MEDS ORDERED: SODIUM CHLORIDE 1,000 ML IV STA (01:34)
[2020-05-19] MEDS ORDERED: MEROPENEM 1 GM VIAL (RESTRICTED TO ID) IVPB ONE ×3 (01:48→21:49)
[2020-05-19 02:54] LABS: HEMATOCRIT 30.1 % (35.4-49); HEMOGLOBIN 9.9 GM/dL (11.7-16.9); MCH 26.2 pg (25.7-33.7); MCHC 32.7 g/dl (32.0-35.9); MEAN CELL VOLUME 80.2 fl (80-96); MEAN PLT VOLUME 8.7 fl (7.5-11.1); PLATELET COUNT 356 K/MM3 (134-434); RBC 3.76 M/mm3 (4.00-5.60); RDW 15.6 % (11.9-15.9)
--- NOTE | 2020-05-19 03:59 | PN ---
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 (short form) - Note 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: Patient had repeat batres placed in ED and no longer draining. He is endorsing severe suprapubic pain. CT a/p showing bladder distention with large blood clot present within bladder. Flushed batres with removal of a large blood clot and multiple smaller clots. Now draining light red urine. Patient reporting exceptional pain relief. Urology Dr. Huston contacted and aware of CT findings along with b/l hydronephrosis. Will see patient this AM. Will continue to closely monitor this patient.
[2020-05-19] MEDS: VANCOMYCIN HCL 1,250 MG in DEXTROSE 5%-WATER - 250 ML IVPB SCH ×2 (04:27→13:41)
[2020-05-19 07:08] LABS: INR 1.48 (0.83-1.09); PROTHROMBIN TIME (PATIENT) 17.5 SEC (9.7-13.0)
[2020-05-19 07:10] LABS: BASO % 0.1 % (0-2.0); EOS % 0.3 % (0-4.5); HEMATOCRIT 28.4 % (35.4-49); LYMPH % 3.8 % (8-40); MCH 25.5 pg (25.7-33.7); MCHC 31.7 g/dl (32.0-35.9); MEAN CELL VOLUME 80.5 fl (80-96); MEAN PLT VOLUME 9.5 fl (7.5-11.1); NEUT % 89.8 % (42.8-82.8); PLATELET COUNT 325 K/MM3 (134-434); RBC 3.53 M/mm3 (4.00-5.60); RDW 14.9 % (11.9-15.9); WHITE BLOOD COUNT 27.3 K/mm3 (4.0-10.0)
[2020-05-19 07:11] LABS: ACTIVATED PTT 29.2 SECONDS (25.2-36.5)
[2020-05-19 07:30] LABS: ALBUMIN 1.9 g/dl (3.4-5.0); BILIRUBIN,TOTAL 0.6 mg/dL (0.2-1); CALCIUM 7.8 mg/dL (8.5-10.1); MAGNESIUM 2.1 mg/dL (1.8-2.4); PHOSPHOROUS 3.4 mg/dL (2.5-4.9)
[2020-05-19] MEDS ORDERED: DEXTROSE 5%-WATER 100 ML IVPB ONE ×2 (09:10→21:49)
[2020-05-19] MEDS: MEROPENEM 1 GM in DEXTROSE 5%-WATER 100 ML IVPB SCH ×2 (09:35→21:53)
--- NOTE | 2020-05-19 09:38 | CON.GU ---
Consult Consult Specialty:: Referred by:: medicine Reason for Consultation:: gross hematuria - History of Present Illness Chief Complaint: gross hematuria History of Present Illness: 85 year old male with a history of prostate cancer and interstitial seed placement. He presents with clots and obstruction. He was irrigated overnight. This morning his batres is fruit punch colored and draining well and his abdomen is soft. CT showed a large clot in his bladder with bilateral kidney stones. - History Source History Provided By: Patient, Medical Record - Past Medical History Cardio/Vascular: Yes: CAD, HTN, Hyperlipdemia Gastrointestinal: Yes: Hemorrhoids Renal/: Yes: Cancer (bladder ca s/p radiation,implanted seed, 07/02) - Past Surgical History Past Surgical History: Yes: Hernia Repair, Tonsillectomy - Alcohol/Substance Use Hx Alcohol Use: No History of Substance Use: reports: None - Smoking History Smoking history: Never smoked Have you smoked in the past 12 months: No Aproximately how many cigarettes per day: 0 - Social History ADL: Independent History of Recent Travel: No Home Medications - Allergies Allergies/Adverse Reactions: Allergies Allergy/AdvReac Type Severity Reaction Status Date / Time No Known Allergies Allergy Verified 04/28/20 18:42 - Home Medications Home Medications: Ambulatory Orders Simvastatin [Zocor -] 40 mg PO HS #0 tablet 07/13/13 Multivitamins [Multivit ([facility] Formulary)] 1 tab PO DAILY 11/09/15 Polyethylene Glycol 3350 [Miralax 119 gm Btl -] 17 gm PO DAILY 11/09/15 Psyllium Husk (with Sugar) [Metamucil Packet] 3.4 gm PO HS 11/09/15 Amlodipine Besylate 5 mg PO DAILY 10/29/18 Fenofibrate Nanocrystallized [Tricor] 160 mg PO DAILY 10/29/18 Metoprolol Succinate [Toprol Xl] 50 mg PO DAILY 10/29/18 Walker [Ultra-Light Rollator] 1 each ASDIR #1 each 11/08/18 Ciprofloxacin [Cipro (Restricted To Id)] 500 mg PO Q12H #6 tablet 04/28/20 Review of Systems - Review of Systems Genitourinary: reports: Hematuria, Pain Physical Exam- Vital Signs: Vital Signs Temperature 98.1 F 05/19/20 08:56 Pulse Rate 79 05/19/20 08:56 Respiratory Rate 20 05/19/20 08:57 Blood Pressure 137/59 L 05/19/20 08:56 O2 Sat by Pulse Oximetry (%) 97 05/19/20 08:57 Renal/: Yes: Batres Present, Hematuria. No: Bladder Distention, CVA Tenderness - Left, CVA Tenderness - Right Labs: CBC, BMP 05/19/20 06:10 05/19/20 06:10 Imaging - Results Cat Scan: Image Reviewed Problem List - Problems (1) Gross hematuria Assessment/Plan: hemorrhagic/radiation cystitis. batres is draining with fruit punch urine. ir rigate as needed. observe for now. follow HCT. Code(s): R31.0 - GROSS HEMATURIA
[2020-05-19 09:50] LABS: ANISOCYTOSIS 2+; MACROCYTOSIS 0; PLATELET ESTIMATE NORMAL
--- NOTE | 2020-05-19 11:14 | EKG ---
Test Reason : Blood Pressure : / mmHG Vent. Rate : 090 BPM Atrial Rate : 090 BPM P-R Int : 164 ms QRS Dur : 096 ms QT Int : 364 ms P-R-T Axes : 062 -25 011 degrees QTc Int : 445 ms NORMAL SINUS RHYTHM LEFTWARD AXIS Confirmed by BRITTANI TUCKER MD ([id number]) on 05/19/2020 11:13:57 AM Referred By: Confirmed By:BRITTANI TUCKER MD
[2020-05-19] MEDS ORDERED: PT OWN MED DRAWER 7, Y5N ONE ×2 (12:38→13:35)
--- NOTE | 2020-05-19 14:56 | PN ---
Teaching Attending Note Name of Resident: Ector Ureña ATTENDING PHYSICIAN STATEMENT I saw and evaluated the patient. I reviewed the resident's note and discussed the case with the resident. I agree with the resident's findings and plan as documented. SUBJECTIVE: Seen and examined at bedside. Batres is draining red urine. Patient reports pain has significantly decreased and he is less distended than last night. Mild suprapubic tenderness to palpation. OBJECTIVE: Last Vital Signs Temp Pulse Resp BP Pulse Ox 98.1 F 80 20 127/61 97 05/19/20 14:36 05/19/20 14:36 05/19/20 14:36 05/19/20 14:36 05/19/20 08:57 PE: Per resident note Labs/Imaging: reviewed Current Medications Generic Name Dose Route Start Last Admin Trade Name Freq PRN Reason Stop Dose Admin Meropenem 1 gm/ Dextrose 100 mls @ 200 mls/hr 05/19/20 09:00 05/19/20 09:35 IVPB 05/19/20 18:29 200 mls/hr Q8H-IV SHELLIE Administration Sodium Chloride 1,000 mls @ 100 mls/hr 05/19/20 02:00 05/19/20 05:54 Normal Saline - IV 100 mls/hr ASDIR SHELLIE Administration Vancomycin HCl 1,250 mg/ 250 mls @ 166.667 mls/hr 05/20/20 01:30 Dextrose IVPB Q12H SHELLIE Protocol Meropenem 1 gm/ Dextrose 100 mls @ 200 mls/hr 05/20/20 02:00 IVPB Q8H-IV SHELLIE Morphine Sulfate 2 mg 05/19/20 01:34 05/19/20 14:28 Morphine Sulfate IVPUSH 2 mg Q4H PRN Administration PAIN LEVEL 6-10 ASSESSMENT AND PLAN: Pt is a 85 yo M with PMHx prostate CA s/p radiation and seed implantation, HTN, CAD and HLD presenting with hematuria after traumatic insertion of chronic indwelling Batres at urologist office, draining dark red blood with clots, s uprapubic abdominal pain and pressure and WBC count of 30.5 admitted for sepsis. #Possible sepsis secondary to hemorrhagic cystitis/traumatic batres/infected kidney stone? Vital signs improved on antibiotics. White count is out of proportion to severity of the symptoms. Currently afebrile hemodynamically stable - IV fluids - 2g Morphine q4h PRN - Vancomycin 1g BID and Meropenem 1g q8h for broad coverage - CT abdomen/pelvis pending shows large intracystic clot, bilateral hydro and nephrolithiasis including a 5mm stone in the bladder - Avoid NSAIDs, ASA, and any blood thinners - Urology on board: appreciate recs #bilateral lung nodules Seen on CAT scan. Concerning for malignancy. Consult IR for possible biopsy Consult onc Given that patient currently bleeding and possibly septic, further work-up will likely have to wait until outpatient. #Hx of HTN -Hold HTN medicine in setting of acute illness #Hx of HLD -Continue meds Prophylaxis: -SCD; no chemical treatment at this time due to hematuria
[2020-05-19] MEDS ORDERED: LACTATED RINGERS SOLUTION 1,000 ML IV SCH ×2 (15:15→19:29)
--- NOTE | 2020-05-19 15:20 | PN ---
Physical Exam: SUBJECTIVE: Patient seen and examined at bedside. The patient reports that he has had symptoms of some blood in his urine 6 or 7 times in the past. The patient has red, fruit-punch colored urine. His hematuria started after he had his chronic indwelling batres catheter changed at the Urology clinic. He has his batres catheter changed every 3 to 4 weeks. The patient reports having been treated for prostate cancer with radiation therapy, but he denies knowing whether he was ever cured of his prostate cancer. The patient denies fever/chills, shortness of breath, diarrhea, and constipation. OBJECTIVE: Vital Signs Period Temp Pulse Resp BP Sys/Donald Pulse Ox Last 24 Hr 98.1 F-98.5 F 79-111 18-20 127-180/58-86 97-100 GENERAL: The patient is awake, alert, and fully oriented, in no acute distress. HEAD: Normal with no signs of trauma. EYES: Extraocular movements intact. No ptosis. ENT: Ears normal, nares patent, oropharynx clear without exudates, moist mucous membranes. NECK: Trachea midline, full range of motion, supple. LUNGS: Breath sounds equal, clear to auscultation bilaterally, no wheezes, no crackles, no accessory muscle use. HEART: Systolic murmur heard best at the right sternal border. Regular rate and rhythm, S1, S2. ABDOMEN: Soft, nontender, nondistended, normoactive bowel sounds, no guarding, no rebound, no masses. Bladder distended. Suprapubic pain. RENAL: Urine from batres catheter is red fruit-punch colored. EXTREMITIES: 2+ pulses, warm, well-perfused, no edema. NEUROLOGICAL: Normal speech, gait not observed. PSYCH: Normal mood, normal affect. SKIN: Warm, dry, normal turgor, no rashes or lesions noted. Pale skin. Laboratory Results - last 24 hr 05/18/20 05/18/20 05/19/20 22:30 22:30 02:40 WBC 30.5 H* 28.0 H RBC 3.95 L 3.76 L Hgb 10.1 L 9.9 L Hct 31.7 L D 30.1 L MCV 80.2 80.2 MCH 25.5 L D 26.2 MCHC 31.8 L 32.7 RDW 15.2 D 15.6 Plt Count 374 D 356 MPV 8.8 D 8.7 Absolute Neuts (auto) Neutrophils % Neutrophils % (Manual) Band Neutrophils % Lymphocytes % Lymphocytes % (Manual) Monocytes % Monocytes % (Manual) Eosinophils % Eosinophils % (Manual) Basophils % Basophils % (Manual) Myelocytes % (Man) Promyelocytes % (Man) Blast Cells % (Manual) Nucleated RBC % Metamyelocytes Hypochromia Platelet Estimate Polychromasia Poikilocytosis Anisocytosis Microcytosis Macrocytosis PT with INR INR PTT (Actin FS) Sodium 131 L Potassium 4.4 Chloride 101 Carbon Dioxide 19 L Anion Gap 11 BUN 21.2 H Creatinine 1.2 Est GFR (CKD-EPI)AfAm 63.52 Est GFR (CKD-EPI)NonAf 54.81 Random Glucose 142 H Lactic Acid Calcium 8.2 L Phosphorus Magnesium Total Bilirubin 0.4 AST 21 ALT 15 Alkaline Phosphatase 57 Total Protein 6.0 L Albumin 2.2 L 05/19/20 05/19/20 05/19/20 02:40 06:10 06:10 WBC 27.3 H RBC 3.53 L Hgb 9.0 L Hct 28.4 L MCV 80.5 MCH 25.5 L MCHC 31.7 L RDW 14.9 Plt Count 325 MPV 9.5 Absolute Neuts (auto) 24.5 H Neutrophils % 89.8 H Neutrophils % (Manual) 89.3 H Band Neutrophils % 1.0 Lymphocytes % 3.8 L D Lymphocytes % (Manual) 2.9 L Monocytes % 6.0 Monocytes % (Manual) 5 Eosinophils % 0.3 Eosinophils % (Manual) 1.9 Basophils % 0.1 Basophils % (Manual) 0.0 Myelocytes % (Man) 0 Promyelocytes % (Man) 0 Blast Cells % (Manual) 0 Nucleated RBC % 0 Metamyelocytes 0 Hypochromia 0 Platelet Estimate Normal Polychromasia 0 Poikilocytosis 0 Anisocytosis 2+ Microcytosis 2+ Macrocytosis 0 PT with INR 17.50 H INR 1.48 H PTT (Actin FS) 29.2 Sodium Potassium Chloride Carbon Dioxide Anion Gap BUN Creatinine Est GFR (CKD-EPI)AfAm Est GFR (CKD-EPI)NonAf Random Glucose Lactic Acid 1.7 Calcium Phosphorus Magnesium Total Bilirubin AST ALT Alkaline Phosphatase Total Protein Albumin 05/19/20 06:10 WBC RBC Hgb Hct MCV MCH MCHC RDW Plt Count MPV Absolute Neuts (auto) Neutrophils % Neutrophils % (Manual) Band Neutrophils % Lymphocytes % Lymphocytes % (Manual) Monocytes % Monocytes % (Manual) Eosinophils % Eosinophils % (Manual) Basophils % Basophils % (Manual) Myelocytes % (Man) Promyelocytes % (Man) Blast Cells % (Manual) Nucleated RBC % Metamyelocytes Hypochromia Platelet Estimate Polychromasia Poikilocytosis Anisocytosis Microcytosis Macrocytosis PT with INR INR PTT (Actin FS) Sodium 134 L Potassium 4.0 Chloride 105 Carbon Dioxide 19 L Anion Gap 11 BUN 19.0 H Creatinine 1.0 Est GFR (CKD-EPI)AfAm 79.19 Est GFR (CKD-EPI)NonAf 68.33 Random Glucose 128 H Lactic Acid Calcium 7.8 L Phosphorus 3.4 Magnesium 2.1 Total Bilirubin 0.6 AST 20 ALT 12 L Alkaline Phosphatase 48 Total Protein 5.0 L Albumin 1.9 L Active Medications Generic Name Dose Route Start Last Admin Trade Name Freq PRN Reason Stop Dose Admin Meropenem 1 gm/ Dextrose 100 mls @ 200 mls/hr 05/19/20 09:00 05/19/20 09:35 IVPB 05/19/20 18:29 200 mls/hr Q8H-IV SHELLIE Administration Sodium Chloride 1,000 mls @ 100 mls/hr 05/19/20 02:00 05/19/20 05:54 Normal Saline - IV 100 mls/hr ASDIR SHELLIE Administration Vancomycin HCl 1,250 mg/ 250 mls @ 166.667 mls/hr 05/20/20 01:30 Dextrose IVPB Q12H SHELLIE Protocol Meropenem 1 gm/ Dextrose 100 mls @ 200 mls/hr 05/20/20 02:00 IVPB Q8H-IV SHELLIE Morphine Sulfate 2 mg 05/19/20 01:34 Morphine Sulfate IVPUSH Q4H PRN PAIN LEVEL 6-10 ASSESSMENT/PLAN: 85 year old male patient with past medical history that includes chronic indwelling catheter, prostate cancer s/p radiation therapy, diverticulitis, sciatica, hypercholesterolemia, HLD, CAD, HTN, DM, who presented to the ED with gross hematuria after having his batres catheter changed. 1. Sepsis secondary to UTI/Abdominal source - WBC count 27.3 - The patient is taking Meropenem and Vancomycin - Urine culture pending 2. Hematuria secondary to Batres insertion - Hgb 9.0 - INR 1.48 - Batres catheter is getting irrigated with water regularly - CT shows a large blood clot and kidney stones - Urology consulted 3. Multiple pulmonary nodules suspicious for metastatic cancer - Multiple pulmonary nodules found on CAT scan - IR consulted - Oncology to be consulted after IR determines if the finding is cancer 4. HTN - Blood pressure medications held due to bleeding # FEN - Lactated Ringers, Monitoring Electrolytes, NPO DVT PPx - SCD's Dispo - Monitoring patient, and WBC count. Waiting for urine culture. IR consulted. Visit type - Emergency Visit Emergency Visit: Yes ED Registration Date: 05/18/20 Care time: The patient presented to the Emergency Department on the above date and was hospitalized for further evaluation of their emergent condition. - New Patient This patient is new to me today: Yes Date on this admission: 05/19/20 - Critical Care Critical Care patient: No - Discharge Referral Referred to [facility] Med [facility].C[facility] No - Medication Review Med list reviewed for High Risk Meds patients 65 and older: Yes ATTENDING PHYSICIAN STATEMENT I saw and evaluated the patient. I reviewed the resident's note and discussed the case with the resident. I agree with the resident's findings and plan as documented. SUBJECTIVE: OBJECTIVE: ASSESSMENT AND PLAN:
[2020-05-19] MEDS ORDERED: ROCURONIUM BROMIDE 50 MG/5 ML SYRINGE ONE (15:54)
[2020-05-19] MEDS ORDERED: HYDROmorphone HCl 2 MG/ML VIAL ONE (16:25)
[2020-05-19] MEDS ORDERED: NEOSTIGMINE METHYLSULFATE 0.5 MG/1 ML - 10 ML MDV ONE (18:06)
--- NOTE | 2020-05-19 18:12 | OP ---
Operative Note - Note: Operative Date: 05/19/20 Pre-Operative Diagnosis: clot retention, bladder perforation Operation: cysto/exp lap/evac clots/repair bladder perf/SPT placement Post-Operative Diagnosis: Same as Pre-op Anesthesia: General Operative Report Dictated: Yes
--- NOTE | 2020-05-19 18:24 | PN ---
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 (short form) - Note 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: Called at 2:30pm by RN that no longer able to irrigate bladder due to obstruction by clots Pt abdomen is distended Plan for OR emergently for cysto/evac of clots/fulg of bleeding and if necessary open bladder repair
--- NOTE | 2020-05-19 18:27 | SURG ---
Surgery Staple Laster Note Staple Laster: Quoc Bustos PA-C Date of Service: 05/19/20 Diagnosis: clot retention, cystoscopy resulting in bladder perforation Procedure: exploratory laparotomy, evacuation of clots, repair bladder perforation, suprapubic catheter placement, REGGIE drain I was present for the entirety of the operative procedure. For further detail, please refer to operative report. <Quoc Bustos - Last Filed: 05/19/20 18:24> Diagnosis: bladder perforation not a result of cystoscopy I was present for the entirety of the operative procedure. For further detail, please refer to operative report. <Tevin Huston - Last Filed: 05/21/20 04:53> Visit type - Case Type Case Type: ED Admission - Emergency Emergency Visit: Yes ED Registration Date: 05/18/20 Care time: The patient presented to the Emergency Department on the above date and was hospitalized for further evaluation of their emergent condition. - New patient This patient is new to me today: Yes Date on this admission: 05/19/20 <Quoc Bustos - Last Filed: 05/19/20 18:24>
[2020-05-19] MEDS ORDERED: WATER IVPB ONE ×2 (19:00→20:00)
[2020-05-19] MEDS ORDERED: DEXTROSE 5% IVPB ONE ×2 (19:00→20:00)
[2020-05-19] MEDS ORDERED: AMINOCAPROIC ACID IVPB ONE ×2 (19:00→20:00)
--- NOTE | 2020-05-19 19:18 | CONSULT ---
"Consultation: REQUESTING PROVIDER: Dr. Tevin Huston CONSULT REQUEST: We have been asked to medically evaluate this patient for post- operative monitoring. HISTORY OF PRESENT ILLNESS: Pt is a 85 yo M with PMHx of prostate cancer s/p radiation and seed implantation, HTN, CAD, HLD, and diverticulitis who presented to the ED late night on 05/18 with dark red blood producing from a chronic indwelling batres cather (batres had been just replaced earlier in the day before coming to the ED). Pt reported he had noticed increasing amounts of blood and darker blood draining into his Batres bag; reports seeing clots in the batres bag as well. No recent AC use. Associated suprapubic pressure and pain present at this time. CT concerning for bilateral nephrolithiasis, a large quantity of blood/blood clots in urinary bladder, and moderate-severe bilateral hydronephrosis. Urology was consulted and decision was made for surgical intervention on 05/19. Pt also with possible sepsis 2/2 unconfirmed likely urologic source. Pt is being admitted to the ICU s/p exploratory laparotomy, evacuation of clots, bladder perforation repair, and suprapubic catheter placement for post-operative monitoring. Pt with minimal pain postoperatively. Also reports passing flatus. Indwelling batres catheter draining blood; light red in color. REGGIE drain with sanguineous output as well. Denies fevers/chill, nausea/vomiting, chest pain, or SOB. PMH as per HPI + sciatica Social Denies smoking, ETOH, or recreational drug use. Allergies no known REVIEW OF SYSTEMS: As per HPI. PHYSICAL EXAMINATION Vital Signs - 24 hr 05/18/20 05/19/20 05/19/20 21:35 02:31 06:00 Temperature 98.5 F 98.4 F 98.3 F Pulse Rate 111 H 81 Pulse Rate [ 109 H Right] Respiratory 19 20 18 Rate Blood Pressure 151/74 131/58 L Blood Pressure 180/86 H [Left Arm] O2 Sat by Pulse 99 100 97 Oximetry (%) 05/19/20 05/19/20 05/19/20 06:29 06:36 08:56 Temperature 98.3 F 98.1 F Pulse Rate 81 79 Pulse Rate [ Right] Respiratory 18 20 Rate Blood Pressure 131/58 L 137/59 L Blood Pressure [Left Arm] O2 Sat by Pulse 97 97 97 Oximetry (%) 05/19/20 05/19/20 08:57 14:36 Temperature 98.1 F Pulse Rate 80 Pulse Rate [ Right] Respiratory 20 20 Rate Blood Pressure 127/61 Blood Pressure [Left Arm] O2 Sat by Pulse 97 Oximetry (%) GENERAL: Awake, alert, and fully oriented; resting comfortably and communicating clearly. HEAD: NCAT EYES: Extraocular movements intact, sclera white, conjunctiva clear. No ptosis. EARS, NOSE, THROAT: Oropharynx clear without exudates. Moist mucous membranes. NECK: Trachea midline; neck supple. LUNGS: Breath sounds equal, clear to auscultation bilaterally. No wheezes, and no crackles. No accessory muscle use. HEART: Regular rate and rhythm, normal S1 and S2 without murmur, rub or gallop. ABDOMEN: Some firmness to palpation; abdomen is distended as well (may be pt's baseline, as per previous notes); mildly tender mid-abdomen, no rebound or guarding; surgical site covered with dressing - clean, dry, and intact. MUSCULOSKELETAL: No bony deformities; non-tender to palpation UPPER EXTREMITIES: 2+ pulses, warm, well-perfused. No peripheral edema. LOWER EXTREMITIES: 2+ pulses, warm, well-perfused. No peripheral edema. NEUROLOGICAL: Normal speech. Gait not assessed. PSYCHIATRIC: Cooperative. Good eye contact. SKIN: Warm, dry, no rashes or lesions noted. Laboratory Results - last 24 hr 05/18/20 05/18/20 05/19/20 22:30 22:30 02:40 WBC 30.5 H* 28.0 H RBC 3.95 L 3.76 L Hgb 10.1 L 9.9 L Hct 31.7 L D 30.1 L MCV 80.2 80.2 MCH 25.5 L D 26.2 MCHC 31.8 L 32.7 RDW 15.2 D 15.6 Plt Count 374 D 356 MPV 8.8 D 8.7 Absolute Neuts (auto) Neutrophils % Neutrophils % (Manual) Band Neutrophils % Lymphocytes % Lymphocytes % (Manual) Monocytes % Monocytes % (Manual) Eosinophils % Eosinophils % (Manual) Basophils % Basophils % (Manual) Myelocytes % (Man) Promyelocytes % (Man) Blast Cells % (Manual) Nucleated RBC % Metamyelocytes Hypochromia Platelet Estimate Polychromasia Poikilocytosis Anisocytosis Microcytosis Macrocytosis PT with INR INR PTT (Actin FS) Sodium 131 L Potassium 4.4 Chloride 101 Carbon Dioxide 19 L Anion Gap 11 BUN 21.2 H Creatinine 1.2 Est GFR (CKD-EPI)AfAm 63.52 Est GFR (CKD-EPI)NonAf 54.81 Random Glucose 142 H Lactic Acid Calcium 8.2 L Phosphorus Magnesium Total Bilirubin 0.4 AST 21 ALT 15 Alkaline Phosphatase 57 Total Protein 6.0 L Albumin 2.2 L Blood Type Antibody Screen Crossmatch 05/19/20 05/19/20 05/19/20 02:40 06:10 06:10 WBC 27.3 H RBC 3.53 L Hgb 9.0 L Hct 28.4 L MCV 80.5 MCH 25.5 L MCHC 31.7 L RDW 14.9 Plt Count 325 MPV 9.5 Absolute Neuts (auto) 24.5 H Neutrophils % 89.8 H Neutrophils % (Manual) 89.3 H Band Neutrophils % 1.0 Lymphocytes % 3.8 L D Lymphocytes % (Manual) 2.9 L Monocytes % 6.0 Monocytes % (Manual) 5 Eosinophils % 0.3 Eosinophils % (Manual) 1.9 Basophils % 0.1 Basophils % (Manual) 0.0 Myelocytes % (Man) 0 Promyelocytes % (Man) 0 Blast Cells % (Manual) 0 Nucleated RBC % 0 Metamyelocytes 0 Hypochromia 0 Platelet Estimate Normal Polychromasia 0 Poikilocytosis 0 Anisocytosis 2+ Microcytosis 2+ Macrocytosis 0 PT with INR 17.50 H INR 1.48 H PTT (Actin FS) 29.2 Sodium Potassium Chloride Carbon Dioxide Anion Gap BUN Creatinine Est GFR (CKD-EPI)AfAm Est GFR (CKD-EPI)NonAf Random Glucose Lactic Acid 1.7 Calcium Phosphorus Magnesium Total Bilirubin AST ALT Alkaline Phosphatase Total Protein Albumin Blood Type Antibody Screen Crossmatch 05/19/20 05/19/20 06:10 16:00 WBC RBC Hgb Hct MCV MCH MCHC RDW Plt Count MPV Absolute Neuts (auto) Neutrophils % Neutrophils % (Manual) Band Neutrophils % Lymphocytes % Lymphocytes % (Manual) Monocytes % Monocytes % (Manual) Eosinophils % Eosinophils % (Manual) Basophils % Basophils % (Manual) Myelocytes % (Man) Promyelocytes % (Man) Blast Cells % (Manual) Nucleated RBC % Metamyelocytes Hypochromia Platelet Estimate Polychromasia Poikilocytosis Anisocytosis Microcytosis Macrocytosis PT with INR INR PTT (Actin FS) Sodium 134 L Potassium 4.0 Chloride 105 Carbon Dioxide 19 L Anion Gap 11 BUN 19.0 H Creatinine 1.0 Est GFR (CKD-EPI)AfAm 79.19 Est GFR (CKD-EPI)NonAf 68.33 Random Glucose 128 H Lactic Acid Calcium 7.8 L Phosphorus 3.4 Magnesium 2.1 Total Bilirubin 0.6 AST 20 ALT 12 L Alkaline Phosphatase 48 Total Protein 5.0 L Albumin 1.9 L Blood Type A NEGATIVE Antibody Screen Negative Crossmatch See Detail Active Medications Generic Name Dose Route Start Last Admin Trade Name Freq PRN Reason Stop Dose Admin Fentanyl 50 mcg 05/19/20 15:02 Sublimaze Injection - IVPUSH G7PEINCIM PRN PAIN-PACU ORDER X 4 DOSES ONLY Sodium Chloride 1,000 mls @ 100 mls/hr 05/19/20 02:00 05/19/20 05:54 Normal Saline - IV 100 mls/hr ASDIR SHELLIE Administration Vancomycin HCl 1,250 mg/ 250 mls @ 166.667 mls/hr 05/20/20 01:30 Dextrose IVPB Q12H SHELLIE Protocol Meropenem 1 gm/ Dextrose 100 mls @ 200 mls/hr 05/20/20 02:00 IVPB Q8H-IV SHELLIE Lactated Ringer's 1,000 mls @ 75 mls/hr 05/19/20 15:15 Lactated Ringers Solution IV ASDIR SHELLIE Aminocaproic Acid 5 gm/ 270 mls @ 270 mls/hr 05/19/20 19:00 Dextrose IVPB 05/19/20 19:59 ONCE ONE Aminocaproic Acid 24 gm/ 1,096 mls @ 45.667 mls/hr 05/19/20 20:00 Dextrose IVPB 05/20/20 19:59 ONCE ONE Morphine Sulfate 2 mg 05/19/20 01:34 05/19/20 14:28 Morphine Sulfate IVPUSH 2 mg Q4H PRN Administration PAIN LEVEL 6-10 ASSESSMENT/PLAN: Pt is a 85 yo M with PMHx of prostate cancer s/p radiation and seed implantation, HTN, CAD, HLD, chronic indwelling batres, and diverticulitis admitted to the ICU s/p exploratory laparotomy, evacuation of clots, bladder perforation repair, and suprapubic catheter placement for post-operative monitoring. Pt is POD #0. #Neuro No acute concerns; AOx4 at baseline Pain management -monitor pts neuro status -morphine 2 mg q4 prn for moderate to severe pain #CV Hx of HTN, HLD, CAD -hold home antihypertensives -no anticoagulation for now -can start home statin and fibrate tomorrow #Pulm Pt oxygenating well on RA. Pulmonary nodules noted on CT -incentive spirometer -goal SpO2 > 90% -will discuss with patient and consulting Pulm regarding nodules -IR consulted by floor team; regarding possible biopsy of nodules # s/p ex lap, clot evacuation, bladder perf repair, & suprapubic catheter placement b/l nephrolithiasis; b/l hydronephrosis -continuous bladder irrigation to prevent re-formation of clots -IVF hydration - NS 50 cc/hr -maintain Hb>10, as per Urology; will trend H/H -aminocaproic acid, as per Urology #ID Possible sepsis likely 2/2 urologic source? Leukocytosis - Pre-Op 27.3 (downtrending over last 2 days) | Post-Op 41.8 (likely reactive 2/2 to surgery); leukocytosis out of proportion to clinical symptoms -ID consulted; f/u regarding recommendations -c/w IV vancomycin and IV meropenem for now -f/u cultures - urine and blood cx pending -trend WBC -IVF hydration DVT PPx SCDs for now GI PPx none LTD -Indwelling batres placed again today (05/19) -REGGIE drain (05/19) FEN F - NS @ 50 cc/hr E - replete lytes PRN N - NPO for now; advance diet as tolerated Dispo: We will continue to follow the patient in the ICU. Thank you for this consultative opportunity. Visit type - Medication Review Med list reviewed for High Risk Meds patients 65 and older: Yes - Emergency Visit Emergency Visit: Yes ED Registration Date: 05/18/20 Care time: The patient presented to the Emergency Department on the above date and was hospitalized for further evaluation of their emergent condition. - New Patient This patient is new to me today: Yes Date on this admission: 05/20/20 - Critical Care Critical Care patient: Yes Total Critical Care Time (in minutes): 38 Critical Care Statement: The care of this patient involved high complexity decision making to prevent further life threatening deterioration of the patient's condition and/or to evaluate & treat vital organ system(s) failure or risk of failure. ATTENDING PHYSICIAN STATEMENT I saw and evaluated the patient. I reviewed the resident's note and discussed the case with the resident. I agree with the resident's findings and plan as documented. SUBJECTIVE: OBJECTIVE: ASSESSMENT AND PLAN:"
[2020-05-19 19:41] LABS: HEMATOCRIT 31.6 % (35.4-49); HEMOGLOBIN 9.7 GM/dL (11.7-16.9); MCH 25.7 pg (25.7-33.7); MCHC 30.8 g/dl (32.0-35.9); MEAN CELL VOLUME 83.7 fl (80-96); MEAN PLT VOLUME 9.6 fl (7.5-11.1); PLATELET COUNT 463 K/MM3 (134-434); RBC 3.77 M/mm3 (4.00-5.60); RDW 15.6 % (11.9-15.9)
[2020-05-19 19:45] LABS: WHITE BLOOD COUNT 41.8 K/mm3 (4.0-10.0)
[2020-05-19 20:08] LABS: BLOOD UREA NITROGEN 15.8 mg/dL (7-18); CALCIUM 7.7 mg/dL (8.5-10.1); POTASSIUM 4.8 mmol/L (3.5-5.1)
[2020-05-19] MEDS: SODIUM CHLORIDE 1,000 ML IV SCH (21:47)
[2020-05-19] MEDS ORDERED: morphine CARPU-JECT 4 MG/1 ML DISP.SYRIN IVPUSH ONE (22:18)
[2020-05-20] MEDS ORDERED: VANCOMYCIN HCL 1,250 MG in DEXTROSE 5%-WATER - 250 ML IVPB SCH ×2 (01:30→07:15)
[2020-05-20] MEDS ORDERED: MEROPENEM 1 GM in DEXTROSE 5%-WATER 100 ML IVPB SCH ×2 (02:00→07:15)
[2020-05-20 05:52] LABS: BASO % 0.2 % (0-2.0); HEMATOCRIT 27.1 % (35.4-49); HEMOGLOBIN 8.5 GM/dL (11.7-16.9); LYMPH % 2.2 % (8-40); MCH 25.4 pg (25.7-33.7); MCHC 31.2 g/dl (32.0-35.9); MEAN CELL VOLUME 81.2 fl (80-96); MEAN PLT VOLUME 9.3 fl (7.5-11.1); MONO % 2.6 % (3.8-10.2); PLATELET COUNT 329 K/MM3 (134-434); RBC 3.34 M/mm3 (4.00-5.60); RDW 15.9 % (11.9-15.9)
[2020-05-20 05:59] LABS: INR 1.48 (0.83-1.09); PROTHROMBIN TIME (PATIENT) 17.5 SEC (9.7-13.0)
[2020-05-20 06:19] LABS: WHITE BLOOD COUNT 40.3 K/mm3 (4.0-10.0)
[2020-05-20] MEDS: MORPHINE SULFATE 2 MG/ML VIAL IVPUSH PRN ×3 (06:30→15:08)
[2020-05-20 06:32] LABS: ALBUMIN 1.6 g/dl (3.4-5.0); BILIRUBIN,TOTAL 0.6 mg/dL (0.2-1); CALCIUM 7.7 mg/dL (8.5-10.1); CREATININE 0.8 mg/dL (0.55-1.3); MAGNESIUM 1.9 mg/dL (1.8-2.4); TOT PROT 4.6 g/dl (6.4-8.2)
[2020-05-20] MEDS ORDERED: ACETAMINOPHEN 1000 MG/100 ML VIAL (NON FORMULARY) IVPB PRN (06:52)
--- NOTE | 2020-05-20 07:28 | PN ---
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 (short form) - Note 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: afebrile urine light pink on slow CBI (in through SPT and out through batres) c/o abdominal pain wound clean REGGIE output approx 30cc overnight HCT 27 WBC persists at 40 POD#1 s/p raffaele clots and repair bladder perf cont slow CBI 1U PRBC pain control ID eval
[2020-05-20] MEDS ORDERED: MEROPENEM 1 GM VIAL (RESTRICTED TO ID) IVPB ONE ×2 (07:48→16:23)
[2020-05-20] MEDS ORDERED: DEXTROSE 5%-WATER 100 ML IVPB ONE ×2 (07:49→16:23)
--- NOTE | 2020-05-20 09:01 | PN ---
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 (short form) - Note 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: Pulm/CCM 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 Pt seen and examined in the ICU. Admitted to the ICU s/p exploratory laparotomy, evacuation of clots, bladder perforation repair, and suprapubic catheter placement for post-operative monitoring. CBI via suprapubic tube with clearing urine now minimally blood tinged. PRBC 1U being given for Hgb 8.4from 9.7. Pt receiving morphine for pain postoperatively. Abd dressing dry and intact. REGGIE draining serosang fluid. HD stable. O2 sat 100% on 3lNC. Urine + for Grp D strep or enterococcus. Vital Signs Period Temp Pulse Resp BP Sys/Donald Pulse Ox Last 24 Hr 97.6 F-98.5 F 68-108 11-24 90-204/42-92 94-100 Intake & Output 05/17/20 05/18/20 05/19/20 05/20/20 23:59 23:59 23:59 23:59 Intake Total 2530 7685 Output Total 5300 7000 Balance -2770 685 Weight 81.647 kg 81.647 kg Active Medications Acetaminophen (Ofirmev Injection -) 1,000 mg IVPB Q6H PRN PRN Reason: PAIN LEVEL 1-5 Stop: 05/21/20 06:52 Last Admin: 05/20/20 07:10 Dose: 1,000 mg Documented by: Fentanyl (Sublimaze Injection -) 50 mcg IVPUSH [id number] PRN PRN Reason: PAIN-PACU ORDER X 4 DOSES ONLY Aminocaproic Acid 24 gm/ (Dextrose) 1,096 mls @ 45.667 mls/hr IVPB ONCE ONE Stop: 05/20/20 19:59 Last Admin: 05/19/20 20:50 Dose: 45.667 mls/hr Documented by: Meropenem 1 gm/ Dextrose 100 mls @ 200 mls/hr IVPB Q8H-IV SHELLIE Vancomycin HCl 1,250 mg/ (Dextrose) 250 mls @ 166.667 mls/hr IVPB Q12H SHELLIE; Protocol Sodium Chloride (Normal Saline -) 1,000 mls @ 50 mls/hr IV ASDIR SHELLIE Last Admin: 05/19/20 21:47 Dose: 50 mls/hr Documented by: Aminocaproic Acid 1 gm/ (Dextrose) 54 mls @ 54 mls/hr IVPB Q4H-IV SHELLIE Morphine Sulfate (Morphine Sulfate) 2 mg IVPUSH Q4H PRN PRN Reason: PAIN LEVEL 6-10 Last Admin: 05/20/20 10:23 Dose: 2 mg Documented by: Gen: Pale, in NAD Neuro: Somnolent, easily aroused, Ox3 HEENT: PEERL, sclera clear Lungs: CTA CV: S1S2, RRR Abd: Distended, firm, tender to palp; hypoactive BS; abd dressing d+i; REGGIE to bulb with SS fluid : SPT intact with CBI; batres cath with lightblood tinged urine Ext:Trace edema CBC,CMP WBC 40.3 K/mm3 (4.0-10.0) H* 05/20/20 05:15 RBC 3.34 M/mm3 (4.00-5.60) L 05/20/20 05:15 Hgb 8.5 GM/dL (11.7-16.9) L 05/20/20 05:15 Hct 27.1 % (35.4-49) L 05/20/20 05:15 MCV 81.2 fl (80-96) 05/20/20 05:15 MCH 25.4 pg (25.7-33.7) L 05/20/20 05:15 MCHC 31.2 g/dl (32.0-35.9) L 05/20/20 05:15 RDW 15.9 % (11.9-15.9) 05/20/20 05:15 Plt Count 329 K/MM3 (134-434) D 05/20/20 05:15 MPV 9.3 fl (7.5-11.1) 05/20/20 05:15 Absolute Neuts (auto) 38.2 K/mm3 (1.5-8.0) H 05/20/20 05:15 Neutrophils % 95.0 % (42.8-82.8) H 05/20/20 05:15 Neutrophils % (Manual) 91.0 % (42.8-82.8) H 05/20/20 05:15 Band Neutrophils % 3.0 % 05/20/20 05:15 Lymphocytes % 2.2 % (8-40) L D 05/20/20 05:15 Lymphocytes % (Manual) 3.0 % (8-40) L 05/20/20 05:15 Monocytes % 2.6 % (3.8-10.2) L 05/20/20 05:15 Monocytes % (Manual) 3 % (3.8-10.2) L 05/20/20 05:15 Eosinophils % 0.0 % (0-4.5) D 05/20/20 05:15 Eosinophils % (Manual) 0.0 % (0-4.5) D 05/20/20 05:15 Basophils % 0.2 % (0-2.0) 05/20/20 05:15 Basophils % (Manual) 0.0 % (0-2.0) 05/20/20 05:15 Myelocytes % (Man) 0 % (0-2) 05/20/20 05:15 Promyelocytes % (Man) 0 % (0-2) 05/20/20 05:15 Blast Cells % (Manual) 0 % (0-0) 05/20/20 05:15 Nucleated RBC % 0 % (0-0) 05/20/20 05:15 Metamyelocytes 0 % (0-2) 05/20/20 05:15 Hypochromia 0 05/20/20 05:15 Platelet Estimate Normal 05/20/20 05:15 Polychromasia 0 05/20/20 05:15 Poikilocytosis 0 05/20/20 05:15 Anisocytosis 0 05/20/20 05:15 Microcytosis 0 05/20/20 05:15 Macrocytosis 0 05/20/20 05:15 Sodium 136 mmol/L (136-145) 05/20/20 05:15 Potassium 4.0 mmol/L (3.5-5.1) 05/20/20 05:15 Chloride 106 mmol/L (98-107) 05/20/20 05:15 Carbon Dioxide 20 mmol/L (21-32) L 05/20/20 05:15 Anion Gap 9 MMOL/L (8-16) 05/20/20 05:15 BUN 15.0 mg/dL (7-18) 05/20/20 05:15 Creatinine 0.8 mg/dL (0.55-1.3) 05/20/20 05:15 Est GFR (CKD-EPI)AfAm 94.41 05/20/20 05:15 Est GFR (CKD-EPI)NonAf 81.46 05/20/20 05:15 Random Glucose 117 mg/dL (74-106) H 05/20/20 05:15 Lactic Acid 1.7 mmol/L (0.4-2.0) 05/19/20 02:40 Calcium 7.7 mg/dL (8.5-10.1) L 05/20/20 05:15 Phosphorus 4.0 mg/dL (2.5-4.9) 05/20/20 05:15 Magnesium 1.9 mg/dL (1.8-2.4) 05/20/20 05:15 Total Bilirubin 0.6 mg/dL (0.2-1) 05/20/20 05:15 AST 20 U/L (15-37) 05/20/20 05:15 ALT 9 U/L (13-61) L 05/20/20 05:15 Alkaline Phosphatase 46 U/L (45-117) 05/20/20 05:15 Total Protein 4.6 g/dl (6.4-8.2) L 05/20/20 05:15 Albumin 1.6 g/dl (3.4-5.0) L 05/20/20 05:15 Microbiology 05/19/20 04:40 Urine - Urine Batres Urine Culture - Preliminary Group D Strep Or Entero Coccus Pending Organism 05/18/20 23:00 Blood - Peripheral Venous Blood Culture - Preliminary NO GROWTH OBTAINED AFTER 24 HOURS, INCUBATION TO CONTINUE FOR 4 DAYS. 05/18/20 23:00 Blood - Peripheral Venous Blood Culture - Preliminary NO GROWTH OBTAINED AFTER 24 HOURS, INCUBATION TO CONTINUE FOR 4 DAYS. ASSESSMENT/PLAN: Pt is a 85 yo M with PMHx of prostate cancer s/p radiation and seed implantation, HTN, CAD, HLD, chronic indwelling batres, and diverticulitis ccb bladder perforation with cystoscopy admitted to the ICU s/p exploratory laparotomy, evacuation of clots, bladder perforation repair, and suprapubic catheter placement for post-operative monitoring. Pt is POD #1. -Continue CBI for hematuria as per urology -Cont amicar drip as per urology -Monitor CBC -PRBC for hgb goal 9-10 -Cont antibiotics as per ID consult; recs appreciated -Pain management -Monitor abd dressing and REGGIE output -NPO for now -IVF -Maintain MAP>65 -Hold antiHTN meds for now -NC O2 for O2 sat>92% -Incentive spirometer -DVT proph with SCD's -We will continue to follow the patient in the ICU. Dania Schultz, JAYAP CCT 35mins
--- NOTE | 2020-05-20 10:23 | OP ---
DATE OF OPERATION: 05/19/2020 PREOPERATIVE DIAGNOSIS: Bladder ruptures during cystoscopy. POSTOPERATIVE DIAGNOSIS: Bladder ruptures during cystoscopy. PROCEDURE: Exploration of the abdominal cavity to rule out bowel injury. SURGEON: Rachelle Gaxiola MD SOUND EFFECTS TECHNICIAN: JUDE Martin This is an intraoperative consultation from Dr. Huston for this patient, who during a cystoscopy they noted to have abdominal distention, and they proceeded with an exploratory laparotomy to confirm perforation of the bladder, and an intraoperative consultation was to rule out any bowel injury. The incision had already been previously made. The peritoneal flap was extended slightly to allow greater access to the upper abdomen. Small bowel was identified, and it was run from the ileocecal valve in a retrograde fashion all the way to the ligament of Treitz, and there was no evidence of any small bowel injury or serosal tear or injuries or hematomas. The cecum was then inspected, appeared to be intact. The sigmoid colon was more difficult to visualize due to the fact that suprapubic cystostomy had already been created, and there is somewhat limited visualization of the inferior aspect of the sigmoid, but no evidence of any perforation injury was noted. At this point, the procedure was turned back to the urologist, and we will follow this patient postop to see his overall evolution. RACHELLE GAXIOLA M.D. [id number]
--- NOTE | 2020-05-20 10:36 | OP ---
DATE OF OPERATION: DATE OF DICTATION: 05/19/2020 PREOPERATIVE DIAGNOSIS: Gross hematuria with clot retention and bladder perforation. POSTOPERATIVE DIAGNOSIS: Gross hematuria with clot retention and bladder perforation. PROCEDURE: Cystoscopy, attempt at clot evacuation, exploratory laparotomy, repair of bladder perforation, evacuation of bladder clots, placement of suprapubic tube, excision of mass in prostatic urethra. SURGEON: Tevin Huston MD PLATING TANK OPERATOR: JUDE Martin INDICATION: Patient is an 85-year-old male with prostate cancer, chronic urinary retention, who was admitted late last night for gross hematuria and clot retention. He had several catheters removed and replaced in the emergency room for clot retention and initially appeared to be draining better but then developed clot retention again. His abdomen was distended, so he was taken to the OR emergently today for cystoscopy, evacuation of clots. He understood the risk of potential for exploratory laparotomy if there were a bladder perforation causing his abdominal distention. DESCRIPTION OF PROCEDURE: He was taken to the OR, placed in dorsal lithotomy position on the cystoscopy table after general anesthesia was established. The cystoscope was inserted into the bladder, and there were copious clots in the bladder. Attempts at irrigation to get clots out was partially successful; however, he was getting more distended, indicative that there was a bladder perforation present. At this point, decision was made for exploration. A lower midline incision was created with a No. 15 blade down to the level of the fascia. The fascia was incised. The bladder was then visualized and dissected from his perivesical space. A perforation was noted in the dome of the bladder near the right lateral wall. The bladder was then opened, incised in the midline, and there was a copious amount of clots in the bladder that were evacuated. Also upon entering the abdominal cavity, there was copious amount of irrigant fluid that was noted in the abdomen that was evacuated. There was an irregular mass appeared to be emanating from the prostatic urethra into the bladder, and this was excised and sent to pathology for analysis. At this point, the area of bladder perforation was closed in 2 layers with 2-0 chromic followed by 2-0 Vicryl, and then a 24-Frisian suprapubic tube was placed to the bladder. A 24-Frisian Galindo was then placed into the urethra, and then the bladder was closed in 2 layers using a 2-0 chromic and 2-0 Vicryl. The bladder was then tested and filled with approximately 300 mL of water, and there was no evidence of any leak. It was watertight. At the present time, Dr. Tripp scrubbed in. I asked him to evaluate the bowel, make sure there was no injury, and he performed the exploratory laparotomy and ran the bowel, and no injury was noted. At this time, attention was turned to wound closure. A REGGIE drain was placed in the right lower quadrant, brought out through the skin through a separate stab wound. The was closed with a running Maxon suture, and the skin was closed with skin altagracia. Dry sterile dressing was placed. Patient was then woken from anesthesia and transferred to recovery room in stable condition. There were no complications. Estimated blood loss was minimal. TEVIN HUSTON M.D. [id number]
--- NOTE | 2020-05-20 10:57 | CON.ID ---
Consult Consult Specialty:: infectious disease Reason for Consultation:: leukocytosis - History of Present Illness Chief Complaint: hematuria History of Present Illness: 85 yo man sll/p batres change on - no a/c, hostory of bladder cancer, started on po antibiotics for possible infection developed bladder pressure and gross hematuria came to ED no fevers or chills no nausea or vomiting no diarrhea last BM [address] scan showing bladder clot went to OR for cysto last night- complicated by bladder perforation-spt placed now in ICU bladder irrigation in progress via spt and batres notes pain at SPT site no cough no chest pain no bm for 2 days alert lives at home with who has Parkinsons they have an aide - History Source History Provided By: Patient Limitations to Obtaining History: No Limitations - Past Medical History Cardio/Vascular: Yes: CAD, HTN, Hyperlipdemia Gastrointestinal: Yes: Hemorrhoids Renal/: Yes: Cancer (bladder ca s/p radiation,implanted seed, 07/02) - Past Surgical History Past Surgical History: Yes: Hernia Repair, Tonsillectomy - Alcohol/Substance Use Hx Alcohol Use: No History of Substance Use: reports: None - Smoking History Smoking history: Never smoked Have you smoked in the past 12 months: No Aproximately how many cigarettes per day: 0 - Social History Usual Living Arrangement: With Spouse ADL: Independent 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 History of Recent Travel: No Home Medications - Allergies Allergies/Adverse Reactions: Allergies Allergy/AdvReac Type Severity Reaction Status Date / Time No Known Allergies Allergy Verified 04/28/20 18:42 - Home Medications Home Medications: Ambulatory Orders Simvastatin [Zocor -] 40 mg PO HS #0 tablet 07/13/13 Multivitamins [Multivit ([facility] Formulary)] 1 tab PO DAILY 11/09/15 Polyethylene Glycol 3350 [Miralax 119 gm Btl -] 17 gm PO DAILY 11/09/15 Psyllium Husk (with Sugar) [Metamucil Packet] 3.4 gm PO HS 11/09/15 Amlodipine Besylate 5 mg PO DAILY 10/29/18 Walker [Ultra-Light Rollator] 1 each ASDIR #1 each 11/08/18 Fenofibrate Nanocrystallized [Triglide] 160 mg PO DAILY 05/19/20 Metoprolol Succinate [Toprol Xl] 25 mg PO DAILY 05/19/20 Family Medical History Family History: Unremarkable Review of Systems - Review of Systems Constitutional: reports: No Symptoms. denies: Chills, Fever Eyes: reports: No Symptoms HENT: reports: No Symptoms Neck: reports: No Symptoms Cardiovascular: reports: No Symptoms. denies: Chest Pain, Edema, Shortness of Breath Respiratory: reports: No Symptoms Gastrointestinal: reports: Abdominal Pain (at SPT site) Genitourinary: reports: No Symptoms Musculoskeletal: reports: No Symptoms Integumentary: reports: No Symptoms Neurological: reports: No Symptoms Physical Exam Vital Signs: Vital Signs Temperature 97.8 F 05/20/20 10:14 Pulse Rate 68 05/20/20 10:00 Respiratory Rate 19 05/20/20 10:00 Blood Pressure 118/44 L 05/20/20 10:00 O2 Sat by Pulse Oximetry (%) 100 05/20/20 07:24 Constitutional: Yes: Well Nourished, No Distress, Calm Eyes: Yes: Conjunctiva Clear HENT: Yes: Atraumatic, Normocephalic. No: Thrush Neck: Yes: Supple Cardiovascular: Yes: Regular Rate and Rhythm Respiratory: Yes: Regular, CTA Bilaterally Gastrointestinal: Yes: Normal Bowel Sounds, Soft, Other (protuberant, normal BS, +SPT) ...Rectal Exam: Yes: Deferred Renal/: Yes: Batres Present Musculoskeletal: Yes: WNL Extremities: Yes: WNL Edema: No Psychiatric: Yes: Alert, Oriented. No: Agitated Labs: CBC, BMP 05/20/20 05:15 05/20/20 05:15 Imaging - Results Chest X-ray: Report Reviewed Cat Scan: Report Reviewed (bilateral pulmonary nodules, clot in bladder, large prostate, bilateral hydronephrosis) Problem List - Problems (1) Leukocytosis Code(s): D72.829 - ELEVATED WHITE BLOOD CELL COUNT, UNSPECIFIED (2) Perforation of bladder during operative procedure Code(s): N99.72 - ACCIDENTAL PNCTR & LAC OF A SYS ORG DURING OTH PROCEDURE (3) Gross hematuria Code(s): R31.0 - GROSS HEMATURIA (4) Prostate cancer Code(s): C61 - MALIGNANT NEOPLASM OF PROSTATE (5) Pulmonary nodules Code(s): R91.8 - OTHER NONSPECIFIC ABNORMAL FINDING OF LUNG FIELD Assessment/Plan continue vanco/meropenem (history of multiple courses of antibiotics as oupt for UTIs) f/u cultures will need w/u for pulmonary nodules as outpt please check vanco trough before fourth dose monitor hemoglobin incentive spirometry surgical f/u ongoing pulmonary nodules will need to be further evaluated
[2020-05-20 11:36] LABS: ANISOCYTOSIS 0; MACROCYTOSIS 0; PLATELET ESTIMATE NORMAL
[2020-05-20] MEDS ORDERED: PT OWN MED DRAWER 7, Y5N ONE ×2 (15:05→19:35)
--- NOTE | 2020-05-20 15:37 | PN ---
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 (short form) - Note 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: 85 M s/p GA for cysto complicated by bladder perf. pt in ICU doing well. pain controlled w IV meds. VSS. no anesthetic complications.
[2020-05-20 16:25] LABS: HEMATOCRIT 28.8 % (35.4-49); HEMOGLOBIN 9.2 GM/dL (11.7-16.9); MCH 26.5 pg (25.7-33.7); MCHC 31.9 g/dl (32.0-35.9); MEAN CELL VOLUME 83.2 fl (80-96); MEAN PLT VOLUME 9.5 fl (7.5-11.1); PLATELET COUNT 305 K/MM3 (134-434); RBC 3.46 M/mm3 (4.00-5.60); RDW 16.1 % (11.9-15.9)
[2020-05-20] MEDS: MEROPENEM 1 GM in DEXTROSE 5%-WATER 100 ML IVPB SCH (17:20)
[2020-05-20] MEDS: VANCOMYCIN HCL 1,250 MG in DEXTROSE 5%-WATER - 250 ML IVPB SCH (19:43)
[2020-05-20] MEDS: AMINOCAPROIC ACID IVPB SCH ×2 (20:46→21:20)
[2020-05-20] MEDS: WATER IVPB SCH ×2 (20:46→21:20)
[2020-05-20] MEDS: DEXTROSE 5% IVPB SCH ×2 (20:46→21:20)
[2020-05-20] MEDS ORDERED: AMINOCAPROIC ACID 5 GM/20 ML VIAL IVPB SCH (21:00)
[2020-05-20] MEDS: SODIUM CHLORIDE 1,000 ML IV SCH (21:40)
[2020-05-21] MEDS ORDERED: DEXTROSE 5%-WATER 100 ML IVPB ONE ×4 (01:34→23:56)
[2020-05-21] MEDS ORDERED: MEROPENEM 1 GM VIAL (RESTRICTED TO ID) IVPB ONE ×4 (01:34→23:56)
[2020-05-21] MEDS: WATER IVPB SCH ×6 (01:37→21:29)
[2020-05-21] MEDS: DEXTROSE 5% IVPB SCH ×6 (01:37→21:29)
[2020-05-21] MEDS: AMINOCAPROIC ACID IVPB SCH ×6 (01:37→21:29)
[2020-05-21] MEDS: MEROPENEM 1 GM in DEXTROSE 5%-WATER 100 ML IVPB SCH ×3 (01:37→17:00)
[2020-05-21] MEDS: MORPHINE SULFATE 2 MG/ML VIAL IVPUSH PRN (06:04)
[2020-05-21] MEDS ORDERED: PT OWN MED DRAWER 7, Y5N ONE ×3 (08:03→23:57)
[2020-05-21] MEDS: VANCOMYCIN HCL 1,250 MG in DEXTROSE 5%-WATER - 250 ML IVPB SCH ×2 (08:07→20:30)
--- NOTE | 2020-05-21 09:00 | PN ---
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 (short form) - Note 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: Pulm/CCM Pt seen and examined in the ICU. Patient alert, oriented, not in distress. Continue with CBI. CBI clear, no clots noted. Hgb stable. Abd dressing dry and intact. REGGIE draining serosang fluid. HD stable. O2 sat 98% on 3lNC. Urine + for Grp D strep or enterococcus. Vital Signs Period Temp Pulse Resp BP Sys/Donald Pulse Ox Last 24 Hr 97.9 F-99.8 F 72-92 16-20 112-163/41-76 96-100 Intake & Output 05/18/20 05/19/20 05/20/20 05/21/20 23:59 23:59 23:59 23:59 Intake Total 2530 49352 6391 Output Total 5695 6684 5869 Balance -3410 9084 531 Weight 81.647 kg 81.647 kg Active Medications Fentanyl (Sublimaze Injection -) 50 mcg IVPUSH [id number] PRN PRN Reason: PAIN-PACU ORDER X 4 DOSES ONLY Meropenem 1 gm/ Dextrose 100 mls @ 200 mls/hr IVPB Q8H-IV SHELLIE Last Admin: 05/21/20 17:00 Dose: 200 mls/hr Documented by: Vancomycin HCl 1,250 mg/ (Dextrose) 250 mls @ 166.667 mls/hr IVPB Q12H SHELLIE; Protocol Last Admin: 05/21/20 08:07 Dose: 166.667 mls/hr Documented by: Sodium Chloride (Normal Saline -) 1,000 mls @ 50 mls/hr IV ASDIR SHELLIE Last Admin: 05/20/20 21:40 Dose: Not Given Documented by: Aminocaproic Acid 1 gm/ (Dextrose) 54 mls @ 54 mls/hr IVPB Q4H-IV SHELLIE Last Admin: 05/21/20 16:59 Dose: 54 mls/hr Documented by: Morphine Sulfate (Morphine Sulfate) 2 mg IVPUSH Q4H PRN PRN Reason: PAIN LEVEL 6-10 Last Admin: 05/21/20 06:04 Dose: 2 mg Documented by: Gen: Pale, in NAD Neuro: Somnolent, easily aroused, Ox3 HEENT: PEERL, sclera clear Lungs: CTA CV: S1S2, RRR Abd: Distended, firm, tender to palp; hypoactive BS; abd dressing d+i; REGGIE to bulb with SS fluid : SPT intact with CBI; batres cath with clear urine Ext:Trace edema CBC, BMP 05/21/20 08:58 05/21/20 08:58 Microbiology 05/19/20 04:40 Urine - Urine Batres Urine Culture - Preliminary Group D Strep Or Entero Coccus 05/18/20 23:00 Blood - Peripheral Venous Blood Culture - Preliminary NO GROWTH OBTAINED AFTER 48 HOURS, INCUBATION TO CONTINUE FOR 3 DAYS. 05/18/20 23:00 Blood - Peripheral Venous Blood Culture - Preliminary NO GROWTH OBTAINED AFTER 48 HOURS, INCUBATION TO CONTINUE FOR 3 DAYS. ASSESSMENT/PLAN: Prostate cancer s/p radiation and seed implantation with chronic batres HTN diverticulitis ccb bladder perforation with cystoscopy s/p laparotomy, evacuation of clots, bladder perforation repair, and suprapubic catheter placement -Continue CBI for hematuria as per urology -Cont amicar drip as per urology -Monitor CBC -PRBC for hgb goal 9-10 -Cont antibiotics as per ID consult; recs appreciated -Pain management -Monitor abd dressing and REGGIE output -NPO for now -IVF -Maintain MAP>65 -Hold antiHTN meds for now -NC O2 for O2 sat>92% -Incentive spirometer -DVT proph with SCD's Yesica Torrez, ACNP [id number]
--- NOTE | 2020-05-21 09:08 | PN ---
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 (short form) - Note 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: alert NAD less incisional pain Vital Signs Period Temp Pulse Resp BP Sys/Donald Pulse Ox Last 24 Hr 97.8 F-99.8 F 68-91 18-24 90-151/41-73 96-100 cor-rrr lungs- decreased bs at bases abd protuberant, soft, +BS +SPT batres ext no edema CBC, BMP 05/20/20 15:55 05/20/20 05:15 Microbiology 05/18/20 23:00 Blood - Peripheral Venous Blood Culture - Preliminary NO GROWTH OBTAINED AFTER 48 HOURS, INCUBATION TO CONTINUE FOR 3 DAYS. 05/18/20 23:00 Blood - Peripheral Venous Blood Culture - Preliminary NO GROWTH OBTAINED AFTER 48 HOURS, INCUBATION TO CONTINUE FOR 3 DAYS. 05/19/20 04:40 Urine - Urine Batres Urine Culture - Preliminary Group D Strep Or Entero Coccus Pending Organism a/p sepsis cysto with bladder perforation leukocytosis improving f/u cultures vanco trough today continue vanco/meropenem Problem List - Problems (1) Leukocytosis Code(s): D72.829 - ELEVATED WHITE BLOOD CELL COUNT, UNSPECIFIED (2) Perforation of bladder during operative procedure Code(s): N99.72 - ACCIDENTAL PNCTR & LAC OF A SYS ORG DURING OTH PROCEDURE (3) Gross hematuria Code(s): R31.0 - GROSS HEMATURIA (4) Prostate cancer Code(s): C61 - MALIGNANT NEOPLASM OF PROSTATE (5) Pulmonary nodules Code(s): R91.8 - OTHER NONSPECIFIC ABNORMAL FINDING OF LUNG FIELD
[2020-05-21 09:59] LABS: HEMATOCRIT 28.5 % (35.4-49); HEMOGLOBIN 9.1 GM/dL (11.7-16.9); MCH 26.4 pg (25.7-33.7); MCHC 32.1 g/dl (32.0-35.9); MEAN CELL VOLUME 82.3 fl (80-96); MEAN PLT VOLUME 9.8 fl (7.5-11.1); PLATELET COUNT 309 K/MM3 (134-434); RBC 3.46 M/mm3 (4.00-5.60); RDW 15.9 % (11.9-15.9); WHITE BLOOD COUNT 28.6 K/mm3 (4.0-10.0)
[2020-05-21 10:06] LABS: INR 1.5 (0.83-1.09); PROTHROMBIN TIME (PATIENT) 17.8 SEC (9.7-13.0)
[2020-05-21 10:10] LABS: ACTIVATED PTT 29.9 SECONDS (25.2-36.5)
[2020-05-21 10:16] LABS: BLOOD UREA NITROGEN 11.1 mg/dL (7-18); CALCIUM 7.5 mg/dL (8.5-10.1); CREATININE 0.5 mg/dL (0.55-1.3); MAGNESIUM 2.1 mg/dL (1.8-2.4); PHOSPHOROUS 2.2 mg/dL (2.5-4.9); POTASSIUM 4.1 mmol/L (3.5-5.1)
[2020-05-21] MEDS: SODIUM CHLORIDE 1,000 ML IV SCH (21:29)
[2020-05-22] MEDS: MORPHINE SULFATE 2 MG/ML VIAL IVPUSH PRN (01:55)
[2020-05-22] MEDS: MEROPENEM 1 GM in DEXTROSE 5%-WATER 100 ML IVPB SCH ×3 (01:55→17:57)
[2020-05-22] MEDS: WATER IVPB SCH ×2 (01:56→06:36)
[2020-05-22] MEDS: AMINOCAPROIC ACID IVPB SCH ×2 (01:56→06:36)
[2020-05-22] MEDS: DEXTROSE 5% IVPB SCH ×2 (01:56→06:36)
[2020-05-22] MEDS ORDERED: ONDANSETRON 4 MG/2 ML VIAL IVPUSH ONE (02:17)
[2020-05-22] MEDS ORDERED: DEXTROSE 5%-WATER - 1,000 ML with SODIUM BICARBONATE 8.4% - 150 MEQ IV SCH (02:30)
[2020-05-22] MEDS ORDERED: ONDANSETRON 4 MG/2 ML VIAL ONE (03:38)
[2020-05-22] MEDS ORDERED: PROMETHAZINE HCL 25 MG/1 ML VIAL IM ONE (05:02)
[2020-05-22] MEDS ORDERED: PT OWN MED DRAWER 7, Y5N ONE ×3 (06:35→20:46)
[2020-05-22 06:46] LABS: EOS % 0.3 % (0-4.5); LYMPH % 1.1 % (8-40); MCH 26.3 pg (25.7-33.7); MCHC 32.3 g/dl (32.0-35.9); MEAN CELL VOLUME 81.3 fl (80-96); MEAN PLT VOLUME 9.4 fl (7.5-11.1); MONO % 3.3 % (3.8-10.2); NEUT % 94.3 % (42.8-82.8); PLATELET COUNT 445 K/MM3 (134-434); RBC 4.17 M/mm3 (4.00-5.60); RDW 16.3 % (11.9-15.9)
[2020-05-22 07:01] LABS: WHITE BLOOD COUNT 34.9 K/mm3 (4.0-10.0)
[2020-05-22 07:12] LABS: ALBUMIN 1.6 g/dl (3.4-5.0); BILIRUBIN,TOTAL 0.8 mg/dL (0.2-1); BLOOD UREA NITROGEN 13.8 mg/dL (7-18); CALCIUM 7.7 mg/dL (8.5-10.1); CREATININE 0.5 mg/dL (0.55-1.3); PHOSPHOROUS 2.4 mg/dL (2.5-4.9); TOT PROT 4.9 g/dl (6.4-8.2)
--- NOTE | 2020-05-22 07:56 | PN ---
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 (short form) - Note 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: CBI off for most of the day yesterday, was restarted slowly recently for sediment, not hematuria having upper abd discomfort and nausea overnight wound clean REGGIE output approx 10cc overnight WBC persists at 35 hold CBI would order CT to eval abd pain GI eval for N/V
[2020-05-22 10:46] LABS: ANISOCYTOSIS 1+; MACROCYTOSIS 0; OVALOCYTE 1+; PLATELET ESTIMATE NORMAL; TARGET CELLS 1+; TEAR DROP CELLS 1+; TOXIC GRANULATION 1+
[2020-05-22] MEDS ORDERED: DEXTROSE 5%-WATER 100 ML IVPB ONE ×2 (10:55→17:51)
[2020-05-22] MEDS ORDERED: MEROPENEM 1 GM VIAL (RESTRICTED TO ID) IVPB ONE ×2 (10:55→17:51)
[2020-05-22] MEDS: SODIUM CHLORIDE 1,000 ML IV SCH ×2 (12:05→21:31)
[2020-05-22] MEDS: PANTOPRAZOLE SODIUM 40 MG VIAL IVPUSH SCH ×2 (12:13→21:31)
[2020-05-22] MEDS: VANCOMYCIN HCL 1,250 MG in DEXTROSE 5%-WATER - 250 ML IVPB SCH ×2 (12:33→21:31)
--- NOTE | 2020-05-22 13:06 | PN ---
Physical Exam: SUBJECTIVE: Patient seen and examined at bedside. pt seen vomiting. pt complaining of nausea throughout the night. pt also endorsing generalized a bdominal discomfort. OBJECTIVE: Vital Signs Period Temp Pulse Resp BP Sys/Donald Pulse Ox Last 24 Hr 98.7 F-98.9 F 84-113 18-24 111-163/56-84 97-113 GENERAL: The patient is awake, alert, and fully oriented, in no acute distress. HEAD: Normal with no signs of trauma. LUNGS: Breath sounds equal, decreased at bases, no accessory muscle use. HEART: Regular rate and rhythm, S1, S2 ABDOMEN: Soft, epigastric tender to palpation, distended, normoactive bowel sounds, + guarding. LLQ/suprapubic cath. RLQ/REGGIE drain EXTREMITIES: 2+ pulses, warm, well-perfused, no edema. NEUROLOGICAL: Cranial nerves II through XII grossly intact. Normal speech SKIN: Warm, dry, normal turgor, no rashes or lesions noted Laboratory Results - last 24 hr 05/21/20 05/22/20 05/22/20 06:00 05:35 06:00 WBC 34.9 H* RBC 4.17 Hgb 11.0 L Hct 34.0 L D MCV 81.3 MCH 26.3 MCHC 32.3 RDW 16.3 H Plt Count 445 H D MPV 9.4 Absolute Neuts (auto) 32.9 H Neutrophils % 94.3 H Neutrophils % (Manual) 92.1 H Band Neutrophils % 3.9 Lymphocytes % 1.1 L D Lymphocytes % (Manual) 2.0 L D Monocytes % 3.3 L Monocytes % (Manual) 1 L Eosinophils % 0.3 D Eosinophils % (Manual) 0.0 Basophils % 1.0 D Basophils % (Manual) 0.0 Myelocytes % (Man) 0 Promyelocytes % (Man) 0 Blast Cells % (Manual) 0 Nucleated RBC % 0 Metamyelocytes 0 Hypochromia 0 Toxic Granulation 1+ Platelet Estimate Normal Platelet Comment Present Polychromasia 0 Poikilocytosis 1+ Anisocytosis 1+ Microcytosis 1+ Macrocytosis 0 Spherocytes 1+ Target Cells 1+ Tear Drop Cells 1+ Ovalocytes 1+ Sodium 137 Potassium 4.0 Chloride 105 Carbon Dioxide 21 Anion Gap 10 BUN 13.8 Creatinine 0.5 L Est GFR (CKD-EPI)AfAm 114.53 Est GFR (CKD-EPI)NonAf 98.81 Random Glucose 124 H Calcium 7.7 L Phosphorus 2.4 L Magnesium 2.0 Total Bilirubin 0.8 AST 38 H ALT 16 Alkaline Phosphatase 100 Total Protein 4.9 L Albumin 1.6 L Vancomycin Pre-Dose 12.2 H Active Medications Generic Name Dose Route Start Last Admin Trade Name Freq PRN Reason Stop Dose Admin Fentanyl 50 mcg 05/19/20 19:29 Sublimaze Injection - IVPUSH [id number] PRN PAIN-PACU ORDER X 4 DOSES ONLY Meropenem 1 gm/ Dextrose 100 mls @ 200 mls/hr 05/20/20 18:00 05/22/20 10:50 IVPB 200 mls/hr Q8H-IV SHELLIE Administration Vancomycin HCl 1,250 mg/ 250 mls @ 166.667 mls/hr 05/20/20 20:00 05/21/20 20:30 Dextrose IVPB 166.667 mls/hr Q12H SHELLIE Administration Protocol Sodium Chloride 1,000 mls @ 50 mls/hr 05/19/20 21:30 05/22/20 12:05 Normal Saline - IV 50 mls/hr ASDIR SHELLIE Administration Morphine Sulfate 2 mg 05/19/20 19:29 05/22/20 01:55 Morphine Sulfate IVPUSH 2 mg Q4H PRN Administration PAIN LEVEL 6-10 Pantoprazole Sodium 40 mg 05/22/20 10:00 05/22/20 12:13 Protonix Iv IVPUSH 40 mg BID SHELLIE Administration CT chest / abdomen/ pelvis: 1. Bilateral pleural effusions and lower lobe atelectasis. 2. Diffuse dilatation of a thickened esophagus. Clinical correlation and follow-up recommended. 3. Ascites. 4. Diffuse fatty infiltration of the liver. 5. Bilateral nephrolithiasis and renal cysts. 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 6. Findings consistent with a mild to moderate SBO. 7. Suprapubic cystostomy tube and Galindo catheter within the urinary bladder. 8. Percutaneous pelvic drainage catheter. Clinical correlation and follow-up recommended. Please see above discussion. ASSESSMENT/PLAN: 85 yo M PMHx of prostate cancer (s/p radiation and seed implantation), HTN, CAD, HLD, sciatica, diverticulitis presenting to the ED with dark red blood producing from Galindo.pt is admitted to ICU s/p bladder perforation with cystoscopy s/p laparotomy, evacuation of clots, bladder perforation repair, and suprapubic catheter placement . POD 3 Neuro: -awake, alert , oriented Cardio HTN, HLD, CAD -cont to monitor Pulm: - RUL calcified granuloma in periphery- IR for possible bx? - b/l pleural effusions and lower lobe atelectasis - aspiration precautions GI - SBO, ascites, fatty infiltration of liver - CT abdomen/ Pelvis reviewed see above. - NPO, IVF, NGT -serial abdominal exams, rpt KUB in am - GI consult appreciated - c/w protonix ID - UCx: enteroccous - Bcx: neg to date - leukocytosis worsening today, no febrile events - c/w Vanc/ jorge day 4. will follow vanc level today - ID recs appreciated - s/p exploratory laparotomy, evacuation of clots, repair bladder perforation, suprapubic catheter placement, REGGIE drain with Dr. Huston. - suprapubic cath, CBI held today -cont to monitor - morphine for pain Nephro - b/l renal cysts, upj obstruction, see CT findings above - cont to monitor DVTppx: SCDs GIppx: protonix BID cont ICU level of care Visit type - Emergency Visit Emergency Visit: No - New Patient This patient is new to me today: No - Critical Care Critical Care patient: Yes Total Critical Care Time (in minutes): 36 Critical Care Statement: The care of this patient involved high complexity decision making to prevent further life threatening deterioration of the patient's condition and/or to evaluate & treat vital organ system(s) failure or risk of failure. - Discharge Referral Referred to [facility] Yes Physician Referral: Ronen Mckeon DO (GI) - Medication Review Med list reviewed for High Risk Meds patients 65 and older: Yes ATTENDING PHYSICIAN STATEMENT I saw and evaluated the patient. I reviewed the resident's note and discussed the case with the resident. I agree with the resident's findings and plan as documented. SUBJECTIVE: OBJECTIVE: ASSESSMENT AND PLAN:
--- NOTE | 2020-05-22 13:39 | PN ---
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 (short form) - Note 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: feels miserable abdomen distended s/p ct scan- partial sbo and left UPJ obstruction +NGT with green bilious material Vital Signs Period Temp Pulse Resp BP Sys/Donald Pulse Ox Last 24 Hr 98.7 F-98.9 F 84-113 18-24 111-163/56-84 97-113 cor-rrr lungs decreased bs at bases abd distended, a/p sepsis cysto with bladder perforation leukocytosis improving f/u cultures vanco trough today continue vanco/meropenem Problem List - Problems (1) Leukocytosis Code(s): D72.829 - ELEVATED WHITE BLOOD CELL COUNT, UNSPECIFIED (2) Perforation of bladder during operative procedure Code(s): N99.72 - ACCIDENTAL PNCTR & LAC OF A SYS ORG DURING OTH PROCEDURE (3) Gross hematuria Code(s): R31.0 - GROSS HEMATURIA (4) Prostate cancer Code(s): C61 - MALIGNANT NEOPLASM OF PROSTATE (5) Pulmonary nodules Code(s): R91.8 - OTHER NONSPECIFIC ABNORMAL FINDING OF LUNG FIELD
--- NOTE | 2020-05-22 13:53 | PN ---
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 (short form) - Note 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: GENERAL SURGERY POD #3 s/p exploratory laparotomy, evacuation of clots, repair bladder perforation, suprapubic catheter placement, REGGIE drain with Dr. Huston. Dr. Tripp was called in intra-op to run the bowel and will continue to follow. CBI running through SP tube and draining out via penile cath. Patient was doing well over the weekend. This morning, started to c/o feeling nauseous. Vomited a few times after Urology saw him this morning. An ABD/Pelvis CT identified: 1. bilat pleural effusion 2. Diffuse dilated esophagus 3. Bilat nephrolithiasism renal cysts. Dilated LEFT upper collecting system related to UPJ obstruction 4. Mild-moderate SBO 5. SP tube and batres in urinary bladder NGT inserted prior too my arrival by ICU residnet and states he already drained 2L (bilious) Last Vital Signs Temp Pulse Resp BP Pulse Ox 98.7 F 102 H 21 H 157/77 97 05/22/20 06:00 05/22/20 08:00 05/22/20 08:11 05/22/20 08:00 05/22/20 08:11 CBC, BMP 05/22/20 06:00 05/22/20 05:35 Selected Entries 05/21/20 05/21/20 05/21/20 05/21/20 05/22/20 05:23 11:45 16:12 19:03 06:00 REGGIE 10 10 10 Batres (largely cbi fluid) 3,450 500 1,900 1,800 GEN: alert. Moderately uncomfortable Nose: NGT on lwcs (bilious drainage) Pulm: unlabored respirations on room air Cor: rrr ABD: softly distended, bowel sounds absent. surgical altagracia insitu. LLQ/suprapubic cath. RLQ/REGGIE drain : batres to gravity LE: all compartments soft. SCDs bilat A/P: POD #3 s/p exploratory laparotomy, evacuation of clots, repair bladder perforation, suprapubic catheter placement, REGGIE drain with Dr. Huston. Dr. Tripp was called in intra-op to run the bowel and no bowel injury identified. Acute onset SBO. -NPO -IVF -NGT to wall suction - Consult due to CT findings of left UPJ obstruction -Per Urology...CBI running through SP tube and draining out via penile cath -Trend WBC -Serial ABD exams -AXR in AM -IV ABX as per ID -Monitor/record all drain output q shift -Surgery Team to continue following Above plan discussed with Dr. Tripp and agrees -. Problem List - Problems (1) Perforation of bladder during operative procedure Code(s): N99.72 - ACCIDENTAL PNCTR & LAC OF A SYS ORG DURING OTH PROCEDURE (2) Gross hematuria Code(s): R31.0 - GROSS HEMATURIA (3) Obstruction of left ureteropelvic junction (UPJ) Code(s): N13.5 - CROSSING VESSEL AND STRICTURE OF URETER W/O HYDRONEPHROSIS (4) Leukocytosis Code(s): D72.829 - ELEVATED WHITE BLOOD CELL COUNT, UNSPECIFIED (5) Prostate cancer Code(s): C61 - MALIGNANT NEOPLASM OF PROSTATE (6) CAD (coronary artery disease) Code(s): I25.10 - ATHSCL HEART DISEASE OF [place] CORONARY ARTERY W/O ANG PCTRS Qualifiers: Coronary Disease-Associated Artery/Lesion type: [place] artery [place] vs. transplanted heart: [place] heart Associated angina: without angina Qualified Code(s): I25.10 - Atherosclerotic heart disease of [place] coronary artery without angina pectoris (7) HLD (hyperlipidemia) Code(s): E78.5 - HYPERLIPIDEMIA, UNSPECIFIED (8) HTN (hypertension) Code(s): I10 - ESSENTIAL (PRIMARY) HYPERTENSION Qualifiers: Hypertension type: essential hypertension Qualified Code(s): I10 - Essential (primary) hypertension
--- NOTE | 2020-05-22 14:50 | PN ---
Teaching Attending Note Name of Resident: Elba Barth ATTENDING PHYSICIAN STATEMENT I saw and evaluated the patient. I reviewed the resident's note and discussed the case with the resident. I agree with the resident's findings and plan as documented. SUBJECTIVE: Patient seen and examined in the ICU. Patient alert, oriented, mildly tachypneic at rest. Reports mild abdominal discomfort. CT noted : SBO / bilateral pleural effusions / Atelectasis / hydronephrosis Intake & Output 05/19/20 05/20/20 05/21/20 05/22/20 23:59 23:59 23:59 23:59 Intake Total 2530 28341 6391 899 Output Total 5300 9430 5870 1810 Balance -2770 4019 521 -911 Weight 180 lb Last Vital Signs Temp Pulse Resp BP Pulse Ox 98.7 F 102 H 21 H 157/77 97 05/22/20 06:00 05/22/20 08:00 05/22/20 08:11 05/22/20 08:00 05/22/20 08:11 Active Medications Fentanyl (Sublimaze Injection -) 50 mcg IVPUSH [id number] PRN PRN Reason: PAIN-PACU ORDER X 4 DOSES ONLY Meropenem 1 gm/ Dextrose 100 mls @ 200 mls/hr IVPB Q8H-IV SHELLIE Last Admin: 05/22/20 10:50 Dose: 200 mls/hr Documented by: Vancomycin HCl 1,250 mg/ (Dextrose) 250 mls @ 166.667 mls/hr IVPB Q12H SHELLIE; Protocol Last Admin: 05/21/20 20:30 Dose: 166.667 mls/hr Documented by: Sodium Chloride (Normal Saline -) 1,000 mls @ 50 mls/hr IV ASDIR SHELLIE Last Admin: 05/22/20 12:05 Dose: 50 mls/hr Documented by: Morphine Sulfate (Morphine Sulfate) 2 mg IVPUSH Q4H PRN PRN Reason: PAIN LEVEL 6-10 Last Admin: 05/22/20 01:55 Dose: 2 mg Documented by: Pantoprazole Sodium (Protonix Iv) 40 mg IVPUSH BID SHELLIE Last Admin: 05/22/20 12:13 Dose: 40 mg Documented by: Gen: Awake and alert, mildly tachpneic at rest Neuro: Non-focal HEENT: PEERL, sclera clear Lungs: CTA CV: S1S2, RRR Abd: Distended, firm to touch, (+) tender to palpation; hypoactive BS, (+) REGGIE intact with serosanguinous fluid : batres cath with clear urine Ext:Trace edema Laboratory Results - last 24 hr 05/21/20 05/22/20 05/22/20 06:00 05:35 06:00 WBC 34.9 H* RBC 4.17 Hgb 11.0 L Hct 34.0 L D MCV 81.3 MCH 26.3 MCHC 32.3 RDW 16.3 H Plt Count 445 H D MPV 9.4 Absolute Neuts (auto) 32.9 H Neutrophils % 94.3 H Neutrophils % (Manual) 92.1 H Band Neutrophils % 3.9 Lymphocytes % 1.1 L D Lymphocytes % (Manual) 2.0 L D Monocytes % 3.3 L Monocytes % (Manual) 1 L Eosinophils % 0.3 D Eosinophils % (Manual) 0.0 Basophils % 1.0 D Basophils % (Manual) 0.0 Myelocytes % (Man) 0 Promyelocytes % (Man) 0 Blast Cells % (Manual) 0 Nucleated RBC % 0 Metamyelocytes 0 Hypochromia 0 Toxic Granulation 1+ Platelet Estimate Normal Platelet Comment Present Polychromasia 0 Poikilocytosis 1+ Anisocytosis 1+ Microcytosis 1+ Macrocytosis 0 Spherocytes 1+ Target Cells 1+ Tear Drop Cells 1+ Ovalocytes 1+ Sodium 137 Potassium 4.0 Chloride 105 Carbon Dioxide 21 Anion Gap 10 BUN 13.8 Creatinine 0.5 L Est GFR (CKD-EPI)AfAm 114.53 Est GFR (CKD-EPI)NonAf 98.81 Random Glucose 124 H Calcium 7.7 L Phosphorus 2.4 L Magnesium 2.0 Total Bilirubin 0.8 AST 38 H ALT 16 Alkaline Phosphatase 100 Total Protein 4.9 L Albumin 1.6 L Vancomycin Pre-Dose 12.2 H -Pain management -Monitor abd dressing and REGGIE output -NPO for now -IVF -Maintain MAP>65 05/18/20 23:00 Blood - Peripheral Venous Blood Culture - Preliminary NO GROWTH OBTAINED AFTER 48 HOURS, INCUBATION TO CONTINUE FOR 3 DAYS. ASSESSMENT/PLAN: SBO No current evidence of perforation Prostate cancer s/p radiation and seed implantation with chronic batres HTN Diverticulitis S/P bladder perforation with cystoscopy s/p laparotomy, evacuation of clots, bladder perforation repair, and suprapubic catheter placement NPO GI evaluation Surgery evaluation NGT was inserted ABX per ID Normal transfusion thresholds Hold BP Meds for now Supplemental O2 as needed Incentive spirometery as able VTE prophylaxis Requires ICU monitoring for tenuous overall status Dr Herrera
[2020-05-22 21:01] LABS: BLOOD UREA NITROGEN 19.3 mg/dL (7-18); CREATININE 0.7 mg/dL (0.55-1.3); POTASSIUM 3.8 mmol/L (3.5-5.1)
[2020-05-23] MEDS ORDERED: DEXTROSE 5%-WATER 100 ML IVPB ONE ×3 (02:05→16:51)
[2020-05-23] MEDS ORDERED: MEROPENEM 1 GM VIAL (RESTRICTED TO ID) IVPB ONE ×3 (02:05→16:51)
[2020-05-23] MEDS: MEROPENEM 1 GM in DEXTROSE 5%-WATER 100 ML IVPB SCH ×3 (02:09→17:02)
[2020-05-23] MEDS ORDERED: ONDANSETRON 4 MG/2 ML VIAL IVPUSH ONE (02:10)
[2020-05-23 06:07] LABS: BASO % 0.3 % (0-2.0); HEMATOCRIT 31.4 % (35.4-49); HEMOGLOBIN 10.1 GM/dL (11.7-16.9); LYMPH % 3.7 % (8-40); MCH 26.3 pg (25.7-33.7); MCHC 32.3 g/dl (32.0-35.9); MEAN CELL VOLUME 81.2 fl (80-96); MONO % 5.5 % (3.8-10.2); NEUT % 89.5 % (42.8-82.8); PLATELET COUNT 443 K/MM3 (134-434); RBC 3.86 M/mm3 (4.00-5.60); RDW 16.4 % (11.9-15.9)
[2020-05-23 06:33] LABS: ALBUMIN 1.5 g/dl (3.4-5.0); BILIRUBIN,TOTAL 0.7 mg/dL (0.2-1); BLOOD UREA NITROGEN 20.5 mg/dL (7-18); CREATININE 0.6 mg/dL (0.55-1.3); MAGNESIUM 2.2 mg/dL (1.8-2.4); PHOSPHOROUS 2.7 mg/dL (2.5-4.9); POTASSIUM 3.9 mmol/L (3.5-5.1); TOT PROT 4.9 g/dl (6.4-8.2)
[2020-05-23] MEDS ORDERED: PT OWN MED DRAWER 7, Y5N ONE ×2 (08:33→22:52)
[2020-05-23] MEDS: VANCOMYCIN HCL 1,250 MG in DEXTROSE 5%-WATER - 250 ML IVPB SCH ×2 (08:46→20:00)
[2020-05-23] MEDS: PANTOPRAZOLE SODIUM 40 MG VIAL IVPUSH SCH (09:02)
--- NOTE | 2020-05-23 09:06 | PN ---
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 (short form) - Note 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: afebrile CT findings with SBO/ileus so NGT placed mild left hydro on CVT secondary to Left UPJo but this is chronic and does not need intervention feels more comfortable abd pain and distention improved urine yellow off CBI wound clean REGGIE output minimal WBC decreased to 29 cont batres/SPT/REGGIE drainage
[2020-05-23 10:19] LABS: ANISOCYTOSIS 1+; MACROCYTOSIS 0; OVALOCYTE 1+; PLATELET ESTIMATE NORMAL
--- NOTE | 2020-05-23 10:32 | CON.GI ---
Consult Consult Specialty:: GI Referred by:: Hospitalist Service Reason for Consultation:: Ascites and SBO - History of Present Illness Chief Complaint: Blood from suprapubic catheter History of Present Illness: 85M admitted 05/18 for evaluation of blood from indwelling bladder catheter. Called to evaluate SBO and ascites. Had CT scan of abdomen and pelvis on admission revealing b/l pulmonary nodules, clots/blood in bladder, b/l hydronephrosis. Was receiving morphine secondary to pain at catheter site. Was having bilious vomiting for 1-2 days per the patient while he was admitted. Had CT scan of the C/A/P 05/22 revealing atelectasis, thickened esophagus no lung masses, possible PSBO given that distal ileal bowel loops were non-distended. CBI was being performed. Abdominal pain has improved. Denies bowel symptomatology while at home. Denies dysphagia / odynophagia. Last had colonoscopy [address] Lisa that led to the removal of an ascending colon tubular adenoma. It also revealed severe distal colon diverticulosis. - History Source History Provided By: Patient, Medical Record - Past Medical History Cardio/Vascular: Yes: CAD, HTN, Hyperlipdemia Gastrointestinal: Yes: Diverticulosis, Hemorrhoids, Other (Colon polyps) Renal/: Yes: Cancer (bladder ca s/p radiation,implanted seed, 07/02) - Past Surgical History Past Surgical History: Yes: Hernia Repair, Tonsillectomy Additional Surgical History: Seed implantation, suprapubic catheter placement - Alcohol/Substance Use Hx Alcohol Use: No History of Substance Use: reports: None - Smoking History Smoking history: Never smoked Have you smoked in the past 12 months: No Aproximately how many cigarettes per day: 0 - Social History Usual Living Arrangement: With Spouse ADL: Independent Occupation: retired [employer] employee 15 [address] ago [address] of : [facility] History of Recent Travel: No Home Medications - Allergies Allergies/Adverse Reactions: Allergies Allergy/AdvReac Type Severity Reaction Status Date / Time No Known Allergies Allergy Verified 04/28/20 18:42 - Home Medications Home Medications: Ambulatory Orders Simvastatin [Zocor -] 40 mg PO HS #0 tablet 07/13/13 Multivitamins [Multivit ([facility] Formulary)] 1 tab PO DAILY 11/09/15 Polyethylene Glycol 3350 [Miralax 119 gm Btl -] 17 gm PO DAILY 11/09/15 Psyllium Husk (with Sugar) [Metamucil Packet] 3.4 gm PO HS 11/09/15 Amlodipine Besylate 5 mg PO DAILY 10/29/18 Walker [Ultra-Light Rollator] 1 each ASDIR #1 each 11/08/18 Fenofibrate Nanocrystallized [Triglide] 160 mg PO DAILY 05/19/20 Metoprolol Succinate [Toprol Xl] 25 mg PO DAILY 05/19/20 Family Medical History Family Hx Cancer: Father (prostate) Family Hx Cardiac Disorders: Mother, Brother (9 brothers, , some with heart ptoblems 3 , sisters, : heart problemns) Review of Systems - Review of Systems Constitutional: denies: Chills Cardiovascular: denies: Chest Pain Respiratory: denies: Cough Gastrointestinal: reports: Abdominal Pain, Bloating, Vomiting. denies: Diarrhea, Dysphagia, Melena, Rectal Bleeding, Vomiting Blood Physical Exam-GI Vital Signs: Vital Signs Temperature 97.6 F 05/23/20 07:25 Pulse Rate 94 H 05/23/20 09:04 Respiratory Rate 05/23/20 09:04 Blood Pressure 123/56 L 05/23/20 09:04 O2 Sat by Pulse Oximetry (%) 93 L 05/23/20 08:00 Constitutional: Yes: Calm Eyes: No: Sclera Icterus HENT: No: Thrush Cardiovascular: Yes: Tachycardia, Pulse Irregular Respiratory: Yes: CTA Bilaterally Gastrointestinal Inspection: Yes: Distention ...Auscultate: Yes: Normoactive Bowel Sounds ...Palpate: Yes: Soft, Tenderness (Mild TTP), Other (Limited as patient was sitting in chair) ...Percussion: Yes: Tympanitic (Mild tympany) Edema: No (No LE edema) Neurological: Yes: Alert Labs: CBC, BMP 05/23/20 05:25 05/23/20 05:25 INR, PTT INR 1.50 (0.83-1.09) H 05/21/20 08:58 Hepatic Panel Total Bilirubin 0.7 mg/dL (0.2-1) 05/23/20 05:25 AST 25 U/L (15-37) 05/23/20 05:25 ALT 13 U/L (13-61) 05/23/20 05:25 Alkaline Phosphatase 85 U/L (45-117) 05/23/20 05:25 Albumin 1.5 g/dl (3.4-5.0) L 05/23/20 05:25 Imaging - Results Cat Scan: Report Reviewed, Image Reviewed Problem List - Problems (1) Ascites Assessment/Plan: Not a significant amount of ascites noted on CT scan. Described as trace amount. Suspect secondary to hypoalbuminemic state and fluids he has been receiving. Check echo if not already done ? a. fib on today's exam. Let nurse know. was going to speak to critical care team. Code(s): R18.8 - OTHER ASCITES (2) Partial obstruction of small intestine Assessment/Plan: vs. Ileus secondary to opiate analgesia he was receiving secondary to pain at catheter site Advise: Surgical evaluation Monitor abdominal exam D/C opiate analgesia as feasible No need for high dose BID protonix NGT in place on med wall suction and lfushed. currently 800 CC in canister Code(s): K56.600 - PARTIAL INTESTINAL OBSTRUCTION, UNSPECIFIED TO CAUSE (3) Thickening of esophagus Assessment/Plan: Asymptomatic. No dysphagia/odynophagia. No oropharyngeal thrush appreciated on exam When acute issues are resolved, elective EGD for further evaluation Code(s): K22.8 - OTHER SPECIFIED DISEASES OF ESOPHAGUS
--- NOTE | 2020-05-23 11:37 | PN ---
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 (short form) - Note 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: POD #4, s/p exploratory laparotomy, evacuation of clots, repair bladder perforation, suprapubic catheter placement, Dr. Tripp consulted intra-op to run the bowel Patient seen and examined. States he is feeling "okay" Plan to get oob to chair shortly. Passing gas, states he had a small bm yesterday. Has some abdo pain, no n/v, ngt in place. Vital Signs Temp 99.0 F 05/23/20 10:00 Pulse 106 H 05/23/20 11:05 Resp 18 05/23/20 11:05 BP 114/54 L 05/23/20 11:05 Pulse Ox 99 05/23/20 10:00 Intake & Output 05/22/20 05/22/20 05/23/20 11:59 23:59 11:59 Intake Total 899 1050 808 Output Total 1810 3110 400 Balance -911 -2060 408 Intake: IV 546 400 458 Normal Saline - 1,000 ml 546 400 458 @ 50 mls/hr IV ASDIR SHELLIE Rx#:[id number] IVPB 353 450 350 CBI Intake 200 Output: Gastric Drainage 2500 Drainage 10 10 0 Right Abdomen 10 10 0 Urine 1800 600 400 Batres 1800 600 400 Other: Voiding Method Indwelling Catheter Indwelling Catheter Indwelling Catheter Bowel Movement No No Yes # Bowel Movements 1 CBC, BMP 05/23/20 05:25 05/23/20 05:25 Gen: awake, alert, nad Resp: unlabored on 4L NC Nose: NGT on lwcs (bilious drainage) Abdo: soft, minimally distended, +ttp at incision sites, + bowel sounds. Suprapubic catheter noted to be draining well, batres bag bedside with approx 300ml yellow output with small pink clots noted. REGGIE in place in rlq with serosan guinous drainage in reservoir. A/P: 85 y/o M w/ PMHx prostate cancer s/p radiation and seed implantation, HTN, CAD, HLD, sciatica, diverticulitis a/w dark red blood from Batres now POD #4 s/p exploratory laparotomy, evacuation of clots, repair bladder perforation, suprap ubic catheter placement, surgery consulted for SBO/ileus passing flatus had bm yesterday resolving ileus ngt output not recorded overnight -ngt removed this afternoon -keep npo, ivf -Serial abdo exams -AXR in AM -IV ABX as per ID -Surgery Team to continue following Above plan discussed with Dr. Tripp and agrees
--- NOTE | 2020-05-23 13:25 | EKG ---
Test Reason : Blood Pressure : / mmHG Vent. Rate : 098 BPM Atrial Rate : 093 BPM P-R Int : 000 ms QRS Dur : 096 ms QT Int : 358 ms P-R-T Axes : 000 -21 051 degrees QTc Int : 457 ms POOR DATA QUALITY, INTERPRETATION MAY BE ADVERSELY AFFECTED NORMAL SINUS RHYTHM WITH PREMATURE VENTRICULAR OR ABERRANTLY CONDUCTED COMPLEXES CANNOT RULE OUT ANTERIOR INFARCT , AGE UNDETERMINED ABNORMAL ECG Confirmed by MD ANGIE, NOMI ([id number]) on 05/23/2020 1:25:19 PM Referred By: Confirmed By:NOMI ADAMS MD
--- NOTE | 2020-05-23 14:16 | PN ---
Teaching Attending Note Name of Resident: Elba Barth ATTENDING PHYSICIAN STATEMENT I saw and evaluated the patient. I reviewed the resident's note and discussed the case with the resident. I agree with the resident's findings and plan as documented. SUBJECTIVE: Patient seen and examined in the ICU. Patient alert, oriented. OOB to chair. Reports less abdominal pain. Denies CP or SOB. Intake & Output 05/20/20 05/21/20 05/22/20 05/23/20 23:59 23:59 23:59 23:59 Intake Total 83736 6391 1949 1158 Output Total 9430 5870 4920 400 Balance 4019 521 -5475 758 Weight 180 lb Last Vital Signs Temp Pulse Resp BP Pulse Ox 97.7 F 96 H 18 149/81 97 05/23/20 13:00 05/23/20 13:02 05/23/20 13:02 05/23/20 13:02 05/23/20 13:02 Active Medications Fentanyl (Sublimaze Injection -) 50 mcg IVPUSH [id number] PRN PRN Reason: PAIN-PACU ORDER X 4 DOSES ONLY Meropenem 1 gm/ Dextrose 100 mls @ 200 mls/hr IVPB Q8H-IV SHELLIE Last Admin: 05/23/20 09:02 Dose: 200 mls/hr Documented by: Vancomycin HCl 1,250 mg/ (Dextrose) 250 mls @ 166.667 mls/hr IVPB Q12H SHELLIE; Protocol Last Admin: 05/23/20 08:46 Dose: 166.667 mls/hr Documented by: Sodium Chloride (Normal Saline -) 1,000 mls @ 50 mls/hr IV ASDIR SHELLIE Last Admin: 05/22/20 21:31 Dose: 50 mls/hr Documented by: Morphine Sulfate (Morphine Sulfate) 2 mg IVPUSH Q4H PRN PRN Reason: PAIN LEVEL 6-10 Last Admin: 05/22/20 01:55 Dose: 2 mg Documented by: Gen: Awake and alert, Less tachpneic at rest Neuro: Non-focal HEENT: PEERL, sclera clear Lungs: CTA CV: S1S2, RRR Abd: Softer today, less distended, less tender to palpation; hypoactive BS, (+) REGGIE intact with serosanguinous fluid : batres cath Ext:Trace edema Laboratory Results - last 24 hr 05/19/20 05/22/20 05/22/20 16:00 20:30 20:30 WBC RBC Hgb Hct MCV MCH MCHC RDW Plt Count MPV Absolute Neuts (auto) Neutrophils % Neutrophils % (Manual) Band Neutrophils % Lymphocytes % Lymphocytes % (Manual) Monocytes % Monocytes % (Manual) Eosinophils % Eosinophils % (Manual) Basophils % Basophils % (Manual) Myelocytes % (Man) Promyelocytes % (Man) Blast Cells % (Manual) Nucleated RBC % Metamyelocytes Hypochromia Platelet Estimate Polychromasia Poikilocytosis Anisocytosis Microcytosis Macrocytosis Spherocytes Ovalocytes [place] Cells Sodium 138 Potassium 3.8 Chloride 103 Carbon Dioxide 27 Anion Gap 8 BUN 19.3 H Creatinine 0.7 Est GFR (CKD-EPI)AfAm 99.73 Est GFR (CKD-EPI)NonAf 86.05 Random Glucose 113 H Lactic Acid 1.7 Calcium 8.0 L Phosphorus Magnesium Total Bilirubin AST ALT Alkaline Phosphatase Total Protein Albumin Blood Type A NEGATIVE Antibody Screen Negative Crossmatch See Detail 05/23/20 05/23/20 05:25 05:25 WBC 29.0 H RBC 3.86 L Hgb 10.1 L Hct 31.4 L MCV 81.2 MCH 26.3 MCHC 32.3 RDW 16.4 H Plt Count 443 H MPV 9.0 Absolute Neuts (auto) 25.9 H Neutrophils % 89.5 H Neutrophils % (Manual) 84.6 H Band Neutrophils % 1.0 Lymphocytes % 3.7 L D Lymphocytes % (Manual) 6.7 L D Monocytes % 5.5 Monocytes % (Manual) 4 D Eosinophils % 1.0 D Eosinophils % (Manual) 0.0 Basophils % 0.3 Basophils % (Manual) 0.0 Myelocytes % (Man) 2 D Promyelocytes % (Man) 0 Blast Cells % (Manual) 0 Nucleated RBC % 0 Metamyelocytes 0 Hypochromia 1+ Platelet Estimate Normal Polychromasia 1+ Poikilocytosis 1+ Anisocytosis 1+ Microcytosis 1+ Macrocytosis 0 Spherocytes 1+ Ovalocytes 1+ [place] Cells 1+ Sodium 136 Potassium 3.9 Chloride 103 Carbon Dioxide 28 Anion Gap 6 L BUN 20.5 H Creatinine 0.6 Est GFR (CKD-EPI)AfAm 106.26 Est GFR (CKD-EPI)NonAf 91.68 Random Glucose 112 H Lactic Acid Calcium 8.0 L Phosphorus 2.7 Magnesium 2.2 Total Bilirubin 0.7 AST 25 ALT 13 Alkaline Phosphatase 85 Total Protein 4.9 L Albumin 1.5 L Blood Type Antibody Screen Crossmatch ASSESSMENT/PLAN: SBO versus Ileus (favor Ileus) No current evidence of perforation Prostate cancer s/p radiation and seed implantation with chronic batres HTN Diverticulitis S/P bladder perforation with cystoscopy s/p laparotomy, evacuation of clots, bladder perforation repair, and suprapubic catheter placement Pain control NPO GI evaluation noted NGT ABX per ID Normal transfusion thresholds Metoprolol Supplemental O2 as needed Incentive spirometry VTE prophylaxis Dr Herrera
--- NOTE | 2020-05-23 15:08 | PN ---
Physical Exam: SUBJECTIVE: Patient seen and examined at bedside. pt states that he is feeling better and that nausea is improved. he states that his abdominal pain is improving. OBJECTIVE: Vital Signs Period Temp Pulse Resp BP Sys/Donald Pulse Ox Last 24 Hr 96.6 F-99.0 F 88-109 18-23 114-166/47-102 93-99 GENERAL: The patient is awake, alert, and fully oriented, in no acute distress. HEAD: Normal with no signs of trauma. LUNGS: Breath sounds equal, clear to auscultation bilaterally, no accessory muscle use. HEART: Regular rate and rhythm, S1, S2 ABDOMEN: Soft, nontender, nondistended, normoactive bowel sounds, no guarding EXTREMITIES: 2+ pulses, warm, well-perfused, no edema. NEUROLOGICAL: Cranial nerves II through XII grossly intact. Normal speech SKIN: Warm, dry, normal turgor, no rashes or lesions noted Laboratory Last Values WBC 29.0 K/mm3 (4.0-10.0) H 05/23/20 05:25 RBC 3.86 M/mm3 (4.00-5.60) L 05/23/20 05:25 Hgb 10.1 GM/dL (11.7-16.9) L 05/23/20 05:25 Hct 31.4 % (35.4-49) L 05/23/20 05:25 MCV 81.2 fl (80-96) 05/23/20 05:25 MCH 26.3 pg (25.7-33.7) 05/23/20 05:25 MCHC 32.3 g/dl (32.0-35.9) 05/23/20 05:25 RDW 16.4 % (11.9-15.9) H 05/23/20 05:25 Plt Count 443 K/MM3 (134-434) H 05/23/20 05:25 MPV 9.0 fl (7.5-11.1) 05/23/20 05:25 Absolute Neuts (auto) 25.9 K/mm3 (1.5-8.0) H 05/23/20 05:25 Neutrophils % 89.5 % (42.8-82.8) H 05/23/20 05:25 Neutrophils % (Manual) 84.6 % (42.8-82.8) H 05/23/20 05:25 Band Neutrophils % 1.0 % 05/23/20 05:25 Lymphocytes % 3.7 % (8-40) L D 05/23/20 05:25 Lymphocytes % (Manual) 6.7 % (8-40) L D 05/23/20 05:25 Monocytes % 5.5 % (3.8-10.2) 05/23/20 05:25 Monocytes % (Manual) 4 % (3.8-10.2) D 05/23/20 05:25 Eosinophils % 1.0 % (0-4.5) D 05/23/20 05:25 Eosinophils % (Manual) 0.0 % (0-4.5) 05/23/20 05:25 Basophils % 0.3 % (0-2.0) 05/23/20 05:25 Basophils % (Manual) 0.0 % (0-2.0) 05/23/20 05:25 Myelocytes % (Man) 2 % (0-2) D 05/23/20 05:25 Promyelocytes % (Man) 0 % (0-2) 05/23/20 05:25 Blast Cells % (Manual) 0 % (0-0) 05/23/20 05:25 Nucleated RBC % 0 % (0-0) 05/23/20 05:25 Metamyelocytes 0 % (0-2) 05/23/20 05:25 Hypochromia 1+ 05/23/20 05:25 Toxic Granulation 1+ 05/22/20 06:00 Platelet Estimate Normal 05/23/20 05:25 Platelet Comment Present 05/22/20 06:00 Polychromasia 1+ 05/23/20 05:25 Poikilocytosis 1+ 05/23/20 05:25 Anisocytosis 1+ 05/23/20 05:25 Microcytosis 1+ 05/23/20 05:25 Macrocytosis 0 05/23/20 05:25 Spherocytes 1+ 05/23/20 05:25 Target Cells 1+ 05/22/20 06:00 Tear Drop Cells 1+ 05/22/20 06:00 Ovalocytes 1+ 05/23/20 05:25 Carlos Cells 1+ 05/23/20 05:25 PT with INR 17.80 SEC (9.7-13.0) H 05/21/20 08:58 INR 1.50 (0.83-1.09) H 05/21/20 08:58 PTT (Actin FS) 29.9 SECONDS (25.2-36.5) 05/21/20 08:58 Sodium 136 mmol/L (136-145) 05/23/20 05:25 Potassium 3.9 mmol/L (3.5-5.1) 05/23/20 05:25 Chloride 103 mmol/L (98-107) 05/23/20 05:25 Carbon Dioxide 28 mmol/L (21-32) 05/23/20 05:25 Anion Gap 6 MMOL/L (8-16) L 05/23/20 05:25 BUN 20.5 mg/dL (7-18) H 05/23/20 05:25 Creatinine 0.6 mg/dL (0.55-1.3) 05/23/20 05:25 Est GFR (CKD-EPI)AfAm 106.26 05/23/20 05:25 Est GFR (CKD-EPI)NonAf 91.68 05/23/20 05:25 Random Glucose 112 mg/dL (74-106) H 05/23/20 05:25 Lactic Acid 1.7 mmol/L (0.4-2.0) 05/22/20 20:30 Calcium 8.0 mg/dL (8.5-10.1) L 05/23/20 05:25 Phosphorus 2.7 mg/dL (2.5-4.9) 05/23/20 05:25 Magnesium 2.2 mg/dL (1.8-2.4) 05/23/20 05:25 Total Bilirubin 0.7 mg/dL (0.2-1) 05/23/20 05:25 AST 25 U/L (15-37) 05/23/20 05:25 ALT 13 U/L (13-61) 05/23/20 05:25 Alkaline Phosphatase 85 U/L (45-117) 05/23/20 05:25 Total Protein 4.9 g/dl (6.4-8.2) L 05/23/20 05:25 Albumin 1.5 g/dl (3.4-5.0) L 05/23/20 05:25 Procalcitonin 0.16 ng/mL (0.00-0.08) H 05/19/20 02:40 Vancomycin Pre-Dose 12.2 ug/ml (5-10) H 05/21/20 06:00 COVID-19 ([facility]) Not detected (Not Detected) 05/19/20 04:40 Blood Type A NEGATIVE 05/20/20 08:53 Antibody Screen Negative 05/20/20 08:53 Crossmatch See Detail 05/19/20 16:00 Active Medications Generic Name Dose Route Start Last Admin Trade Name Freq PRN Reason Stop Dose Admin Fentanyl 50 mcg 05/19/20 19:29 Sublimaze Injection - IVPUSH [id number] PRN PAIN-PACU ORDER X 4 DOSES ONLY Meropenem 1 gm/ Dextrose 100 mls @ 200 mls/hr 05/20/20 18:00 05/23/20 09:02 IVPB 200 mls/hr Q8H-IV SHELLIE Administration Vancomycin HCl 1,250 mg/ 250 mls @ 166.667 mls/hr 05/20/20 20:00 05/23/20 08:46 Dextrose IVPB 166.667 mls/hr Q12H SHELLIE Administration Protocol Sodium Chloride 1,000 mls @ 50 mls/hr 05/19/20 21:30 05/22/20 21:31 Normal Saline - IV 50 mls/hr ASDIR SHELLIE Administration Morphine Sulfate 2 mg 05/19/20 19:29 05/22/20 01:55 Morphine Sulfate IVPUSH 2 mg Q4H PRN Administration PAIN LEVEL 6-10 CT chest / abdomen/ pelvis: 1. Bilateral pleural effusions and lower lobe atelectasis. 2. Diffuse dilatation of a thickened esophagus. Clinical correlation and follow-up recommended. 3. Ascites. 4. Diffuse fatty infiltration of the liver. 5. Bilateral nephrolithiasis and renal cysts. 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 6. Findings consistent with a mild to moderate SBO. 7. Suprapubic cystostomy tube and Galindo catheter within the urinary bladder. 8. Percutaneous pelvic drainage catheter. Clinical correlation and follow-up recommended. Please see above discussion. ASSESSMENT/PLAN: 85 yo M PMHx of prostate cancer (s/p radiation and seed implantation), HTN, CAD, HLD, sciatica, diverticulitis presenting to the ED with dark red blood producing from Galindo.pt is admitted to ICU s/p bladder perforation with cystoscopy s/p laparotomy, evacuation of clots, bladder perforation repair, and suprapubic catheter placement . POD 4 Neuro: -awake, alert , oriented Cardio HTN, HLD, CAD -cont to monitor. holding toprol as BP is stable - will get EKG to evaluate for irregular rhythm Pulm: - RUL calcified granuloma in periphery- IR for possible bx? - b/l pleural effusions and lower lobe atelectasis - aspiration precautions GI - SBO, ascites, fatty infiltration of liver - CT abdomen/ Pelvis reviewed see above. - NPO, IVF, NGT -serial abdominal exams, rpt AXR reviewed showing SBO, will cont to monitor and check AXR tomorrow - GI consult appreciated, Surgery recs appreciated - c/w protonix ID - UCx: enteroccous - Bcx: neg to date - leukocytosis worsening today, no febrile events - c/w Vanc/ jorge day 4. will follow vanc level today - ID recs appreciated - s/p exploratory laparotomy, evacuation of clots, repair bladder perforation, suprapubic catheter placement, REGGIE drain with Dr. Huston. - suprapubic cath, CBI held today -cont to monitor - morphine for pain Nephro - b/l renal cysts, upj obstruction, see CT findings above - cont to monitor DVTppx: SCDs GIppx: protonix BID cont ICU level of care Visit type - Emergency Visit Emergency Visit: No - New Patient This patient is new to me today: No - Critical Care Critical Care patient: Yes Total Critical Care Time (in minutes): 36 Critical Care Statement: The care of this patient involved high complexity decision making to prevent further life threatening deterioration of the pa ricki's condition and/or to evaluate & treat vital organ system(s) failure or risk of failure. - Discharge Referral Referred to [facility] Med P.C.: Yes Physician Referral: Ronen Mckeon DO (GI) - Medication Review Med list reviewed for High Risk Meds patients 65 and older: Yes ATTENDING PHYSICIAN STATEMENT I saw and evaluated the patient. I reviewed the resident's note and discussed the case with the resident. I agree with the resident's findings and plan as documented. SUBJECTIVE: OBJECTIVE: ASSESSMENT AND PLAN:
--- NOTE | 2020-05-23 18:10 | PN ---
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 (short form) - Note 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: improved ngt tube out less distention had a BM afeb?vss cor-rrr lungs decreased bs at bases abd softer, nt ext +alison +spt +batres ext trace edema wbc 29k a/p sepsis SBO enterococcal uti bladder perforation s/p cystoscopy clinically improving, continue vanco/meropenem w Problem List - Problems (1) Leukocytosis Code(s): D72.829 - ELEVATED WHITE BLOOD CELL COUNT, UNSPECIFIED (2) Perforation of bladder during operative procedure Code(s): N99.72 - ACCIDENTAL PNCTR & LAC OF A SYS ORG DURING OTH PROCEDURE (3) Gross hematuria Code(s): R31.0 - GROSS HEMATURIA (4) Prostate cancer Code(s): C61 - MALIGNANT NEOPLASM OF PROSTATE (5) Pulmonary nodules Code(s): R91.8 - OTHER NONSPECIFIC ABNORMAL FINDING OF LUNG FIELD
[2020-05-23] MEDS: SODIUM CHLORIDE 1,000 ML IV SCH (22:46)
[2020-05-24] MEDS ORDERED: DEXTROSE 5%-WATER 100 ML IVPB ONE ×3 (02:10→17:14)
[2020-05-24] MEDS ORDERED: MEROPENEM 1 GM VIAL (RESTRICTED TO ID) IVPB ONE ×3 (02:10→17:14)
[2020-05-24] MEDS: MEROPENEM 1 GM in DEXTROSE 5%-WATER 100 ML IVPB SCH ×3 (02:14→17:42)
[2020-05-24 07:21] LABS: BASO % 0.4 % (0-2.0); EOS % 2.7 % (0-4.5); HEMATOCRIT 29.1 % (35.4-49); HEMOGLOBIN 9.2 GM/dL (11.7-16.9); LYMPH % 4.4 % (8-40); MCH 26.2 pg (25.7-33.7); MCHC 31.7 g/dl (32.0-35.9); MEAN CELL VOLUME 82.8 fl (80-96); MEAN PLT VOLUME 9.3 fl (7.5-11.1); MONO % 5.7 % (3.8-10.2); NEUT % 86.8 % (42.8-82.8); PLATELET COUNT 398 K/MM3 (134-434); RBC 3.51 M/mm3 (4.00-5.60); RDW 16.6 % (11.9-15.9); WHITE BLOOD COUNT 23.1 K/mm3 (4.0-10.0)
--- NOTE | 2020-05-24 07:27 | PN ---
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 (short form) - Note 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: afebrile NGT removed feels more comfortable abd pain and distention improved urine yellow off CBI wound clean REGGIE output minimal cont batres/SPT/REGGIE drainage
[2020-05-24 07:39] LABS: ALBUMIN 1.3 g/dl (3.4-5.0); BLOOD UREA NITROGEN 17.1 mg/dL (7-18); POTASSIUM 3.7 mmol/L (3.5-5.1)
[2020-05-24 07:42] LABS: BILIRUBIN,TOTAL 0.6 mg/dL (0.2-1); CREATININE 0.5 mg/dL (0.55-1.3); PHOSPHOROUS 2.1 mg/dL (2.5-4.9); TOT PROT 4.2 g/dl (6.4-8.2)
[2020-05-24] MEDS ORDERED: POTASSIUM PHOSPHATE 15 MM in SODIUM CHLORIDE 250 ML IVPB ONE (08:03)
[2020-05-24] MEDS: VANCOMYCIN HCL 1,250 MG in DEXTROSE 5%-WATER - 250 ML IVPB SCH ×2 (09:00→22:51)
--- NOTE | 2020-05-24 09:28 | PN ---
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 (short form) - Note 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: POD #5, s/p exploratory laparotomy, evacuation of clots, repair bladder perforation, suprapubic catheter placement, Dr. Tripp consulted intra-op to run the bowel Patient seen and examined. States he is feeling "okay". Passing gas, had multiple BMS yesterday. NGT removed yesterday, no n/v overnight. No abdo pain. Vital Signs Temp 98.8 F 05/24/20 08:34 Pulse 77 05/24/20 08:34 Resp 16 05/24/20 08:34 BP 116/46 L 05/24/20 08:34 Pulse Ox 98 05/24/20 08:34 Intake & Output 05/23/20 05/23/20 05/24/20 11:59 23:59 11:59 Intake Total 1158 400 850 Output Total 400 610 707 Balance 758 -210 143 Intake: IV 458 400 600 Normal Saline - 1,000 ml 458 400 600 @ 50 mls/hr IV ASDIR SHELLIE Rx#:[id number] IVPB 700 250 Output: Drainage 0 10 7 Right Abdomen 0 10 7 Urine 400 300 700 Batres 400 300 700 Emesis 300 Other: Voiding Method Indwelling Catheter Indwelling Catheter Indwelling Catheter Bowel Movement Yes Yes # Bowel Movements 1 Body Mass Index (BMI) 23.7 CBC, BMP 05/24/20 05:40 05/24/20 06:00 Gen: awake, alert, nad Resp: unlabored on 4L NC Abdo: soft, minimally distended, +ttp at incision sites, + bowel sounds. Suprapubic catheter noted to be draining well, batres bag bedside with approx 300ml yellow output with small pink clots noted. REGGIE in place in rlq with serosanguinous drainage in reservoir. A/P: 85 y/o M w/ PMHx prostate cancer s/p radiation and seed implantation, HTN, CAD, HLD, sciatica, diverticulitis a/w dark red blood from Batres now POD #5 s/p exploratory laparotomy, evacuation of clots, repair bladder perforation, suprapubic catheter placement, surgery consulted for SBO/ileus afebrile, vss passing flatus, having bms no n/v overnight -advanced to clear liquids -Serial abdo exams -AXR in AM -IV ABX as per ID -Surgery Team to continue following Above plan discussed with Dr. Tripp and agrees
[2020-05-24 09:40] LABS: ANISOCYTOSIS 1+; MACROCYTOSIS 0; PLATELET ESTIMATE NORMAL
--- NOTE | 2020-05-24 11:00 | PN ---
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 (short form) - Note 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: Transfer Note: 85 yo male with PMH of prostate ca s/p seeding, HTN, CAD, HLD presented to the ED with hematuria and clots from his chronic indwelling batres catheter. Patient underwent cystoscopy with clot evacuation and irrigation which was complicated by bladder perforation requiring exploratory laporatomy to be performed. Patients hospital course has been complicated by a small bowel obstruction requiring NGT placement which drained around 2.5-3L of bilious fluids. NGT was removed yesterday as patient has been clinically improving; having bowel movements and passing gas. Patient is medically stable to be transferred to medical-surgical floor.
--- NOTE | 2020-05-24 11:16 | PN ---
Physical Exam: SUBJECTIVE: Patient seen and examined at bedside. pt states he is feeling much better and that his pain is improving OBJECTIVE: Vital Signs Period Temp Pulse Resp BP Sys/Donald Pulse Ox Last 24 Hr 97.7 F-98.8 F 74-96 16-23 110-149/46-81 93-100 GENERAL: The patient is awake, alert, and fully oriented, in no acute distress. HEAD: Normal with no signs of trauma. NECK: Trachea midline, full range of motion, supple. LUNGS: Breath sounds equal, clear to auscultation bilaterally, no accessory muscle use. HEART: irregular rate and rhythm, S1, S2 without murmur ABDOMEN: Soft, nontender, nondistended, normoactive bowel sounds, no guarding. suprapubic cath , REGGIE drain EXTREMITIES: 2+ pulses, warm, well-perfused, no edema. SKIN: Warm, dry, normal turgor, no rashes or lesions noted Laboratory Results - last 24 hr 05/24/20 05/24/20 05:40 06:00 WBC 23.1 H RBC 3.51 L Hgb 9.2 L Hct 29.1 L MCV 82.8 MCH 26.2 MCHC 31.7 L RDW 16.6 H Plt Count 398 MPV 9.3 Absolute Neuts (auto) 20.0 H Neutrophils % 86.8 H Neutrophils % (Manual) 92.0 H Band Neutrophils % 1.0 Lymphocytes % 4.4 L Lymphocytes % (Manual) 1.0 L D Monocytes % 5.7 Monocytes % (Manual) 4 Eosinophils % 2.7 D Eosinophils % (Manual) 2.0 D Basophils % 0.4 Basophils % (Manual) 0.0 Myelocytes % (Man) 0 D Promyelocytes % (Man) 0 Blast Cells % (Manual) 0 Nucleated RBC % 0 Metamyelocytes 0 Hypochromia 0 Platelet Estimate Normal Polychromasia 1+ Poikilocytosis 0 Anisocytosis 1+ Microcytosis 1+ Macrocytosis 0 Sodium 141 Potassium 3.7 Chloride 109 H Carbon Dioxide 24 Anion Gap 9 BUN 17.1 Creatinine 0.5 L Est GFR (CKD-EPI)AfAm 114.53 Est GFR (CKD-EPI)NonAf 98.81 Random Glucose 85 Calcium 7.0 L Phosphorus 2.1 L Magnesium 2.0 Total Bilirubin 0.6 AST 23 ALT 12 L Alkaline Phosphatase 74 Total Protein 4.2 L Albumin 1.3 L Active Medications Generic Name Dose Route Start Last Admin Trade Name Freq PRN Reason Stop Dose Admin Fentanyl 50 mcg 05/19/20 19:29 Sublimaze Injection - IVPUSH [id number] PRN PAIN-PACU ORDER X 4 DOSES ONLY Meropenem 1 gm/ Dextrose 100 mls @ 200 mls/hr 05/20/20 18:00 05/24/20 09:59 IVPB 200 mls/hr Q8H-IV SHELLIE Administration Vancomycin HCl 1,250 mg/ 250 mls @ 166.667 mls/hr 05/20/20 20:00 05/24/20 09 :00 Dextrose IVPB 166.667 mls/hr Q12H SHELLIE Administration Protocol Sodium Chloride 1,000 mls @ 50 mls/hr 05/19/20 21:30 05/23/20 22:46 Normal Saline - IV 50 mls/hr ASDIR SHELLIE Administration Potassium Phosphate 15 mm/ 255 mls @ 62.5 mls/hr 05/24/20 08:03 05/24/20 09:51 Sodium Chloride IVPB 05/24/20 12:07 62.5 mls/hr ONCE ONE Administration Morphine Sulfate 2 mg 05/19/20 19:29 05/22/20 01:55 Morphine Sulfate IVPUSH 2 mg Q4H PRN Administration PAIN LEVEL 6-10 CT chest / abdomen/ pelvis: 1. Bilateral pleural effusions and lower lobe atelectasis. 2. Diffuse dilatation of a thickened esophagus. Clinical correlation and follow-up recommended. 3. Ascites. 4. Diffuse fatty infiltration of the liver. 5. Bilateral nephrolithiasis and renal cysts. 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 6. Findings consistent with a mild to moderate SBO. 7. Suprapubic cystostomy tube and Galindo catheter within the urinary bladder. 8. Percutaneous pelvic drainage catheter. Clinical correlation and follow-up recommended. Please see above discussion. ASSESSMENT/PLAN: 85 yo M PMHx of prostate cancer (s/p radiation and seed implantation), HTN, CAD, HLD, sciatica, diverticulitis presenting to the ED with dark red blood producing from Galindo.pt is admitted to ICU s/p bladder perforation with cystoscopy s/p laparotomy, evacuation of clots, bladder perforation repair, and suprapubic catheter placement . POD 5. ICU complicated by mod SBO,which is now improved . pt is now stable for medicine floor Neuro: -awake, alert , oriented Cardio HTN, HLD, CAD -cont to monitor. holding toprol as BP is stable - will get EKG to evaluate for irregular rhythm , pending rpt . has frequent PVC on tele monitor. cont to monitor lytes Pulm: - RUL calcified granuloma in periphery- IR for possible bx? - b/l pleural effusions and lower lobe atelectasis - aspiration precautions GI - SBO, ascites, fatty infiltration of liver - CT abdomen/ Pelvis reviewed see above. -NGT discontinued yesterday. 2.5-3L removed. -clears, advance as tolerated - GI consult appreciated, Surgery recs appreciated - c/w protonix ID - UCx: enteroccous - Bcx: neg to date - leukocytosis improving, no febrile events - c/w Vanc/ jorge day 6. will check vanc level before tonight dose - ID recs appreciated - s/p exploratory laparotomy, evacuation of clots, repair bladder perforation, suprapubic catheter placement, REGGIE drain with Dr. Huston. - suprapubic cath, CBI off -cont to monitor - morphine for pain Nephro - b/l renal cysts, upj obstruction, see CT findings above - cont to monitor DVTppx: SCDs GIppx: protonix daily transfer to medicine Visit type - Emergency Visit Emergency Visit: No - New Patient This patient is new to me today: No - Critical Care Critical Care patient: Yes Total Critical Care Time (in minutes): 36 Critical Care Statement: The care of this patient involved high complexity decision making to prevent further life threatening deterioration of the patient's condition and/or to evaluate & treat vital organ system(s) failure or risk of failure. - Discharge Referral Referred to [facility] Med P.C.: Yes Physician Referral: Ronen Mckeon DO (GI) - Medication Review Med list reviewed for High Risk Meds patients 65 and older: Yes ATTENDING PHYSICIAN STATEMENT I saw and evaluated the patient. I reviewed the resident's note and discussed the case with the resident. I agree with the resident's findings and plan as documented. SUBJECTIVE: OBJECTIVE: ASSESSMENT AND PLAN:
--- NOTE | 2020-05-24 11:38 | EKG ---
Test Reason : Blood Pressure : / mmHG Vent. Rate : 087 BPM Atrial Rate : 087 BPM P-R Int : 148 ms QRS Dur : 102 ms QT Int : 396 ms P-R-T Axes : 070 -26 052 degrees QTc Int : 476 ms SINUS RHYTHM WITH OCCASIONAL PREMATURE VENTRICULAR COMPLEXES AND PREMATURE ATRIAL COMPLEXES CANNOT RULE OUT ANTERIOR INFARCT (CITED ON OR BEFORE 23-MAY-2020) ABNORMAL ECG WHEN COMPARED WITH ECG OF 23-MAY-2020 13:04, SINUS RHYTHM HAS REPLACED ATRIAL FIBRILLATION Confirmed by MD ANGIE, NOMI ([id number]) on 05/24/2020 11:37:39 AM Referred By: Confirmed By:NOMI ADAMS MD
--- NOTE | 2020-05-24 12:23 | PN ---
Teaching Attending Note Name of Resident: Elba Barth ATTENDING PHYSICIAN STATEMENT I saw and evaluated the patient. I reviewed the resident's note and discussed the case with the resident. I agree with the resident's findings and plan as documented. SUBJECTIVE: Pt seen and examined in the ICU. Pain better today. +BM and flatus. Denies abdominal pain, nausea/vomiting. OBJECTIVE: Vital Signs Period Temp Pulse Resp BP Sys/Donald Pulse Ox Last 24 Hr 97.7 F-98.8 F 74-96 16-23 110-149/46-81 93-100 Intake & Output 05/21/20 05/22/20 05/23/20 05/24/20 23:59 23:59 23:59 23:59 Intake Total 6377 1949 1558 850 Output Total 5863 9070 1010 707 Balance 521 -7471 548 143 Gen: NAD at rest Heart: RRR Lung: decreased breath sounds at the bases Abd: soft, REGGIE with minimal drainage Ext: no edema CBC, BMP 05/24/20 05:40 05/24/20 06:00 Active Medications Fentanyl (Sublimaze Injection -) 50 mcg IVPUSH [id number] PRN PRN Reason: PAIN-PACU ORDER X 4 DOSES ONLY Meropenem 1 gm/ Dextrose 100 mls @ 200 mls/hr IVPB Q8H-IV SHELLIE Last Admin: 05/24/20 09:59 Dose: 200 mls/hr Documented by: Vancomycin HCl 1,250 mg/ (Dextrose) 250 mls @ 166.667 mls/hr IVPB Q12H SHELLIE; Protocol Last Admin: 05/24/20 09:00 Dose: 166.667 mls/hr Documented by: Sodium Chloride (Normal Saline -) 1,000 mls @ 50 mls/hr IV ASDIR SHELLIE Last Admin: 05/23/20 22:46 Dose: 50 mls/hr Documented by: Morphine Sulfate (Morphine Sulfate) 2 mg IVPUSH Q4H PRN PRN Reason: PAIN LEVEL 6-10 Last Admin: 05/22/20 01:55 Dose: 2 mg Documented by: ASSESSMENT AND PLAN: Hematuria s/p Cystoscopy/Bladder Perforation/Ex-Lap Ileus improved CAD HTN Hyperlipidemia - antibiotics per ID - pain control - incentive spirometry - start clears - O2 to keep Spo2 >90% - rehab/PT - DVT prophylaxis - can monitor on floor
[2020-05-24] MEDS ORDERED: MORPHINE SULFATE 2 MG/ML VIAL IVPUSH PRN (12:43)
--- NOTE | 2020-05-24 13:57 | HOSP ---
Subjective - Review of Symptoms Subjective: TRANSFER NOTE Patient seen and assessed at bedside in ICU. Seen Stable, NAD, A&Ox3. Pt stable for transfer from ICU to med-surg. Physical Examination Vital Signs: Vital Signs Temperature 98.5 F 05/24/20 10:00 Pulse Rate 76 05/24/20 10:00 Respiratory Rate 16 05/24/20 10:00 Blood Pressure 149/59 L 05/24/20 10:00 O2 Sat by Pulse Oximetry (%) 98 05/24/20 08:34 Findings/Remarks: GENERAL: A&Ox3, NAD HEAD: NCAT NECK: No JVD LUNGS: CTAB HEART: irregular rate and rhythm, S1, S2 ABDOMEN: Soft, nontender, nondistended, + bowel sounds, suprapubic cath with surrounding dressing CDI, REGGIE drain EXTREMITIES: no edema SKIN: Warm, dry Labs: CBC, BMP 05/24/20 05:40 05/24/20 06:00 Visit type - Medication Review Med list reviewed for High Risk Meds patients 65 and older: Yes - Emergency Visit Emergency Visit: Yes ED Registration Date: 05/18/20 Care time: The patient presented to the Emergency Department on the above date a nd was hospitalized for further evaluation of their emergent condition. - New Patient This patient is new to me today: Yes Date on this admission: 05/24/20 - Critical Care Critical Care patient: No
--- NOTE | 2020-05-24 15:08 | PN.GI ---
GI 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 Subjective: no new complaints - Objective Vital Signs: Vital Signs Temperature 98.5 F 05/24/20 10:00 Pulse Rate 76 05/24/20 10:00 Respiratory Rate 16 05/24/20 10:00 Blood Pressure 149/59 L 05/24/20 10:00 O2 Sat by Pulse Oximetry (%) 98 05/24/20 08:34 Constitutional: Well Nourished, No Distress Respiratory: Yes: WNL, Regular, CTA Bilaterally ...Auscultate: Yes: Other (tympanitic ; not tender) Edema: No Labs: CBC, BMP 05/24/20 05:40 05/24/20 06:00 INR, PTT INR 1.50 (0.83-1.09) H 05/21/20 08:58 Problem List - Problems (1) SBO (small bowel obstruction) Assessment/Plan: axr reviewed npo / ivf's monitor electrolytes surgery f/u Code(s): K56.609 - UNSP INTESTNL OBST, UNSP TO PARTIAL VERSUS COMPLETE OBST
--- NOTE | 2020-05-24 15:12 | CONSULT ---
Admitting History and Physical - Past Medical History Cardiovascular: Yes: CAD, HTN, Hyperlipdemia Gastrointestinal: Yes: Diverticulosis, Hemorrhoids, Other (Colon polyps) Renal/: Yes: Cancer (bladder ca s/p radiation,implanted seed, 07/02) - Past Surgical History Past Surgical History: Yes: Hernia Repair, Tonsillectomy - Smoking History Smoking history: Never smoked Have you smoked in the past 12 months: No Aproximately how many cigarettes per day: 0 - Alcohol/Substance Use Hx Alcohol Use: No History of Substance Use: reports: None - Social History ADL: Independent Occupation: retired [employer] employee 15 years ago History of Recent Travel: No History - Admission Reason For Visit: URINARY TRACT INFECTION - Hearing Hearing: Impaired Speech Evaluation - Communication Primary Language: GRENADIAN Communication: Yes: Within Normal Limits Oral Expression Ability: Yes: No Impairment - Speech Production Apraxia: No Able to Make Needs Known: Yes: WNL Intelligibility: Yes: WNL - Speech Characteristics Voice Loudness: Mildly Soft/Quiet Voice Pitch: Yes: Limited Variation Voice Phonatory-based Quality: Yes: Hoarse, Breathy Speech Pattern: Normal Nasal Resonance: Normal Articulation: Yes: Precise Rate of Speech: Intact - Language/Auditory Comprehension Follows: Yes: 1 Stage Simple Commands (WFL), 2 Stage Simple Commands (WFL) Observation: Able to respond to yes/no queries: Yes, Yes/No Confusion: No, Comp rehends Conversational Speech: Yes, Benefits from Slow Speech: No, Benefits from Repetiton: No, Benefits from Increased Volume of Speech: No - Language/Verbal Expression Able to Respond to Simple Queries: Yes: WNL Able to Communicate Wants and Needs: Yes: WNL Functional Communication Status: Yes: WNL Aware of Errors: Yes Attempts to Correct Errors: Yes Use of Gestures: No Written Expression: Not examined Oral Expression: WFL Reading Comprehension: Not examined Calculations: Not examined Attention: Yes: Intact - Memory/Perception rn long term care Memory: Yes: WNL Short Term Memory: Yes: WNL - Swallow Evaluation/Bedside Assessment Current Nutritional Intake: NPO (Pending swallow eval) Oral Secretions: Yes: WFL Tracheostomy Present: No Dentition: Yes: Adequate Facial Symmetry at Rest: Symmetrical Facial Symmetry on Retraction: Symmetrical Facial Movement: Controlled Facial Comment: WFL for speech and swallowing purposes Against Resistance Opening: Normal Against Resistance Closing: Normal Pucker Lips: Normal Smile: Normal Lips, Comment: WFL for speech and swallowing purposes Lingual Movement: Normal Lingual Speed of Movement: Normal Lingual Movement Strgth Against Opposition: Normal Lingual Movement Characteristics: Normal Lingual Comment: WFL for speech and swallowing purposes Soft Palate Description: Normal Color Hard Palate Description: Normal Color Gag Reflex: Weak Bite Reflex: Present Velopharyngeal Movement: Normal Laryngeal Elevation: WFL Laryngeal Movement: Able to Palpate Needs Assistance: No Rate of Intake: WFL Bolus Size: WFL Labial Seal: WFL Chewing: WFL Oral Prep Time: WFL A-P Transit: WFL Pocketing: None Timing of Swallow: Delayed Odynophagia: Pharyngeal Coughing/Throat Clear: No (burping observed after every po trial) Other Findings/Remarks: 85 yo male seen at bedside by DIET KITCHEN COOK for swallow evla to r/o dysphagia. Pt is verbal, cooperative and A&Ox3. Pt is s/p NGT from ICU transferred to med surg. PMHX prostate CA s/p radiation, seed implantation, HTN, CAD, HLD. CC: hematuria. Vocal quality is impaired characterized as strained, strident, hoarsen, with reduced intensity and pitch. Volitional airway protection (without bolus) and swallow is WNL. Hypothryriod elevation was present/strong to palpation of the anterior neck. Oral and facial features are within functional limits for speech and swallowing purposes. Pt given PO trials of pureed, with total assistance revealed good acceptance, adequate bolus formation and A P transport with pharyngeal swallows are delayed 2-4 seconds average No change in voicing or respiration after the swallow.Burping after the swallow observed suggesting possible esophageal dysphagia. Aspiration cannot be ruled out at bedside. Pt given po trials of ice chips via spoon, thin, via cup with minimal assistance revealed good acceptance, adequate labial containment and bolus control. Pharyngeal swallows are mildly delayed. Burping after the swallow observed suggesting possible esophageal dysphagia. Aspiration cannot be ruled out at bedside. Recommendations - Speech Evaluation, Impression/Plan Impression: Pt presents with mild pharyngeal phase dysphagia for pureed swallow and thin liquids at bedside. Burping observed after every po trial could be esophageal dysphagia concern. Senior Living Goals: Tolerate the least restrictive solid and liquid consistencies without s/s of penetration / aspiration. Short Term Goals: Tolerate the clear liquid consistencies without s/s of penetration / aspiration . - Dysphagia Impressions/Plan Dysphagia Impressions: Mild Impairment (pharyngeal phase.), Risk of Aspiration, Suspect Aspiration *Silent aspiration: cannot be R/O at bedside Dysphagia Treatment Plan: 1/2 tsp. at a time Dysphagia Evaluation Summary: Trial po intake of clear liquids and /or ice chips via spoon as tolerated. Observe standard aspiration precautions. Consider MBS and GI consultation to r/o esophagial dysfunction. Consider alternate method for providing hydration and medications. Results given verbally to battery recharger ### and to PCP via chart. Recommendations: GI Consult, Modified Barium Swallow, Esophagram - Recommendations Liquids: Other (clear liquid diet pending MBS) Supplement: IVF if notcontraindicated
[2020-05-24] MEDS: SODIUM CHLORIDE 1,000 ML IV SCH (17:45)
--- NOTE | 2020-05-24 17:58 | PN ---
Teaching Attending Note Name of Resident: Ivanna Cornell ATTENDING PHYSICIAN STATEMENT I saw and evaluated the patient. I reviewed the resident's note and discussed the case with the resident. I agree with the resident's findings and plan as documented. HPI: 85 yo M PMHx of prostate cancer (s/p radiation and seed implantation), HTN, CAD, HLD, sciatica, diverticulitis initially admitted for hematuria, course complicated by bladder perforation with cystoscopy s/p laparotomy, evacuation of clots, bladder perforation repair, and suprapubic catheter placement requiring icu admission. ICU course complicated by SBO. Pt transferred out of ICU today. States hes upset he didnt do well with his swallow eval. Denies any major pain currently OBJECTIVE: Vital Signs Temperature 98.5 F 05/24/20 10:00 Pulse Rate 76 05/24/20 10:00 Respiratory Rate 16 05/24/20 10:00 Blood Pressure 149/59 L 05/24/20 10:00 O2 Sat by Pulse Oximetry (%) 98 05/24/20 08:34 Gen: Pt A and O, pleasant, NAD HEENT: NC/AT, EOMI, oropharynx clear Neck: supple CV: Pos S1, S2, RRR Chest: decreased bs chavo abd: lower abd dressings c/d/i gu: pos batres Ext: no c/c/e ASSESSMENT AND PLAN: 85 y/o male with above med hx admitted with hematuria, s/p bladder perforation with cystoscopy s/p laparotomy, evacuation of clots, bladder perforation repair, and suprapubic catheter placement requiring icu admission; course complicated by SBO. *SBO - no ngt in place had a bm yest didnt do well with swallow eval - has mild impairment npo currently, trial of clears tomorrow with aspiration precautions - cont protonix - surgery and gi following *htn/cad/hl - BP stable, slightly elevated on toprol, adjust as needed - RUL calcified granuloma in periphery- outpt follow up - b/l pleural effusions and lower lobe atelectasis, enocurage IS - aspiration precautions *pos enterococcus uti on vanc and meroepnem #6 -leukocytosis better - blood cultures neg Hematuria, s/p bladder per, repair - s/p exploratory laparotomy, evacuation of clots, repair bladder perforation, suprapubic catheter placement, REGGIE drain with Dr. Huston. - suprapubic cath, CBI off -cont to monitor - morphine for pain *renal cysts: - b/l renal cysts - outpt follow up DVTppx: SCDs GIppx: protonix daily
[2020-05-25] MEDS ORDERED: MEROPENEM 1 GM VIAL (RESTRICTED TO ID) IVPB ONE ×2 (02:17→09:11)
[2020-05-25] MEDS ORDERED: DEXTROSE 5%-WATER 100 ML IVPB ONE ×2 (02:18→09:11)
[2020-05-25] MEDS: MEROPENEM 1 GM in DEXTROSE 5%-WATER 100 ML IVPB SCH ×2 (02:30→09:16)
[2020-05-25 08:31] LABS: BASO % 0.4 % (0-2.0); EOS % 2.6 % (0-4.5); HEMATOCRIT 29.3 % (35.4-49); HEMOGLOBIN 9.4 GM/dL (11.7-16.9); LYMPH % 5.6 % (8-40); MCH 26.3 pg (25.7-33.7); MCHC 32.2 g/dl (32.0-35.9); MEAN CELL VOLUME 81.9 fl (80-96); MEAN PLT VOLUME 8.9 fl (7.5-11.1); MONO % 6.2 % (3.8-10.2); NEUT % 85.2 % (42.8-82.8); PLATELET COUNT 419 K/MM3 (134-434); RBC 3.58 M/mm3 (4.00-5.60); RDW 16.6 % (11.9-15.9); WHITE BLOOD COUNT 22.7 K/mm3 (4.0-10.0)
[2020-05-25 08:35] LABS: HEMATOCRIT 29.8 % (35.4-49); HEMOGLOBIN 9.4 GM/dL (11.7-16.9); MCH 25.8 pg (25.7-33.7); MCHC 31.7 g/dl (32.0-35.9); MEAN CELL VOLUME 81.6 fl (80-96); PLATELET COUNT 420 K/MM3 (134-434); RBC 3.65 M/mm3 (4.00-5.60); RDW 16.6 % (11.9-15.9); WHITE BLOOD COUNT 22.7 K/mm3 (4.0-10.0)
[2020-05-25 09:04] LABS: ALBUMIN 1.4 g/dl (3.4-5.0); BILIRUBIN,TOTAL 0.8 mg/dL (0.2-1); BLOOD UREA NITROGEN 16.6 mg/dL (7-18); CALCIUM 7.6 mg/dL (8.5-10.1); CREATININE 0.5 mg/dL (0.55-1.3); MAGNESIUM 2.1 mg/dL (1.8-2.4); PHOSPHOROUS 2.8 mg/dL (2.5-4.9); POTASSIUM 3.9 mmol/L (3.5-5.1); TOT PROT 4.6 g/dl (6.4-8.2)
[2020-05-25 09:23] LABS: ANISOCYTOSIS 1+; MACROCYTOSIS 1+; PLATELET ESTIMATE NORMAL
[2020-05-25] MEDS: VANCOMYCIN HCL 1,250 MG in DEXTROSE 5%-WATER - 250 ML IVPB SCH (09:45)
--- NOTE | 2020-05-25 12:04 | PN ---
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 (short form) - Note 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: afebrile urine yellow wound clean REGGIE output minimal cont batres/SPT REGGIE drain removed OR path prelim with an aggressive malignancy, in light of this and lung nodules on CT, please have Oncology evaluate
--- NOTE | 2020-05-25 13:15 | PN ---
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, HVAC SERVICE MANAGER - Note 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: 85 yo male seen at bedside for swallow eval as a follow up to clinical bedside evaluation with recommendations for thin clear liquid diet. Currently the pt is still NPO. HVAC SERVICE MANAGER also recommended MBS to determine aspiration risk. At bedside, pt reports feeling better with no burping / bleching behaviors. Recommendation Continue NPO status at time except thin clear liquids and/ or ice chips. Consider alternative methods for providing medications, nutrition and hydration. Consider MBS to determine or confirm silent aspiration status. (or amount of bolus aspiration). HVAC SERVICE MANAGER to follow up for PO intake.
--- NOTE | 2020-05-25 14:14 | PN ---
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 (short form) - Note 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: transferred to floor yesterday ngt out feels improved resting comfortably Vital Signs Period Temp Pulse Resp BP Sys/Donald Pulse Ox Last 24 Hr 99.1 F-99.4 F 89-98 18-18 142-151/54-64 94-95 cor-rrr llungs decreased bs at bases abd soft, nt +SPT, +altagracia +batres ext trace edema right arm with erythema CBC, BMP 05/25/20 07:15 05/25/20 07:15 Microbiology 05/18/20 23:00 Blood - Peripheral Venous Blood Culture - Final NO GROWTH AFTER 5 DAYS INCUBATION 05/18/20 23:00 Blood - Peripheral Venous Blood Culture - Final NO GROWTH AFTER 5 DAYS INCUBATION 05/19/20 04:40 Urine - Urine Batres Urine Culture - Final Enterococcus Faecalis a/p cellulitis right forearm enterococcal uti bladder perforation s/p cystoscopy s/p partial sbo day #67 vanco/meropenem d/c meropenem decrease vanco dosing given elevated trough swallowing evaluation pending f Problem List - Problems (1) Leukocytosis Code(s): D72.829 - ELEVATED WHITE BLOOD CELL COUNT, UNSPECIFIED (2) Perforation of bladder during operative procedure Code(s): N99.72 - ACCIDENTAL PNCTR & LAC OF A SYS ORG DURING OTH PROCEDURE (3) Gross hematuria Code(s): R31.0 - GROSS HEMATURIA (4) Prostate cancer Code(s): C61 - MALIGNANT NEOPLASM OF PROSTATE (5) Pulmonary nodules Code(s): R91.8 - OTHER NONSPECIFIC ABNORMAL FINDING OF LUNG FIELD
[2020-05-25] MEDS: SODIUM CHLORIDE 1,000 ML IV SCH (17:16)
--- NOTE | 2020-05-25 17:30 | PN.GI ---
GI 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 Subjective: No acute events NGT removed by surgical team AXR today with question of PSBO Passing flatus, No BM as of yet No abdominal pain No vomiting - Objective Vital Signs: Vital Signs Temperature 99.1 F 05/25/20 13:45 Pulse Rate 89 05/25/20 13:45 Respiratory Rate 18 05/25/20 13:45 Blood Pressure 142/61 05/25/20 13:45 O2 Sat by Pulse Oximetry (%) 95 05/25/20 06:00 Constitutional: Calm Eyes: No: Sclera Icterus Cardiovascular: Yes: Regular Rate and Rhythm Respiratory: Yes: Diminished (at bases bialterally) ...Auscultate: Yes: Normoactive Bowel Sounds ...Palpate: Yes: Soft, Tenderness (Mild TTP at surgical site) ...Percussion: Yes: Tympanitic Edema: No (No LE edema) Neurological: Yes: Alert Labs: CBC, BMP 05/25/20 07:15 05/25/20 07:15 INR, PTT INR 1.50 (0.83-1.09) H 05/21/20 08:58 Hepatic Panel Total Bilirubin 0.8 mg/dL (0.2-1) 05/25/20 07:15 AST 25 U/L (15-37) 05/25/20 07:15 ALT 12 U/L (13-61) L 05/25/20 07:15 Alkaline Phosphatase 78 U/L (45-117) 05/25/20 07:15 Albumin 1.4 g/dl (3.4-5.0) L 05/25/20 07:15 Problem List - Problems (1) Ascites Assessment/Plan: Trace ascites noted S/P bladder rupture and surgery. Likely sequelae of this Code(s): R18.8 - OTHER ASCITES (2) Partial obstruction of small intestine Assessment/Plan: Being followed by surgery Code(s): K56.600 - PARTIAL INTESTINAL OBSTRUCTION, UNSPECIFIED TO CAUSE (3) Thickening of esophagus Assessment/Plan: When acute issues are resolved,elective evaluation Code(s): K22.8 - OTHER SPECIFIED DISEASES OF ESOPHAGUS
--- NOTE | 2020-05-25 18:00 | PN ---
Physical Exam: SUBJECTIVE: Patient seen and examined at bedside this morning. No acute events overnight. PAtient has hx of prostate CA, s/p batres insertion s/p clot retention, bladder perforation s/p cysto/exp lap/evac clots/repair bladder perf/SPT placement. During surgery, irregular mass in the prostatic urethra extending into bladder was found. OR path prelim with an aggressive malignancy. Post-op, patient noted to have SBO/partial SBO likely 2/2 ileus. For MBS for aspiration work-up. OBJECTIVE: Vital Signs Temperature 99.1 F 05/25/20 13:45 Pulse Rate 89 05/25/20 13:45 Respiratory Rate 18 05/25/20 13:45 Blood Pressure 142/61 05/25/20 13:45 O2 Sat by Pulse Oximetry (%) 95 05/25/20 06:00 GENERAL: The patient is awake, alert, and fully oriented, in no acute distress. HEAD: Normal with no signs of trauma. NECK: Trachea midline, full range of motion, supple. LUNGS: Breath sounds equal, clear to auscultation bilaterally, no accessory muscle use. HEART: irregular rate and rhythm, S1, S2 without murmur ABDOMEN: Soft, nontender, nondistended, normoactive bowel sounds, no guarding. suprapubic cath , REGGIE drain EXTREMITIES: 2+ pulses, warm, well-perfused, no edema. RUE: erythema of right forearm SKIN: Warm, dry, normal turgor, no rashes or lesions noted Laboratory Results - last 24 hr 05/24/20 05/25/20 05/25/20 19:35 07:15 07:15 WBC 22.7 H RBC 3.65 L Hgb 9.4 L Hct 29.8 L MCV 81.6 MCH 25.8 MCHC 31.7 L RDW 16.6 H Plt Count 420 MPV 9.0 Absolute Neuts (auto) Neutrophils % Neutrophils % (Manual) Band Neutrophils % Lymphocytes % Lymphocytes % (Manual) Monocytes % Monocytes % (Manual) Eosinophils % Eosinophils % (Manual) Basophils % Basophils % (Manual) Myelocytes % (Man) Promyelocytes % (Man) Blast Cells % (Manual) Nucleated RBC % Metamyelocytes Hypochromia Platelet Estimate Polychromasia Poikilocytosis Anisocytosis Microcytosis Macrocytosis Sodium 139 Potassium 3.9 Chloride 108 H Carbon Dioxide 26 Anion Gap 6 L BUN 16.6 Creatinine 0.5 L Est GFR (CKD-EPI)AfAm 114.53 Est GFR (CKD-EPI)NonAf 98.81 Random Glucose 80 Calcium 7.6 L Phosphorus 2.8 Magnesium 2.1 Total Bilirubin 0.8 AST 25 ALT 12 L Alkaline Phosphatase 78 Total Protein 4.6 L Albumin 1.4 L Vancomycin Pre-Dose 18.0 H 05/25/20 07:15 WBC 22.7 H RBC 3.58 L Hgb 9.4 L Hct 29.3 L MCV 81.9 MCH 26.3 MCHC 32.2 RDW 16.6 H Plt Count 419 MPV 8.9 Absolute Neuts (auto) 19.3 H Neutrophils % 85.2 H Neutrophils % (Manual) 91.8 H Band Neutrophils % 1.0 Lymphocytes % 5.6 L D Lymphocytes % (Manual) 0.0 L Monocytes % 6.2 Monocytes % (Manual) 7 Eosinophils % 2.6 Eosinophils % (Manual) 0.0 D Basophils % 0.4 Basophils % (Manual) 0.0 Myelocytes % (Man) 0 Promyelocytes % (Man) 0 Blast Cells % (Manual) 0 Nucleated RBC % 0 Metamyelocytes 0 Hypochromia 0 Platelet Estimate Normal Polychromasia 2+ Poikilocytosis 0 Anisocytosis 1+ Microcytosis 1+ Macrocytosis 1+ Sodium Potassium Chloride Carbon Dioxide Anion Gap BUN Creatinine Est GFR (CKD-EPI)AfAm Est GFR (CKD-EPI)NonAf Random Glucose Calcium Phosphorus Magnesium Total Bilirubin AST ALT Alkaline Phosphatase Total Protein Albumin Vancomycin Pre-Dose Active Medications Generic Name Dose Route Start Last Admin Trade Name Freq PRN Reason Stop Dose Admin Fentanyl 50 mcg 05/24/20 12:43 Sublimaze Injection - IVPUSH [id number] PRN PAIN-PACU ORDER X 4 DOSES ONLY Sodium Chloride 1,000 mls @ 50 mls/hr 05/24/20 12:43 05/25/20 17:16 Normal Saline - IV 50 mls/hr ASDIR SHELLIE Administration Vancomycin HCl 1,000 mg in 250 mls @ 166.667 mls/hr 05/26/20 10:00 Vancomycin (Pre-Docked) IVPB Q12H SHELLIE Protocol Morphine Sulfate 2 mg 05/24/20 12:43 Morphine Sulfate IVPUSH Q4H PRN PAIN LEVEL 6-10 ASSESSMENT/PLAN: Patient is an 85 yo M PMHx of prostate cancer (s/p radiation and seed implantation), HTN, CAD, HLD, sciatica, diverticulitis presenting to the ED with dark red blood producing from Batres.pt is admitted to ICU s/p bladder perforation with cystoscopy s/p laparotomy, evacuation of clots, bladder perforation repair, and suprapubic catheter placement. (05/19). ICU complicated by mod SBO,which is now improved . pt is now stable for medicine floor #Hematuria 2/2 Bladder perforation s/p cystoscopy/ex-lap/repair #Partial SBO -POD 6, patient is stable -pSBO possibly 2/2 ileus in setting of surgery/pain meds -Surgery on board -Will keep NPO pending speech and swallow recs -patient passed flatus but no bm yet -suprapubic cath, CBI off -NGT removed -cont to monitor -morphine for pain #Prostatic malignancy -Irregular mass from prostatic urethra extending to bladder noted ash-op -s/p excision of mass -OR path prelim with an aggressive malignancy -Heme-onc (Dr. Mesa) consulted. #Ascites -likely in setting of post-op -GI (Dr. Montano) consulted. REcommendations appreciated. #HTN -On Amlodipine and Toprol -BP stable, will hold for now while NPO #HLD -On Simvastatin and Fenofibrate -will hold for now while patient is NPO #RUE cellulitis -On IV VAncomycin day 7 -Elevated vanc troughs today -Vanc dose decreased to 1g q12 #UTI -UCx: Enterococcus faecalis -Meropenem completed 05/02 -ID (Dr. Carter) consulted. REcommendations appreciated. #FEN -IV NS @50cc/hr -Electrolytes wnl, routine bmp monitoring -NPO #Prophylaxis -DVT: SCDs bilaterally #Disposition -continue monitoring on med surg Visit type - Emergency Visit Emergency Visit: Yes ED Registration Date: 05/18/20 Care time: The patient presented to the Emergency Department on the above date and was hospitalized for further evaluation of their emergent condition. - New Patient This patient is new to me today: Yes Date on this admission: 05/25/20 - Critical Care Critical Care patient: No - Medication Review Med list reviewed for High Risk Meds patients 65 and older: Yes ATTENDING PHYSICIAN STATEMENT I saw and evaluated the patient. I reviewed the resident's note and discussed the case with the resident. I agree with the resident's findings and plan as documented. SUBJECTIVE: OBJECTIVE: ASSESSMENT AND PLAN:
--- NOTE | 2020-05-25 18:50 | PN ---
Teaching Attending Note Name of Resident: Shannen Costello ATTENDING PHYSICIAN STATEMENT I saw and evaluated the patient. I reviewed the resident's note and discussed the case with the resident. I agree with the resident's findings and plan as documented. SUBJECTIVE: Patient seen and examined at bedside, ICU downgrade for UTI/urosepsis 2/2 bladder rupture. Awaiting speech/swallow., VSS. OBJECTIVE: GENERAL: The patient is awake, alert, and fully oriented, in no acute distress. HEAD: Normal with no signs of trauma. NECK: Trachea midline, full range of motion, supple. LUNGS: Breath sounds equal, clear to auscultation bilaterally, no accessory muscle use. HEART: irregular rate and rhythm, S1, S2 without murmur ABDOMEN: Soft, nontender, nondistended, normoactive bowel sounds, no guarding. suprapubic cath , REGGIE drain EXTREMITIES: 2+ pulses, warm, well-perfused, no edema. RUE: erythema of right forearm SKIN: Warm, dry, normal turgor, no rashes or lesions noted Vital Signs - 24 hr 05/24/20 05/24/20 05/25/20 19:35 21:00 06:00 Temperature 99.1 F 99.4 F Pulse Rate 98 H 91 H Respiratory 18 18 Rate Blood Pressure 151/64 146/54 L O2 Sat by Pulse 94 L 95 95 Oximetry (%) 05/25/20 05/25/20 09:00 13:45 Temperature 98.9 F 99.1 F Pulse Rate 91 H 89 Respiratory 18 18 Rate Blood Pressure 143/58 L 142/61 O2 Sat by Pulse 95 Oximetry (%) Microbiology 05/18/20 23:00 Blood - Peripheral Venous Blood Culture - Final NO GROWTH AFTER 5 DAYS INCUBATION 05/18/20 23:00 Blood - Peripheral Venous Blood Culture - Final NO GROWTH AFTER 5 DAYS INCUBATION 05/19/20 04:40 Urine - Urine Galindo Urine Culture - Final Enterococcus Faecalis Laboratory Results - last 24 hr 05/24/20 05/25/20 05/25/20 19:35 07:15 07:15 WBC 22.7 H RBC 3.65 L Hgb 9.4 L Hct 29.8 L MCV 81.6 MCH 25.8 MCHC 31.7 L RDW 16.6 H Plt Count 420 MPV 9.0 Absolute Neuts (auto) Neutrophils % Neutrophils % (Manual) Band Neutrophils % Lymphocytes % Lymphocytes % (Manual) Monocytes % Monocytes % (Manual) Eosinophils % Eosinophils % (Manual) Basophils % Basophils % (Manual) Myelocytes % (Man) Promyelocytes % (Man) Blast Cells % (Manual) Nucleated RBC % Metamyelocytes Hypochromia Platelet Estimate Polychromasia Poikilocytosis Anisocytosis Microcytosis Macrocytosis Sodium 139 Potassium 3.9 Chloride 108 H Carbon Dioxide 26 Anion Gap 6 L BUN 16.6 Creatinine 0.5 L Est GFR (CKD-EPI)AfAm 114.53 Est GFR (CKD-EPI)NonAf 98.81 Random Glucose 80 Calcium 7.6 L Phosphorus 2.8 Magnesium 2.1 Total Bilirubin 0.8 AST 25 ALT 12 L Alkaline Phosphatase 78 Total Protein 4.6 L Albumin 1.4 L Vancomycin Pre-Dose 18.0 H 05/25/20 07:15 WBC 22.7 H RBC 3.58 L Hgb 9.4 L Hct 29.3 L MCV 81.9 MCH 26.3 MCHC 32.2 RDW 16.6 H Plt Count 419 MPV 8.9 Absolute Neuts (auto) 19.3 H Neutrophils % 85.2 H Neutrophils % (Manual) 91.8 H Band Neutrophils % 1.0 Lymphocytes % 5.6 L D Lymphocytes % (Manual) 0.0 L Monocytes % 6.2 Monocytes % (Manual) 7 Eosinophils % 2.6 Eosinophils % (Manual) 0.0 D Basophils % 0.4 Basophils % (Manual) 0.0 Myelocytes % (Man) 0 Promyelocytes % (Man) 0 Blast Cells % (Manual) 0 Nucleated RBC % 0 Metamyelocytes 0 Hypochromia 0 Platelet Estimate Normal Polychromasia 2+ Poikilocytosis 0 Anisocytosis 1+ Microcytosis 1+ Macrocytosis 1+ Sodium Potassium Chloride Carbon Dioxide Anion Gap BUN Creatinine Est GFR (CKD-EPI)AfAm Est GFR (CKD-EPI)NonAf Random Glucose Calcium Phosphorus Magnesium Total Bilirubin AST ALT Alkaline Phosphatase Total Protein Albumin Vancomycin Pre-Dose Home Medications Medication Instructions Recorded Simvastatin [Zocor -] 40 mg PO HS #0 tablet 07/13/13 Multivitamins [Multivit ([facility] 1 tab PO DAILY 11/09/15 Formulary)] Polyethylene Glycol 3350 [Miralax 17 gm PO DAILY 11/09/15 119 gm Btl -] Psyllium Husk (with Sugar) 3.4 gm PO HS 11/09/15 [Metamucil Packet] Amlodipine Besylate 5 mg PO DAILY 10/29/18 Walker [Ultra-Light Rollator] 1 each ASDIR #1 each 11/08/18 Fenofibrate Nanocrystallized 160 mg PO DAILY 05/19/20 [Triglide] Metoprolol Succinate [Toprol Xl] 25 mg PO DAILY 05/19/20 Current Medications Generic Name Dose Route Start Last Admin Trade Name Freq PRN Reason Stop Dose Admin Fentanyl 50 mcg 05/24/20 12:43 Sublimaze Injection - IVPUSH [id number] PRN PAIN-PACU ORDER X 4 DOSES ONLY Sodium Chloride 1,000 mls @ 50 mls/hr 05/24/20 12:43 05/25/20 17:16 Normal Saline - IV 50 mls/hr ASDIR SHELLIE Administration Vancomycin HCl 1,000 mg in 250 mls @ 166.667 mls/hr 05/26/20 10:00 Vancomycin (Pre-Docked) IVPB Q12H SHELLIE Protocol Morphine Sulfate 2 mg 05/24/20 12:43 Morphine Sulfate IVPUSH Q4H PRN PAIN LEVEL 6-10 ASSESSMENT AND PLAN: 85 M s/p bladder puncture during cysto s/p ex-lap requiring cystotomy tube Lung nodules Pleural effusions HTN HLD Prostate ca s/p RT Sepsis 2/2 UTI Dysphagia ?Silent aspiration Constipation Plan: Cont. Vancomycin Judicious IVF in view of pleural effusions Pulmonary following for ?metastatic lesions to lungs Opioids for pain control Awaiting speech and swallow evaluation, possibly needing MBS NPO Heme-Onc evaluation to r/o malignancy DVT ppx: SCD for now
[2020-05-26 08:22] LABS: BASO % 0.4 % (0-2.0); EOS % 2.7 % (0-4.5); HEMATOCRIT 29.2 % (35.4-49); HEMOGLOBIN 9.3 GM/dL (11.7-16.9); LYMPH % 5.3 % (8-40); MCH 26.3 pg (25.7-33.7); MCHC 31.9 g/dl (32.0-35.9); MEAN CELL VOLUME 82.6 fl (80-96); MONO % 6.4 % (3.8-10.2); NEUT % 85.2 % (42.8-82.8); PLATELET COUNT 395 K/MM3 (134-434); RBC 3.54 M/mm3 (4.00-5.60); RDW 16.6 % (11.9-15.9)
[2020-05-26 08:38] LABS: ALBUMIN 1.4 g/dl (3.4-5.0); BILIRUBIN,TOTAL 0.7 mg/dL (0.2-1); BLOOD UREA NITROGEN 15.3 mg/dL (7-18); CALCIUM 7.7 mg/dL (8.5-10.1); CREATININE 0.4 mg/dL (0.55-1.3); MAGNESIUM 2.1 mg/dL (1.8-2.4); PHOSPHOROUS 2.9 mg/dL (2.5-4.9); POTASSIUM 3.9 mmol/L (3.5-5.1); TOT PROT 4.5 g/dl (6.4-8.2)
[2020-05-26] MEDS: VANCOMYCIN 1 GRAM (PRE-DOCKED) 1,000 MG/250 ML BAG IVPB SCH ×2 (09:06→21:35)
--- NOTE | 2020-05-26 12:20 | PN ---
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 (short form) - Note 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: POD #7, s/p exploratory laparotomy, evacuation of clots, repair bladder perforation, suprapubic catheter placement, Dr. Tripp consulted intra-op to run the bowel Patient seen and examined. States he is feeling better. Passing gas, had a larg BM yesterday. Tolerated minimal clear liquids yesterday per pt, however RN noted pt coughing while swallowing liquids, npo now for barium swallow study, no n/v overnight. No abdo pain. Vital Signs Temp 98.5 F 05/26/20 06:00 Pulse 92 H 05/26/20 06:00 Resp 18 05/26/20 06:00 BP 150/65 05/26/20 06:00 Pulse Ox 99 05/26/20 06:00 Intake & Output 05/25/20 05/26/20 05/26/20 23:59 11:59 23:59 Intake Total 625 400 Output Total 1357 500 Balance -732 -100 Intake: IV 575 400 Normal Saline - 1,000 ml 400 @ 50 mls/hr IV ASDIR SHELLIE Rx#:[id number] Saline Lock 575 IVPB 50 Output: Drainage 7 Right Abdomen 7 Urine 1350 500 Batres 900 400 Supra Pubic Tube 450 100 Other: Voiding Method Indwelling Catheter Indwelling Catheter Bowel Movement Yes: large No # Bowel Movements 1 CBC, BMP 05/26/20 07:35 05/26/20 07:35 Gen: awake, alert, nad Resp: unlabored on 4L NC Abdo: soft, nd/nt, + bowel sounds. Suprapubic catheter noted to be draining well, batres bag bedside with minimal yellow output with small pink clots noted. REGGIE in place in rlq with serosanguinous drainage in reservoir. A/P: 85 y/o M w/ PMHx prostate cancer s/p radiation and seed implantation, HTN, CAD, HLD, sciatica, diverticulitis a/w dark red blood from Batres now POD #7 s/p exploratory laparotomy, evacuation of clots, repair bladder perforation, suprapubic catheter placement, surgery consulted for SBO/ileus afebrile, vss passing flatus, had large bm yesterday no n/v overnight -NPO for MBS -Ileus resolved, reconsult prn d/w attending Dr Mack
--- NOTE | 2020-05-26 12:41 | PN ---
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 (short form) - Note 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: improved for barium swallow today no complaints Vital Signs Period Temp Pulse Resp BP Sys/Donald Pulse Ox Last 24 Hr 98.5 F-99.4 F 89-95 18-18 137-153/57-68 94-99 cor-rrr lungs decreased bs at bases abd soft,nt +spt with altagracia intact +batres less erythema of the RUE CBC, BMP 05/26/20 07:35 05/26/20 07:35 Microbiology 05/18/20 23:00 Blood - Peripheral Venous Blood Culture - Final NO GROWTH AFTER 5 DAYS INCUBATION 05/18/20 23:00 Blood - Peripheral Venous Blood Culture - Final NO GROWTH AFTER 5 DAYS INCUBATION 05/19/20 04:40 Urine - Urine Batres Urine Culture - Final Enterococcus Faecalis a/p sepsis SBO enterococcal uti bladder perforation s/p cystoscopy cellulitis RUE day #8 vancomycin for cellulitis RUE and UTI for swallowing evaluation lelukocytosis improving check vanco trough, dose adjusted yesterday Problem List - Problems (1) Leukocytosis Code(s): D72.829 - ELEVATED WHITE BLOOD CELL COUNT, UNSPECIFIED (2) Perforation of bladder during operative procedure Code(s): N99.72 - ACCIDENTAL PNCTR & LAC OF A SYS ORG DURING OTH PROCEDURE (3) Gross hematuria Code(s): R31.0 - GROSS HEMATURIA (4) Prostate cancer Code(s): C61 - MALIGNANT NEOPLASM OF PROSTATE (5) Pulmonary nodules Code(s): R91.8 - OTHER NONSPECIFIC ABNORMAL FINDING OF LUNG FIELD
--- NOTE | 2020-05-26 13:42 | PN ---
Physical Exam: SUBJECTIVE: Patient seen and examined. No acute events overnight. Patient for [facility] today. Still NPO. +flatus, +BM OBJECTIVE: Vital Signs Temperature 98.5 F 05/26/20 06:00 Pulse Rate 92 H 05/26/20 06:00 Respiratory Rate 18 05/26/20 06:00 Blood Pressure 150/65 05/26/20 06:00 O2 Sat by Pulse Oximetry (%) 99 05/26/20 06:00 GENERAL: The patient is awake, alert, and fully oriented, in no acute distress. HEAD: Normal with no signs of trauma. NECK: Trachea midline, full range of motion, supple. LUNGS: Breath sounds equal, clear to auscultation bilaterally, no accessory muscle use. HEART: irregular rate and rhythm, S1, S2 without murmur ABDOMEN: Soft, nontender, nondistended, normoactive bowel sounds, no guarding. suprapubic cath , REGGIE drain EXTREMITIES: 2+ pulses, warm, well-perfused, no edema. SKIN: Warm, dry, normal turgor, no rashes or lesions noted Laboratory Results - last 24 hr 05/26/20 05/26/20 07:35 07:35 WBC 21.0 H RBC 3.54 L Hgb 9.3 L Hct 29.2 L MCV 82.6 MCH 26.3 MCHC 31.9 L RDW 16.6 H Plt Count 395 MPV 9.0 Absolute Neuts (auto) 17.9 H Neutrophils % 85.2 H Lymphocytes % 5.3 L Monocytes % 6.4 Eosinophils % 2.7 Basophils % 0.4 Nucleated RBC % 0 Sodium 142 Potassium 3.9 Chloride 112 H Carbon Dioxide 25 Anion Gap 6 L BUN 15.3 Creatinine 0.4 L Est GFR (CKD-EPI)AfAm 125.53 Est GFR (CKD-EPI)NonAf 108.31 Random Glucose 76 Calcium 7.7 L Phosphorus 2.9 Magnesium 2.1 Total Bilirubin 0.7 AST 26 ALT 12 L Alkaline Phosphatase 83 Total Protein 4.5 L Albumin 1.4 L Active Medications Generic Name Dose Route Start Last Admin Trade Name Freq PRN Reason Stop Dose Admin Fentanyl 50 mcg 05/24/20 12:43 Sublimaze Injection - IVPUSH [id number] PRN PAIN-PACU ORDER X 4 DOSES ONLY Sodium Chloride 1,000 mls @ 50 mls/hr 05/24/20 12:43 07/30/20 17:16 Normal Saline - IV 50 mls/hr ASDIR SHELLIE Administration Vancomycin HCl 1,000 mg in 250 mls @ 166.667 mls/hr 05/26/20 10:00 05/26/20 09:06 Vancomycin (Pre-Docked) IVPB 166.667 mls/hr Q12H SHELLIE Administration Protocol Morphine Sulfate 2 mg 05/24/20 12:43 Morphine Sulfate IVPUSH Q4H PRN PAIN LEVEL 6-10 ASSESSMENT/PLAN: Patient is an 85 yo M PMHx of prostate cancer (s/p radiation and seed implantation), HTN, CAD, HLD, sciatica, diverticulitis presenting to the ED with dark red blood producing from Galindo.pt is admitted to ICU s/p bladder perforation with cystoscopy s/p laparotomy, evacuation of clots, bladder perfora tion repair, and suprapubic catheter placement. (05/19). ICU complicated by mod SBO,which is now improved . pt is now stable for medicine floor #Hematuria 2/2 Bladder perforation s/p cystoscopy/ex-lap/repair #Partial SBO -POD 7, patient is stable -pSBO possibly 2/2 ileus in setting of surgery/pain meds -Surgery on board -Will keep NPO pending speech and swallow recs -patient passed flatus and had bm -suprapubic cath, CBI off -REGGIE drain -cont to monitor -morphine for pain #Prostatic malignancy -Irregular mass from prostatic urethra extending to bladder noted ash-op -s/p excision of mass -OR path prelim with an aggressive malignancy -Heme-onc (Dr. Mesa) consulted. #Ascites -likely in setting of post-op -GI (Dr. Montano) consulted. REcommendations appreciated. #HTN -On Amlodipine and Toprol -BP stable, will hold for now while NPO #HLD -On Simvastatin and Fenofibrate -will hold for now while patient is NPO #RUE cellulitis -On IV VAncomycin day 8 -Vanc dose decreased to 1g q12 -vanc trough prior to 4th dose after dose adjustment #UTI -UCx: Enterococcus faecalis -Meropenem completed 05/02 -ID (Dr. Carter) consulted. REcommendations appreciated. #FEN -IV D5-1/2NS @50cc/hr -Electrolytes wnl, routine bmp monitoring -NPO #Prophylaxis -DVT: SCDs bilaterally #Disposition -continue monitoring on med surg Visit type - Emergency Visit Emergency Visit: Yes ED Registration Date: 05/18/20 Care time: The patient presented to the Emergency Department on the above date and was hospitalized for further evaluation of their emergent condition. - New Patient This patient is new to me today: No - Critical Care Critical Care patient: No - Medication Review Med list reviewed for High Risk Meds patients 65 and older: Yes ATTENDING PHYSICIAN STATEMENT I saw and evaluated the patient. I reviewed the resident's note and discussed the case with the resident. I agree with the resident's findings and plan as documented. SUBJECTIVE: OBJECTIVE: ASSESSMENT AND PLAN:
[2020-05-26 13:59] LABS: PLATELET ESTIMATE ADEQUATE
[2020-05-26 14:00] LABS: ANISOCYTOSIS 1+; MACROCYTOSIS 1+
--- NOTE | 2020-05-26 15:21 | PATH ---
Surgical Pathology Report Patient Name: USHA LAM Med. Rec. #: [id number] /Age/Gender: 1935 (Age: 85) / M Account: [id number] Location: [address] [place] [address]/[facility] Taken: 05/19/2020 Received: 05/22/2020 Reported: 05/26/2020 Physicians: Ronny Elliott M.D. Specimen(s) Received A: BLADER CLOTS B: MASS AT BLADDER NECK Clinical History Gross hematuria and clot retention Postoperative diagnosis: Bladder perforation Final Diagnosis A. BLOOD CLOT, REMOVAL: INFILTRATING UROTHELIAL CARCINOMA, POORLY DIFFERENTIATED. B. MASS OF BLADDER NECK, EXCISION: INFILTRATING UROTHELIAL CARCINOMA, POORLY DIFFERENTIATED. Comment: The excisional specimen is predominantly composed of tumor with extensive necrosis and focal hemorrhage. The tumor cells show pleomorphic nuclei with prominent nucleoli and frequent mitotic figures, with focal (~5%) spindle-shaped morphology consistent with sarcomatoid change. Immunohistochemical stains show the following results: The tumor cells are positive for Gata3, AE1/3, p63, Thrombomodulin, Vimentin, while negative for p40, desmin, CK5/6, CK7, CK20, uroplakin, PSA, NKX3.1, PSAP, SOX10, Melan A, HMB45, and HMWCK. The tumor cells show focally nonspecific staining for S100, and scattered staining for SMA. 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 Immunohistochemistry markers for prostatic tissue (NKX3.1, PSA, PSAP) are negative. Positive and negative controls (internal if applicable) show appropriate results. P63 performed and interpreted at [facility]. Gata3, Thrombomodulin, Vimentin, HMWCK, AE1/3, p40, desmin, CK5/6, CK7, CK20, uroplakin, PSA, PSAP, NKX3.1, SOX10, Melan A, HMB45, S100, SMA performed at [place], [place] ([id number]) and interpreted at [facility]. Intradepartmental case reviewed with concordance on diagnosis. This case was discussed with Dr. Huston on 05/23/2020. Electronically Signed Leslie Zapien M.D. Addendum Reported: 06/20/2020 Addendum Diagnosis OMNISEQ ADVANCE testing performed and interpreted at [place], [place] ([id number]) shows the following: THERAPY CONSIDERATIONS FOR UROTHLIAL CARCINOMA Markers Identified Therapies in Urothelial Carcinoma Therapies in Other Tumor Types Level 1 PD-L1 (IHC_22C3) CPS 30 pembrolizumab1 None Level 1 PD-L1 (IHC_SP142) 2% IC None atezolizumab + nab-paclitaxel 2 Level 2 No FDA Level 2 markers with immunotherapy or targeted therapy considerations for the tumor type tested or other tumor types were identified FDA Evidence Levels: 1) Inseamer diagnostic; 2) Practice guidelines, clinically validated; 3) Clinically significant, analytically validated with clinical or mechanistic rationale (clinical trials, off-label therapies, or peer reviewed evidence). 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 RNA-seq immune profiling analysis for PD-L1 shows a low level of expression. This tumor shows evidence of T-cell trafficking with over expression of TGFB1, cancer testis antigens with positive expression of MAGEA4 and SSX2, and a propensity for killing cancer cells with over expression of CSF1R. LIKELIHOOD OF RESPONSE BASED ON EVIDENCE IN CURRENT LITERATURE: From an immunotherapy perspective, The positive PD-L1 22C3 clone IHC for this case meets the FDA requirements for pembrolizumab for the treatment of patients with locally advanced or metastatic PD-E1tgqsdjgj urothelial carcinoma who are cisplatin-ineligible. Response to PD-1 axis inhibition in this patient is indeterminate due to the non-inflamed status. Recommendation is augmentation of a PD-1 axis checkpoint inhibitor with chemotherapy and/or radiation or agents that specifically improve TILs recruitment such as the mutant IL-2 drugs ALKS 4230 or mutant IL-15 ALT-803. TP53 c.267dup ([id number]) at codon 90 in exon 4 (VAF = 0.429) is a frameshift truncating variant and would be considered an inactivating mutation. The CCND1 amplification had a copy number of 11 and a ratio greater than 2, which would be considered intermediate level amplification. See [facility] report for additional details. Report faxed to Dr. Mauricio's office on 06/16/2020 and 06/20/2020. Leslie Zapien M.D. Gross Description A. Received in formalin, labeled "bladder clots" are multiple portions of blood clot admixed with white soft tissue weighing 106 g and measuring 8.0 x 6.0 x 4.0cm in aggregate. Claims Associate sections submitted in 4 cassettes: White soft tissue submitted in cassette 1 to 3. B. Received in formalin, labeled "mass of bladder neck" are multiple carbone, irregular portions of white soft tissue measuring 7.0 x 5.0 x 2.0 cm in aggregate. Serial sections reveal fragile soft tissue admixed with focal hemorrhage. Claims Associate sections submitted in 7 cassettes. __ ERNESTINA/05/22/2020 bebeto/05/22/2020
[2020-05-26] MEDS: DEXTROSE 5%-0.45% SALINE 1,000 ML IV SCH (15:23)
[2020-05-27] MEDS: AMINO ACIDS/PROTEIN HYDROLYS 30 ML LIQUID.PKT PO SCH ×2 (08:00→17:29)
[2020-05-27] MEDS: VANCOMYCIN 1 GRAM (PRE-DOCKED) 1,000 MG/250 ML BAG IVPB SCH ×2 (09:11→21:21)
[2020-05-27 09:32] LABS: BASO % 0.6 % (0-2.0); EOS % 2.6 % (0-4.5); HEMATOCRIT 33.1 % (35.4-49); HEMOGLOBIN 10.4 GM/dL (11.7-16.9); MCH 26.3 pg (25.7-33.7); MCHC 31.3 g/dl (32.0-35.9); MEAN CELL VOLUME 83.8 fl (80-96); MEAN PLT VOLUME 8.7 fl (7.5-11.1); MONO % 6.4 % (3.8-10.2); NEUT % 84.4 % (42.8-82.8); PLATELET COUNT 435 K/MM3 (134-434); RBC 3.94 M/mm3 (4.00-5.60); RDW 16.6 % (11.9-15.9); WHITE BLOOD COUNT 21.9 K/mm3 (4.0-10.0)
[2020-05-27 12:14] LABS: ANISOCYTOSIS 1+; MACROCYTOSIS 0; PLATELET ESTIMATE NORMAL
--- NOTE | 2020-05-27 12:31 | PN ---
Teaching Attending Note Name of Resident: Shannen Costello ATTENDING PHYSICIAN STATEMENT I saw and evaluated the patient. I reviewed the resident's note and discussed the case with the resident. I agree with the resident's findings and plan as documented. SUBJECTIVE: Patient seen and examined at bedside, POD#6 for cystectomy, doing well, awaiting MBS. VSS. OBJECTIVE: GENERAL: The patient is awake, alert, and fully oriented, in no acute distress. HEAD: Normal with no signs of trauma. NECK: Trachea midline, full range of motion, supple. LUNGS: Breath sounds equal, clear to auscultation bilaterally, no accessory muscle use. HEART: irregular rate and rhythm, S1, S2 without murmur ABDOMEN: Soft, nontender, nondistended, normoactive bowel sounds, no guarding. suprapubic cath , REGGIE drain EXTREMITIES: 2+ pulses, warm, well-perfused, no edema. RUE: erythema of right forearm SKIN: Warm, dry, normal turgor, no rashes or lesions noted Vital Signs - 24 hr 05/26/20 05/26/20 05/26/20 19:03 20:29 21:39 Temperature 98.4 F Pulse Rate 90 95 H Respiratory 18 18 Rate Blood Pressure 134/64 164/75 O2 Sat by Pulse 95 95 96 Oximetry (%) 05/27/20 06:00 Temperature 98.5 F Pulse Rate 88 Respiratory 18 Rate Blood Pressure 163/70 O2 Sat by Pulse 96 Oximetry (%) Microbiology 05/18/20 23:00 Blood - Peripheral Venous Blood Culture - Final NO GROWTH AFTER 5 DAYS INCUBATION 05/18/20 23:00 Blood - Peripheral Venous Blood Culture - Final NO GROWTH AFTER 5 DAYS INCUBATION 05/19/20 04:40 Urine - Urine Gal[place] Urine Culture - Final Enterococcus Faecalis Laboratory Results - last 24 hr 05/26/20 05/27/20 07:35 08:15 WBC 21.9 H RBC 3.94 L Hgb 10.4 L Hct 33.1 L MCV 83.8 MCH 26.3 MCHC 31.3 L RDW 16.6 H Plt Count 435 H MPV 8.7 Absolute Neuts (auto) 18.5 H Neutrophils % 84.4 H Neutrophils % (Manual) 89.0 H 88.0 H Band Neutrophils % 0.0 0.0 Lymphocytes % 6.0 L Lymphocytes % (Manual) 1.0 L D 4.0 L D Monocytes % 6.4 Monocytes % (Manual) 4 4 Eosinophils % 2.6 Eosinophils % (Manual) 6.0 H D 2.0 Basophils % 0.6 Basophils % (Manual) 0.0 0.0 Myelocytes % (Man) 0 1 D Promyelocytes % (Man) 0 0 Blast Cells % (Manual) 0 0 Nucleated RBC % 0 Metamyelocytes 0 1 D Hypochromia 0 1+ Platelet Estimate Adequate Normal Platelet Comment No clumping noted Polychromasia 1+ 1+ Poikilocytosis 0 0 Anisocytosis 1+ 1+ Microcytosis 1+ Macrocytosis 1+ 0 Home Medications Medication Instructions Recorded Simvastatin [Zocor -] 40 mg PO HS #0 tablet 07/13/13 Multivitamins [Multivit ([facility] 1 tab PO DAILY 11/09/15 Formulary)] Polyethylene Glycol 3350 [Miralax 17 gm PO DAILY 11/09/15 119 gm Btl -] Psyllium Husk (with Sugar) 3.4 gm PO HS 11/09/15 [Metamucil Packet] Amlodipine Besylate 5 mg PO DAILY 10/29/18 Walker [Ultra-Light Rollator] 1 each ASDIR #1 each 11/08/18 Fenofibrate Nanocrystallized 160 mg PO DAILY 05/19/20 [Triglide] Metoprolol Succinate [Toprol Xl] 25 mg PO DAILY 05/19/20 Current Medications Generic Name Dose Route Start Last Admin Trade Name Freq PRN Reason Stop Dose Admin Amino Acids 30 ml 05/27/20 08:00 05/27/20 08:00 Prosource No Carb Liquid Pkt PO 30 ml BID@0800,1730 SHELLIE Administration Fentanyl 50 mcg 05/24/20 12:43 Sublimaze Injection - IVPUSH [id number] PRN PAIN-PACU ORDER X 4 DOSES ONLY Vancomycin HCl 1,000 mg in 250 mls @ 166.667 mls/hr 05/26/20 10:00 05/27/20 09:11 Vancomycin (Pre-Docked) IVPB 166.667 mls/hr Q12H SHELLIE Administration Protocol Dextrose/Sodium Chloride 1,000 mls @ 50 mls/hr 05/26/20 13:45 05/26/20 15:23 D5-1/2ns - IV 50 mls/hr ASDIR SHELLIE Administration Morphine Sulfate 2 mg 05/24/20 12:43 Morphine Sulfate IVPUSH Q4H PRN PAIN LEVEL 6-10 ASSESSMENT AND PLAN: 85 M s/p bladder puncture during cysto s/p ex-lap requiring cystotomy tube Lung nodules Pleural effusions HTN HLD Prostate ca s/p RT Sepsis 2/2 UTI Dysphagia ?Silent aspiration Constipation Plan: Cont. Vancomycin w/ monitoring of levels Judicious IVF in view of pleural effusions Pulmonary following for ?metastatic lesions to lungs Opioids for pain control Awaiting MBS Heme-Onc following DVT ppx: SCD for now
--- NOTE | 2020-05-27 12:33 | PN ---
Physical Exam: SUBJECTIVE: Patient seen and examined at bedside, POD#7 for cystectomy, tolerating clears, no fevers/events overnight, moving bowels. VSS. OBJECTIVE: GENERAL: The patient is awake, alert, and fully oriented, in no acute distress. HEAD: Normal with no signs of trauma. NECK: Trachea midline, full range of motion, supple. LUNGS: Breath sounds equal, clear to auscultation bilaterally, no accessory muscle use. HEART: irregular rate and rhythm, S1, S2 without murmur ABDOMEN: Soft, nontender, nondistended, normoactive bowel sounds, no guarding. suprapubic cath , REGGIE drain EXTREMITIES: 2+ pulses, warm, well-perfused, no edema. RUE: erythema of right forearm SKIN: Warm, dry, normal turgor, no rashes or lesions noted Vital Signs - 24 hr 05/26/20 05/26/20 05/26/20 19:03 20:29 21:39 Temperature 98.4 F Pulse Rate 90 95 H Respiratory 18 18 Rate Blood Pressure 134/64 164/75 O2 Sat by Pulse 95 95 96 Oximetry (%) 05/27/20 06:00 Temperature 98.5 F Pulse Rate 88 Respiratory 18 Rate Blood Pressure 163/70 O2 Sat by Pulse 96 Oximetry (%) Microbiology 05/18/20 23:00 Blood - Peripheral Venous Blood Culture - Final NO GROWTH AFTER 5 DAYS INCUBATION 05/18/20 23:00 Blood - Peripheral Venous Blood Culture - Final NO GROWTH AFTER 5 DAYS INCUBATION 05/19/20 04:40 Urine - Urine Galindo Urine Culture - Final Enterococcus Faecalis Laboratory Results - last 24 hr 05/26/20 05/27/20 07:35 08:15 WBC 21.9 H RBC 3.94 L Hgb 10.4 L Hct 33.1 L MCV 83.8 MCH 26.3 MCHC 31.3 L RDW 16.6 H Plt Count 435 H MPV 8.7 Absolute Neuts (auto) 18.5 H Neutrophils % 84.4 H Neutrophils % (Manual) 89.0 H 88.0 H Band Neutrophils % 0.0 0.0 Lymphocytes % 6.0 L Lymphocytes % (Manual) 1.0 L D 4.0 L D Monocytes % 6.4 Monocytes % (Manual) 4 4 Eosinophils % 2.6 Eosinophils % (Manual) 6.0 H D 2.0 Basophils % 0.6 Basophils % (Manual) 0.0 0.0 Myelocytes % (Man) 0 1 D Promyelocytes % (Man) 0 0 Blast Cells % (Manual) 0 0 Nucleated RBC % 0 Metamyelocytes 0 1 D Hypochromia 0 1+ Platelet Estimate Adequate Normal Platelet Comment No clumping noted Polychromasia 1+ 1+ Poikilocytosis 0 0 Anisocytosis 1+ 1+ Microcytosis 1+ Macrocytosis 1+ 0 Home Medications Medication Instructions Recorded Simvastatin [Zocor -] 40 mg PO HS #0 tablet 07/13/13 Multivitamins [Multivit ([facility] 1 tab PO DAILY 11/09/15 Formulary)] Polyethylene Glycol 3350 [Miralax 17 gm PO DAILY 11/09/15 119 gm Btl -] Psyllium Husk (with Sugar) 3.4 gm PO HS 11/09/15 [Metamucil Packet] Amlodipine Besylate 5 mg PO DAILY 10/29/18 Walker [Ultra-Light Rollator] 1 each ASDIR #1 each 11/08/18 Fenofibrate Nanocrystallized 160 mg PO DAILY 05/19/20 [Triglide] Metoprolol Succinate [Toprol Xl] 25 mg PO DAILY 05/19/20 Current Medications Generic Name Dose Route Start Last Admin Trade Name Freq PRN Reason Stop Dose Admin Amino Acids 30 ml 05/27/20 08:00 05/27/20 08:00 Prosource No Carb Liquid Pkt PO 30 ml BID@0800,1730 SHELLIE Administration Fentanyl 50 mcg 05/24/20 12:43 Sublimaze Injection - IVPUSH [id number] PRN PAIN-PACU ORDER X 4 DOSES ONLY Vancomycin HCl 1,000 mg in 250 mls @ 166.667 mls/hr 05/26/20 10:00 05/27/20 09:11 Vancomycin (Pre-Docked) IVPB 166.667 mls/hr Q12H SHELLIE Administration Protocol Dextrose/Sodium Chloride 1,000 mls @ 50 mls/hr 05/26/20 13:45 05/26/20 15:23 D5-1/2ns - IV 50 mls/hr ASDIR SHELLIE Administration Morphine Sulfate 2 mg 05/24/20 12:43 Morphine Sulfate IVPUSH Q4H PRN PAIN LEVEL 6-10 ASSESSMENT AND PLAN: 85 M s/p bladder puncture during cysto s/p ex-lap requiring cystotomy tube Lung nodules Pleural effusions HTN HLD Prostate ca s/p RT Sepsis 2/2 UTI Dysphagia ?Silent aspiration Constipation Plan: Cont. Vancomycin w/ monitoring of levels Judicious IVF in view of pleural effusions Pulmonary following Opioids for pain control Tolerating clear diet, advance as tolerated Heme-Onc following Surgery following DVT ppx: SCD for now Visit type - Emergency Visit Emergency Visit: Yes ED Registration Date: 05/18/20 Care time: The patient presented to the Emergency Department on the above date and was hospitalized for further evaluation of their emergent condition. - New Patient This patient is new to me today: No - Critical Care Critical Care patient: No - Discharge Referral Referred to [facility] Med P.C.: No - Medication Review Med list reviewed for High Risk Meds patients 65 and older: Yes
[2020-05-27 14:29] LABS: ALBUMIN 1.5 g/dl (3.4-5.0); BILIRUBIN,TOTAL 0.5 mg/dL (0.2-1); BLOOD UREA NITROGEN 15.8 mg/dL (7-18); CALCIUM 8.1 mg/dL (8.5-10.1); CREATININE 0.5 mg/dL (0.55-1.3); PHOSPHOROUS 2.4 mg/dL (2.5-4.9); POTASSIUM 3.7 mmol/L (3.5-5.1)
--- NOTE | 2020-05-27 17:17 | PN.HO ---
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 (short form) - Note 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: S: Pt seen and examined. Able to tolerate clears (breakfast and lunch). Denies pain. POD7 05/27/20 08:15 05/27/20 12:12 85 yo gentleman PMHx of prostate cancer (s/p radiation and seed implantation), HTN, CAD, HLD, sciatica, diverticulitis presenting to the ED with dark red blood producing from Galindo.pt is admitted to ICU s/p bladder perforation with cystoscopy s/p laparotomy, evacuation of clots, bladder perforation repair, and suprapubic catheter placement. (05/19). ICU complicated by mod SBO,which is now improved . 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 PET) will be considered 3) Lung Nodules: Pulmonary following. Consider tissue biopsy if/when safe.
--- NOTE | 2020-05-27 17:22 | CON.HO ---
Consult - text type - Consultation Consultation Note: 85M admitted 05/18 for evaluation of blood from indwelling bladder catheter. Called to evaluate SBO and ascites. Had CT scan of abdomen and pelvis on admission revealing b/l pulmonary nodules, clots/blood in bladder, b/l hydronephrosis. Was receiving morphine secondary to pain at catheter site. Was having bilious vomiting for 1-2 days per the patient while he was admitted. Had CT scan of the C/A/P w/ contrast 05/22 revealing atelectasis/effusions, thickened esophagus no lung masses, possible PSBO given that distal ileal bowel loops were non-distended. CBI was being performed. Bladder biopsy : infiltrating urothelial carcinoma, poorly differetniated with focal sarcomatoid change - History Source History Provided By: Patient, Medical Record - Past Medical History Cardio/Vascular: Yes: CAD, HTN, Hyperlipdemia Gastrointestinal: Yes: Diverticulosis, Hemorrhoids, Other (Colon polyps) Renal/: Yes: Cancer (bladder ca s/p radiation,implanted seed, 07/02) - Past Surgical History Past Surgical History: Yes: Hernia Repair, Tonsillectomy Additional Surgical History: Seed implantation, suprapubic catheter placement - Smoking History Smoking history: Never smoked - Social History Usual Living Arrangement: With Spouse ADL: Independent 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 [address] of : [facility] History of Recent Travel: No Home Medications - Allergies Allergies/Adverse Reactions: Allergies Allergy/AdvReac Type Severity Reaction Status Date / Time No Known Allergies Allergy Verified 04/28/20 18:42 - Home Medications Home Medications: Ambulatory Orders Simvastatin [Zocor -] 40 mg PO HS #0 tablet 07/13/13 Multivitamins [Multivit ([facility] Formulary)] 1 tab PO DAILY 11/09/15 Polyethylene Glycol 3350 [Miralax 119 gm Btl -] 17 gm PO DAILY 11/09/15 Psyllium Husk (with Sugar) [Metamucil Packet] 3.4 gm PO HS 11/09/15 Amlodipine Besylate 5 mg PO DAILY 10/29/18 Walker [Ultra-Light Rollator] 1 each ASDIR #1 each 11/08/18 Fenofibrate Nanocrystallized [Triglide] 160 mg PO DAILY 05/19/20 Metoprolol Succinate [Toprol Xl] 25 mg PO DAILY 05/19/20 Family Medical History Family Hx Cancer: Father (prostate) Family Hx Cardiac Disorders: Mother, Brother (9 brothers, , some with heart ptoblems 3 , sisters, : heart problemns) Physical Exam-GI Vital Signs: AFVSS Constitutional: Yes: Calm Eyes: No: Sclera Icterus HENT: No: Thrush Cardiovascular: Yes: Tachycardia, Pulse Irregular Respiratory: Yes: CTA Bilaterally Abdomen: soft, + suprapubic cystostomy, abtres catheter Edema: No (No LE edema) Neurological: Yes: Alert Labs: CBC, BMP 05/23/20 05:25 05/23/20 05:25 INR, PTT INR 1.50 (0.83-1.09) H 05/21/20 08:58 Hepatic Panel Total Bilirubin 0.7 mg/dL (0.2-1) 05/23/20 05:25 AST 25 U/L (15-37) 05/23/20 05:25 ALT 13 U/L (13-61) 05/23/20 05:25 Alkaline Phosphatase 85 U/L (45-117) 05/23/20 05:25 Albumin 1.5 g/dl (3.4-5.0) L 05/23/20 05:25 Imaging - Results Cat Scan: Report Reviewed, Image Reviewed Problem List 85M admitted 05/18 for evaluation of blood from indwelling bladder catheter. Called to evaluate SBO and ascites. Had CT scan of abdomen and pelvis on admission revealing b/l pulmonary nodules, clots/blood in bladder, b/l hydronephrosis. Was receiving morphine secondary to pain at catheter site. Was having bilious vomiting for 1-2 days per the patient while he was admitted. Had CT scan of the C/A/P w/ contrast 05/22 revealing atelectasis/effusions, thickened esophagus no lung masses, possible PSBO given that distal ileal bowel loops were non-distended. CBI was being performed. cysto/exp lap/evac clots/repair bladder perf/SPT placement 05/19/20 Bladder biopsy : infiltrating urothelial carcinoma, poorly differentiated with focal sarcomatoid change Given difference on CT scan chest on 05/19 and 05/22 --- will review with radiology Consider PET-CT outpatient if feasible will add next gen sequencing/PDL to pathology speciment will need to discuss with urology team /pathology and final recs based on above
[2020-05-27] MEDS: DEXTROSE 5%-0.45% SALINE 1,000 ML IV SCH (17:29)
--- NOTE | 2020-05-27 18:45 | PN ---
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, Physician - Current Medication List Current Medications: Active Medications Amino Acids (Prosource No Carb Liquid Pkt) 30 ml PO BID@0800,1730 [facility] Last Admin: 05/27/20 17:29 Dose: 30 ml Documented by: Fentanyl (Sublimaze Injection -) 50 mcg IVPUSH [id number] PRN PRN Reason: PAIN-PACU ORDER X 4 DOSES ONLY Vancomycin HCl (Vancomycin (Pre-Docked)) 1,000 mg in 250 mls @ 166.667 mls/hr IVPB Q12H [facility]; Protocol Last Admin: 05/27/20 09:11 Dose: 166.667 mls/hr Documented by: Dextrose/Sodium Chloride (D5-1/2ns -) 1,000 mls @ 50 mls/hr IV ASDIR [facility] Last Admin: 05/27/20 17:29 Dose: 50 mls/hr Documented by: Morphine Sulfate (Morphine Sulfate) 2 mg IVPUSH Q4H PRN PRN Reason: PAIN LEVEL 6-10 - Objective Vital Signs: Vital Signs Temperature 98.5 F 05/27/20 06:00 Pulse Rate 88 05/27/20 06:00 Respiratory Rate 18 05/27/20 06:00 Blood Pressure 163/70 05/27/20 06:00 O2 Sat by Pulse Oximetry (%) 96 05/27/20 06:00 Labs: CBC, BMP 05/27/20 08:15 05/27/20 12:12 INR, PTT INR 1.50 (0.83-1.09) H 05/21/20 08:58
[2020-05-28] MEDS: AMINO ACIDS/PROTEIN HYDROLYS 30 ML LIQUID.PKT PO SCH ×2 (08:19→17:22)
[2020-05-28 09:23] LABS: BASO % 0.6 % (0-2.0); EOS % 2.5 % (0-4.5); HEMATOCRIT 31.6 % (35.4-49); HEMOGLOBIN 9.8 GM/dL (11.7-16.9); LYMPH % 6.3 % (8-40); MCH 25.6 pg (25.7-33.7); MEAN CELL VOLUME 82.6 fl (80-96); MEAN PLT VOLUME 8.8 fl (7.5-11.1); NEUT % 84.6 % (42.8-82.8); PLATELET COUNT 426 K/MM3 (134-434); RBC 3.82 M/mm3 (4.00-5.60); RDW 16.3 % (11.9-15.9); WHITE BLOOD COUNT 21.1 K/mm3 (4.0-10.0)
[2020-05-28 09:45] LABS: ALBUMIN 1.4 g/dl (3.4-5.0); CALCIUM 8.1 mg/dL (8.5-10.1); CREATININE 0.4 mg/dL (0.55-1.3); POTASSIUM 3.9 mmol/L (3.5-5.1); TOT PROT 4.9 g/dl (6.4-8.2)
[2020-05-28 10:39] LABS: BILIRUBIN,TOTAL 0.4 mg/dL (0.2-1)
[2020-05-28 10:42] LABS: ANISOCYTOSIS 2+; MACROCYTOSIS 0; PLATELET ESTIMATE NORMAL
[2020-05-28] MEDS: VANCOMYCIN 1 GRAM (PRE-DOCKED) 1,000 MG/250 ML BAG IVPB SCH ×2 (11:03→21:53)
--- NOTE | 2020-05-28 15:30 | PN.HO ---
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 (short form) - Note 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: S: Pt seen and examined. Tolerating diet (breakfast and lunch). Denies pain. POD8 Last Vital Signs Temp Pulse Resp BP Pulse Ox 98.8 F 89 18 131/57 L 94 L 05/28/20 14:24 05/28/20 14:24 05/28/20 14:24 05/28/20 14:24 05/28/20 14:24 05/28/20 08:20 05/28/20 08:20 85 yo gentleman PMHx of prostate cancer (s/p radiation and seed implantation), HTN, CAD, HLD, sciatica, diverticulitis presenting to the ED with dark red blood producing from Galindo.pt is admitted to ICU s/p bladder perforation with cystoscopy s/p laparotomy, evacuation of clots, bladder perforation repair, and suprapubic catheter placement. (05/19). ICU complicated by mod SBO,which is now improved . 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 PET) will be considered 3) Lung Nodules: Pulmonary following. Consider tissue biopsy if/when safe.
--- NOTE | 2020-05-28 16:11 | PN ---
Physical Exam: SUBJECTIVE: Patient seen and examined 05/28/20: nO CP, SOB, FEELS VERY TIRED BUT WAS ABLE TO TOLERATE BREAKFAST AND LUNCH TODAY. DENIES ANY FEVERS OR CHILLS OBJECTIVE: Vital Signs Period Temp Pulse Resp BP Sys/Donald Pulse Ox Last 24 Hr 97.9 F-99.2 F 89-93 18-18 131-147/57-60 94-96 GENERAL: The patient is awake, alert, and fully oriented, in no acute distress. HEAD: Normal with no signs of trauma. EYES: extraocular movements intact, sclera anicteric, conjunctiva clear. No ptosis. ENT: Ears normal, nares patent, oropharynx clear without exudates, moist mucous membranes. NECK: Trachea midline, full range of motion, supple. LUNGS: Breath sounds equal, clear to auscultation bilaterally, no wheezes, no crackles, no accessory muscle use. DECREASED BS VELIA AT BASES HEART: Regular rate and rhythm, S1, S2 without murmur, rub or gallop. ABDOMEN: Soft, nontender, nondistended, normoactive bowel sounds, no guarding, no rebound, no hepatosplenomegaly, no masses. POS CATHETER IN PLACE, DRESSING C/D/I, INCISION C/D/I EXTREMITIES: 2+ pulses, warm, well-perfused, TR edema. : POS DAVIDSON NEUROLOGICAL: Cranial nerves II through XII grossly intact. Normal speech, gait not observed. PSYCH: Normal mood, normal affect. SKIN: Warm, dry, normal turgor, no rashes or lesions noted Laboratory Results - last 24 hr 05/28/20 05/28/20 05/28/20 08:20 08:20 08:20 WBC 21.1 H RBC 3.82 L Hgb 9.8 L Hct 31.6 L MCV 82.6 MCH 25.6 L MCHC 31.0 L RDW 16.3 H Plt Count 426 MPV 8.8 Absolute Neuts (auto) 17.8 H Neutrophils % 84.6 H Neutrophils % (Manual) 85.9 H Band Neutrophils % 0.0 Lymphocytes % 6.3 L Lymphocytes % (Manual) 6.1 L D Monocytes % 6.0 Monocytes % (Manual) 1 L Eosinophils % 2.5 Eosinophils % (Manual) 3.0 Basophils % 0.6 Basophils % (Manual) 0.0 Myelocytes % (Man) 0 D Promyelocytes % (Man) 0 Blast Cells % (Manual) 0 Nucleated RBC % 1 H Metamyelocytes 0 D Hypochromia 0 Platelet Estimate Normal Polychromasia 2+ Poikilocytosis 0 Anisocytosis 2+ Microcytosis 2+ Macrocytosis 0 Sodium 142 Potassium 3.9 Chloride 110 H Carbon Dioxide 26 Anion Gap 5 L BUN 16.0 Creatinine 0.4 L Est GFR (CKD-EPI)AfAm 125.53 Est GFR (CKD-EPI)NonAf 108.31 Random Glucose 100 Calcium 8.1 L Total Bilirubin 0.4 AST 25 ALT 12 L Alkaline Phosphatase 92 Total Protein 4.9 L Albumin 1.4 L Vancomycin Pre-Dose 11.7 H Active Medications Generic Name Dose Route Start Last Admin Trade Name Freq PRN Reason Stop Dose Admin Amino Acids 30 ml 05/27/20 08:00 05/28/20 08:19 Prosource No Carb Liquid Pkt PO 30 ml BID@0800,1730 SHELLIE Administration Fentanyl 50 mcg 05/24/20 12:43 Sublimaze Injection - IVPUSH [id number] PRN PAIN-PACU ORDER X 4 DOSES ONLY Vancomycin HCl 1,000 mg in 250 mls @ 166.667 mls/hr 05/26/20 10:00 05/28/20 11:03 Vancomycin (Pre-Docked) IVPB 166.667 mls/hr Q12H SHELLIE Administration Protocol Dextrose/Sodium Chloride 1,000 mls @ 50 mls/hr 05/26/20 13:45 05/27/20 17:29 D5-1/2ns - IV 50 mls/hr ASDIR SHELLIE Administration Morphine Sulfate 2 mg 05/24/20 12:43 Morphine Sulfate IVPUSH Q4H PRN PAIN LEVEL 6-10 ASSESSMENT/PLAN: 85 y/o male with cad, htn, hl admitted with hematuria, s/p bladder perforation with cystoscopy s/p laparotomy, evacuation of clots, bladder perforation repair, and suprapubic catheter placement requiring icu admission; course complicated by SBO. *SBO - RESOLVED, STEPHEN PO - surgery and gi following *htn/cad/hl - NOT ON HIS TOPROL OR NORVASC WILL RESTART TOPROL XL FOR NOW iF bp REMAINS STABLE, RESTART NORVASC TOMORROW - RUL calcified granuloma in periphery- outpt follow up - b/l pleural effusions and lower lobe atelectasis, enocurage IS - aspiration precautions *pos enterococcus uti/rue cellultiis on vanc -leukocytosis about same - blood cultures neg - f/u vanc tr Hematuria, s/p bladder per, repair - s/p exploratory laparotomy, evacuation of clots, repair bladder perforation, suprapubic catheter placement, REGGIE drain with Dr. Huston. - suprapubic cath, CBI off -cont to monitor - morphine for pain - f/u urethra mass path report *renal cysts: - b/l renal cysts - outpt follow up DVTppx: SCDs, start sq heparin if ok with uro Problem List - Problems (1) Gross hematuria Code(s): R31.0 - GROSS HEMATURIA (2) Leukocytosis Code(s): D72.829 - ELEVATED WHITE BLOOD CELL COUNT, UNSPECIFIED Visit type - Emergency Visit Emergency Visit: Yes ED Registration Date: 05/18/20 Care time: The patient presented to the Emergency Department on the above date and was hospitalized for further evaluation of their emergent condition. - New Patient This patient is new to me today: Yes Date on this admission: 05/28/20 - Critical Care Critical Care patient: No - Discharge Referral Referred to [facility] Med P.C.: No - Medication Review Med list reviewed for High Risk Meds patients 65 and older: Yes
[2020-05-28] MEDS: DEXTROSE 5%-0.45% SALINE 1,000 ML IV SCH (17:22)
[2020-05-29] MEDS: AMINO ACIDS/PROTEIN HYDROLYS 30 ML LIQUID.PKT PO SCH ×2 (08:01→16:57)
[2020-05-29] MEDS: VANCOMYCIN 1 GRAM (PRE-DOCKED) 1,000 MG/250 ML BAG IVPB SCH (09:02)
[2020-05-29] MEDS: metoPROLOL SUCCINATE 25 MG TAB.SR.24H (FP) PO SCH (09:02)
--- NOTE | 2020-05-29 10:50 | PN ---
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 (05/19). 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 On chopped diet/thin liquids with good tolerance and appetite
--- NOTE | 2020-05-29 14:06 | PN ---
Physical Exam: SUBJECTIVE: Patient seen and examined. Pt. denies any pain today. Pt. denies any fever, chills, weight loss or night sweats prior to admission. OBJECTIVE: Vital Signs Period Temp Pulse Resp BP Sys/Donald Pulse Ox Last 24 Hr 98.0 F-99.8 F 81-93 18-20 131-149/55-63 94-96 GENERAL: The patient is awake, and alert, in no acute distress, looks weak. HEAD: Normal with no signs of trauma. EYES: Sclera anicteric, conjunctiva clear. ENT: moist mucous membranes. LUNGS: Breath sounds equal, clear to auscultation bilaterally anteriorly, no wheezes, no crackles, no accessory muscle use. HEART: Regular rate and rhythm, S1, S2 without murmur, rub or gallop. ABDOMEN: Soft, nontender, nondistended, normoactive bowel sounds, no guarding, no rebound, hepatomegaly? EXTREMITIES: 2+ dorsal pedal pulses, warm, well-perfused, no edema. NEUROLOGICAL: No focal deficits appreciated; Normal speech, gait not observed. PSYCH: Normal mood, normal affect. SKIN: Warm, dry, normal turgor Active Medications Generic Name Dose Route Start Last Admin Trade Name Freq PRN Reason Stop Dose Admin Amino Acids 30 ml 05/27/20 08:00 05/29/20 08:01 Prosource No Carb Liquid Pkt PO 30 ml BID@0800,1730 SHELLIE Administration Fentanyl 50 mcg 05/24/20 12:43 Sublimaze Injection - IVPUSH [id number] PRN PAIN-PACU ORDER X 4 DOSES ONLY Vancomycin HCl 1,000 mg in 250 mls @ 166.667 mls/hr 05/26/20 10:00 05/29/20 09:02 Vancomycin (Pre-Docked) IVPB 166.667 mls/hr Q12H SHELLIE Administration Protocol Dextrose/Sodium Chloride 1,000 mls @ 50 mls/hr 05/26/20 13:45 05/28/20 17:22 D5-1/2ns - IV 50 mls/hr ASDIR SHELLIE Administration Metoprolol Succinate 25 mg 05/29/20 10:00 05/29/20 09:02 Toprol Xl - PO 25 mg DAILY SHELLIE Administration ASSESSMENT/PLAN: Pt. is an 85 y.o. M w/ PMHx. of Prostate CA(s/p radiation and seed implantation), HTN, CAD, HLD, sciatica, diverticulitis presenting to the ED with dark red blood producing from Galindo.pt is admitted to ICU s/p bladder perforation with cystoscopy s/p laparotomy, evacuation of clots, bladder perforation repair, and suprapubic catheter placement. (05/19). ICU complicated by mod SBO,which is now improved. #Bladder Mass w/ associated Nomocytic anemia CT scan of the C/A/P w/ contrast 05/22 revealing atelectasis/effusions, thickened esophagus no lung masses, possible PSBO given that distal ileal bowel loops were non-distended. CBI was being performed. s/p cysto/exp lap/evac clots/repair bladder perf/SPT placement 05/19/20 Bladder biopsy: infiltrating urothelial carcinoma, poorly differentiated with focal sarcomatoid change; Positive for Gata3+, AE1/3, p63, thrombomodulin and vimentin Given difference on CT scan chest on 05/19 and 05/22 --- will review with radiology Consider PET-CT outpatient if feasible f/u next gen sequencing/PDL on pathology specimen will need to discuss with urology team /pathology and final recs based on above After PET-CT will consider [place] based therapy( will need to discuss w/ Dr. [place]) Visit type - Emergency Visit Emergency Visit: Yes ED Registration Date: 05/18/20 Care time: The patient presented to the Emergency Department on the above date and was hospitalized for further evaluation of their emergent condition. - New Patient This patient is new to me today: No - Critical Care Critical Care patient: No - Discharge Referral Referred to [facility] Med P.C.: No - Medication Review Med list reviewed for High Risk Meds patients 65 and older: Yes ATTENDING PHYSICIAN STATEMENT I saw and evaluated the patient. I reviewed the resident's note and discussed the case with the resident. I agree with the resident's findings and plan as documented. SUBJECTIVE: OBJECTIVE: ASSESSMENT AND PLAN:
--- NOTE | 2020-05-29 14:19 | PN ---
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 (short form) - Note 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: improved depressed- everyone keeps talking to me about cancer Vital Signs Period Temp Pulse Resp BP Sys/Donald Pulse Ox Last 24 Hr 98.0 F-99.8 F 81-93 18-20 131-149/55-63 94-96 cor-rrr lungs decreased bs at bases abd soft,nt +spt, no erythema ext trace edema, no erythema CBC, BMP 05/28/20 08:20 05/28/20 08:20 Microbiology 05/18/20 23:00 Blood - Peripheral Venous Blood Culture - Final NO GROWTH AFTER 5 DAYS INCUBATION 05/18/20 23:00 Blood - Peripheral Venous Blood Culture - Final NO GROWTH AFTER 5 DAYS INCUBATION 05/19/20 04:40 Urine - Urine Galindo Urine Culture - Final Enterococcus Faecalis a/p persistent leukocytosis- d/c vancomycin, observe off antibiotics reculture as needed sepsis SBO enterococcal uti-completed antibiotics bladder perforation s/p cystoscopy cellulitis RUE-resolved Problem List - Problems (1) Leukocytosis Code(s): D72.829 - ELEVATED WHITE BLOOD CELL COUNT, UNSPECIFIED (2) Perforation of bladder during operative procedure Code(s): N99.72 - ACCIDENTAL PNCTR & LAC OF A SYS ORG DURING OTH PROCEDURE (3) Gross hematuria Code(s): R31.0 - GROSS HEMATURIA (4) Prostate cancer Code(s): C61 - MALIGNANT NEOPLASM OF PROSTATE (5) Pulmonary nodules Code(s): R91.8 - OTHER NONSPECIFIC ABNORMAL FINDING OF LUNG FIELD
[2020-05-29] MEDS: DEXTROSE 5%-0.45% SALINE 1,000 ML IV SCH (16:57)
--- NOTE | 2020-05-29 18:00 | PN ---
Physical Exam: SUBJECTIVE: Patient seen and examined OBJECTIVE: Vital Signs Temperature 99.0 F 05/29/20 14:41 Pulse Rate 82 05/29/20 14:41 Respiratory Rate 20 05/29/20 14:41 Blood Pressure 143/61 05/29/20 14:41 O2 Sat by Pulse Oximetry (%) 94 L 05/29/20 10:00 GENERAL: The patient is awake, alert, and fully oriented, in no acute distress. HEAD: Normal with no signs of trauma. NECK: Trachea midline, full range of motion, supple. LUNGS: Breath sounds equal, clear to auscultation bilaterally, no accessory muscle use. HEART: irregular rate and rhythm, S1, S2 without murmur ABDOMEN: Soft, nontender, nondistended, normoactive bowel sounds, no guarding. suprapubic cath , REGGIE drain EXTREMITIES: 2+ pulses, warm, well-perfused, no edema. SKIN: Warm, dry, normal turgor, no rashes or lesions noted Active Medications Generic Name Dose Route Start Last Admin Trade Name Freq PRN Reason Stop Dose Admin Amino Acids 30 ml 05/27/20 08:00 05/29/20 16:57 Prosource No Carb Liquid Pkt PO 30 ml BID@0800,1730 SHELLIE Administration Fentanyl 50 mcg 05/24/20 12:43 Sublimaze Injection - IVPUSH [id number] PRN PAIN-PACU ORDER X 4 DOSES ONLY Dextrose/Sodium Chloride 1,000 mls @ 50 mls/hr 05/26/20 13:45 05/29/20 16:57 D5-1/2ns - IV 50 mls/hr ASDIR SHELLIE Administration Metoprolol Succinate 25 mg 05/29/20 10:00 05/29/20 09:02 Toprol Xl - PO 25 mg DAILY SHELLIE Administration ASSESSMENT/PLAN: Patient is an 85 yo M PMHx of prostate cancer (s/p radiation and seed implantation), HTN, CAD, HLD, sciatica, diverticulitis presenting to the ED with dark red blood producing from Galindo.pt is admitted to ICU s/p bladder perforation with cystoscopy s/p laparotomy, evacuation of clots, bladder perforation repair, and suprapubic catheter placement. (05/19). ICU complicated by mod SBO,which is now improved . pt is now stable for medicine floor #Hematuria 2/2 Bladder perforation s/p cystoscopy/ex-lap/repair #Partial SBO, resolved -pSBO possibly 2/2 ileus in setting of recent surgery/pain meds -Surgery on board -speech and swallow recs appreciated -On chopped diet/thin liquids with good tolerance and appetite -suprapubic cath, CBI off -cont to monitor -morphine for pain #Prostatic malignancy -Irregular mass from prostatic urethra extending to bladder noted ash-op -s/p excision of mass -Bladder biopsy: infiltrating urothelial carcinoma, poorly differentiated with focal sarcomatoid change -Consider PET-CT if feasible -Heme-onc (Dr. Mesa) consulted. Recs appreciated #Ascites -likely in setting of post-op -GI (Dr. Montano) consulted. REcommendations appreciated. #B/L pleural effusions - RUL calcified granuloma in periphery- IR for possible bx? - b/l pleural effusions and lower lobe atelectasis - aspiration precautions - Pulm consulted. #HTN -On Amlodipine and Toprol -BP stable #HLD -On Simvastatin and Fenofibrate #RUE cellulitis, resolved -Completed Vancomycin -persistent leukocytosis, observe off antibiotics -reculture as needed #UTI, resolved -UCx: Enterococcus faecalis -Meropenem completed 05/02 -ID (Dr. Carter) consulted. REcommendations appreciated. #FEN -IV D5-1/2NS @50cc/hr -Electrolytes wnl, routine bmp monitoring -Chopped diet #Prophylaxis -DVT: SCDs bilaterally #Disposition -continue monitoring on med surg Visit type - Emergency Visit Emergency Visit: Yes ED Registration Date: 05/18/20 Care time: The patient presented to the Emergency Department on the above date and was hospitalized for further evaluation of their emergent condition. - New Patient This patient is new to me today: No - Critical Care Critical Care patient: No - Medication Review Med list reviewed for High Risk Meds patients 65 and older: Yes ATTENDING PHYSICIAN STATEMENT I saw and evaluated the patient. I reviewed the resident's note and discussed the case with the resident. I agree with the resident's findings and plan as documented. SUBJECTIVE: OBJECTIVE: ASSESSMENT AND PLAN:
[2020-05-29] MEDS: ATORVASTATIN CA 20 MG TABLET (FP) PO SCH (21:18)
--- NOTE | 2020-05-29 22:34 | PN.HO ---
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 (short form) - Note 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: PAtient seen and examined Denies any specific complaints AFVSS Cor: RSR, No murmurs, No gallops Lungs: Clear to P&A Abd: Soft, Normal bowel sounds, No organomegaly Ext:No significant edema Labs/MEds reviewed A/P 85M admitted 05/18 for evaluation of blood from indwelling bladder catheter. Called to evaluate SBO and ascites. Had CT scan of abdomen and pelvis on admission revealing b/l pulmonary nodules, clots/blood in bladder, b/l hydronephrosis. Was receiving morphine secondary to pain at catheter site. Was having bilious vomiting for 1-2 days per the patient while he was admitted. Had CT scan of the C/A/P w/ contrast 05/22 revealing atelectasis/effusions, thickened esophagus no lung masses, possible PSBO given that distal ileal bowel loops were non-distended. CBI was being performed. cysto/exp lap/evac clots/repair bladder perf/SPT placement 05/19/20 Bladder biopsy : infiltrating urothelial carcinoma, poorly differentiated with focal sarcomatoid change Given difference on CT scan chest on 05/19 and 05/22 --- will review with radiology Consider PET-CT outpatient if feasible will add next gen sequencing/PDL1 to pathology speciment will need to discuss with urology team /pathology and final recs based on above
[2020-05-30] MEDS ORDERED: ALBUTEROL SO4 HFA INHALER IH PRN (06:15)
[2020-05-30] MEDS ORDERED: ALBUTEROL SO4 2.5/IPRATROPIUM 0.5 INH SOL 3 ML VIAL.NEB. NEB ONE (06:16)
[2020-05-30 07:53] LABS: BASO % 0.6 % (0-2.0); EOS % 4.4 % (0-4.5); HEMATOCRIT 30.2 % (35.4-49); HEMOGLOBIN 9.6 GM/dL (11.7-16.9); LYMPH % 10.4 % (8-40); MCH 26.1 pg (25.7-33.7); MCHC 31.6 g/dl (32.0-35.9); MEAN CELL VOLUME 82.6 fl (80-96); MEAN PLT VOLUME 9.3 fl (7.5-11.1); MONO % 7.4 % (3.8-10.2); NEUT % 77.2 % (42.8-82.8); PLATELET COUNT 345 K/MM3 (134-434); RBC 3.66 M/mm3 (4.00-5.60); RDW 16.6 % (11.9-15.9); WHITE BLOOD COUNT 17.4 K/mm3 (4.0-10.0)
[2020-05-30] MEDS: AMINO ACIDS/PROTEIN HYDROLYS 30 ML LIQUID.PKT PO SCH ×2 (08:20→17:17)
[2020-05-30 08:42] LABS: ALBUMIN 1.5 g/dl (3.4-5.0); MAGNESIUM 2.1 mg/dL (1.8-2.4); POTASSIUM 4.2 mmol/L (3.5-5.1)
[2020-05-30 08:44] LABS: CREATININE 0.4 mg/dL (0.55-1.3)
[2020-05-30 08:45] LABS: BILIRUBIN,TOTAL 0.4 mg/dL (0.2-1)
[2020-05-30] MEDS: amLODIPine BESYLATE 5 MG TABLET (FP) PO SCH (09:52)
[2020-05-30] MEDS: metoPROLOL SUCCINATE 25 MG TAB.SR.24H (FP) PO SCH (09:52)
--- NOTE | 2020-05-30 12:14 | PN ---
Physical Exam: SUBJECTIVE: Patient seen and examined. Pt. denies any diarrhea, constipation fevers, chills, dysuria, or abdominal pain. OBJECTIVE: Vital Signs Period Temp Pulse Resp BP Sys/Donald Pulse Ox Last 24 Hr 97.8 F-99.9 F 77-85 20-20 137-148/51-74 93-96 GENERAL: The patient is awake, and alert, in no acute distress, looks weak. HEAD: Normal with no signs of trauma. EYES: Sclera anicteric, conjunctiva clear. ENT: moist mucous membranes. LUNGS: Breath sounds equal, clear to auscultation bilaterally anteriorly, no wheezes, no crackles, no accessory muscle use. HEART: Regular rate and rhythm, S1, S2 without murmur, rub or gallop. ABDOMEN: Soft, RLQ tenderness, nondistended, normoactive bowel sounds, no guarding, no rebound, Galindo and Suprapubic catheter draining urine. EXTREMITIES: 2+ dorsal pedal pulses, warm, well-perfused, no edema. NEUROLOGICAL: No focal deficits appreciated; Normal speech, gait not observed. PSYCH: Normal mood, normal affect. SKIN: Warm, dry, normal turgor Laboratory Results - last 24 hr 05/30/20 05/30/20 07:07 07:07 WBC 17.4 H RBC 3.66 L Hgb 9.6 L Hct 30.2 L MCV 82.6 MCH 26.1 MCHC 31.6 L RDW 16.6 H Plt Count 345 MPV 9.3 Absolute Neuts (auto) 13.4 H Neutrophils % 77.2 Lymphocytes % 10.4 D Monocytes % 7.4 Eosinophils % 4.4 Basophils % 0.6 Nucleated RBC % 0 Sodium 142 Potassium 4.2 Chloride 110 H Carbon Dioxide 22 Anion Gap 10 BUN 16.0 Creatinine 0.4 L Est GFR (CKD-EPI)AfAm 125.53 Est GFR (CKD-EPI)NonAf 108.31 Random Glucose 93 Calcium 8.0 L Magnesium 2.1 Total Bilirubin 0.4 AST 37 ALT 15 Alkaline Phosphatase 104 Total Protein 5.0 L Albumin 1.5 L Active Medications Generic Name Dose Route Start Last Admin Trade Name Freq PRN Reason Stop Dose Admin Albuterol Sulfate 1 puff 05/30/20 06:15 Ventolin Hfa Inhaler - IH Q4H PRN ASTHMA Amino Acids 30 ml 05/27/20 08:00 05/30/20 08:20 Prosource No Carb Liquid Pkt PO 30 ml BID@0800,1730 SHELLIE Administration Amlodipine Besylate 5 mg 05/30/20 10:00 05/30/20 09:52 Norvasc - PO 5 mg DAILY SHELLIE Administration Atorvastatin Calcium 20 mg 05/29/20 22:00 05/29/20 21:18 Lipitor - PO 20 mg HS SHELLIE Administration Fentanyl 50 mcg 05/24/20 12:43 Sublimaze Injection - IVPUSH [id number] PRN PAIN-PACU ORDER X 4 DOSES ONLY Metoprolol Succinate 25 mg 05/29/20 10:00 05/30/20 09:52 Toprol Xl - PO 25 mg DAILY SHELLIE Administration ASSESSMENT/PLAN: Pt. is an 85 y.o. M w/ PMHx. of Prostate CA(s/p radiation and seed implantation), HTN, CAD, HLD, sciatica, diverticulitis presenting to the ED with dark red blood producing from Galindo.pt is admitted to ICU s/p bladder perforation with cystoscopy s/p laparotomy, evacuation of clots, bladder perforation repair, and suprapubic catheter placement. (05/19). ICU complicated by mod SBO,which is now improved. #Bladder Mass w/ associated Nomocytic anemia CT scan of the C/A/P w/ contrast 05/22 revealing atelectasis/effusions, thickened esophagus no lung masses, possible PSBO given that distal ileal bowel loops were non-distended. CBI was being performed. s/p cysto/exp lap/evac clots/repair bladder perf/SPT placement 05/19/20 Bladder biopsy: infiltrating urothelial carcinoma, poorly differentiated with focal sarcomatoid change; Positive for Gata3+, AE1/3, p63, thrombomodulin and vimentin Given difference on CT scan chest on 05/19 and 05/22 --- will review with radiology (lung nodules present on first image and absent on subsequent 3 days later) Consider PET-CT as outpatient f/u next gen sequencing/PDL on pathology specimen will need to discuss with urology team /pathology and final recs based on above After PET-CT will consider elem based therapy ATTENDING PHYSICIAN STATEMENT I saw and evaluated the patient. I reviewed the resident's note and discussed the case with the resident. I agree with the resident's findings and plan as documented. SUBJECTIVE: OBJECTIVE: ASSESSMENT AND PLAN:
--- NOTE | 2020-05-30 12:47 | PN ---
Teaching Attending Note Name of Resident: Shannen Costello ATTENDING PHYSICIAN STATEMENT I saw and evaluated the patient. I reviewed the resident's note and discussed the case with the resident. I agree with the resident's findings and plan as documented. SUBJECTIVE: pt was seen and examined, setting on chair, just finished walking around, no new complains OBJECTIVE: Last Vital Signs Temp Pulse Resp BP Pulse Ox 97.8 F 85 20 137/74 96 05/30/20 09:00 05/30/20 09:00 05/30/20 09:00 05/30/20 09:00 05/30/20 09:00 GENERAL: The patient is awake, and alert, in no acute distress, looks weak. HEENT: NC/AT, not p/c/j, neck supple not JVD LUNGS: Breath sounds equal, clear to auscultation bilaterally anteriorly, no wheezes, no crackles, no accessory muscle use. HEART: Regular rate and rhythm, S1, S2 without murmur, rub or gallop. ABDOMEN: Soft, RLQ tenderness, nondistended, normoactive bowel sounds, no guarding, no rebound, Galindo and Suprapubic catheter draining urine. EXTREMITIES: 2+ pulses, warm, well-perfused, no edema. NEUROLOGICAL: No focal deficits SKIN: Warm, dry, normal turgor CBCD WBC 17.4 K/mm3 (4.0-10.0) H 05/30/20 07:07 RBC 3.66 M/mm3 (4.00-5.60) L 05/30/20 07:07 Hgb 9.6 GM/dL (11.7-16.9) L 05/30/20 07:07 Hct 30.2 % (35.4-49) L 05/30/20 07:07 MCV 82.6 fl (80-96) 05/30/20 07:07 MCHC 31.6 g/dl (32.0-35.9) L 05/30/20 07:07 RDW 16.6 % (11.9-15.9) H 05/30/20 07:07 Plt Count 345 K/MM3 (134-434) 05/30/20 07:07 MPV 9.3 fl (7.5-11.1) 05/30/20 07:07 CMP Sodium 142 mmol/L (136-145) 05/30/20 07:07 Potassium 4.2 mmol/L (3.5-5.1) 05/30/20 07:07 Chloride 110 mmol/L (98-107) H 05/30/20 07:07 Carbon Dioxide 22 mmol/L (21-32) 05/30/20 07:07 Anion Gap 10 MMOL/L (8-16) 05/30/20 07:07 BUN 16.0 mg/dL (7-18) 05/30/20 07:07 Creatinine 0.4 mg/dL (0.55-1.3) L 05/30/20 07:07 Calcium 8.0 mg/dL (8.5-10.1) L 05/30/20 07:07 Total Bilirubin 0.4 mg/dL (0.2-1) 05/30/20 07:07 AST 37 U/L (15-37) 05/30/20 07:07 ALT 15 U/L (13-61) 05/30/20 07:07 Alkaline Phosphatase 104 U/L (45-117) 05/30/20 07:07 Total Protein 5.0 g/dl (6.4-8.2) L 05/30/20 07:07 Albumin 1.5 g/dl (3.4-5.0) L 05/30/20 07:07 Current Medications Generic Name Dose Route Start Last Admin Trade Name Freq PRN Reason Stop Dose Admin Albuterol Sulfate 1 puff 05/30/20 06:15 Ventolin Hfa Inhaler - IH Q4H PRN ASTHMA Amino Acids 30 ml 05/27/20 08:00 05/30/20 08:20 Prosource No Carb Liquid Pkt PO 30 ml BID@0800,1730 SHELLIE Administration Amlodipine Besylate 5 mg 05/30/20 10:00 05/30/20 09:52 Norvasc - PO 5 mg DAILY SHELLIE Administration Atorvastatin Calcium 20 mg 05/29/20 22:00 05/29/20 21:18 Lipitor - PO 20 mg HS SHELLIE Administration Fentanyl 50 mcg 05/24/20 12:43 Sublimaze Injection - IVPUSH [id number] PRN PAIN-PACU ORDER X 4 DOSES ONLY Metoprolol Succinate 25 mg 05/29/20 10:00 05/30/20 09:52 Toprol Xl - PO 25 mg DAILY SHELLIE Administration ASSESSMENT AND PLAN: 85 yo man with Mhx of prostate cancer (s/p radiation and seed implantation), HTN, CAD, HLD, sciatica, diverticulitis presenting to the ED with dark red blood producing from Galindo.found to have bladder perforation with cystoscopy s/p laparotomy, evacuation of clots, bladder perforation repair, and suprapubic catheter placement. (05/19). # Sepsis due to bladder perfortation, s/p cystoscopy & exp. laparotomy and repair - WBC trending down - pt is afebrile, ambulating, off CBI, off ABx - PRN pain management - had BM - speech and swallow eval done, started on chopped diet, off IV fluids # Bladder/Prostatic malignancy s/p excision of mass -Irregular mass from prostatic urethra extending to bladder noted -pathology: infiltrating urothelial carcinoma, poorly differentiated with focal sarcomatoid change -noted to have pleural effusion -PET-CT as outpatient -hem/onc added gen sequencing/PDL1 to pathology specimen R upper extremety cellulitis - resolved UTI - resolved HTN HLD DVT prophylaxis with SCD
--- NOTE | 2020-05-30 13:12 | PN ---
Physical Exam: SUBJECTIVE: Patient seen and examined. No acute events overnight. Patient reports feeling okay, and has no complaints. OBJECTIVE: Vital Signs Temperature 97.8 F 05/30/20 09:00 Pulse Rate 85 05/30/20 09:00 Respiratory Rate 20 05/30/20 09:00 Blood Pressure 137/74 05/30/20 09:00 O2 Sat by Pulse Oximetry (%) 96 05/30/20 09:00 GENERAL: The patient is awake, alert, and fully oriented, in no acute distress. HEAD: Normal with no signs of trauma. NECK: Trachea midline, full range of motion, supple. LUNGS: Breath sounds equal, clear to auscultation bilaterally, no accessory muscle use. HEART: irregular rate and rhythm, S1, S2 without murmur ABDOMEN: Soft, nontender, nondistended, normoactive bowel sounds, no guarding. suprapubic cath , REGGIE drain EXTREMITIES: 2+ pulses, warm, well-perfused, no edema. SKIN: Warm, dry, normal turgor, no rashes or lesions noted Laboratory Results - last 24 hr 05/30/20 05/30/20 07:07 07:07 WBC 17.4 H RBC 3.66 L Hgb 9.6 L Hct 30.2 L MCV 82.6 MCH 26.1 MCHC 31.6 L RDW 16.6 H Plt Count 345 MPV 9.3 Absolute Neuts (auto) 13.4 H Neutrophils % 77.2 Lymphocytes % 10.4 D Monocytes % 7.4 Eosinophils % 4.4 Basophils % 0.6 Nucleated RBC % 0 Sodium 142 Potassium 4.2 Chloride 110 H Carbon Dioxide 22 Anion Gap 10 BUN 16.0 Creatinine 0.4 L Est GFR (CKD-EPI)AfAm 125.53 Est GFR (CKD-EPI)NonAf 108.31 Random Glucose 93 Calcium 8.0 L Magnesium 2.1 Total Bilirubin 0.4 AST 37 ALT 15 Alkaline Phosphatase 104 Total Protein 5.0 L Albumin 1.5 L Active Medications Generic Name Dose Route Start Last Admin Trade Name Freq PRN Reason Stop Dose Admin Albuterol Sulfate 1 puff 05/30/20 06:15 Ventolin Hfa Inhaler - IH Q4H PRN ASTHMA Amino Acids 30 ml 05/27/20 08:00 05/30/20 08:20 Prosource No Carb Liquid Pkt PO 30 ml BID@0800,1730 SHELLIE Administration Amlodipine Besylate 5 mg 05/30/20 10:00 05/30/20 09:52 Norvasc - PO 5 mg DAILY SHELLIE Administration Atorvastatin Calcium 20 mg 05/29/20 22:00 05/29/20 21:18 Lipitor - PO 20 mg HS SHELLIE Administration Fentanyl 50 mcg 05/24/20 12:43 Sublimaze Injection - IVPUSH [id number] PRN PAIN-PACU ORDER X 4 DOSES ONLY Metoprolol Succinate 25 mg 05/29/20 10:00 05/30/20 09:52 Toprol Xl - PO 25 mg DAILY SHELLIE Administration ASSESSMENT/PLAN: Patient is an 85 yo M PMHx of prostate cancer (s/p radiation and seed implantation), HTN, CAD, HLD, sciatica, diverticulitis presenting to the ED with dark red blood producing from Galindo.pt is admitted to ICU s/p bladder perforation with cystoscopy s/p laparotomy, evacuation of clots, bladder perforation repair, and suprapubic catheter placement. (05/19). ICU complicated by mod SBO,which is now improved . pt is now stable for medicine floor #Hematuria 2/2 Bladder perforation s/p cystoscopy/ex-lap/repair #Partial SBO, resolved -pSBO possibly 2/2 ileus in setting of recent surgery/pain meds -Surgery on board -speech and swallow recs appreciated -On chopped diet/thin liquids with good tolerance and appetite -suprapubic cath, CBI off -cont to monitor -morphine for pain #Prostatic malignancy -Irregular mass from prostatic urethra extending to bladder noted ash-op -s/p excision of mass -Bladder biopsy: infiltrating urothelial carcinoma, poorly differentiated with focal sarcomatoid change -Consider PET-CT outpatient if feasible -Heme-onc (Dr. Mesa) consulted. Recs appreciated #Ascites -likely in setting of post-op -GI (Dr. Montano) consulted. REcommendations appreciated. #B/L pleural effusions - RUL nodule in periphery - b/l pleural effusions and lower lobe atelectasis - aspiration precautions - Pulm consulted. #HTN -On Amlodipine and Toprol -BP stable #HLD -On Simvastatin and Fenofibrate #RUE cellulitis, resolved -Completed Vancomycin -persistent leukocytosis, observe off antibiotics -reculture as needed #UTI, resolved -UCx: Enterococcus faecalis -Meropenem completed 05/02 -ID (Dr. Carter) consulted. REcommendations appreciated. #FEN -Not on any standing fluids -Electrolytes wnl, routine bmp monitoring -Chopped diet #Prophylaxis -DVT: SCDs bilaterally #Disposition -continue monitoring on med surg Visit type - Emergency Visit Emergency Visit: Yes ED Registration Date: 05/18/20 Care time: The patient presented to the Emergency Department on the above date and was hospitalized for further evaluation of their emergent condition. - New Patient This patient is new to me today: No - Critical Care Critical Care patient: No - Medication Review Med list reviewed for High Risk Meds patients 65 and older: Yes ATTENDING PHYSICIAN STATEMENT I saw and evaluated the patient. I reviewed the resident's note and discussed the case with the resident. I agree with the resident's findings and plan as documented. SUBJECTIVE: OBJECTIVE: ASSESSMENT AND PLAN:
--- NOTE | 2020-05-30 15:27 | PN ---
Teaching Attending Note Name of Resident: Shannen Costello ATTENDING PHYSICIAN STATEMENT I saw and evaluated the patient. I reviewed the resident's note and discussed the case with the resident. I agree with the resident's findings and plan as documented. SUBJECTIVE: Patient seen and examined at bedside, denies complaints, urine draining dark yellow urine, tolerating PO, VSS. OBJECTIVE: GENERAL: The patient is awake, alert, and fully oriented, in no acute distress. HEAD: Normal with no signs of trauma. NECK: Trachea midline, full range of motion, supple. LUNGS: Breath sounds equal, clear to auscultation bilaterally, no accessory muscle use. HEART: irregular rate and rhythm, S1, S2 without murmur ABDOMEN: Soft, nontender, nondistended, normoactive bowel sounds, no guarding. suprapubic cath , REGGIE drain EXTREMITIES: 2+ pulses, warm, well-perfused, no edema. RUE: erythema of right forearm SKIN: Warm, dry, normal turgor, no rashes or lesions noted Vital Signs - 24 hr 05/29/20 05/29/20 05/29/20 18:00 21:00 21:07 Temperature 99.9 F H 98.3 F Pulse Rate 77 79 Respiratory 20 20 Rate Blood Pressure 138/51 L 148/58 L O2 Sat by Pulse 95 95 Oximetry (%) 05/30/20 05/30/20 05/30/20 06:00 09:00 14:46 Temperature 99.6 F 97.8 F 99.1 F Pulse Rate 79 85 81 Respiratory 20 20 20 Rate Blood Pressure 146/53 L 137/74 136/56 L O2 Sat by Pulse 93 L 96 Oximetry (%) Microbiology 05/18/20 23:00 Blood - Peripheral Venous Blood Culture - Final NO GROWTH AFTER 5 DAYS INCUBATION 05/18/20 23:00 Blood - Peripheral Venous Blood Culture - Final NO GROWTH AFTER 5 DAYS INCUBATION 05/19/20 04:40 Urine - Urine Galindo Urine Culture - Final Enterococcus Faecalis Laboratory Results - last 24 hr 05/30/20 05/30/20 07:07 07:07 WBC 17.4 H RBC 3.66 L Hgb 9.6 L Hct 30.2 L MCV 82.6 MCH 26.1 MCHC 31.6 L RDW 16.6 H Plt Count 345 MPV 9.3 Absolute Neuts (auto) 13.4 H Neutrophils % 77.2 Lymphocytes % 10.4 D Monocytes % 7.4 Eosinophils % 4.4 Basophils % 0.6 Nucleated RBC % 0 Sodium 142 Potassium 4.2 Chloride 110 H Carbon Dioxide 22 Anion Gap 10 BUN 16.0 Creatinine 0.4 L Est GFR (CKD-EPI)AfAm 125.53 Est GFR (CKD-EPI)NonAf 108.31 Random Glucose 93 Calcium 8.0 L Magnesium 2.1 Total Bilirubin 0.4 AST 37 ALT 15 Alkaline Phosphatase 104 Total Protein 5.0 L Albumin 1.5 L Home Medications Medication Instructions Recorded Simvastatin [Zocor -] 40 mg PO HS #0 tablet 07/13/13 Multivitamins [Multivit ([facility] 1 tab PO DAILY 11/09/15 Formulary)] Polyethylene Glycol 3350 [Miralax 17 gm PO DAILY 11/09/15 119 gm Btl -] Psyllium Husk (with Sugar) 3.4 gm PO HS 11/09/15 [Metamucil Packet] Amlodipine Besylate 5 mg PO DAILY 10/29/18 Walker [Ultra-Light Rollator] 1 each ASDIR #1 each 11/08/18 Fenofibrate Nanocrystallized 160 mg PO DAILY 05/19/20 [Triglide] Metoprolol Succinate [Toprol Xl] 25 mg PO DAILY 05/19/20 Current Medications Generic Name Dose Route Start Last Admin Trade Name Freq PRN Reason Stop Dose Admin Albuterol Sulfate 1 puff 05/30/20 06:15 Ventolin Hfa Inhaler - IH Q4H PRN ASTHMA Amino Acids 30 ml 05/27/20 08:00 05/30/20 08:20 Prosource No Carb Liquid Pkt PO 30 ml BID@0800,1730 SHELLIE Administration Amlodipine Besylate 5 mg 05/30/20 10:00 05/30/20 09:52 Norvasc - PO 5 mg DAILY SHELLIE Administration Atorvastatin Calcium 20 mg 05/29/20 22:00 05/29/20 21:18 Lipitor - PO 20 mg HS SHELLIE Administration Fentanyl 50 mcg 05/24/20 12:43 Sublimaze Injection - IVPUSH [id number] PRN PAIN-PACU ORDER X 4 DOSES ONLY Metoprolol Succinate 25 mg 05/29/20 10:00 05/30/20 09:52 Toprol Xl - PO 25 mg DAILY SHELLIE Administration ASSESSMENT AND PLAN: 85 M s/p bladder puncture during cysto s/p ex-lap requiring cystotomy tube Pleural effusions r/o metastatic disease Bladder ca, poorly differentiated HTN HLD Prostate ca s/p RT Sepsis 2/2 UTI Dysphagia ?Silent aspiration Constipation Plan: off abx, afebrile, cont. to monitor Judicious IVF in view of pleural effusions Pulmonary to evaluate pleural effusions, CHF v.s. ?metastatic disease Opioids for pain control, supplement bowel regimen Tolerating clear diet, advance as tolerated Heme-Onc following Surgery following DVT ppx: SCD for now
--- NOTE | 2020-05-30 15:57 | PN ---
Teaching Attending Note Name of Resident: Alejo Perez ATTENDING PHYSICIAN STATEMENT I saw and evaluated the patient. I reviewed the resident's note and discussed the case with the resident. I agree with the resident's findings and plan as documented. SUBJECTIVE: Doing well. No new complaints ASSESSMENT AND PLAN: 85M admitted 05/18 for evaluation of blood from indwelling bladder catheter. Called to evaluate SBO and ascites. Had CT scan of abdomen and pelvis on admission revealing b/l pulmonary nodules, clots/blood in bladder, b/l h ydronephrosis. Was receiving morphine secondary to pain at catheter site. Was having bilious vomiting for 1-2 days per the patient while he was admitted. Had CT scan of the C/A/P w/ contrast 05/22 revealing atelectasis/effusions, thickened esophagus no lung masses, possible PSBO given that distal ileal bowel loops were non-distended. CBI was being performed. cysto/exp lap/evac clots/repair bladder perf/SPT placement 05/19/20 Bladder biopsy : infiltrating urothelial carcinoma, poorly differentiated with focal sarcomatoid change Given difference on CT scan chest on 05/19 and 05/22 --- will review with radiology Consider PET-CT outpatient if feasible will add next gen sequencing/PDL1 to pathology speciment will need to discuss with urology team /pathology and final recs based on above
[2020-05-30] MEDS: ATORVASTATIN CA 20 MG TABLET (FP) PO SCH (21:24)
[2020-05-31 07:08] LABS: BASO % 0.7 % (0-2.0); EOS % 4.5 % (0-4.5); HEMATOCRIT 27.9 % (35.4-49); HEMOGLOBIN 8.7 GM/dL (11.7-16.9); LYMPH % 7.4 % (8-40); MCH 25.3 pg (25.7-33.7); MCHC 31.3 g/dl (32.0-35.9); MEAN CELL VOLUME 80.6 fl (80-96); MEAN PLT VOLUME 9.4 fl (7.5-11.1); MONO % 7.2 % (3.8-10.2); NEUT % 80.2 % (42.8-82.8); PLATELET COUNT 345 K/MM3 (134-434); RBC 3.46 M/mm3 (4.00-5.60); RDW 16.1 % (11.9-15.9)
[2020-05-31 07:40] LABS: ALBUMIN 1.4 g/dl (3.4-5.0); BILIRUBIN,TOTAL 0.3 mg/dL (0.2-1); BLOOD UREA NITROGEN 17.5 mg/dL (7-18); CREATININE 0.4 mg/dL (0.55-1.3); POTASSIUM 3.9 mmol/L (3.5-5.1); TOT PROT 4.9 g/dl (6.4-8.2)
--- NOTE | 2020-05-31 07:48 | PN ---
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 (short form) - Note 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: afebrile urine yellow wound clean cont batres/SPT Onc eval re urothelial CA stable from standpoint will have batres and SPT at discharge
[2020-05-31] MEDS: AMINO ACIDS/PROTEIN HYDROLYS 30 ML LIQUID.PKT PO SCH ×2 (10:23→16:55)
[2020-05-31] MEDS: amLODIPine BESYLATE 5 MG TABLET (FP) PO SCH (10:23)
[2020-05-31] MEDS: metoPROLOL SUCCINATE 25 MG TAB.SR.24H (FP) PO SCH (10:23)
--- NOTE | 2020-05-31 11:01 | PN ---
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 (short form) - Note 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: improved ambulated with PT yesterday Vital Signs Period Temp Pulse Resp BP Sys/Donald Pulse Ox Last 24 Hr 98.3 F-99.8 F 79-83 20-20 136-147/56-64 95-97 cor-rrr lungs decreased bs at bases abd soft, nt +SPT, incision intact with altagracia +batres ext no edema +painful induration left forearm at iv site CBC, BMP 05/31/20 06:25 05/31/20 06:25 Microbiology 05/18/20 23:00 Blood - Peripheral Venous Blood Culture - Final NO GROWTH AFTER 5 DAYS INCUBATION 05/18/20 23:00 Blood - Peripheral Venous Blood Culture - Final NO GROWTH AFTER 5 DAYS INCUBATION 05/19/20 04:40 Urine - Urine Batres Urine Culture - Final Enterococcus Faecalis a/p leukocytosis trending down- remove IV, repeat blood cultures, encourage incentive spirometry SBO resolved enterococcal uti-completed antibiotics bladder perforation s/p cystoscopy Problem List - Problems (1) Leukocytosis Code(s): D72.829 - ELEVATED WHITE BLOOD CELL COUNT, UNSPECIFIED (2) Perforation of bladder during operative procedure Code(s): N99.72 - ACCIDENTAL PNCTR & LAC OF A SYS ORG DURING OTH PROCEDURE (3) Gross hematuria Code(s): R31.0 - GROSS HEMATURIA (4) Prostate cancer Code(s): C61 - MALIGNANT NEOPLASM OF PROSTATE (5) Pulmonary nodules Code(s): R91.8 - OTHER NONSPECIFIC ABNORMAL FINDING OF LUNG FIELD
--- NOTE | 2020-05-31 11:36 | PN.GI ---
GI 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 Subjective: FEELING WELL , NO REPORT OF N/V/ ABD PAIN - Objective Vital Signs: Vital Signs Temperature 98.3 F 05/31/20 08:00 Pulse Rate 83 05/31/20 08:00 Respiratory Rate 20 05/31/20 08:00 Blood Pressure 147/64 05/31/20 08:00 O2 Sat by Pulse Oximetry (%) 95 05/31/20 08:00 Constitutional: Well Nourished, No Distress Cardiovascular: Yes: WNL, Regular Rate and Rhythm Respiratory: Yes: WNL, Regular, CTA Bilaterally Gastrointestinal Inspection: Yes: WNL ...Auscultate: Yes: Normoactive Bowel Sounds Edema: Yes Labs: CBC, BMP 05/31/20 06:25 05/31/20 06:25 INR, PTT INR 1.50 (0.83-1.09) H 05/21/20 08:58 Problem List - Problems (1) SBO (small bowel obstruction) Assessment/Plan: DIET TOLERATED KEEP ELECTROLYTES WNL PPI Code(s): K56.609 - UNSP INTESTNL OBST, UNSP TO PARTIAL VERSUS COMPLETE OBST
--- NOTE | 2020-05-31 12:23 | PN ---
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 (short form) - Note 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: Overall appears to be improving. Denies CP or SOB. Some dry cough. CT Chest : Bilateral pleural effusions was associated compressive atelectasis. RUL calified granuloma. No evidence of nodules or masses. Intake & Output 05/28/20 05/29/20 05/30/20 05/31/20 23:59 23:59 23:59 23:59 Intake Total 2070 920 520 100 Output Total 1380 1300 1900 600 Balance 690 -380 -1380 -500 Last Vital Signs Temp Pulse Resp BP Pulse Ox 98.3 F 83 20 147/64 95 05/31/20 08:00 05/31/20 08:00 05/31/20 08:00 05/31/20 08:00 05/31/20 08:00 Active Medications Albuterol Sulfate (Ventolin Hfa Inhaler -) 1 puff IH Q4H PRN PRN Reason: ASTHMA Amino Acids (Prosource No Carb Liquid Pkt) 30 ml PO BID@0800,1730 [facility] Last Admin: 05/31/20 10:23 Dose: 30 ml Documented by: Amlodipine Besylate (Norvasc -) 5 mg PO DAILY [facility] Last Admin: 05/31/20 10:23 Dose: 5 mg Documented by: Atorvastatin Calcium (Lipitor -) 20 mg PO [facility] Last Admin: 05/30/20 21:24 Dose: 20 mg Documented by: Fentanyl (Sublimaze Injection -) 50 mcg IVPUSH [id number] PRN PRN Reason: PAIN-PACU ORDER X 4 DOSES ONLY Metoprolol Succinate (Toprol Xl -) 25 mg PO DAILY [facility] Last Admin: 05/31/20 10:23 Dose: 25 mg Documented by: Gen: Awake and alert, NAD Neuro: Non-focal HEENT: PEERL, sclera clear Lungs: diminished at the bases CV: S1S2, RRR Abd: Soft, (+) BS, : batres cath with clear urine Ext:Trace edema, indurated IV site Laboratory Results - last 24 hr 05/31/20 05/31/20 06:25 06:25 WBC 17.0 H RBC 3.46 L Hgb 8.7 L Hct 27.9 L MCV 80.6 MCH 25.3 L MCHC 31.3 L RDW 16.1 H Plt Count 345 MPV 9.4 Absolute Neuts (auto) 13.6 H Neutrophils % 80.2 Lymphocytes % 7.4 L D Monocytes % 7.2 Eosinophils % 4.5 Basophils % 0.7 Nucleated RBC % 0 Sodium 144 Potassium 3.9 Chloride 112 H Carbon Dioxide 23 Anion Gap 9 BUN 17.5 Creatinine 0.4 L Est GFR (CKD-EPI)AfAm 125.53 Est GFR (CKD-EPI)NonAf 108.31 Random Glucose 90 Calcium 8.0 L Total Bilirubin 0.3 AST 43 H ALT 21 Alkaline Phosphatase 116 Total Protein 4.9 L Albumin 1.4 L ASSESSMENT/PLAN: SBO No current evidence of perforation Prostate cancer s/p radiation and seed implantation with chronic batres HTN Diverticulitis S/P bladder perforation with cystoscopy s/p laparotomy, evacuation of clots, bladder perforation repair, and suprapubic catheter placement Pleural effusions with associated atelectasis RUL granuloma : No evidence of Pulmonary nodules or masses Remove IV ABX Per ID Normal transfusion thresholds PO per GI / primary Supplemental O2 as needed Incentive spirometry VTE prophylaxis Dr Herrera
--- NOTE | 2020-05-31 12:42 | PN ---
Teaching Attending Note Name of Resident: Shannen Costello ATTENDING PHYSICIAN STATEMENT I saw and evaluated the patient. I reviewed the resident's note and discussed the case with the resident. I agree with the resident's findings and plan as documented. SUBJECTIVE: pt seen and examined at bedside, denies new complains OBJECTIVE: Last Vital Signs Temp Pulse Resp BP Pulse Ox 98.3 F 83 20 147/64 95 05/31/20 08:00 05/31/20 08:00 05/31/20 08:00 05/31/20 08:00 05/31/20 08:00 GENERAL: The patient is awake, and alert, in no acute distress, looks weak. HEENT: NC/AT, not p/c/j, neck supple not JVD LUNGS: Breath sounds equal, clear to auscultation bilaterally anteriorly, no wheezes, no crackles, no accessory muscle use. HEART: Regular rate and rhythm, S1, S2 without murmur, rub or gallop. ABDOMEN: Soft, RLQ tenderness, nondistended, normoactive bowel sounds, no guarding, no rebound, Galindo and Suprapubic catheter draining urine. EXTREMITIES: 2+ pulses, warm, well-perfused, no edema. NEUROLOGICAL: No focal deficits SKIN: Warm, dry, normal turgor CBCD WBC 17.0 K/mm3 (4.0-10.0) H 05/31/20 06:25 RBC 3.46 M/mm3 (4.00-5.60) L 05/31/20 06:25 Hgb 8.7 GM/dL (11.7-16.9) L 05/31/20 06:25 Hct 27.9 % (35.4-49) L 05/31/20 06:25 MCV 80.6 fl (80-96) 05/31/20 06:25 MCHC 31.3 g/dl (32.0-35.9) L 05/31/20 06:25 RDW 16.1 % (11.9-15.9) H 05/31/20 06:25 Plt Count 345 K/MM3 (134-434) 05/31/20 06:25 MPV 9.4 fl (7.5-11.1) 05/31/20 06:25 CMP Sodium 144 mmol/L (136-145) 05/31/20 06:25 Potassium 3.9 mmol/L (3.5-5.1) 05/31/20 06:25 Chloride 112 mmol/L (98-107) H 05/31/20 06:25 Carbon Dioxide 23 mmol/L (21-32) 05/31/20 06:25 Anion Gap 9 MMOL/L (8-16) 05/31/20 06:25 BUN 17.5 mg/dL (7-18) 05/31/20 06:25 Creatinine 0.4 mg/dL (0.55-1.3) L 05/31/20 06:25 Calcium 8.0 mg/dL (8.5-10.1) L 05/31/20 06:25 Total Bilirubin 0.3 mg/dL (0.2-1) 05/31/20 06:25 AST 43 U/L (15-37) H 05/31/20 06:25 ALT 21 U/L (13-61) 05/31/20 06:25 Alkaline Phosphatase 116 U/L (45-117) 05/31/20 06:25 Total Protein 4.9 g/dl (6.4-8.2) L 05/31/20 06:25 Albumin 1.4 g/dl (3.4-5.0) L 05/31/20 06:25 Active Medications Albuterol Sulfate (Ventolin Hfa Inhaler -) 1 puff IH Q4H PRN PRN Reason: ASTHMA Amino Acids (Prosource No Carb Liquid Pkt) 30 ml PO BID@0800,1730 [facility] Last Admin: 05/31/20 10:23 Dose: 30 ml Documented by: Amlodipine Besylate (Norvasc -) 5 mg PO DAILY [facility] Last Admin: 05/31/20 10:23 Dose: 5 mg Documented by: Atorvastatin Calcium (Lipitor -) 20 mg PO HS [facility] Last Admin: 05/30/20 21:24 Dose: 20 mg Documented by: Fentanyl (Sublimaze Injection -) 50 mcg IVPUSH [id number] PRN PRN Reason: PAIN-PACU ORDER X 4 DOSES ONLY Metoprolol Succinate (Toprol Xl -) 25 mg PO DAILY [facility] Last Admin: 05/31/20 10:23 Dose: 25 mg Documented by: ASSESSMENT AND PLAN: 85 yo man with Mhx of prostate cancer (s/p radiation and seed implantation), HTN, CAD, HLD, sciatica, diverticulitis presenting to the ED with dark red blood producing from Galindo.found to have bladder perforation with cystoscopy s/p laparotomy, evacuation of clots, bladder perforation repair, and suprapubic catheter placement. (05/19). # Sepsis due to bladder perfortation, s/p cystoscopy & exp. laparotomy and repair - WBC trending down - afebrile, ambulating, off CBI, off ABx # Bladder/Prostatic malignancy s/p excision of mass -pathology: infiltrating urothelial carcinoma, poorly differentiated with focal sarcomatoid change -PET-CT as outpatient -hem/onc following R upper extremety cellulitis - resolved UTI - resolved HTN HLD DVT prophylaxis with SCD Discharge planning to rehab and continue outpatient follow up with urology and hem/onc
--- NOTE | 2020-05-31 12:56 | PN ---
Physical Exam: SUBJECTIVE: Patient seen and examined. Low grade fevers noted overnight. OBJECTIVE: Vital Signs Temperature 98.3 F 05/31/20 08:00 Pulse Rate 83 05/31/20 08:00 Respiratory Rate 20 05/31/20 08:00 Blood Pressure 147/64 05/31/20 08:00 O2 Sat by Pulse Oximetry (%) 95 05/31/20 08:00 GENERAL: The patient is awake, alert, and fully oriented, in no acute distress. HEAD: Normal with no signs of trauma. NECK: Trachea midline, full range of motion, supple. LUNGS: Breath sounds equal, clear to auscultation bilaterally, no accessory muscle use. HEART: irregular rate and rhythm, S1, S2 without murmur ABDOMEN: Soft, nontender, nondistended, normoactive bowel sounds, no guarding. suprapubic cath , REGGIE drain EXTREMITIES: 2+ pulses, warm, well-perfused, no edema. SKIN: Warm, dry, normal turgor, no rashes or lesions noted Laboratory Results - last 24 hr 05/31/20 05/31/20 06:25 06:25 WBC 17.0 H RBC 3.46 L Hgb 8.7 L Hct 27.9 L MCV 80.6 MCH 25.3 L MCHC 31.3 L RDW 16.1 H Plt Count 345 MPV 9.4 Absolute Neuts (auto) 13.6 H Neutrophils % 80.2 Lymphocytes % 7.4 L D Monocytes % 7.2 Eosinophils % 4.5 Basophils % 0.7 Nucleated RBC % 0 Sodium 144 Potassium 3.9 Chloride 112 H Carbon Dioxide 23 Anion Gap 9 BUN 17.5 Creatinine 0.4 L Est GFR (CKD-EPI)AfAm 125.53 Est GFR (CKD-EPI)NonAf 108.31 Random Glucose 90 Calcium 8.0 L Total Bilirubin 0.3 AST 43 H ALT 21 Alkaline Phosphatase 116 Total Protein 4.9 L Albumin 1.4 L Active Medications Generic Name Dose Route Start Last Admin Trade Name Freq PRN Reason Stop Dose Admin Albuterol Sulfate 1 puff 05/30/20 06:15 Ventolin Hfa Inhaler - IH Q4H PRN ASTHMA Amino Acids 30 ml 05/27/20 08:00 05/31/20 10:23 Prosource No Carb Liquid Pkt PO 30 ml BID@0800,1730 [facility] Administration Amlodipine Besylate 5 mg 05/30/20 10:00 05/31/20 10:23 Norvasc - PO 5 mg DAILY [facility] Administration Atorvastatin Calcium 20 mg 05/29/20 22:00 05/30/20 21:24 Lipitor - PO 20 mg HS [facility] Administration Fentanyl 50 mcg 05/24/20 12:43 Sublimaze Injection - IVPUSH [id number] PRN PAIN-PACU ORDER X 4 DOSES ONLY Metoprolol Succinate 25 mg 05/29/20 10:00 05/31/20 10:23 Toprol Xl - PO 25 mg DAILY [facility] Administration ASSESSMENT/PLAN: Patient is an 85 yo M PMHx of prostate cancer (s/p radiation and seed implantation), HTN, CAD, HLD, sciatica, diverticulitis presenting to the ED with dark red blood producing from Batres.pt is admitted to ICU s/p bladder perforation with cystoscopy s/p laparotomy, evacuation of clots, bladder perforation repair, and suprapubic catheter placement. (05/19). ICU complicated by mod SBO,which is now improved . pt is now stable for medicine floor #Hematuria 2/2 Bladder perforation s/p cystoscopy/ex-lap/repair #Partial SBO, resolved -pSBO possibly 2/2 ileus in setting of recent surgery/pain meds -Surgery on board -speech and swallow recs appreciated -On chopped diet/thin liquids with good tolerance and appetite -suprapubic cath, batres, CBI off -cont to monitor -morphine for pain #Prostatic malignancy -Irregular mass from prostatic urethra extending to bladder noted ash-op -s/p excision of mass -Bladder biopsy: infiltrating urothelial carcinoma, poorly differentiated with focal sarcomatoid change -Consider PET-CT outpatient if feasible -Heme-onc (Dr. Mesa) consulted. Recs appreciated #Ascites -likely in setting of post-op -GI (Dr. Montano) consulted. REcommendations appreciated. #B/L pleural effusions - RUL nodule in periphery - b/l pleural effusions and lower lobe atelectasis - aspiration precautions - Pulm consulted. #HTN -On Amlodipine and Toprol -BP stable #HLD -On Simvastatin and Fenofibrate #RUE cellulitis, resolved -Completed Vancomycin -persistent leukocytosis, observe off antibiotics -reculture as needed #UTI, resolved -UCx: Enterococcus faecalis -Meropenem completed 05/02 -ID (Dr. Carter) consulted. REcommendations appreciated. #Leukocytosis -trending down -low grade fevers overnight, repeat blood cultures -encourage incentive spirometry #FEN -Not on any standing fluids -Electrolytes wnl, routine bmp monitoring -Chopped diet #Prophylaxis -DVT: SCDs bilaterally #Disposition -continue monitoring on med surg Visit type - Emergency Visit Emergency Visit: Yes ED Registration Date: 05/18/20 Care time: The patient presented to the Emergency Department on the above date and was hospitalized for further evaluation of their emergent condition. - New Patient This patient is new to me today: No - Critical Care Critical Care patient: No - Medication Review Med list reviewed for High Risk Meds patients 65 and older: Yes ATTENDING PHYSICIAN STATEMENT I saw and evaluated the patient. I reviewed the resident's note and discussed the case with the resident. I agree with the resident's findings and plan as documented. SUBJECTIVE: OBJECTIVE: ASSESSMENT AND PLAN:
--- NOTE | 2020-05-31 14:06 | PN ---
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 Message sent to RD. Pt would like to continue on chopped food as he feels it is easier to tolerate,. GERD precautions.
[2020-05-31] MEDS: ATORVASTATIN CA 20 MG TABLET (FP) PO SCH (21:07)
[2020-06-01 08:13] LABS: BASO % 0.7 % (0-2.0); EOS % 5.3 % (0-4.5); HEMATOCRIT 27.8 % (35.4-49); HEMOGLOBIN 8.8 GM/dL (11.7-16.9); MCH 25.6 pg (25.7-33.7); MCHC 31.7 g/dl (32.0-35.9); MEAN CELL VOLUME 80.8 fl (80-96); MEAN PLT VOLUME 9.5 fl (7.5-11.1); MONO % 8.5 % (3.8-10.2); NEUT % 77.5 % (42.8-82.8); PLATELET COUNT 332 K/MM3 (134-434); RBC 3.44 M/mm3 (4.00-5.60); RDW 16.2 % (11.9-15.9); WHITE BLOOD COUNT 15.9 K/mm3 (4.0-10.0)
[2020-06-01] MEDS: AMINO ACIDS/PROTEIN HYDROLYS 30 ML LIQUID.PKT PO SCH ×2 (08:35→16:42)
[2020-06-01 08:38] LABS: BLOOD UREA NITROGEN 19.3 mg/dL (7-18); CALCIUM 8.2 mg/dL (8.5-10.1); CREATININE 0.4 mg/dL (0.55-1.3); MAGNESIUM 2.1 mg/dL (1.8-2.4); POTASSIUM 3.8 mmol/L (3.5-5.1)
[2020-06-01] MEDS: metoPROLOL SUCCINATE 25 MG TAB.SR.24H (FP) PO SCH (09:47)
[2020-06-01] MEDS: amLODIPine BESYLATE 5 MG TABLET (FP) PO SCH (09:47)
[2020-06-01] MEDS ORDERED: ACETAMINOPHEN 325 MG TABLET (FP) PO PRN (09:53)
[2020-06-01] MEDS ORDERED: MORPHINE SULFATE 2 MG/ML VIAL IVPUSH PRN (11:57)
--- NOTE | 2020-06-01 12:12 | PN ---
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 (short form) - Note 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: Resting in NAD on NC O2. Denies CP or SOB. Some dry cough. CT Chest : Bilateral pleural effusions was associated compressive atelectasis. RUL calified granuloma. No evidence of nodules or masses. Intake & Output 05/29/20 05/30/20 05/31/20 06/01/20 23:59 23:59 23:59 23:59 Intake Total 920 520 380 100 Output Total 1300 1900 900 700 Balance -380 -1380 -520 -600 Last Vital Signs Temp Pulse Resp BP Pulse Ox 99.1 F 86 20 138/63 94 L 06/01/20 05:45 06/01/20 09:00 06/01/20 09:00 06/01/20 09:00 06/01/20 10:00 Active Medications Acetaminophen (Tylenol -) 650 mg PO Q6H PRN PRN Reason: Fever Albuterol Sulfate (Ventolin Hfa Inhaler -) 1 puff IH Q4H PRN PRN Reason: ASTHMA Amino Acids (Prosource No Carb Liquid Pkt) 30 ml PO BID@0800,1730 [facility] Last Admin: 06/01/20 08:35 Dose: 30 ml Documented by: Amlodipine Besylate (Norvasc -) 5 mg PO DAILY [facility] Last Admin: 06/01/20 09:47 Dose: 5 mg Documented by: Atorvastatin Calcium (Lipitor -) 20 mg PO HS [facility] Last Admin: 05/31/20 21:07 Dose: 20 mg Documented by: Metoprolol Succinate (Toprol Xl -) 25 mg PO DAILY [facility] Last Admin: 06/01/20 09:47 Dose: 25 mg Documented by: Morphine Sulfate (Morphine Injection -) 1 mg IVPUSH Q6H PRN PRN Reason: PAIN LEVEL 7 - 10 Gen: Awake and alert, NAD Neuro: Non-focal HEENT: PEERL, sclera clear Lungs: diminished at the bases CV: S1S2, RRR Abd: Soft, (+) BS, : batres cath with clear urine Ext:Trace edema Laboratory Results - last 24 hr 05/31/20 06/01/20 06/01/20 16:15 07:40 07:40 WBC 15.9 H RBC 3.44 L Hgb 8.8 L Hct 27.8 L MCV 80.8 MCH 25.6 L MCHC 31.7 L RDW 16.2 H Plt Count 332 MPV 9.5 Absolute Neuts (auto) 12.3 H Neutrophils % 77.5 Lymphocytes % 8.0 Monocytes % 8.5 Eosinophils % 5.3 H Basophils % 0.7 Nucleated RBC % 0 Sodium 144 Potassium 3.8 Chloride 112 H Carbon Dioxide 26 Anion Gap 5 L BUN 19.3 H Creatinine 0.4 L Est GFR (CKD-EPI)AfAm 125.53 Est GFR (CKD-EPI)NonAf 108.31 Random Glucose 93 Calcium 8.2 L Magnesium 2.1 COVID-19 ([place]) Not detected ASSESSMENT/PLAN: Resolving SBO Prostate cancer s/p radiation and seed implantation with chronic batres HTN Diverticulitis S/P bladder perforation with cystoscopy s/p laparotomy, evacuation of clots, bladder perforation repair, and suprapubic catheter placement Pleural effusions with associated atelectasis RUL granuloma : No evidence of Pulmonary nodules or masses ABX Per ID Normal transfusion thresholds PO per GI / primary Supplemental O2 as needed Incentive spirometry VTE prophylaxis Dr Herrera
--- NOTE | 2020-06-01 13:27 | PN ---
Teaching Attending Note Name of Resident: Shannen Costello ATTENDING PHYSICIAN STATEMENT I saw and evaluated the patient. I reviewed the resident's note and discussed the case with the resident. I agree with the resident's findings and plan as documented. SUBJECTIVE: pt seen and examined at bedside OBJECTIVE: Last Vital Signs Temp Pulse Resp BP Pulse Ox 99.1 F 86 20 138/63 94 L 06/01/20 05:45 06/01/20 09:00 06/01/20 09:00 06/01/20 09:00 06/01/20 10:00 GENERAL: The patient is awake, and alert, in no acute distress HEENT: NC/AT, not p/c/j, neck supple not JVD LUNGS: Breath sounds equal, clear to auscultation bilaterally anteriorly, no wheezes, no crackles, no accessory muscle use. HEART: Regular rate and rhythm, S1, S2 without murmur, rub or gallop. ABDOMEN: Soft, RLQ tenderness, nondistended, normoactive bowel sounds, no guarding, no rebound, Galindo and Suprapubic catheter draining urine. EXTREMITIES: 2+ pulses, warm, well-perfused, no edema. NEUROLOGICAL: No focal deficits SKIN: Warm, dry, normal turgor CBCD WBC 15.9 K/mm3 (4.0-10.0) H 06/01/20 07:40 RBC 3.44 M/mm3 (4.00-5.60) L 06/01/20 07:40 Hgb 8.8 GM/dL (11.7-16.9) L 06/01/20 07:40 Hct 27.8 % (35.4-49) L 06/01/20 07:40 MCV 80.8 fl (80-96) 06/01/20 07:40 MCHC 31.7 g/dl (32.0-35.9) L 06/01/20 07:40 RDW 16.2 % (11.9-15.9) H 06/01/20 07:40 Plt Count 332 K/MM3 (134-434) 06/01/20 07:40 MPV 9.5 fl (7.5-11.1) 06/01/20 07:40 CMP Sodium 144 mmol/L (136-145) 06/01/20 07:40 Potassium 3.8 mmol/L (3.5-5.1) 06/01/20 07:40 Chloride 112 mmol/L (98-107) H 06/01/20 07:40 Carbon Dioxide 26 mmol/L (21-32) 06/01/20 07:40 Anion Gap 5 MMOL/L (8-16) L 06/01/20 07:40 BUN 19.3 mg/dL (7-18) H 06/01/20 07:40 Creatinine 0.4 mg/dL (0.55-1.3) L 06/01/20 07:40 Calcium 8.2 mg/dL (8.5-10.1) L 06/01/20 07:40 Total Bilirubin 0.3 mg/dL (0.2-1) 05/31/20 06:25 AST 43 U/L (15-37) H 05/31/20 06:25 ALT 21 U/L (13-61) 05/31/20 06:25 Alkaline Phosphatase 116 U/L (45-117) 05/31/20 06:25 Total Protein 4.9 g/dl (6.4-8.2) L 05/31/20 06:25 Albumin 1.4 g/dl (3.4-5.0) L 05/31/20 06:25 Active Medications Acetaminophen (Tylenol -) 650 mg PO Q6H PRN PRN Reason: Fever Albuterol Sulfate (Ventolin Hfa Inhaler -) 1 puff IH Q4H PRN PRN Reason: ASTHMA Amino Acids (Prosource No Carb Liquid Pkt) 30 ml PO BID@0800,1730 [facility] Last Admin: 06/01/20 08:35 Dose: 30 ml Documented by: Amlodipine Besylate (Norvasc -) 5 mg PO DAILY [facility] Last Admin: 06/01/20 09:47 Dose: 5 mg Documented by: Atorvastatin Calcium (Lipitor -) 20 mg PO HS [facility] Last Admin: 05/31/20 21:07 Dose: 20 mg Documented by: Metoprolol Succinate (Toprol Xl -) 25 mg PO DAILY [facility] Last Admin: 06/01/20 09:47 Dose: 25 mg Documented by: Morphine Sulfate (Morphine Sulfate) 1 mg IVPUSH Q6H PRN PRN Reason: PAIN LEVEL 7 - 10 ASSESSMENT AND PLAN: 85 yo man with Mhx of prostate cancer (s/p radiation and seed implantation), HTN, CAD, HLD, sciatica, diverticulitis presenting to the ED with dark red blood producing from Galindo.found to have bladder perforation with cystoscopy s/p laparotomy, evacuation of clots, bladder perforation repair, and suprapubic catheter placement. (05/19). # Sepsis due to bladder perfortation, s/p cystoscopy & exp. laparotomy and repair - WBC trending down - afebrile, ambulating, off CBI, off ABx # Bladder/Prostatic malignancy s/p excision of mass -pathology: infiltrating urothelial carcinoma, poorly differentiated with focal sarcomatoid change -PET-CT as outpatient -hem/onc following R upper extremety cellulitis - resolved HTN HLD DVT prophylaxis Discharge planning to rehab and continue outpatient follow up with urology and hem/onc
[2020-06-01 13:51] VITALS: BP 151/69; PULSE 98; TEMP 98.7
--- NOTE | 2020-06-01 15:55 | DS ---
Physical Exam: SUBJECTIVE: Patient seen and examined OBJECTIVE: Vital Signs Period Temp Pulse Resp BP Sys/Donald Pulse Ox Last 24 Hr 98.7 F-99.4 F 83-98 20-20 135-151/53-69 94-95 PHYSICAL EXAM GENERAL: The patient is awake, alert, and fully oriented, in no acute distress. HEAD: Normal with no signs of trauma. NECK: Trachea midline, full range of motion, supple. LUNGS: Breath sounds equal, clear to auscultation bilaterally, no accessory muscle use. HEART: irregular rate and rhythm, S1, S2 without murmur ABDOMEN: Soft, nontender, nondistended, normoactive bowel sounds, no guarding. suprapubic cath , REGGIE drain EXTREMITIES: 2+ pulses, warm, well-perfused, no edema. SKIN: Warm, dry, normal turgor, no rashes or lesions noted LABS Laboratory Results - last 24 hr 05/31/20 06/01/20 06/01/20 16:15 07:40 07:40 WBC 15.9 H RBC 3.44 L Hgb 8.8 L Hct 27.8 L MCV 80.8 MCH 25.6 L MCHC 31.7 L RDW 16.2 H Plt Count 332 MPV 9.5 Absolute Neuts (auto) 12.3 H Neutrophils % 77.5 Lymphocytes % 8.0 Monocytes % 8.5 Eosinophils % 5.3 H Basophils % 0.7 Nucleated RBC % 0 Sodium 144 Potassium 3.8 Chloride 112 H Carbon Dioxide 26 Anion Gap 5 L BUN 19.3 H Creatinine 0.4 L Est GFR (CKD-EPI)AfAm 125.53 Est GFR (CKD-EPI)NonAf 108.31 Random Glucose 93 Calcium 8.2 L Magnesium 2.1 COVID-19 ([place]) Not detected HOSPITAL COURSE: Date of Admission:05/18/20 Date of Discharge: 06/01/20 Patient is an 85 yo M with PMHx of prostate cancer (s/p radiation and seed implantation), HTN, CAD, HLD, sciatica, diverticulitis presented to the ED with dark red blood producing from Batres. Pt was admitted to the ICU s/p bladder perforation repair with cystoscopy s/p laparotomy, evacuation of clots and suprapubic catheter placement. ICU course was complicated by moderate SBO which improved after management with NGT to wall suction, IVF and NPO. 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 Pt was also found to have ascites which was likely in the setting of post-op. CT of chest showed bilateral pleural effusions with compressive atelectasis and RUL calcified granuloma with no evidence of nodules or masses which was managed with supplemental O2 as needed and incentive spirometry. Pt had RUE cellulitis with resolved after treatment with vancomycin. He was also found to have UTI with urine culture that grew enterococcus faecalis which was treated with meropenem. Pt is discharged to [facility] and is recommended to have outpatient PET-CT and follow up with urology and heme/onc. Minutes to complete discharge: 38 Discharge Summary Problems reviewed: Yes Reason For Visit: URINARY TRACT INFECTION Current Active Problems Ascites (Acute) Gross hematuria (Acute) Hematuria (Acute) Leukocytosis (Acute) Obstruction of left ureteropelvic junction (UPJ) (Acute) Partial obstruction of small intestine (Acute) Perforation of bladder during operative procedure (Acute) Prostate cancer (Acute) Pulmonary nodules (Acute) SBO (small bowel obstruction) (Acute) Thickening of esophagus (Acute) Condition: Improved - Instructions Diet, Activity, Other Instructions: Your visit You were admitted to the hospital because you had a bladder injury. You had an operation done to fix the bladder. A suprapubic catheter and batres catheter were placed. During the surgery, a mass was noted on your prostate extending into the bladder, it was taken out and biopsy was done. It was found to be malignant. You were seen by the oncologist and recommended to continue further work up upon discharge from rehab. You will be discharged to a [facility] facility to continue with rehab. Medications Please continue your home medications. Follow up Please follow up with your primary care doctor within 1 week. Please follow up with the urologist (Dr. Huston) within 1-2 weeks. Please follow up with the heat plant specialist-oncologist (Dr. Mesa) for further evaluation and management of the prostate cancer. Additional info Please call 911 or go to the emergency room if with any worsening fevers, chills, headache, dizziness, chest pain, shortness of breath, belly pain, or any new concerns noted. Referrals: Tevin Huston MD [Staff Physician] - Bonita Mauricio MD [Staff Physician] - Osmin Rhodes MD [Primary Care Provider] - Emile Tripp [Staff Physician] - Disposition: [facility] - Home Medications Comprehensive Discharge Medication List: Ambulatory Orders Simvastatin [Zocor -] 40 mg PO HS #0 tablet 07/13/13 Multivitamins [Multivit ([facility] Formulary)] 1 tab PO DAILY 11/09/15 Polyethylene Glycol 3350 [Miralax 119 gm Btl -] 17 gm PO DAILY 11/09/15 Psyllium Husk (with Sugar) [Metamucil Packet] 3.4 gm PO HS 11/09/15 Amlodipine Besylate 5 mg PO DAILY 10/29/18 Walker [Ultra-Light Rollator] 1 each ASDIR #1 each 11/08/18 Fenofibrate Nanocrystallized [Triglide] 160 mg PO DAILY 05/19/20 Metoprolol Succinate [Toprol Xl] 25 mg PO DAILY 05/19/20 Albuterol Sulfate Inhaler - [Ventolin HFA Inhaler -] 1 puff IH Q4H PRN inhaler 06/01/20 Amino Acids/Protein Hydrolys [Prosource No Carb Liquid Pkt] 30 ml PO BID@0800,1730 packet 06/01/20 This patient is new to me today: No Emergency Visit: Yes ED Registration Date: 05/18/20 Care time: The patient presented to the Emergency Department on the above date and was hospitalized for further evaluation of their emergent condition. Critical Care patient: No - Discharge Referral Referred to [facility] No Physician Referral: Ronen Mckeon DO (GI) ATTENDING PHYSICIAN STATEMENT I saw and evaluated the patient. I reviewed the resident's note and discussed the case with the resident. I agree with the resident's findings and plan as documented. SUBJECTIVE: OBJECTIVE: ASSESSMENT AND PLAN:
== END 2020-06-01 17:24 | DRG 653 ==
LOC: JER 21:32 → JERBED 23:47 → J7W 05-19 05:39 → JICU 05-19 19:04 → J6S 05-24 12:42
PROVIDERS: ADMIT Internal Medicine; ATTEND Student in an Organized Health Care Education/Training Program
PROC: 0T9B80Z Drainage of Bladder with Drainage Device, Via Natural or Artificial Opening Endoscopic (ICD-10-PCS; principal; 2020-05-20)
PROC: 0TQB0ZZ Repair Bladder, Open Approach (ICD-10-PCS; 2020-05-20)
PROC: 0T9B00Z Drainage of Bladder with Drainage Device, Open Approach (ICD-10-PCS; 2020-05-20)
PROC: 0VB00ZX Excision of Prostate, Open Approach, Diagnostic (ICD-10-PCS; 2020-05-20)
PROC: 0DJW0ZZ Inspection of Peritoneum, Open Approach (ICD-10-PCS; 2020-05-20)
PROC: 0TCB8ZZ Extirpation of Matter from Bladder, Via Natural or Artificial Opening Endoscopic (ICD-10-PCS; 2020-05-20)
PROC: 0D9670Z Drainage of Stomach with Drainage Device, Via Natural or Artificial Opening (ICD-10-PCS; 2020-05-20)
PROC: 30233N1 Transfusion of Nonautologous Red Blood Cells into Peripheral Vein, Percutaneous Approach (ICD-10-PCS; 2020-05-20)
DX: T83.83XA Hemorrhage due to genitourinary prosthetic devices, implants and grafts, initial encounter (principal); A41.89 Other specified sepsis; K56.609 Unspecified intestinal obstruction, unspecified as to partial versus complete obstruction; N39.0 Urinary tract infection, site not specified; N99.72 Accidental puncture and laceration of a genitourinary system organ or structure during other procedure; J98.11 Atelectasis; J90 Pleural effusion, not elsewhere classified; R18.8 Other ascites; N13.6 Pyonephrosis; L03.113 Cellulitis of right upper limb; K57.90 Diverticulosis of intestine, part unspecified, without perforation or abscess without bleeding; C61 Malignant neoplasm of prostate; K22.8 Other specified diseases of esophagus; E78.5 Hyperlipidemia, unspecified; R00.0 Tachycardia, unspecified; N13.9 Obstructive and reflux uropathy, unspecified; I25.10 Atherosclerotic heart disease of native coronary artery without angina pectoris; M54.30 Sciatica, unspecified side; R31.0 Gross hematuria; R91.8 Other nonspecific abnormal finding of lung field; N20.0 Calculus of kidney; R33.9 Retention of urine, unspecified; K64.9 Unspecified hemorrhoids; Y83.8 Other surgical procedures as the cause of abnormal reaction of the patient, or of later complication, without mention of misadventure at the time of the procedure; N32.89 Other specified disorders of bladder; K76.0 Fatty (change of) liver, not elsewhere classified; N28.1 Cyst of kidney, acquired; K59.09 Other constipation; R13.10 Dysphagia, unspecified; B95.2 Enterococcus as the cause of diseases classified elsewhere; K64.8 Other hemorrhoids; L92.8 Other granulomatous disorders of the skin and subcutaneous tissue
CPT/HCPCS: 36415; 36430; 36511; 71045-TC-FY; 71260-TC; 74018-TC-FY; 74019-TC-FY; 74177-TC; 74178-TC; 74230-TC-FY; 80048; 80053; 82308; 83605; 83735; 84100; 85025; 85027; 85610; 85730; 86850; 86900; 86901; 86922; 87040; 87086; 87186; 88305-TC; 92611-GN; 93005; 93010; 94010; 94640; 94760; 97116-GP; 97161-GP; 99285-25; G0480; J0131; P9038; P9058; Q9967; U0003

== ENCOUNTER 2020-06-08 13:23 | Inpatient (IN) | payer OTHER, MEDICARE ==
[2020-06-08] MEDS ORDERED: SODIUM CHLORIDE 1,000 ML IV SCH (13:30)
[2020-06-08 13:44] VITALS: BMI 25.0
--- NOTE | 2020-06-08 14:19 | PDOC ---
Attending Attestation - Resident Resident Name: Alejo Sahni - ED Attending Attestation I have performed the following: I have examined & evaluated the patient, The case was reviewed & discussed with the resident, I agree w/resident's findings & plan, Exceptions are as noted - HPI HPI: 06/08/20 14:12 85 yo M with PMHx of prostate cancer (s/p radiation and seed implantation), HTN, CAD, HLD, diverticulitis presented to the ED with dark red blood producing from s/p bladder perforation repair with cystoscopy s/p laparotomy, 05/19 suprapubic catheter placement. , recent diagnosis of urothelial carcinoma of the bladder, recent post op SBO treated with NG, here today with c/o right sided weakness. per EMS pt was last seen normal around 11 am, then found to be abnormal with right facial droop right sided weakness and sent to ED. per nursing staff at [facility], they are unable to confirm the time of onset. of note pt has had persistant hematuria in his batres. no siezure like activity, no headache. . - Physicial Exam PE: 06/08/20 14:19 awake alert nad right sided facial droop, speech mild slurring. lungs clear bilat heart rrr on mrg abd soft nt nd suprapubic cath in place. nuero EOMI, right sided facial droop, speech slurred. right arm 4/5 has a drift does not hit bed, right leg can lift, hits bed immediately. left arm and leg 5/5. sensation intac.t - Medical Decision Making 06/08/20 14:27 85-year-old male history of bladder and urethral cancer status post iatrogenic bladder perforation persistent hematuria and suprapubic catheter, hypertension hyperlipidemia CAD here today with sudden onset right-sided weakness began at 11 AM confirmed by nursing staff Darcy Randle patient was last normal at 11 AM when she gave his meds. No recent trauma no seizures. On my initial evaluation patient has a NIH stroke scale of 6 which is slightly improved from the resident exam prior has persistent right-sided weakness and mild dysarthria. Criteria for TPA discussed patient has a relative contraindication to TPA due to his persistent hematuria and recent surgery although it was an abdominal surgery performed on 724 CT head is initially negative for acute stroke patient sent for CTA to rule out any concern for overt thrombosis CV is a candidate for directed TPA 06/08/20 15:55 pt cta, with concerns for distal occlusion Darion branch A2, A3, likley not amenable to interventional thrombectomy or directed TPA., dw pt son , who states he has living will . recenlty diagnosed with very agressive invasive bladder CA. pt would not want heroic measures, or risky procedure such as systemic TPA or or interventional therapy does not want transfer to [facility] for intervention. will admit pt here. d/w with telephone plant power operator nuerology dr Vargas. will admit to telemetry. Heart Score/ECG Review #1 General ECG Interpretation: Sinus Rhythm, Normal Rate (92 left axis .), Normal Intervals, No acute ischemic changes NIH Stroke Scale - Initial Evaluation Level of consciousness: Alert Ask patient the month and their age: Answers both correctly Ask patient to open & close eyes; make fist and let go: Obeys both correctly Best gaze (horizontal eye movement): Normal Visual field testing: No visual field loss Facial paresis (Show teeth/raise eyebrows/close eyes tight): Partial paralysis (total or near paralysis of lower face) Motor Function: Left Arm: Normal Motor Function: Right Arm: Drift Motor Function: Left Leg: Normal (extends leg 30 degrees for 5 seconds without drift) Motor Function: Right Leg: Some effort against gravity Limb Ataxia: No ataxia Sensory(Use pinprick test arms,legs,trunk,face/side to side): Normal Best language (Describe picture, name items, read sentences): No Aphasia Dysarthria (read several words): Mild to moderate slurring of words Extinction and Inattention: No abnormality - Total Score NIH Stroke Scale Score: 6 Discharge - Discharge Information Problems reviewed: Yes Clinical Impression/Diagnosis: Cerebrovascular accident (CVA) - Follow up/Referral Referrals: ON STAFF,NOT [Primary Care Provider] - - Patient Discharge Instructions - Post Discharge Activity tPA Exclusion Checklist 0-3hr - Time Elapsed Date last known well: 06/08/20 Time last known well: 11:00 Elaspsed time: Day(s) and 5 Hour(s) and 26 Minutes - Thrombolytic Therapy Candidate Is the patient eligible for Thrombolytic Therapy?: Yes - Exclusion Criteria 0-3hr SBP greater than 185 or DBP greater than 110mmHg despite tx: No Recent IC/spinal surgery,head trauma or stroke w/in last 3mo: No Hx of previous IC hemorrhage, IC neoplasm, AVM or aneurysm: No Active internal bleeding: Yes Blding diathesis(low plt ct, inc PTT,INR>1.7 or use of NOAC): Yes Symptoms suggest subarachnoid hemorrhage: No CT demonstrates multilobar infarct(>1/3 cerebral hemiphere): No Arterial puncture at noncompressible site in previous 7 days: No Blood glucose concentration less than 50mg/dL (2.7mmol/L): No - Relative Exclusion Criteria 0-3h Care team unable to determine eligibility: No IV/IA thrombolysis/thrombectomy @ another hosp prior arrival: No Life expectancy <1yr/severe co-morbid illness/SANDWICH [employer]ER on admit: No : No Patient/family refused: Yes Stroke severity too mild (non-disabling): No Recent acute ND (w/in previous 3 months): No Seizure at onset with postictal residual neuro impairments: No Major surgery or serious trauma w/in previous 14 days: Yes Recent GI or hemorrhage (w/in previous 21 days): Yes - Ineligibility reason(s) Reasons No tPA given: See reason(s) noted above (recent ex lap, bladder performation persistant hematuria, anemia, agressive bladder ca.)
--- NOTE | 2020-06-08 14:22 | PDOC ---
History of Present Illness - General Chief Complaint: CVA/TIA Stated Complaint: R/0 STROK History Source: Patient, EMS - History of Present Illness Initial Comments: 06/08/20 23:52 85M PMH prostate ca, CAD, HTN, HLD, hematuria BIBEMS from [facility] on [facility] for slurred speech and right sided weakness. Last known well was 11:00am today. Per EMS, deficits noticed by staff approximately 20 minutes prior to EMS arrival at ~1pm. BGM en route 133. Per chart review, recent bladder surgery at the end of April 2020. Limited hx 2/2 acuity of condition. PCP- [facility] [place] tPA Exclusion checklist 3-4.5h - Time Elapsed Date last known well: 06/08/20 Time last known well: 11:00 Elaspsed time: Day(s) and 12 Hour(s) and 51 Minutes - Exclusion Criteria 3-4.5 hr Active internal bleeding: Yes - Add'l Relative Exclusion 3-4.5 hr Age > 80: Yes - Ineligibility reason(s) Reasons No tPA given: See reason(s) noted above NIH Stroke Scale - Last Known Well Date/Time & Onset Date Last Known Well: 06/08/20 Time Last Known Well: 11:00 - Initial Evaluation Level of consciousness: Alert Ask patient the month and their age: Answers both correctly Ask patient to open & close eyes; make fist and let go: Obeys both correctly Best gaze (horizontal eye movement): Normal Visual field testing: No visual field loss Facial paresis (Show teeth/raise eyebrows/close eyes tight): Partial paralysis (total or near paralysis of lower face) Motor Function: Left Arm: Drift Motor Function: Right Arm: Some effort against gravity Motor Function: Left Leg: No effort against gravity Motor Function: Right Leg: Drift Limb Ataxia: Present in one limb Sensory(Use pinprick test arms,legs,trunk,face/side to side): Normal Best language (Describe picture, name items, read sentences): No Aphasia Dysarthria (read several words): Mild to moderate slurring of words Extinction and Inattention: No abnormality - Total Score NIH Stroke Scale Score: 11 Past History - Medical History Allergies/Adverse Reactions: Allergies Allergy/AdvReac Type Severity Reaction Status Date / Time No Known Allergies Allergy Verified 06/08/20 13:41 Home Medications: Ambulatory Orders Simvastatin [Zocor -] 40 mg PO HS #0 tablet 07/13/13 Multivitamins [Multivit ([facility] Formulary)] 1 tab PO DAILY 11/09/15 Polyethylene Glycol 3350 [Miralax 119 gm Btl -] 17 gm PO DAILY 11/09/15 Psyllium Husk (with Sugar) [Metamucil Packet] 3.4 gm PO HS 11/09/15 Amlodipine Besylate 5 mg PO DAILY 10/29/18 Walker [Ultra-Light Rollator] 1 each ASDIR #1 each 11/08/18 Fenofibrate Nanocrystallized [Triglide] 160 mg PO DAILY 05/19/20 Metoprolol Succinate [Toprol Xl] 25 mg PO DAILY 05/19/20 Albuterol Sulfate Inhaler - [Ventolin HFA Inhaler -] 1 puff IH Q4H PRN inhaler 06/01/20 Amino Acids/Protein Hydrolys [Prosource No Carb Liquid Pkt] 30 ml PO BID@0800,1730 packet 06/01/20 Anemia: No Asthma: No Cancer: Yes (PROSTATE) Cardiac Disorders: No CVA: No COPD: No CHF: No Dementia: No Diabetes: No GI Disorders: Yes (DIVERTICULOSIS/DIVERTICULITIS) Disorders: Yes (PROSTATE DISEASE WITH SEED IMPLANTATION,RADIATION) HTN: Yes Hypercholesterolemia: Yes Liver Disease: No Seizures: No Thyroid Disease: No - Surgical History Abdominal Surgery: Yes (BILATERAL INGUINAL HERNIA) Appendectomy: No Cardiac Surgery: No Cholecystectomy: No Lung Surgery: No Neurologic Surgery: No Orthopedic Surgery: No - Immunization History Immunization Up to Date: Yes - Psycho-Social/Smoking History Smoking Status: No Smoking History: Never smoked Have you smoked in the past 12 months: No Number of Cigarettes Smoked Daily: 0 - Substance Abuse Hx (Audit-C & DAST Scrn) How often the patient has a drink containing alcohol: Never Score: In Men: 4 or > Positive; In Women: 3 or > Positive: 0 Screen Result (Pos requires Nsg. Audit-10AR): Negative In the last yr the pt used illegal drug/Rx for NonMed reason: No Score: Yes response is considered Positive: 0 Screen Result (Positive result requires Nsg. DAST-10): Negative Review of Systems - Review of Systems Able to Perform ROS?: No (acuity of condition ) *Physical Exam - Vital Signs Last Vital Signs Temp Pulse Resp BP Pulse Ox 97.9 F 94 H 16 156/67 99 06/08/20 13:30 06/08/20 14:12 06/08/20 14:12 06/08/20 14:12 06/08/20 14:12 - Physical Exam 06/08/20 23:52 PE: GEN:NAD, AAOx3. HEENT: + facial asymmetry - right sided paralysis of lower face. NC/AT, visual canela intact, EOMI, PERRLA. Supple neck, FROM, neg TTP midline. CV: S1/S2, RRR, no m/r/g LUNG: CTAB, no wheezes, crackles, rales, rhonchi. GI: Soft, ndnt, +BS, no guarding, no rebound. No masses : suprapubic and regular batres both with hematuria. MSK: No obvious deformities of all extremities. SKIN: Warm, dry, no rashes appreciated. PSYCH: Normal mood and affect. NEURO: NIHSS 11, see NIHSS/TPA sections. No aphasia, moderate dysarthria w/ slurring of speech. Drift on LUE and LLE. RLE no effort against gravity. +/- ataxia on the RUE. Sensation symmetric. ED Treatment Course - LABORATORY CBC & Chemistry Diagram: 06/08/20 13:40 06/08/20 13:40 - ADDITIONAL ORDERS Additional order review: Laboratory Results 06/08/20 13:36 POC Glucometer 115 06/08/20 13:36 POC Glucometer 115 Medical Decision Making - Critical Care Time Total Critical Care Time (minutes): 35 Critical Care Statement: The care of this patient involved high complexity decision making to prevent further life threatening deterioration of the patient's condition and/or to evaluate & treat vital organ system(s) failure or risk of failure. - Medical Decision Making 06/08/20 14:24 85M BIBEMS for CVA eval - right sided weakness, slurring of speech, right lower facial paralysis. NIHSS 11 on initial exam. - Stroke set - initial CT head neg - Verbal consent obtained for contrast study - CTA neck/brain results pending - neuro c/s - ASA OK - consider xfer 06/08/20 14:54 Per RN, failed bedside swallow. ASA OK. PO statin deferred awaiting CTA results wbc elevated, bcx sent 06/08/20 15:07 EKG 14:02 HR 92, intervals wnl, right axis. No TWI. No UBALDO/D but poor baseline in V3. 06/08/20 15:[address] Codi galloway CTA - distal GLENROY occlusion; f/u official report will contact [facility] Stroke team and discuss will considering tPA in discussion with team and pt son 06/08/20 15:27 Dr. Mahi mcintyre pt's son regarding wishes and treatment options; pt would not like aggressive measure such as transfer, thrombectomy, and tPA; please see attending note. 06/08/20 15:52 dw case w/ Dr. Vargas, aware of case will admit here for CVA 06/08/20 16:04 Neck Brain CTA IMPRESSION: Short segmental occlusions of the distal A2 segment of the left GLENROY as described above with distal reconstitution but attenuated flow as compared to the right. Tandem stenoses in the right DEMOLITIONIST in the range of 50-69% stenosis with one area of focally in the lower range of 70-90%. Normal variant aberrant right subclavian artery. Partially imaged small left-sided pleural effusion with significant bilateral posterior atelectatic changes. Underlying infiltrates cannot be excluded. Correlation with x-ray of the chest is suggested. Case discussed with ordering physician at the time of dictation. 06/08/20 17:28 endorsed to hospitalist team Discharge - Discharge Information Problems reviewed: Yes Clinical Impression/Diagnosis: Cerebrovascular accident (CVA), UTI (urinary tract infection), Malignant neoplasm prostate Condition: Guarded - Admission Yes - Follow up/Referral - Patient Discharge Instructions - Post Discharge Activity
[2020-06-08 14:27] LABS: BASO % 0.5 % (0-2.0); EOS % 3.7 % (0-4.5); HEMATOCRIT 28.5 % (35.4-49); HEMOGLOBIN 8.7 GM/dL (11.7-16.9); LYMPH % 9.6 % (8-40); MCH 24.5 pg (25.7-33.7); MCHC 30.7 g/dl (32.0-35.9); MEAN PLT VOLUME 10.1 fl (7.5-11.1); NEUT % 79.2 % (42.8-82.8); PLATELET COUNT 398 K/MM3 (134-434); RBC 3.56 M/mm3 (4.00-5.60); RDW 15.9 % (11.9-15.9); WHITE BLOOD COUNT 17.8 K/mm3 (4.0-10.0)
[2020-06-08 14:41] LABS: INR 1.31 (0.83-1.09); PROTHROMBIN TIME (PATIENT) 15.5 SEC (9.7-13.0)
[2020-06-08] MEDS ORDERED: LACTATED RINGERS SOLUTION 1000 ML INFUS.BAG IV ONE (14:41)
--- NOTE | 2020-06-08 14:42 | EKG ---
Test Reason : Blood Pressure : / mmHG Vent. Rate : 092 BPM Atrial Rate : 092 BPM P-R Int : 150 ms QRS Dur : 096 ms QT Int : 360 ms P-R-T Axes : 066 -30 035 degrees QTc Int : 445 ms SINUS RHYTHM WITH PREMATURE SUPRAVENTRICULAR COMPLEXES LEFT AXIS DEVIATION ABNORMAL ECG WHEN COMPARED WITH ECG OF 24-MAY-2020 10:09, PREMATURE VENTRICULAR COMPLEXES ARE NO LONGER PRESENT Confirmed by SAMEER BERNARD, COLLEEN ([id number]) on 06/08/2020 2:41:38 PM Referred By: Confirmed By:COLLEEN ESTRELLA MD
[2020-06-08] MEDS ORDERED: ASPIRIN 300 MG SUPP.RECT PR ONE (14:43)
[2020-06-08 14:44] LABS: ACTIVATED PTT 31.2 SECONDS (25.2-36.5)
[2020-06-08 14:55] LABS: ALBUMIN 1.7 g/dl (3.4-5.0); BLOOD UREA NITROGEN 17.8 mg/dL (7-18); CALCIUM 8.1 mg/dL (8.5-10.1); CREATININE 0.5 mg/dL (0.55-1.3); POTASSIUM 4.2 mmol/L (3.5-5.1); TOT PROT 5.7 g/dl (6.4-8.2)
[2020-06-08 15:12] LABS: BILIRUBIN,TOTAL 0.3 mg/dL (0.2-1)
[2020-06-08] MEDS ORDERED: ASPIRIN 300 MG SUPP.RECT RC ONE (15:29)
[2020-06-08 16:41] LABS: EPI CELLS 12 /uL (0-25.1); HYALINE CASTS 22 /uL (0-3.1); URINE APPEARANCE TURBID; URINE BACTERIA 20 /uL (0-1359); URINE BILIRUBIN 1+ (NEGATIVE); URINE COLOR RED; URINE GLUCOSE (UA) NEGATIVE (NEGATIVE); URINE KETONE NEGATIVE (NEGATIVE); URINE LEUK ESTERASE 3+ (NEGATIVE); URINE NITRITE NEGATIVE (NEGATIVE); URINE PROTEIN 2+ (NEGATIVE); URINE WBC 2230 /uL (0-25.8)
[2020-06-08] MEDS ORDERED: PIPERACILLIN/TAZOB 3.375 GM 3.375 GM in DEXTROSE 5%-WATER - 50 ML IVPB ONE (16:47)
[2020-06-08] MEDS ORDERED: PIPERACILLIN/TAZOB 3.375 GM 3.375 GM/50 ML BAG IVPB ONE (17:21)
--- NOTE | 2020-06-08 18:00 | HP ---
CHIEF COMPLAINT: Stroke PCP: Dr. Rhodes HISTORY OF PRESENT ILLNESS: Mr. Trammell is an 85M w a PMH of diverticulitis, colon lesions, prostate CA s/p radiation therapy, s/p suprapubic batres & s/p urethral batres draining hematuria, seed implants, HTN, hypercholesterolemia, and sciatica presented to ED with his daughter from [facility] for a new sudden onset right-sided hand weakness during lunch at 11am. The patient endorses right sided facial droop, slurring, and leg weakness. The patient was not given any medication during the event. Patient refused transfer to tertiary care facility, TPA, aggressive treatment, and thrombectomy if needed. On interview the patient reports feeling diffuse right sided weakness with the inability to speak properly due to right sided mouth droop. The patient denies prior episode of CVA in the past. Patient denies chest pain, SOB, dizziness, nausea, vomiting, or diaphoresis. ER course was notable for: (1)NIHSS 11 on initial exam (2)Updated NIHSS 6 during ED course (3) Patient declined aggressive treatment/tpa/transfer to [facility]/thrombectomy (4) Short segmental occlusions of the distal A2 segment of the left GLENROY as described above with distal reconstitution but attenuated flow as compared to the right. Tandem stenoses in the right ENDS BREAKAGE CLERK in the range of 50-69% stenosis with one area of focally in the lower range of 70-90%. (5) Mild to moderate distal SBO on CTAP Recent Travel: denies PAST MEDICAL HISTORY: see hpi PAST SURGICAL HISTORY: see hpi Social History: Smoking: denies Alcohol: 30 years ago Drugs: denies Allergies No Known Allergies Allergy (Verified 06/08/20 13:41) HOME MEDICATIONS: Home Medications Medication Instructions Recorded Simvastatin [Zocor -] 40 mg PO HS #0 tablet 07/13/13 Multivitamins [Multivit ([facility] 1 tab PO DAILY 11/09/15 Formulary)] Polyethylene Glycol 3350 [Miralax 17 gm PO DAILY 11/09/15 119 gm Btl -] Psyllium Husk (with Sugar) 3.4 gm PO HS 11/09/15 [Metamucil Packet] Amlodipine Besylate 5 mg PO DAILY 10/29/18 Walker [Ultra-Light Rollator] 1 each ASDIR #1 each 11/08/18 Fenofibrate Nanocrystallized 160 mg PO DAILY 05/19/20 [Triglide] Metoprolol Succinate [Toprol Xl] 25 mg PO DAILY 05/19/20 Albuterol Sulfate Inhaler - 1 puff IH Q4H PRN inhaler 06/01/20 [Ventolin HFA Inhaler -] Amino Acids/Protein Hydrolys 30 ml PO BID@0800,1730 packet 06/01/20 [Prosource No Carb Liquid Pkt] REVIEW OF SYSTEMS CONSTITUTIONAL: Absent: fever, chills, diaphoresis, generalized weakness, malaise, loss of appetite, weight change CARDIOVASCULAR: Absent: chest pain, syncope, palpitations, irregular heart rate, lightheadedness, peripheral edema RESPIRATORY: Absent: cough, shortness of breath, dyspnea with exertion, orthopnea, wheezing, stridor, hemoptysis GASTROINTESTINAL: Absent: abdominal pain, abdominal distension, nausea, vomiting, diarrhea, constipation, melena, hematochezia PHYSICAL EXAMINATION Vital Signs - 24 hr 06/08/20 06/08/20 13:30 14:12 Temperature 97.9 F Pulse Rate 79 Pulse Rate [ 94 H Apical] Respiratory 18 16 Rate Blood Pressure 157/69 Blood Pressure 156/67 [Right Arm] O2 Sat by Pulse 99 99 Oximetry (%) GENERAL: Awake, alert, and fully oriented, in no acute distress. EYES: PERRLA - no focal deficits LUNGS: Breath sounds equal, clear to auscultation bilaterally. No wheezes, and no crackles. No accessory muscle use. HEART: Regular rate and rhythm, normal S1 and S2 without murmur, rub or gallop. ABDOMEN: Soft, nontender, not distended, normoactive bowel sounds, no guarding, no rebound, no masses. No hepatomegaly or splenomegaly. MUSCULOSKELETAL: RIGHT SIDED WEAKNESS 3/5, DECREASED SENSATION ON R SIDE, RIGHT SIDED FACIAL DROOP, SLURRING, R SIDED TONGUE DEVIATION, R SIDED UVULA DEVIATION UPPER EXTREMITIES: 2+ pulses, warm, well-perfused. No cyanosis. No clubbing. No peripheral edema. LOWER EXTREMITIES: 2+ pulses, warm, well-perfused. No calf tenderness. No peripheral edema. Laboratory Results - last 24 hr 06/08/20 06/08/20 06/08/20 13:36 13:40 13:40 WBC 17.8 H RBC 3.56 L Hgb 8.7 L Hct 28.5 L MCV 80.0 MCH 24.5 L MCHC 30.7 L RDW 15.9 Plt Count 398 MPV 10.1 Absolute Neuts (auto) 14.1 H Neutrophils % 79.2 Lymphocytes % 9.6 Monocytes % 7.0 Eosinophils % 3.7 Basophils % 0.5 Nucleated RBC % 0 PT with INR 15.50 H INR 1.31 H PTT (Actin FS) 31.2 Sodium Potassium Chloride Carbon Dioxide Anion Gap BUN Creatinine Est GFR (CKD-EPI)AfAm Est GFR (CKD-EPI)NonAf POC Glucometer 115 Random Glucose Calcium Total Bilirubin AST ALT Alkaline Phosphatase Creatine Kinase Troponin I Total Protein Albumin Triglycerides Cholesterol Total LDL Cholesterol HDL Cholesterol Urine Color Urine Appearance Urine pH Ur Specific Pryor Urine Protein Urine Glucose (UA) Urine Ketones Urine Blood Urine Nitrite Urine Bilirubin Urine Urobilinogen Ur Leukocyte Esterase Urine WBC (Auto) Urine Casts (Auto) U Epithel Cells (Auto) Urine Bacteria (Auto) Blood Type Antibody Screen 06/08/20 06/08/20 06/08/20 13:40 13:40 16:18 WBC RBC Hgb Hct MCV MCH MCHC RDW Plt Count MPV Absolute Neuts (auto) Neutrophils % Lymphocytes % Monocytes % Eosinophils % Basophils % Nucleated RBC % PT with INR INR PTT (Actin FS) Sodium 141 Potassium 4.2 Chloride 109 H Carbon Dioxide 25 Anion Gap 7 L BUN 17.8 Creatinine 0.5 L Est GFR (CKD-EPI)AfAm 114.53 Est GFR (CKD-EPI)NonAf 98.81 POC Glucometer Random Glucose 111 H Calcium 8.1 L Total Bilirubin 0.3 AST 28 ALT 22 Alkaline Phosphatase 100 Creatine Kinase 25 L Troponin I 0.02 Total Protein 5.7 L Albumin 1.7 L Triglycerides 105 Cholesterol 95 Total LDL Cholesterol 55 HDL Cholesterol 25 L Urine Color Red Urine Appearance Turbid Urine pH 7.0 Ur Specific Pryor 1.019 Urine Protein 2+ H Urine Glucose (UA) Negative Urine Ketones Negative Urine Blood 3+ H Urine Nitrite Negative Urine Bilirubin 1+ H Urine Urobilinogen 1.0 Ur Leukocyte Esterase 3+ H Urine WBC (Auto) 2230 Urine Casts (Auto) 22 U Epithel Cells (Auto) 12 Urine Bacteria (Auto) 20 Blood Type A NEGATIVE Antibody Screen Negative ASSESSMENT/PLAN: Mr. Trammell is an 85M w a PMH of diverticulitis, colon lesions, prostate CA s/p radiation therapy, s/p suprapubic batres & s/p urethral batres draining hematuria, seed implants, HTN, hypercholesterolemia, and sciatica presented to ED with his daughter from [facility] for a new sudden onset right-sided hand wea kness during lunch at 11am. #CVA - cta head - Short segmental occlusions of the distal A2 segment of the left GLENROY as described above with distal reconstitution but attenuated flow as compared to the right. Tandem stenoses in the right ENDS BREAKAGE CLERK in the range of 50-69% stenosis with one area of focally in the lower range of 70-90%. - neurology consult - Dr. Alejo Vargas - Speech and swallow consult placed - admit to tele - Brain MRI f/u - IVF 75 mls/h - Pt/INR - Lipid profile - asa 81 - statin- simvistatin 40mg daily - ECHO f/u # Prostate cancer s/p seeding - supra pubic catheter - cohng hematuria - batres catheter - draining chong hematuria - follows with Dr. Lopez #leukocytosis - WBC 17.8 - Zosyn 3.375 continued - Consult ID Dr. Carter #[id number] - NPO #DVT - SCD Family Medical History Family History: Unable to Obtain Visit type - Medication Review Med list reviewed for High Risk Meds patients 65 and older: Yes - Emergency Visit Emergency Visit: Yes ED Registration Date: 06/08/20 Care time: The patient presented to the Emergency Department on the above date and was hospitalized for further evaluation of their emergent condition. - New Patient This patient is new to me today: Yes Date on this admission: 06/08/20 - Critical Care Critical Care patient: No ATTENDING PHYSICIAN STATEMENT I saw and evaluated the patient. I reviewed the resident's note and discussed the case with the resident. I agree with the resident's findings and plan as documented. SUBJECTIVE: OBJECTIVE: ASSESSMENT AND PLAN:
[2020-06-08 18:05] LABS: URINE RBC 31819.8 /uL (0-23.9)
--- NOTE | 2020-06-08 18:52 | PN ---
Teaching Attending Note Name of Resident: Mariano Baez ATTENDING PHYSICIAN STATEMENT I saw and evaluated the patient. I reviewed the resident's note and discussed the case with the resident. I agree with the resident's findings and plan as documented. SUBJECTIVE: OBJECTIVE: ASSESSMENT AND PLAN: Patient was seen and evaluated. 85 year old male with a PMHx notable for diverticulitis, colon lesions, prostate CA s/p radiation therapy, s/p suprapubic batres & s/p urethral batres draining hematuria, seed implants, HTN, hypercholesterolemia, and sciatica who presents to ED for sudden onset right-sided hand weakness. PLAN # Rule out TIA vs CVA - CTA noted with stenosis - Agree with stroke work up: MRI brain, carotid US, 2D ECHO, speech therapy eval - Daily ASA/statin - Neurology consult - Neuro checks
[2020-06-08] MEDS: SODIUM CHLORIDE 1,000 ML IV SCH (20:50)
--- NOTE | 2020-06-08 21:07 | CONSULT ---
Consult - text type - Consultation Consultation Note: NEUROLOGY CONSULTATION is greatly appreciated: Events reviewed and discussed with Dr. Sahni in ED. This 85 yo RH m man with h/o Prostatic CA treated with RT now has invasive bladder Ca and is s/p Suprapubic catheter. Currently at [facility]. Maintained on: Simvastatin; Amlodipine Besylate; Fenofibrate; Metoprolol; Albuterol Sulfate Inhaler. Now admitted with slurred speech, right sided weakness and hematuria. CT of head: Mild atrophy and microvascular changes CT Angio: Multiple intracranial stenosis and Left GLENROY occlusion WBC= 17.8 K; Urine WBC= 2230. Now on Zosyn CURLY: No bruits. Cor reg. Abdominal altagracia. Suprapubic with hematuria NEURO: Awake but lethargic. Ox 3 Dysarthric speech Masked facies. Full canela. Right facial droop. Diminished gag and tongue DENISSE's Motor: Right drift. Right leg rests everted. Mild right hemipareis (4/5, arm=leg). Normal reflexes except decreased KJ's. Right Babinski. Cogwheel rigidity and decreased DENISSE's left arm. Coord: No obvious dystaxia Sensory: Normal IMP: 1. acute left cerebral dysfunction with right hemioparesis c/w CVA 2. 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 Toxic-metabolic encephalopathy due to infection (UTI/urosepsis) SUGGEST: Continue antibiotics and hydration Maintain NPO for now. Speech and swallowing Eval and Rx. R/O hypercoaguable state associated with cancer. Continue telemetry. Cardiology consultation. Determine if altagracia are ferromagnetic for MRI tomorrow. Otherwise repeat CT in 24-48 hrs Thank you very much, Alejo Vargas MD
[2020-06-08] MEDS: ATORVASTATIN CA 20 MG TABLET (FP) PO SCH (22:09)
[2020-06-09] MEDS ORDERED: PIPERACILLIN/TAZOBACTAM 3.375 GM VIAL IVPB ONE ×3 (01:17→18:10)
[2020-06-09] MEDS ORDERED: DEXTROSE 5%-WATER - 50 ML IVPB ONE ×3 (01:17→18:10)
[2020-06-09] MEDS ORDERED: PIPERACILLIN/TAZOB 3.375 GM 3.375 GM in DEXTROSE 5%-WATER - 50 ML IVPB ONE (02:00)
[2020-06-09 06:58] LABS: BASO % 1.7 % (0-2.0); EOS % 5.1 % (0-4.5); HEMATOCRIT 26.4 % (35.4-49); HEMOGLOBIN 8.3 GM/dL (11.7-16.9); LYMPH % 8.3 % (8-40); MCH 25.5 pg (25.7-33.7); MCHC 31.6 g/dl (32.0-35.9); MEAN CELL VOLUME 80.8 fl (80-96); MEAN PLT VOLUME 10.9 fl (7.5-11.1); MONO % 7.1 % (3.8-10.2); NEUT % 77.8 % (42.8-82.8); PLATELET COUNT 332 K/MM3 (134-434); RBC 3.26 M/mm3 (4.00-5.60); WHITE BLOOD COUNT 16.5 K/mm3 (4.0-10.0)
[2020-06-09 07:03] LABS: INR 1.42 (0.83-1.09); PROTHROMBIN TIME (PATIENT) 16.8 SEC (9.7-13.0)
[2020-06-09 07:28] LABS: ALBUMIN 1.5 g/dl (3.4-5.0); BILIRUBIN,TOTAL 0.4 mg/dL (0.2-1); BLOOD UREA NITROGEN 15.4 mg/dL (7-18); CALCIUM 7.8 mg/dL (8.5-10.1); CREATININE 0.5 mg/dL (0.55-1.3); MAGNESIUM 2.2 mg/dL (1.8-2.4); PHOSPHOROUS 3.6 mg/dL (2.5-4.9); POTASSIUM 3.9 mmol/L (3.5-5.1); TOT PROT 5.1 g/dl (6.4-8.2)
--- NOTE | 2020-06-09 09:24 | CONSULT ---
Admitting History and Physical - Primary Care Physician PCP: Hillary Barth - Admission History of Present Illness: 85 yo RH m man with h/o Prostatic CA treated with RT now has invasive bladder Ca and is s/p Suprapubic catheter,admitted from [facility] with slurred speech, right sided weakness and hematuria. Neurology IMP: Dysarthric speech Masked facies. Full canela. Right facial droop. Diminished gag and tongue DENISSE's Motor: Right drift. Right leg rests everted. Mild right hemipareis (4/5, arm=leg). Normal reflexes except decreased KJ's. Right Babinski. Cogwheel rigidity and decreased DENISSE's left arm. Coord: No obvious dystaxia Sensory: Normal 1. acute left cerebral dysfunction with right hemioparesis c/w CVA 2. 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 Toxic-metabolic encephalopathy due to infection (UTI/urosepsis) Failed Dysphagia screen. NPO Selected Entries 06/08/20 06/08/20 06/08/20 13:30 14:08 14:12 Temperature Pulse Rate Blood Pressure O2 Sat by Pulse 99 99 Oximetry (%) Oxygen Delivery Nasal Cannula Nasal Cannula Method 06/08/20 06/08/20 06/09/20 19:30 21:00 02:00 Temperature 98.3 F Pulse Rate 86 Blood Pressure 152/64 O2 Sat by Pulse 99 98 Oximetry (%) Oxygen Delivery Nasal Cannula Nasal Cannula Method 06/09/20 06/09/20 06:00 08:20 Temperature 98.1 F 98.5 F Pulse Rate 76 81 Blood Pressure 138/58 L 136/59 L O2 Sat by Pulse Oximetry (%) Oxygen Delivery Method Laboratory Tests 06/08/20 06/08/20 06/09/20 13:40 13:40 05:25 WBC 17.8 H 16.5 H COVID-19 ([place]) Pending Recent [facility] admission, April 2020, MBS performed Was on chopped diet/thin liquids with good tolerance and appetite History Source: Patient, Medical Record Limitations to Obtaining History: Clinical Condition - Past Medical History Cardiovascular: Yes: CAD, HTN, Hyperlipdemia Gastrointestinal: Yes: Hemorrhoids Renal/: Yes: Cancer (bladder ca s/p radiation,implanted seed, 07/02) - Past Surgical History Past Surgical History: Yes: Hernia Repair, Tonsillectomy - Smoking History Smoking history: Never smoked Have you smoked in the past 12 months: No Aproximately how many cigarettes per day: 0 - Alcohol/Substance Use Hx Alcohol Use: No History of Substance Use: reports: None - Social History ADL: Independent 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 History of Recent Travel: No History - Admission Reason For Visit: URINARY TRACT INFECTION MALIGNANT NEOPLASM OF PROS - Diagnostics CT Scan: Report Reviewed (CT of head: Mild atrophy and microvascular changes CT Angio: Multiple intracranial stenosis and Left GLENROY occlusion) - General Mental Status: Alert and Oriented, Awake and Alert, Able to Follow Commands Attention: Intact Ability to Follow Directions: Good Head/Neck Control: Good - Hearing Hearing: Impaired (suspected, mild?) Hearing: Normal Hearing Aide: No Speech Evaluation - Communication Primary Language: THAI Communication: Yes: Dysarthria Oral Expression Ability: Yes: Mild Impairment - Speech Production Dysarthria: Yes: Hypokinetic Apraxia: No Able to Make Needs Known: Yes: Mildly Impaired Intelligibility: Yes: Mildly Impaired - Speech Characteristics Voice Loudness: Mildly Soft/Quiet, Moderately Soft/Quiet Voice Pitch: Yes: Normal Voice Phonatory-based Quality: Yes: Normal Speech Clarity: < 75% Nasal Resonance: Normal Articulation: Yes: Precise, Imprecise (mild) Voice, Other Observations: Yes: Progressively Weak Voice, Inadequate Breath Support - Language/Auditory Comprehension Observation: Able to respond to yes/no queries: Yes, Yes/No Confusion: No, Comprehends Conversational Speech: Yes - Language/Verbal Expression Able to Respond to Simple Queries: Yes: WNL Able to Communicate Wants and Needs: Yes: Mildly Impaired Functional Communication Status: Yes: Mildly Impaired - Swallow Evaluation/Bedside Assessment Current Nutritional Intake: NPO Oral Secretions: Yes: WFL Dentition: Yes: Adequate Facial Symmetry at Rest: Symmetrical Facial Symmetry on Retraction: Symmetrical Against Resistance Opening: Weak Against Resistance Closing: Weak Pucker Lips: Droops Right Smile: Droops Right Lingual Movement: Symmetric Lingual Speed of Movement: Reduced Lingual Movement Strgth Against Opposition: Reduced Laryngeal Elevation: Impaired Laryngeal Movement: Reduced Excursion, Labored,delay initiation, Reduced Velocity Rate of Intake: Slow/Holding Bolus Size: WFL Labial Seal: Impaired Right (occasionally anterior spillage) Chewing: Impaired Oral Prep Time: Increased A-P Transit: Impaired Timing of Swallow: Delayed Coughing/Throat Clear: No (ok with nectar. cough with thin) Change in Voice: No Recommendations - Speech Evaluation, Impression/Plan Impression: Verbal, low volume, flat affect, monotonous speech. Right facial with acute stroke. Delayed swallow onset with aspiration on thin liquid. Overtly tolerates puree with single sips of nectar thick. Aspiration risk - Disposition Discharge to: Rehabilitation Center, Jail Facility - Dysphagia Impressions/Plan Swallowing Skills: Impaired Dysphagia Impressions: Mild Impairment, Moderate Impairment, Risk of Aspiration (nectar), Suspect Aspiration (thin) *Silent aspiration: cannot be R/O at bedside Dysphagia Treatment Plan: Small Bites, Chin Tuck/Down, Clear Pocket Food, Trial Feedings, Safe Rate, 1/2 tsp. at a time, Elevate HOB during feed, Other (double hard, effortful swallows encouraged to improve clearance) Recommendations: Modified Barium Swallow (to r/o aspiration/stasis, upgrade diet as pt recovers) - Recommendations Diet Consistency: Dysphagia Pureed Medication Administration: Crushed with applesauce Liquids: [place] Thick
--- NOTE | 2020-06-09 11:25 | PN ---
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 (short form) - Note 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: ID CONSULT DICTATED LEUKOCYTOSIS SUSPECT LEUKEMOID RXN R/O SEPSIS SECONDARY TO SOURCE AWAIT C/S CONTINUE ZOSYN
--- NOTE | 2020-06-09 12:18 | PN ---
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, Physician Chief Complaint: AMS UTI Sepsis Metabolic encephalopathy SBO Pneumonia Hematuria History of Present Illness: NAD AxO x 3 Right hemiparesis Denies any pain Seen by Neurology for possible CVA CT head negative Just had BM - Current Medication List Current Medications: Active Medications Atorvastatin Calcium (Lipitor -) 20 mg PO HS SHELLIE Last Admin: 06/08/20 22:09 Dose: Not Given Documented by: Sodium Chloride (Normal Saline -) 1,000 mls @ 75 mls/hr IV ASDIR SHELLIE Last Admin: 06/08/20 20:50 Dose: 75 mls/hr Documented by: Piperacillin Sod/Tazobactam (Sod 3.375 gm/ Dextrose) 50 mls @ 100 mls/hr IVPB Q8H-IV SHELLIE; Protocol Insulin Aspart (Novolog Vial Sliding Scale -) 1 vial SQ ACHS SHELLIE; Protocol - Objective Vital Signs: Vital Signs Temperature 98.5 F 06/09/20 08:20 Pulse Rate 81 06/09/20 08:20 Respiratory Rate 18 06/09/20 08:20 Blood Pressure 136/59 L 06/09/20 08:20 O2 Sat by Pulse Oximetry (%) 98 06/08/20 21:00 Constitutional: Yes: Well Nourished, No Distress, Calm Cardiovascular: Yes: Regular Rate and Rhythm Respiratory: Yes: Regular, Diminished, On Nasal O2 Gastrointestinal: Yes: Soft, Hypoactive Bowel Sounds, Other (Mid abdominal altagracia) Genitourinary: Yes: Galindo Present, Hematuria Musculoskeletal: Yes: Muscle Weakness Extremities: Yes: Other (generalized atrophy) Edema: No Peripheral Pulses WNL: Yes Neurological: Yes: Alert, Oriented Psychiatric: Yes: Alert, Oriented Labs: CBC, BMP 06/09/20 05:25 06/09/20 05:25 INR, PTT INR 1.42 (0.83-1.09) H 06/09/20 05:25 Problem List - Problems (1) Metabolic encephalopathy Assessment/Plan: -Resolved -ID on board -afebrile -2/2 to pne -CTAP:Bibasal consolidation and small to moderate bilateral pleural effusion are again partially included. -IV zosyn Problems reviewed: Yes Code(s): G93.41 - METABOLIC ENCEPHALOPATHY (2) Cerebrovascular accident (CVA) Assessment/Plan: -Seen by neurology -MRI without contrast -Has mid abd altagracia since 05/19- will remove them, once staple removal kit is available -Holding ASA + Plavix 2/2 to chong hematuria and further urology eval Problems reviewed: Yes Code(s): I63.9 - CEREBRAL INFARCTION, UNSPECIFIED (3) Prostate cancer Problems reviewed: Yes Code(s): C61 - MALIGNANT NEOPLASM OF PROSTATE (4) UTI (urinary tract infection) Assessment/Plan: -UA/UC -ID consult -Urology consult -Empiric IV abx Problems reviewed: Yes Code(s): N39.0 - URINARY TRACT INFECTION, SITE NOT SPECIFIED (5) SBO (small bowel obstruction) Assessment/Plan: -CTAP:Interval slight decrease in the degree of dilatation of the the small bowel loops since prior CT scan of the abdomen dated 05/22/2020 again suggestive of mid to distal small bowel obstruction/partial obstruction. Extensive diverticulosis coli mainly in the sigmoid colon without evidence of acute diverticulitis. Thickening of the anorectal junction wall. Presacral edema. Exophytic right mid renal lesion measuring 3.2 cm suspicious for a solid mass. Further evaluation with renal ultrasound is needed. Multiple bilateral parapelvic renal cysts are present, left more the right Galindo catheter and suprapubic cystostomy tube are present within an empty urinary bladder with suggestion of intraluminal filling defects that may represent blood clots. Cor relate clinically. Grade 1 anterolisthesis of L4 over L5, again seen -Just had BM -Trial of clear liquid diet -GI consult -Await Surgical consult -NGT if pt develops abd pain/N/V Problems reviewed: Yes Code(s): K56.609 - UNSP INTESTNL OBST, UNSP TO PARTIAL VERSUS COMPLETE OBST (6) SVT (supraventricular tachycardia) Assessment/Plan: -Cardiology consult -Likely benign Problems reviewed: Yes Code(s): I47.1 - SUPRAVENTRICULAR TACHYCARDIA (7) CAD (coronary artery disease) Assessment/Plan: -Continue statin -ASA + plavix if CVA confirmed on MRI + if hematuria resolves Problems reviewed: Yes Code(s): I25.10 - ATHSCL HEART DISEASE OF [place] CORONARY ARTERY W/O ANG PCTRS Qualifiers: Coronary Disease-Associated Artery/Lesion type: [place] artery [place] vs. transplanted heart: [place] heart Associated angina: without angina Qualified Code(s): I25.10 - Atherosclerotic heart disease of [place] coronary artery without angina pectoris (8) Anemia Assessment/Plan: -2/2 to acute blood loss -Unable to give IV iron until BC is resulted -Would start Ferrous sulfate 1 tab po bid -Monitor daily H/H -Transfuse only if Hg<7.0 to avoid fluid overload -Hold ASA + Plavix in light of acute bleeding -Urology eval pending Problems reviewed: Yes Code(s): D64.9 - ANEMIA, UNSPECIFIED Assessment/Plan See problem list
[2020-06-09] MEDS: PIPERACILLIN/TAZOB 3.375 GM 3.375 GM in DEXTROSE 5%-WATER - 50 ML IVPB SCH ×2 (12:30→18:23)
--- NOTE | 2020-06-09 12:51 | CONS ---
DATE OF CONSULTATION: DATE OF DICTATION: 06/09/2020 INFECTIOUS DISEASE CONSULTATION The patient is an 85-year-old male with a history of bladder cancer status post perforated bladder with subsequent placement of suprapubic catheter now evaluated for leukocytosis. The patient was admitted from the long-term on June 08, 2020, with right-sided weakness. He was seen in consultation by neurology whose impression was acute left cerebral dysfunction and right hemiparesis consistent with CVA. His course has been notable for elevated white blood cell count and persistent gross hematuria. The patient is awake and alert. He offers no complaints. He denies any suprapubic or flank pain. No complaints of fever or chills. On admission, he was noted to have an elevated white blood cell count. Of note, it appears that his white blood cell count has been chronically elevated, dating back to May 18, 2020. He was hospitalized from May 18 through June 01, 2020. At that time, he was diagnosed with urothelial carcinoma, poorly differentiated. PAST MEDICAL HISTORY: Positive for recent diagnosis of urothelial carcinoma, history of bladder perforation status post suprapubic catheter, hypertension, coronary artery disease, hyperlipidemia, diverticulosis. ALLERGIES: No known allergies. MEDICATIONS: At the present time, include Zosyn, Lipitor, aspirin. SOCIAL HISTORY: Resides in a [facility] facility. No active tobacco or alcohol use. SYSTEM REVIEW: Neurologic: Positive for parkinsonism and now stroke. Cardiac: Negative chest pain or palpitations. Respiratory: Negative cough or sputum production. Gastrointestinal: Possible partial small bowel obstruction. Genitourinary: As per HPI. LABORATORY DATA: White count 17.8 and 79% neutrophils, 9 lymphocytes, 7 monocytes, 3 eosinophils, hematocrit 26.4, platelet count 332. Creatinine 0.5. Liver enzymes normal. Urinalysis 2230 white cells, 31,000 red cells. Blood and urine cultures are pending. CHEST X-RAY: Negative. CAT SCAN OF THE ABDOMEN AND PELVIS: Shows dilatation of the small bowel loops previously seen on a CAT scan dated May 22, 2020, suggestive of [id number] small bowel obstruction, or partial obstruction. PHYSICAL EXAMINATION: General: He is seated in bed in no acute distress. Vital Signs: Temperature 98.5, blood pressure 136/59, pulse 81 regular, respirations 18 per minute. Eyes: Sclerae anicteric. Heart: Sounds S1, S2. Lungs: Clear. Abdomen: Soft. Suprapubic catheter in place. No tenderness elicited. Extremities: Negative for edema. IMPRESSION: 1. Leukocytosis, suspect leukemoid reaction secondary to carcinoma. 2. Sepsis secondary to genitourinary source. 3. Cerebrovascular accident. 4. Parkinsonism. 5. Possible partial small bowel obstruction. RECOMMENDATIONS: Await cultures. Continue empiric Zosyn for possible hospital-acquired urinary tract pathogens. Further recommendations pending culture results. Will follow. Thank you for the kind referral. BRITTANI PEARCE M.D. [id number]
--- NOTE | 2020-06-09 13:26 | CON.GI ---
Consult Consult Specialty:: GI Referred by:: MATT Tello Reason for Consultation:: dilated bowel loops on CT scan - History of Present Illness Chief Complaint: right sided weakness History of Present Illness: 85M admitted from [place] through ER for evaluation of right sided weakness. Being treated for acute CVA. A CT scan of the A/P was performed (as per the CT report it was because he had a leukocytosis and recent surgery). It revealed decreased size in dilated small bowel loops when compared to a previous study. As you re callm, Mr. Trammell had been recently admitted for change of his suprapubic catheter, had a cytoscopy with ruptured bladder and underwent emergency repair. He then subsequently developed partial SBO vs. ileus. He had NGT in place and was followed by surgery. The NHT was removed. He currently denies abdominal pain, N/V. He believes that he has been having bowel movements. Last had colonoscopy [address] Lisa that led to the removal of an ascending colon tubular adenoma. It also revealed severe distal colon diverticulosis. No family history of colon cancer - History Source History Provided By: Patient, Medical Record - Past Medical History Cardio/Vascular: Yes: CAD, HTN, Hyperlipdemia Gastrointestinal: Yes: Hemorrhoids Renal/: Yes: Cancer (bladder ca s/p radiation,implanted seed, 07/02) - Past Surgical History Past Surgical History: Yes: Hernia Repair, Tonsillectomy - Alcohol/Substance Use Hx Alcohol Use: No History of Substance Use: reports: None - Smoking History Smoking history: Never smoked Have you smoked in the past 12 months: No Aproximately how many cigarettes per day: 0 - Social History Usual Living Arrangement: With Spouse ADL: Independent 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 History of Recent Travel: No Home Medications - Allergies Allergies/Adverse Reactions: Allergies Allergy/AdvReac Type Severity Reaction Status Date / Time No Known Allergies Allergy Verified 06/08/20 13:41 - Home Medications Home Medications: Ambulatory Orders Simvastatin [Zocor -] 40 mg PO HS #0 tablet 07/13/13 Multivitamins [Multivit ([facility] Formulary)] 1 tab PO DAILY 11/09/15 Polyethylene Glycol 3350 [Miralax 119 gm Btl -] 17 gm PO DAILY 11/09/15 Psyllium Husk (with Sugar) [Metamucil Packet] 3.4 gm PO HS 11/09/15 Amlodipine Besylate 5 mg PO DAILY 10/29/18 Walker [Ultra-Light Rollator] 1 each ASDIR #1 each 11/08/18 Fenofibrate Nanocrystallized [Triglide] 160 mg PO DAILY 05/19/20 Metoprolol Succinate [Toprol Xl] 25 mg PO DAILY 05/19/20 Albuterol Sulfate Inhaler - [Ventolin HFA Inhaler -] 1 puff IH Q4H PRN inhaler 06/01/20 Amino Acids/Protein Hydrolys [Prosource No Carb Liquid Pkt] 30 ml PO BID@0800,1730 packet 06/01/20 Family Medical History Other Family History: Family Hx Cancer: Father (prostate). Family Hx Cardiac Disorders: Mother, Brother (9 brothers, , some with heart ptoblems 3 , sisters, : heart problemns) Review of Systems - Review of Systems Constitutional: reports: Weakness. denies: Chills Cardiovascular: denies: Chest Pain Gastrointestinal: denies: Abdominal Pain, Bloating, Constipation, Diarrhea, Dysphagia, Rectal Bleeding, Vomiting, Vomiting Blood Neurological: reports: Weakness Physical Exam-GI Vital Signs: Vital Signs Temperature 98.5 F 06/09/20 08:20 Pulse Rate 81 06/09/20 08:20 Respiratory Rate 18 06/09/20 08:20 Blood Pressure 136/59 L 06/09/20 08:20 O2 Sat by Pulse Oximetry (%) 98 06/08/20 21:00 Constitutional: Yes: Calm Eyes: No: Sclera Icterus Cardiovascular: Yes: Regular Rate and Rhythm. No: Murmur Respiratory: Yes: Diminished (At bases bilaterally) Gastrointestinal Inspection: Yes: Other (altagracia in place along pelvic suture site.). No: Distention ...Auscultate: Yes: Normoactive Bowel Sounds ...Palpate: Yes: Soft, Tenderness (Mild suprapubic TTP, otherwise non-tender) ...Percussion: No: Tympanitic Edema: No (No LE edema) Neurological: Yes: Alert Labs: CBC, BMP 06/09/20 05:25 06/09/20 05:25 INR, PTT INR 1.42 (0.83-1.09) H 06/09/20 05:25 Imaging - Results Cat Scan: Report Reviewed, Image Reviewed Problem List - Problems (1) Abnormal CT of the abdomen Assessment/Plan: Suspect residual small bowel dilation following recent admission that led to need for emergent bladder repair with subsequent ileus vs. SBO. No clinical signs of SBO currently Advise: Urology consult Surgical consult to give opinion regarding this finding When acute issues are resolved, can discuss colonoscopy as outpatient given h/o colon polyps and question of thicklened rectosigmoid junction on recent CT scan Being evaluated for acute CVA Recall GI as needed Code(s): R93.5 - ABN FINDINGS ON DX [facility]ING [facility]
--- NOTE | 2020-06-09 15:44 | EKG ---
Test Reason : Blood Pressure : / mmHG Vent. Rate : 083 BPM Atrial Rate : 083 BPM P-R Int : 158 ms QRS Dur : 098 ms QT Int : 388 ms P-R-T Axes : 024 -28 019 degrees QTc Int : 455 ms SINUS RHYTHM WITH PREMATURE ATRIAL COMPLEXES OTHERWISE NORMAL ECG WHEN COMPARED WITH ECG OF 08-JUN-2020 14:02, NO SIGNIFICANT CHANGE WAS FOUND Confirmed by COLLEEN ESTRELLA MD ([id number]) on 06/09/2020 3:44:19 PM Referred By: Confirmed By:COLLEEN ESTRELLA MD
--- NOTE | 2020-06-09 16:20 | ECHO ---
Name: GENARO USHA Exam:Adult Echocardiogram Study Date: 06/09/2020 01:35 PM Age: 85 yrs Reason For Study: CVA Height: 73 in Weight: 190 lb BSA: 2.1 m2 MMode/2D Measurements & Calculations IVSd: 1.4 cm Ao root diam: 3.5 cm LVIDd: 3.4 cm LA dimension: 4.2 cm LVIDs: 2.2 cm ACS: 1.8 cm LVPWd: 1.4 cm LVPWs: 1.0 cm EDV(Teich): 47.1 ml ESV(Teich): 15.9 ml LVOT diam: 2.2 cm RV S Alfa: 21.9 cm/sec Doppler Measurements & Calculations MV V2 max: 115.4 cm/sec MV E max alfa: 75.5 cm/sec MV max P.3 mmHg MV A max alfa: 120.9 cm/sec MV V2 mean: 76.1 cm/sec MV E/A: 0.62 MV mean P.6 mmHg MV V2 VTI: 25.7 cm MV P1/2t max alfa: 75.5 cm/sec Ao V2 max: 148.6 cm/sec MV P1/2t: 66.9 msec Ao max P.9 mmHg MVA(P1/2t): 3.3 cm2 PHU(V,D): 3.0 cm2 MV dec slope: 330.7 cm/sec2 LV V1 max P.8 mmHg TR max alfa: 221.3 cm/sec LV V1 max: 120.4 cm/sec TR max P.6 mmHg PA V2 max: 123.5 cm/sec Med Peak E' Alfa: 7.6 cm/sec PA max P.1 mmHg Med E/e': 10.0 Lat Peak E' Alfa: 11.8 cm/sec Lat E/e': 6.4 Tech Comments Technically difficult study. Procedure A complete two-dimensional transthoracic echocardiogram was performed (2D, M-mode, Doppler and color flow Doppler). Left Ventricle The left ventricular size, thickness and function are normal. Ejection Fraction = 60-65%. The left ve ntricular wall motion is normal. Right Ventricle The right ventricle is normal in size and function. Atria Normal left and right atrial size and function. Mitral Valve There is no mitral regurgitation noted. Tricuspid Valve There is trace tricuspid regurgitation. There was insufficient TR detected to calculate RV systolic p ressure. Aortic Valve No hemodynamically significant valvular aortic stenosis. No aortic regurgitation is present. Pulmonic Valve There is no pulmonic valvular regurgitation. Great Vessels The aortic root is normal size. Pericardium/Pleura There is no pericardial effusion. Interpretation Summary The left ventricular size, thickness and function are normal The right ventricle is normal in size and function. There is trace tricuspid regurgitation. MD Ced Landaverde 06/09/2020 04:19 PM
[2020-06-09] MEDS: SODIUM CHLORIDE 1,000 ML IV SCH (16:25)
--- NOTE | 2020-06-09 17:22 | CON.CARD ---
Cardiology Consult (text) - Consultation Consultation Note: cc: facial droop, slurred speech, right side weak hpi: 85 m hx htn,hld, prostate ca s/p xrt/seeds, here with facial droop, slurred speech, right side weakness. Found to have cva. No cp sob palps dizzy loc pnd orthopnea le edema. pmh: per hpi psh: hernia social: no tob fam: no premature cad ros: per hpi;all others nl meds: Home Medications Medication Instructions Recorded Simvastatin [Zocor -] 40 mg PO HS #0 tablet 07/13/13 Multivitamins [Multivit ([facility] 1 tab PO DAILY 11/09/15 Formulary)] Polyethylene Glycol 3350 [Miralax 17 gm PO DAILY 11/09/15 119 gm Btl -] Psyllium Husk (with Sugar) 3.4 gm PO HS 11/09/15 [Metamucil Packet] Amlodipine Besylate 5 mg PO DAILY 10/29/18 Walker [Ultra-Light Rollator] 1 each ASDIR #1 each 11/08/18 Fenofibrate Nanocrystallized 160 mg PO DAILY 05/19/20 [Triglide] Metoprolol Succinate [Toprol Xl] 25 mg PO DAILY 05/19/20 Albuterol Sulfate Inhaler - 1 puff IH Q4H PRN inhaler 06/01/20 [Ventolin HFA Inhaler -] Amino Acids/Protein Hydrolys 30 ml PO BID@0800,1730 packet 06/01/20 [Prosource No Carb Liquid Pkt] Vital Signs Period Temp Pulse Resp BP Sys/Donald Pulse Ox Last 24 Hr 98.1 F-98.5 F 76-89 18-22 136-154/58-65 97-99 nad no jvd rrr s1s2 no mrg cta bl nl eff aaox3 no le e/c/c abd nt nd pos bs no jaundice diaphoresis pos dp pt no carotid bruits Laboratory Last Values WBC 16.5 K/mm3 (4.0-10.0) H 06/09/20 05:25 RBC 3.26 M/mm3 (4.00-5.60) L 06/09/20 05:25 Hgb 8.3 GM/dL (11.7-16.9) L 06/09/20 05:25 Hct 26.4 % (35.4-49) L 06/09/20 05:25 MCV 80.8 fl (80-96) 06/09/20 05:25 MCH 25.5 pg (25.7-33.7) L 06/09/20 05:25 MCHC 31.6 g/dl (32.0-35.9) L 06/09/20 05:25 RDW 16.0 % (11.9-15.9) H 06/09/20 05:25 Plt Count 332 K/MM3 (134-434) 06/09/20 05:25 MPV 10.9 fl (7.5-11.1) 06/09/20 05:25 Absolute Neuts (auto) 12.8 K/mm3 (1.5-8.0) H 06/09/20 05:25 Neutrophils % 77.8 % (42.8-82.8) 06/09/20 05:25 Lymphocytes % 8.3 % (8-40) 06/09/20 05:25 Monocytes % 7.1 % (3.8-10.2) 06/09/20 05:25 Eosinophils % 5.1 % (0-4.5) H 06/09/20 05:25 Basophils % 1.7 % (0-2.0) D 06/09/20 05:25 Nucleated RBC % 0 % (0-0) 06/09/20 05:25 PT with INR 16.80 SEC (9.7-13.0) H 06/09/20 05:25 INR 1.42 (0.83-1.09) H 06/09/20 05:25 PTT (Actin FS) 31.2 SECONDS (25.2-36.5) 06/08/20 13:40 Sodium 142 mmol/L (136-145) 06/09/20 05:25 Potassium 3.9 mmol/L (3.5-5.1) 06/09/20 05:25 Chloride 111 mmol/L (98-107) H 06/09/20 05:25 Carbon Dioxide 22 mmol/L (21-32) 06/09/20 05:25 Anion Gap 9 MMOL/L (8-16) 06/09/20 05:25 BUN 15.4 mg/dL (7-18) 06/09/20 05:25 Creatinine 0.5 mg/dL (0.55-1.3) L 06/09/20 05:25 Est GFR (CKD-EPI)AfAm 114.53 06/09/20 05:25 Est GFR (CKD-EPI)NonAf 98.81 06/09/20 05:25 POC Glucometer 93 UNITS (80-120) 06/09/20 06:48 Random Glucose 87 mg/dL (74-106) 06/09/20 05:25 Calcium 7.8 mg/dL (8.5-10.1) L 06/09/20 05:25 Phosphorus 3.6 mg/dL (2.5-4.9) 06/09/20 05:25 Magnesium 2.2 mg/dL (1.8-2.4) 06/09/20 05:25 Total Bilirubin 0.4 mg/dL (0.2-1) 06/09/20 05:25 AST 25 U/L (15-37) 06/09/20 05:25 ALT 16 U/L (13-61) 06/09/20 05:25 Alkaline Phosphatase 86 U/L (45-117) 06/09/20 05:25 Creatine Kinase 25 U/L (26-308) L 06/08/20 13:40 Troponin I < 0.02 ng/ml (0.00-0.05) 06/08/20 19:35 Total Protein 5.1 g/dl (6.4-8.2) L 06/09/20 05:25 Albumin 1.5 g/dl (3.4-5.0) L 06/09/20 05:25 Triglycerides 85 mg/dL (0-150) 06/09/20 05:25 Cholesterol 83 mg/dL (50-200) 06/09/20 05:25 Total LDL Cholesterol 52 mg/dL (5-100) 06/09/20 05:25 HDL Cholesterol 23 mg/dL (40-60) L 06/09/20 05:25 Urine Color Red 06/08/20 16:18 Urine Appearance Turbid 06/08/20 16:18 Urine pH 7.0 (5.0-8.0) 06/08/20 16:18 Ur Specific [place] 1.019 (1.010-1.035) 06/08/20 16:18 Urine Protein 2+ (NEGATIVE) H 06/08/20 16:18 Urine Glucose (UA) Negative (NEGATIVE) 06/08/20 16:18 Urine Ketones Negative (NEGATIVE) 06/08/20 16:18 Urine Blood 3+ (NEGATIVE) H 06/08/20 16:18 Urine Nitrite Negative (NEGATIVE) 06/08/20 16:18 Urine Bilirubin 1+ (NEGATIVE) H 06/08/20 16:18 Urine Urobilinogen 1.0 mg/dL (0.2-1.0) 06/08/20 16:18 Ur Leukocyte Esterase 3+ (NEGATIVE) H 06/08/20 16:18 Urine WBC (Auto) 2230 /uL (0-25.8) 06/08/20 16:18 Urine RBC (Auto) 23782.8 /uL (0-23.9) 06/08/20 16:18 Urine Casts (Auto) 22 /uL (0-3.1) 06/08/20 16:18 U Pathogenic Cast Auto None /lpf (NEGATIVE) 06/08/20 16:18 U Epithel Cells (Auto) 12 /uL (0-25.1) 06/08/20 16:18 Urine Bacteria (Auto) 20 /uL (0-1359) 06/08/20 16:18 Urine Yeast (Auto) None (NEGATIVE) 06/08/20 16:18 COVID-19 ([facility]) Not detected (Not Detected) 06/08/20 13:40 Blood Type A NEGATIVE 06/08/20 13:40 Antibody Screen Negative 06/08/20 13:40 echo 03/2012: nl lvef, mild ar echo 05/2020: nl lv/rv, no sig valve path tele: sr, one run nsvt 12 beats cxr: no chf carotids: no sig stenosis ecg: sr, nl intervals, no ischemic changes, no sig change priors a/p: 85 m hx htn,hld, prostate ca s/p xrt/seeds, here with cva. cva: -carotids, echo unremarkable -sr on tele -neuro following -monitor on tele -cont statin htn: -stable, cont home meds hld: -cont statin uti: -on abx nsvt: -one brief run on tele 8/14 AM. Echo shows nl lvef. K and Mag wnl. Benign, monitor on tele for now.
[2020-06-09] MEDS ORDERED: METOPROLOL TARTRATE 5 MG/5 ML VIAL IVPUSH PRN (18:04)
[2020-06-09] MEDS: D5-NS + 20 MEQ KCL - 20 MEQ/1,000 ML INFUS.BAG IV SCH (18:24)
[2020-06-09] MEDS: INSULIN SLIDING SCALE (NOVOLOG) 1 VIAL SQ SCH ×2 (20:13→20:14)
[2020-06-09] MEDS: ATORVASTATIN CA 20 MG TABLET (FP) PO SCH (21:24)
[2020-06-10] MEDS ORDERED: DEXTROSE 5%-WATER - 50 ML IVPB ONE ×3 (01:12→17:21)
[2020-06-10] MEDS ORDERED: PIPERACILLIN/TAZOBACTAM 3.375 GM VIAL IVPB ONE ×3 (01:12→17:21)
[2020-06-10] MEDS: PIPERACILLIN/TAZOB 3.375 GM 3.375 GM in DEXTROSE 5%-WATER - 50 ML IVPB SCH ×3 (01:48→17:22)
--- NOTE | 2020-06-10 07:23 | PN ---
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, Physician Chief Complaint: AMS UTI Sepsis metabolic encephalopathy SBO History of Present Illness: NAD AxO x 3 Right hemiparesis Denies any pain Seen by Neurology for CVA, right hemiparesis CT head negative Just had BM - Current Medication List Current Medications: Active Medications Atorvastatin Calcium (Lipitor -) 20 mg PO HS SHELLIE Last Admin: 06/09/20 21:24 Dose: Not Given Documented by: Piperacillin Sod/Tazobactam (Sod 3.375 gm/ Dextrose) 50 mls @ 100 mls/hr IVPB Q8H-IV SHELLIE; Protocol Last Admin: 06/10/20 01:48 Dose: 100 mls/hr Documented by: Dextrose/Sodium Chloride (Dextrose 5%-Normal Saline+20 Meq Kcl -) 20 meq in 1,000 mls @ 50 mls/hr IV ASDIR SHELLIE Last Admin: 06/09/20 18:24 Dose: 50 mls/hr Documented by: Metoprolol Tartrate (Lopressor Injection -) 5 mg IVPUSH Q4H PRN PRN Reason: HYPERTENSION - Objective Vital Signs: Vital Signs Temperature 98.1 F 06/10/20 06:00 Pulse Rate 81 06/10/20 06:00 Respiratory Rate 19 06/10/20 06:00 Blood Pressure 131/46 L 06/10/20 06:00 O2 Sat by Pulse Oximetry (%) 96 06/09/20 22:00 Constitutional: Yes: Well Nourished, No Distress, Calm Cardiovascular: Yes: Regular Rate and Rhythm Respiratory: Yes: Regular, CTA Bilaterally, On Nasal O2 Gastrointestinal: Yes: Normal Bowel Sounds, Soft Genitourinary: Yes: Galindo Present, Hematuria Musculoskeletal: Yes: Muscle Weakness Extremities: Yes: WNL Edema: No Peripheral Pulses WNL: Yes Integumentary: Yes: Incision (Supra pubic incision with altagracia intact- 19 altagracia removed) Wound/Incision: Yes: [place] Intact (-removed), Steri Strips (applied) Neurological: Yes: Alert, Oriented Psychiatric: Yes: Alert, Oriented Labs: CBC, BMP 06/09/20 05:25 06/09/20 05:25 INR, PTT INR 1.42 (0.83-1.09) H 06/09/20 05:25 Problem List - Problems (1) Metabolic encephalopathy Assessment/Plan: -Resolved -ID on board -afebrile -2/2 to pne -CTAP:Bibasal consolidation and small to moderate bilateral pleural effusion are again partially included. -IV zosyn Problems reviewed: Yes Code(s): G93.41 - METABOLIC ENCEPHALOPATHY (2) Cerebrovascular accident (CVA) Assessment/Plan: -Seen by neurology -MRI without contrast:Multiple acute infarctions in the territory left middle cerebral artery predominantly in the left parietal lobe also in the posterior aspect of the corpus callosum. -Has mid abd altagracia since 05/19- altagracia removed- steri strips applied -Start ASA + Plavix -MBS in AM -Trial of clear liquid diet- bedside swallow with thin liquids done. pt was able to intake 8 oz apple juice and broth with spoon-DO NOT USE STRAWS -HOB elevation at 90 degrees for meals and at least 30 mins after meals Problems reviewed: Yes Code(s): I63.9 - CEREBRAL INFARCTION, UNSPECIFIED (3) Prostate cancer Problems reviewed: Yes Code(s): C61 - MALIGNANT NEOPLASM OF PROSTATE (4) UTI (urinary tract infection) Assessment/Plan: -UA/UC -ID consult -Awaiting Urology consult -Empiric IV abx Problems reviewed: Yes Code(s): N39.0 - URINARY TRACT INFECTION, SITE NOT SPECIFIED (5) SBO (small bowel obstruction) Assessment/Plan: -CTAP:Interval slight decrease in the degree of dilatation of the the small bowel loops since prior CT scan of the abdomen dated 05/22/2020 again suggestive of mid to distal small bowel obstruction/partial obstruction. Extensive diverti culosis coli mainly in the sigmoid colon without evidence of acute diverticulitis. Thickening of the anorectal junction wall. Presacral edema. Exophytic right mid renal lesion measuring 3.2 cm suspicious for a solid mass. Further evaluation with renal ultrasound is needed. Multiple bilateral parapelvic renal cysts are present, left more the right Galindo catheter and suprapubic cystostomy tube are present within an empty urinary bladder with suggestion of intraluminal filling defects that may represent blood clots. Correlate clinically. Grade 1 anterolisthesis of L4 over L5, again seen -Just had BM -Trial of clear liquid diet- bedside swallow tih thin liquids done. pt was able to intake 8 oz apple juice and broth with spoon -GI consult -Await Surgical consult -NGT if pt develops abd pain/N/V Problems reviewed: Yes Code(s): K56.609 - UNSP INTESTNL OBST, UNSP TO PARTIAL VERSUS COMPLETE OBST (6) SVT (supraventricular tachycardia) Assessment/Plan: -Cardiology consult -Likely benign Problems reviewed: Yes Code(s): I47.1 - SUPRAVENTRICULAR TACHYCARDIA (7) CAD (coronary artery disease) Assessment/Plan: -Continue statin -Restart ASA + plavix Problems reviewed: Yes Code(s): I25.10 - ATHSCL HEART DISEASE OF [place] CORONARY ARTERY W/O ANG PCTRS Qualifiers: Coronary Disease-Associated Artery/Lesion type: [place] artery [place] vs. transplanted heart: [place] heart Associated angina: without angina Qualified Code(s): I25.10 - Atherosclerotic heart disease of [place] coronary artery without angina pectoris (8) Anemia Assessment/Plan: -2/2 to acute blood loss -Injectafer once -Ferrous sulfate 1 tab po bid -Monitor daily H/H -Transfuse only if Hg<7.0 to avoid fluid overload -start ASA + Plavix -Will transfuse if needed -Urology eval pending Problems reviewed: Yes Code(s): D64.9 - ANEMIA, UNSPECIFIED Assessment/Plan See problem list
--- NOTE | 2020-06-10 07:24 | PN ---
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, Physician Chief Complaint: cva History of Present Illness: denies cp, sob, palp, dizzy - Current Medication List Current Medications: Active Medications Atorvastatin Calcium (Lipitor -) 20 mg PO HS SHELLIE Last Admin: 06/09/20 21:24 Dose: Not Given Documented by: Piperacillin Sod/Tazobactam (Sod 3.375 gm/ Dextrose) 50 mls @ 100 mls/hr IVPB Q8H-IV SHELLIE; Protocol Last Admin: 06/10/20 01:48 Dose: 100 mls/hr Documented by: Dextrose/Sodium Chloride (Dextrose 5%-Normal Saline+20 Meq Kcl -) 20 meq in 1,000 mls @ 50 mls/hr IV ASDIR SHELLIE Last Admin: 06/09/20 18:24 Dose: 50 mls/hr Documented by: Metoprolol Tartrate (Lopressor Injection -) 5 mg IVPUSH Q4H PRN PRN Reason: HYPERTENSION - Objective Vital Signs: Vital Signs Temperature 98.1 F 06/10/20 06:00 Pulse Rate 81 06/10/20 06:00 Respiratory Rate 19 06/10/20 06:00 Blood Pressure 131/46 L 06/10/20 06:00 O2 Sat by Pulse Oximetry (%) 96 06/09/20 22:00 Constitutional: Yes: Well Nourished, No Distress, Calm Cardiovascular: Yes: Regular Rate and Rhythm, S1, S2. No: Gallop, Murmur Respiratory: Yes: Regular, CTA Bilaterally. No: Accessory Muscle Use Extremities: No: Cold Edema: No Neurological: Yes: Alert, Oriented Psychiatric: No: Agitated Labs: CBC, BMP 06/09/20 05:25 06/09/20 05:25 INR, PTT INR 1.42 (0.83-1.09) H 06/09/20 05:25 Assessment/Plan echo 05/2020: nl lv/rv, no sig valve pat carotids: no sig stenosis ecg: NSR, no change tele: NSR a/p: 85 m hx htn,hld, prostate ca s/p xrt/seeds, here with cva. cva: -carotids, echo unremarkable -sr on tele -neuro consulted--pt has not been given aspirin (was not on at home). d/w'd radha solis: aspirin on hold for hematuria, and ? SBO in need of surgical eval -monitor tele -cont statin htn: -stable, cont home meds hld: -cont statin uti: -on abx nsvt: -one brief run on tele 8 AM. Echo shows nl lvef. K and Mag wnl. Benign, monitor on tele for now.
[2020-06-10 08:06] LABS: BASO % 1.4 % (0-2.0); EOS % 4.4 % (0-4.5); HEMATOCRIT 25.5 % (35.4-49); HEMOGLOBIN 8.1 GM/dL (11.7-16.9); LYMPH % 7.4 % (8-40); MCH 25.3 pg (25.7-33.7); MCHC 31.6 g/dl (32.0-35.9); MEAN CELL VOLUME 80.1 fl (80-96); MEAN PLT VOLUME 10.5 fl (7.5-11.1); MONO % 6.6 % (3.8-10.2); NEUT % 80.2 % (42.8-82.8); PLATELET COUNT 340 K/MM3 (134-434); RBC 3.18 M/mm3 (4.00-5.60); RDW 16.3 % (11.9-15.9); WHITE BLOOD COUNT 17.4 K/mm3 (4.0-10.0)
[2020-06-10 08:25] LABS: ALBUMIN 1.5 g/dl (3.4-5.0); BILIRUBIN,TOTAL 0.4 mg/dL (0.2-1); CALCIUM 7.5 mg/dL (8.5-10.1); CREATININE 0.4 mg/dL (0.55-1.3); POTASSIUM 3.8 mmol/L (3.5-5.1); TOT PROT 5.1 g/dl (6.4-8.2)
[2020-06-10] MEDS ORDERED: ALBUTEROL SO4 HFA INHALER IH PRN (11:23)
[2020-06-10] MEDS: MULTIVITAMINS (DAILY MVI) TABLET (FP) PO SCH (13:04)
[2020-06-10] MEDS: amLODIPine BESYLATE 5 MG TABLET (FP) PO SCH (13:04)
[2020-06-10] MEDS: BACITRACIN 15 GM TUBE TOPICAL OINTMENT TP SCH (13:04)
[2020-06-10] MEDS: metoPROLOL SUCCINATE 25 MG TAB.SR.24H (FP) PO SCH (13:04)
[2020-06-10] MEDS ORDERED: PT OWN MED DRAWER 7, Y5N ONE (13:07)
[2020-06-10] MEDS: FENOFIBRIC ACID 135 MG CAP PO SCH (13:08)
[2020-06-10] MEDS: FERROUS SO4 325 MG TABLET (FP) PO SCH (17:19)
[2020-06-10] MEDS: AMINO ACIDS/PROTEIN HYDROLYS 30 ML LIQUID.PKT PO SCH (17:20)
--- NOTE | 2020-06-10 17:23 | PN ---
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, Physician Chief Complaint: AWAKE, ALERT IN BED NO COMPLAINTS AFEBRILE WBC REMAINS ELEVATED CULTURES NO GROWTH - Current Medication List Current Medications: Active Medications Albuterol Sulfate (Ventolin Hfa Inhaler -) 1 puff IH Q4H PRN PRN Reason: ASTHMA Amino Acids (Prosource No Carb Liquid Pkt) 30 ml PO BID@0800,1730 [facility] Amlodipine Besylate (Norvasc -) 5 mg PO DAILY [facility] Last Admin: 06/10/20 13:04 Dose: 5 mg Documented by: Atorvastatin Calcium (Lipitor -) 20 mg PO HS [facility] Last Admin: 06/09/20 21:24 Dose: Not Given Documented by: Bacitracin (Bacitracin -) 1 applic TP DAILY [facility] Last Admin: 06/10/20 13:04 Dose: 1 applic Documented by: Fenofibric Acid (Trilipix -) 135 mg PO DAILY [facility] Last Admin: 06/10/20 13:08 Dose: 135 mg Documented by: Ferrous Sulfate (Feosol -) 325 mg PO BIDWM [facility] Piperacillin Sod/Tazobactam (Sod 3.375 gm/ Dextrose) 50 mls @ 100 mls/hr IVPB Q8H-IV SHELLIE; Protocol Last Admin: 06/10/20 09:38 Dose: 100 mls/hr Documented by: Dextrose/Sodium Chloride (Dextrose 5%-Normal Saline+20 Meq Kcl -) 20 meq in 1,000 mls @ 50 mls/hr IV ASDIR [facility] Last Admin: 06/09/20 18:24 Dose: 50 mls/hr Documented by: Metoprolol Succinate (Toprol Xl -) 25 mg PO DAILY [facility] Last Admin: 06/10/20 13:04 Dose: 25 mg Documented by: Metoprolol Tartrate (Lopressor Injection -) 5 mg IVPUSH Q4H PRN PRN Reason: HYPERTENSION Multivitamins/Minerals/Vitamin C (Tab-A-Vit -) 1 tab PO DAILY [facility] Last Admin: 06/10/20 13:04 Dose: 1 tab Documented by: - Objective Vital Signs: Vital Signs Temperature 98.7 F 06/10/20 14:41 Pulse Rate 100 H 06/10/20 14:41 Respiratory Rate 20 06/10/20 14:41 Blood Pressure 145/61 06/10/20 14:41 O2 Sat by Pulse Oximetry (%) 95 06/10/20 09:31 Constitutional: Yes: No Distress, Pallor Cardiovascular: Yes: Regular Rate and Rhythm, S1, S2 Respiratory: Yes: CTA Bilaterally Gastrointestinal: Yes: Normal Bowel Sounds, Soft Genitourinary: Yes: Hematuria Labs: CBC, BMP 06/10/20 05:50 06/10/20 05:50 INR, PTT INR 1.42 (0.83-1.09) H 06/09/20 05:25 Assessment/Plan LEUKOCYTOSIS ? LEUKEMOID RXN ? SEPSIS CVA PARKINSONISM AWAIT C/S CONTINUE ZOSYN
[2020-06-10] MEDS: D5-NS + 20 MEQ KCL - 20 MEQ/1,000 ML INFUS.BAG IV SCH (18:52)
[2020-06-10] MEDS: CLOPIDOGREL BISULFATE 75 MG TABLET (FP) PO SCH (18:53)
[2020-06-10] MEDS ORDERED: FERRIC CARBOXYMALTOSE 750 MG in SODIUM CHLORIDE 250 ML IVPB ONE (19:00)
[2020-06-10] MEDS: ATORVASTATIN CA 20 MG TABLET (FP) PO SCH (21:12)
[2020-06-11] MEDS ORDERED: PIPERACILLIN/TAZOBACTAM 3.375 GM VIAL IVPB ONE ×3 (00:44→16:57)
[2020-06-11] MEDS ORDERED: DEXTROSE 5%-WATER - 50 ML IVPB ONE ×3 (00:45→16:58)
[2020-06-11] MEDS: PIPERACILLIN/TAZOB 3.375 GM 3.375 GM in DEXTROSE 5%-WATER - 50 ML IVPB SCH ×3 (01:04→17:02)
--- NOTE | 2020-06-11 01:30 | CONS ---
DATE OF CONSULTATION: DATE OF DICTATION: 06/10/2020 HISTORY OF PRESENT ILLNESS: Patient is an 85-year-old male admitted via the emergency room on June 08, 2020. Patient does have history of carcinoma of the prostate for which he underwent radiation seed implants. He also underwent a suprapubic Galindo due to the current retention. He presented with gross total painless hematuria and, therefore, has a Galindo catheter draining. He does have history of diverticulitis, high blood pressure, hypercholesterolemia, sciatica. The daughter states that he developed sudden onset of right-sided hand weakness during lunch early on day of admission. The patient endorses right-sided facial droop, slurring of speech and weakness of right leg. The patient was not given any medication during the event. The patient also refused to go to a tertiary center for treatment with tPA and/or more aggressive treatment, including a thrombectomy if needed. Patient presently reports feeling diffuse right-sided weakness with inability to speak properly, due to right-sided mouth droop. He denies any previous episodes of CVA or TIAs. He denies chest pain, shortness of breath, dizziness, nausea, vomiting or diarrhea. He states that he has been having gross total painless hematuria for several days. In the emergency room, a CTA of the brain revealed segmental occlusion of the distal A2 segment of the left [place], as described above, with distal reconstitution but attenuated flow as compared to the right. He also had tandem stenosis in the right RADIOGRAPHER CARDIAC CATHETERIZATION in the range of 50 to 69% stenosis, with 1 area of focally in the lower range of 70% to 90%. He has [id number] distal SBO on CTAP. SOCIAL HISTORY: He denies any recent travel. He denies any tobacco use or drug use. ALLERGIES: He denies any allergies. MEDICATIONS: He is on multiple medications, including vitamins, Zocor, MiraLAX, Metamucil, Norvasc, fenofibrate, metoprolol, Ventolin and an amino-acid protein hydrolysis food supplement. PHYSICAL EXAMINATION: Vital Signs: In the emergency room, his blood pressure was 156/69; temperature was 97.9; pulse of 79, pulse oximetry is 89. General: He appears to be alert, oriented and in no acute distress. Lungs: Clear. Heart: Regular. Abdomen: Soft. There is no bladder distention, no hepatosplenomegaly. No CVA tenderness. Neurologic: He does show some right-sided weakness, 3/5. Decreased sensation on the right side. He also has a right facial droop, slurring, right-sided tongue deviation and right-sided uvula deviation. Extremities: Reveal full range of motion with no cyanosis, clubbing or edema. LABORATORY DATA: His white count on admission is 17.8; hemoglobin is 8.7, hematocrit is 28.5; platelets are 398. His PT was 15.5 and INR was 1.3; PTT was 31.2. Patient's BUN was 31, creatinine was 0.7. His urine revealed 3+ blood. Urine cultures are pending. His prostate is 2+, flat, firm and nontender. IMPRESSION AT PRESENT: 1. History of gross hematuria. 2. History of prostate cancer with radiation seeds implantation. 3. History of a suspicious solid right renal mass on CT without contrast. PLAN: Since there is no contraindication to a CT with IV contrast, we will order the test. We will also continue monitoring his CBC and commencing with CBI if the bleeding does not stop. We will recommend a cystourethroscopy. We will be covering for Dr. Zavala until Friday morning. We will follow in the meantime. Ronny [id number]
--- NOTE | 2020-06-11 07:38 | PN ---
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 (short form) - Note 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: VSs are stable. hgb stable, with + iron deficiency labs. aspirin remains on hold, hematuria eval pending remainder of tx plan unchanged--see yest note
[2020-06-11 07:58] LABS: BASO % 0.5 % (0-2.0); EOS % 4.4 % (0-4.5); HEMATOCRIT 25.6 % (35.4-49); HEMOGLOBIN 8.1 GM/dL (11.7-16.9); LYMPH % 8.2 % (8-40); MCH 25.4 pg (25.7-33.7); MCHC 31.6 g/dl (32.0-35.9); MEAN CELL VOLUME 80.4 fl (80-96); MEAN PLT VOLUME 9.9 fl (7.5-11.1); MONO % 7.1 % (3.8-10.2); NEUT % 79.8 % (42.8-82.8); PLATELET COUNT 338 K/MM3 (134-434); RBC 3.18 M/mm3 (4.00-5.60); RDW 16.2 % (11.9-15.9); WHITE BLOOD COUNT 17.5 K/mm3 (4.0-10.0)
[2020-06-11 08:31] LABS: ALBUMIN 1.5 g/dl (3.4-5.0); BLOOD UREA NITROGEN 13.1 mg/dL (7-18); CALCIUM 7.7 mg/dL (8.5-10.1); CREATININE 0.5 mg/dL (0.55-1.3); POTASSIUM 3.8 mmol/L (3.5-5.1)
[2020-06-11 08:36] LABS: BILIRUBIN,TOTAL 0.4 mg/dL (0.2-1)
[2020-06-11] MEDS: AMINO ACIDS/PROTEIN HYDROLYS 30 ML LIQUID.PKT PO SCH ×2 (08:57→17:02)
[2020-06-11] MEDS: FERROUS SO4 325 MG TABLET (FP) PO SCH ×2 (08:57→17:01)
[2020-06-11] MEDS: amLODIPine BESYLATE 5 MG TABLET (FP) PO SCH (09:00)
[2020-06-11] MEDS: MULTIVITAMINS (DAILY MVI) TABLET (FP) PO SCH (09:00)
[2020-06-11] MEDS: metoPROLOL SUCCINATE 25 MG TAB.SR.24H (FP) PO SCH (09:00)
[2020-06-11] MEDS: CLOPIDOGREL BISULFATE 75 MG TABLET (FP) PO SCH (09:00)
[2020-06-11] MEDS: BACITRACIN 15 GM TUBE TOPICAL OINTMENT TP SCH (09:01)
[2020-06-11] MEDS: FENOFIBRIC ACID 135 MG CAP PO SCH (09:02)
[2020-06-11] MEDS ORDERED: PT OWN MED DRAWER 7, Y5N ONE (09:02)
[2020-06-11] MEDS: ASPIRIN 81 MG CHEWABLE TABLETS PO SCH (11:08)
[2020-06-11] MEDS ORDERED: D5-1/2NS+40 MEQ KCL - 40 MEQ/1,000 ML INFUS.BAG IV SCH (11:45)
--- NOTE | 2020-06-11 11:46 | PN ---
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, Physician Chief Complaint: AMS UTI Sepsis metabolic encephalopathy SBO History of Present Illness: NAD AxO x 3 Right hemiparesis Denies any pain Seen by Neurology for CVA, right hemiparesis CT head negative AXR done today- report pending MRI head + Multiple acute infarctions in the territory left middle cerebral artery predominantly in the left parietal lobe also in the posterior aspect of the corpus callosum. Started on Plavix + Asa yesterday Holding H/H Seen by Urology Ordered CTAP w/ contrast ordered - Current Medication List Current Medications: Active Medications Albuterol Sulfate (Ventolin Hfa Inhaler -) 1 puff IH Q4H PRN PRN Reason: ASTHMA Amino Acids (Prosource No Carb Liquid Pkt) 30 ml PO BID@0800,1730 [facility] Last Admin: 06/11/20 08:57 Dose: 30 ml Documented by: Amlodipine Besylate (Norvasc -) 5 mg PO DAILY [facility] Last Admin: 06/11/20 09:00 Dose: 5 mg Documented by: Aspirin (Asa -) 81 mg PO DAILY [facility] Last Admin: 06/11/20 11:08 Dose: 81 mg Documented by: Atorvastatin Calcium (Lipitor -) 20 mg PO HS [facility] Last Admin: 06/10/20 21:12 Dose: 20 mg Documented by: Bacitracin (Bacitracin -) 1 applic TP DAILY [facility] Last Admin: 06/11/20 09:01 Dose: 1 applic Documented by: Clopidogrel Bisulfate (Plavix -) 75 mg PO DAILY [facility] Last Admin: 06/11/20 09:00 Dose: 75 mg Documented by: Fenofibric Acid (Trilipix -) 135 mg PO DAILY [facility] Last Admin: 06/11/20 09:02 Dose: 135 mg Documented by: Ferrous Sulfate (Feosol -) 325 mg PO BIDWM [facility] Last Admin: 06/11/20 08:57 Dose: 325 mg Documented by: Piperacillin Sod/Tazobactam (Sod 3.375 gm/ Dextrose) 50 mls @ 100 mls/hr IVPB Q8H-IV [facility]; Protocol Last Admin: 06/11/20 09:16 Dose: 100 mls/hr Documented by: Metoprolol Succinate (Toprol Xl -) 25 mg PO DAILY [facility] Last Admin: 06/11/20 09:00 Dose: 25 mg Documented by: Metoprolol Tartrate (Lopressor Injection -) 5 mg IVPUSH Q4H PRN PRN Reason: HYPERTENSION Multivitamins/Minerals/Vitamin C (Tab-A-Vit -) 1 tab PO DAILY [facility] Last Admin: 06/11/20 09:00 Dose: 1 tab Documented by: - Objective Vital Signs: Vital Signs Temperature 98.5 F 06/11/20 09:00 Pulse Rate 89 06/11/20 09:00 Respiratory Rate 21 H 06/11/20 09:00 Blood Pressure 154/70 06/11/20 09:00 O2 Sat by Pulse Oximetry (%) 98 06/11/20 09:00 Constitutional: Yes: Well Nourished, No Distress, Calm Cardiovascular: Yes: Regular Rate and Rhythm Respiratory: Yes: Regular, CTA Bilaterally, On Nasal O2 Gastrointestinal: Yes: Normal Bowel Sounds, Soft Genitourinary: Yes: Galindo Present Labs: CBC, BMP 06/11/20 07:07 06/11/20 07:07 INR, PTT INR 1.42 (0.83-1.09) H 06/09/20 05:25 Problem List - Problems (1) Metabolic encephalopathy Assessment/Plan: -Resolved -ID on board -afebrile -2/2 to pne -CTAP:Bibasal consolidation and small to moderate bilateral pleural effusion are again partially included. -IV zosyn Problems reviewed: Yes Code(s): G93.41 - METABOLIC ENCEPHALOPATHY (2) Cerebrovascular accident (CVA) Assessment/Plan: -Seen by neurology -MRI without contrast:Multiple acute infarctions in the territory left middle cerebral artery predominantly in the left parietal lobe also in the posterior aspect of the corpus callosum. -Has mid abd altagracia since 05/19- altagracia removed- steri strips applied -Start ASA + Plavix -MBS in AM -Trial of clear liquid diet- bedside swallow with thin liquids done. pt was able to intake 8 oz apple juice and broth with spoon-DO NOT USE STRAWS -HOB elevation at 90 degrees for meals and at least 30 mins after meals Problems reviewed: Yes Code(s): I63.9 - CEREBRAL INFARCTION, UNSPECIFIED (3) Prostate cancer Problems reviewed: Yes Code(s): C61 - MALIGNANT NEOPLASM OF PROSTATE (4) UTI (urinary tract infection) Assessment/Plan: -UA/UC -ID consult -Awaiting Urology consult -Empiric IV abx Problems reviewed: Yes Code(s): N39.0 - URINARY TRACT INFECTION, SITE NOT SPECIFIED (5) SBO (small bowel obstruction) Assessment/Plan: -CTAP:Interval slight decrease in the degree of dilatation of the the small bowel loops since prior CT scan of the abdomen dated 05/22/2020 again suggestive of mid to distal small bowel obstruction/partial obstruction. Extensive diverticulosis coli mainly in the sigmoid colon without evidence of acute diverticulitis. Thickening of the anorectal junction wall. Presacral edema. Exophytic right mid renal lesion measuring 3.2 cm suspicious for a solid mass. Further evaluation with renal ultrasound is needed. Multiple bilateral parape lvic renal cysts are present, left more the right Galindo catheter and suprapubic cystostomy tube are present within an empty urinary bladder with suggestion of intraluminal filling defects that may represent blood clots. Correlate clinically. Grade 1 anterolisthesis of L4 over L5, again seen -BM yesterday -Denies any N/V or abd pain -Tolerated clear liquid diet- bedside swallow with thin liquids done. pt was able to intake 8 oz apple juice and broth with spoon on 06/10/20 -Advance diet to full liquids -GI consult -Await Surgical consult -NGT if pt develops abd pain/N/V -Await AXR results done this AM -D/C IVF Problems reviewed: Yes Code(s): K56.609 - UNSP INTESTNL OBST, UNSP TO PARTIAL VERSUS COMPLETE OBST (6) SVT (supraventricular tachycardia) Assessment/Plan: -Cardiology consult -Likely benign Problems reviewed: Yes Code(s): I47.1 - SUPRAVENTRICULAR TACHYCARDIA (7) CAD (coronary artery disease) Assessment/Plan: -Continue statin -Restarted ASA + plavix Problems reviewed: Yes Code(s): I25.10 - ATHSCL HEART DISEASE OF [place] CORONARY ARTERY W/O ANG PCTRS Qualifiers: Coronary Disease-Associated Artery/Lesion type: [place] artery [place] vs. transplanted heart: [place] heart Associated angina: without angina Qualified Code(s): I25.10 - Atherosclerotic heart disease of [place] coronary artery without angina pectoris (8) Anemia Assessment/Plan: -2/2 to acute blood loss -Injectafer once yesterday -Ferrous sulfate 1 tab po bid -Monitor daily H/H -Transfuse only if Hg<7.0 to avoid fluid overload -started ASA + Plavix -Will transfuse if needed -Urology eval appreciated Problems reviewed: Yes Code(s): D64.9 - ANEMIA, UNSPECIFIED (9) Hematuria Assessment/Plan: -Seen by Urology -Await CTAP Problems reviewed: Yes Code(s): R31.9 - HEMATURIA, UNSPECIFIED Assessment/Plan See problem list Spoke to son Zuhair Valeri Helms about pt status
--- NOTE | 2020-06-11 14:32 | PN ---
DATE OF VISIT: DATE OF DICTATION: 06/11/2020 Patient is an 85-year-old male with multiple medical problems including a possible right hemiparesis secondary to a TIA. Patient also has history of prostate cancer for which he underwent radiation seed implants in the past. He does have a suprapubic Galindo catheter for drainage due to neurogenic bladder and overflow incontinence. He presents with gross total painless hematuria. A urethral Galindo was also placed. Presently his abdomen is soft. His suprapubic catheter is intact and is draining blood-tinged urine. His urethral Galindo is also patent with blood-tinged urine. No clots were seen. Therefore, urethral Galindo will be discontinued. Suprapubic Galindo will be maintained and irrigated p.r.n. No further urologic treatment is necessary at present unless hematuria continues, then patient will need a cystoscopy with possible electrofulguration for hemostasis. Ronny [id number]
--- NOTE | 2020-06-11 16:26 | CONSULT ---
Consult Consult Specialty:: surgery Reason for Consultation:: SBO - History of Present Illness History of Present Illness: 85 yr old male well known to me in previous consultation during this admission for intraop evaluation and postopo ileus management in the ICU. Concerns due to elevated WBC and ? 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) - Past Surgical History Past Surgical History: Yes: Hernia Repair, Tonsillectomy - Alcohol/Substance Use Hx Alcohol Use: No History of Substance Use: reports: None - Smoking History Smoking history: Never smoked Have you smoked in the past 12 months: No Aproximately how many cigarettes per day: 0 - Social History Usual Living Arrangement: With Spouse ADL: Independent 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 History of Recent Travel: No Home Medications - Allergies Allergies/Adverse Reactions: Allergies Allergy/AdvReac Type Severity Reaction Status Date / Time No Known Allergies Allergy Verified 06/08/20 13:41 - Home Medications Home Medications: Ambulatory Orders Simvastatin [Zocor -] 40 mg PO HS #0 tablet 07/13/13 Multivitamins [Multivit ([facility] Formulary)] 1 tab PO DAILY 11/09/15 Polyethylene Glycol 3350 [Miralax 119 gm Btl -] 17 gm PO DAILY 11/09/15 Psyllium Husk (with Sugar) [Metamucil Packet] 3.4 gm PO HS 11/09/15 Amlodipine Besylate 5 mg PO DAILY 10/29/18 Walker [Ultra-Light Rollator] 1 each ASDIR #1 each 11/08/18 Fenofibrate Nanocrystallized [Triglide] 160 mg PO DAILY 05/19/20 Metoprolol Succinate [Toprol Xl] 25 mg PO DAILY 05/19/20 Albuterol Sulfate Inhaler - [Ventolin HFA Inhaler -] 1 puff IH Q4H PRN inhaler 06/01/20 Amino Acids/Protein Hydrolys [Prosource No Carb Liquid Pkt] 30 ml PO BID@0800,1730 packet 06/01/20 Family Medical History Family Hx Cancer: Father (prostate) Family Hx Cardiac Disorders: Mother, Brother (9 brothers, , some with heart ptoblems 3 , sisters, : heart problemns) Other Family History: Family Hx Cancer: Father (prostate). Family Hx Cardiac Disorders: Mother, Brother (9 brothers, , some with heart ptoblems 3 , sisters, : heart problemns) Physical Exam Vital Signs: Vital Signs Temperature 99.3 F 06/11/20 14:00 Pulse Rate 81 06/11/20 14:00 Respiratory Rate 20 06/11/20 14:00 Blood Pressure 132/51 L 06/11/20 14:00 O2 Sat by Pulse Oximetry (%) 98 06/11/20 09:00 Labs: CBC, BMP 06/11/20 07:07 06/11/20 07:07 Imaging - Results X-ray: Report Reviewed Cat Scan: Report Reviewed Problem List - Problems (1) SBO (small bowel obstruction) Code(s): K56.609 - UNSP INTESTNL OBST, UNSP TO PARTIAL VERSUS COMPLETE OBST Assessment/Plan No clinical evidence of SBO continue diet as tolerated Agree with CT to evaluate elevated WBC
--- NOTE | 2020-06-11 18:46 | PN ---
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 (short form) - Note 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: NEUROLOGY PROGRESS: Events and MRI reviewed. Patient examined. MRI confirms an acute CVA in the posterior limb of the left internal capsule and, curiously, in the rostrum of the corpus collosum. Carotid duplex shows scattered plaques (R>L) without significant hemodynamic changes Pt is taking PO better according to RN. Tolerating pureed without nausea WBC still 17K on zosyn for UTI (Urine WBC was 2230) EXAM: Awake, alert, slow to respond. Dysarthric but fluent Full canela and EOM's R facial Decreased tongue DENISSE's Right hemiparesis (Leg 2/5 rests everted >> Arm 3/5). Increased reflexes on the right. Right Babinski Left sided cogwheel rigidity. IMP: New Left CVA with right hemiparesis. May be a posterior circulation (ie: Vertebrobasilar stroke) Underlying Parkinson's disease. SUGGEST: Continue antibiotics and hydration Continue plavix and ASA MR Angio of brain (C-) would be of academic interest Try Sinemet CR 25/100: 1/2 PO TID with meals x 3 days then, if tolerated, 25/100 PO TID Bedside rehab. Thank you very much, Alejo Vargas MD
[2020-06-11] MEDS: ATORVASTATIN CA 20 MG TABLET (FP) PO SCH (21:45)
[2020-06-11] MEDS: ACETAMINOPHEN 325 MG TABLET (FP) PO PRN (23:55)
[2020-06-12] MEDS ORDERED: DEXTROSE 5%-WATER - 50 ML IVPB ONE ×3 (01:16→16:26)
[2020-06-12] MEDS ORDERED: PIPERACILLIN/TAZOBACTAM 3.375 GM VIAL IVPB ONE ×3 (01:16→16:26)
[2020-06-12] MEDS: PIPERACILLIN/TAZOB 3.375 GM 3.375 GM in DEXTROSE 5%-WATER - 50 ML IVPB SCH ×3 (01:37→18:17)
[2020-06-12 07:31] LABS: BASO % 0.7 % (0-2.0); EOS % 5.5 % (0-4.5); HEMATOCRIT 24.9 % (35.4-49); HEMOGLOBIN 7.9 GM/dL (11.7-16.9); LYMPH % 9.6 % (8-40); MCH 25.3 pg (25.7-33.7); MCHC 31.9 g/dl (32.0-35.9); MEAN CELL VOLUME 79.4 fl (80-96); MEAN PLT VOLUME 9.8 fl (7.5-11.1); MONO % 6.7 % (3.8-10.2); NEUT % 77.5 % (42.8-82.8); PLATELET COUNT 382 K/MM3 (134-434); RBC 3.13 M/mm3 (4.00-5.60); RDW 16.2 % (11.9-15.9); WHITE BLOOD COUNT 20.3 K/mm3 (4.0-10.0)
[2020-06-12 07:41] LABS: ALBUMIN 1.5 g/dl (3.4-5.0); BILIRUBIN,TOTAL 0.4 mg/dL (0.2-1); BLOOD UREA NITROGEN 16.2 mg/dL (7-18); CALCIUM 7.6 mg/dL (8.5-10.1); CREATININE 0.5 mg/dL (0.55-1.3); POTASSIUM 3.5 mmol/L (3.5-5.1); TOT PROT 5.1 g/dl (6.4-8.2)
[2020-06-12] MEDS: AMINO ACIDS/PROTEIN HYDROLYS 30 ML LIQUID.PKT PO SCH ×2 (08:35→18:17)
[2020-06-12] MEDS: FERROUS SO4 325 MG TABLET (FP) PO SCH ×2 (08:35→18:16)
--- NOTE | 2020-06-12 08:58 | PN ---
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, Physician History of Present Illness: NAD AxO x 3 Right hemiparesis Denies any pain Seen by Neurology for CVA, right hemiparesis CT head negative AXR done today- report pending MRI head + Multiple acute infarctions in the territory left middle cerebral artery predominantly in the left parietal lobe also in the posterior aspect of the corpus callosum. Started on Plavix + Asa yesterday Holding H/H Seen by Urology Ordered CTAP w/ contrast ordered - Current Medication List Current Medications: Active Medications Acetaminophen (Tylenol -) 650 mg PO Q6H PRN PRN Reason: FEVER Last Admin: 06/11/20 23:55 Dose: 650 mg Documented by: Albuterol Sulfate (Ventolin Hfa Inhaler -) 1 puff IH Q4H PRN PRN Reason: ASTHMA Amino Acids (Prosource No Carb Liquid Pkt) 30 ml PO BID@0800,1730 [facility] Last Admin: 06/12/20 08:35 Dose: 30 ml Documented by: Amlodipine Besylate (Norvasc -) 5 mg PO DAILY [facility] Last Admin: 06/11/20 09:00 Dose: 5 mg Documented by: Aspirin (Asa -) 81 mg PO DAILY [facility] Last Admin: 06/11/20 11:08 Dose: 81 mg Documented by: Atorvastatin Calcium (Lipitor -) 20 mg PO HS [facility] Last Admin: 06/11/20 21:45 Dose: 20 mg Documented by: Bacitracin (Bacitracin -) 1 applic TP DAILY [facility] Last Admin: 06/11/20 09:01 Dose: 1 applic Documented by: Carbidopa/Levodopa (Sinemet *Cr* 25/100 -) 0.5 combo PO TIDCM [facility] Stop: 06/14/20 17:31 Last Admin: 06/12/20 08:35 Dose: 0.5 combo Documented by: Carbidopa/Levodopa (Sinemet *Cr* 25/100 -) 1 combo PO TIDCM [facility] Clopidogrel Bisulfate (Plavix -) 75 mg PO DAILY [facility] Last Admin: 06/11/20 09:00 Dose: 75 mg Documented by: Fenofibric Acid (Trilipix -) 135 mg PO DAILY [facility] Last Admin: 06/11/20 09:02 Dose: 135 mg Documented by: Ferrous Sulfate (Feosol -) 325 mg PO BIDWM [facility] Last Admin: 06/12/20 08:35 Dose: 325 mg Documented by: Piperacillin Sod/Tazobactam (Sod 3.375 gm/ Dextrose) 50 mls @ 100 mls/hr IVPB Q8H-IV [facility]; Protocol Last Admin: 06/12/20 01:37 Dose: 100 mls/hr Documented by: Metoprolol Succinate (Toprol Xl -) 25 mg PO DAILY [facility] Last Admin: 06/11/20 09:00 Dose: 25 mg Documented by: Multivitamins/Minerals/Vitamin C (Tab-A-Vit -) 1 tab PO DAILY [facility] Last Admin: 06/11/20 09:00 Dose: 1 tab Documented by: - Objective Vital Signs: Vital Signs Temperature 98.7 F 06/12/20 06:00 Pulse Rate 104 H 06/12/20 08:44 Respiratory Rate 21 H 06/12/20 08:44 Blood Pressure 157/70 06/12/20 08:44 O2 Sat by Pulse Oximetry (%) 97 06/12/20 08:44 Cardiovascular: Yes: S1, S2 Respiratory: Yes: Regular, CTA Bilaterally Gastrointestinal: Yes: Normal Bowel Sounds, Soft Neurological: Yes: Alert, Weakness Labs: CBC, BMP 06/12/20 06:20 06/12/20 06:20 INR, PTT INR 1.42 (0.83-1.09) H 06/09/20 05:25 Assessment/Plan - Problems (1) Metabolic encephalopathy Assessment/Plan: -Resolved -ID on board -afebrile -2/2 to pne -CTAP:Bibasal consolidation and small to moderate bilateral pleural effusion are again partially included. -IV zosyn Problems reviewed: Yes Code(s): G93.41 - METABOLIC ENCEPHALOPATHY (2) Cerebrovascular accident (CVA) Assessment/Plan: -Seen by neurology -MRI without contrast:Multiple acute infarctions in the territory left middle cerebral artery predominantly in the left parietal lobe also in the posterior aspect of the corpus callosum. -Has mid abd altagracia since 05/19- altagracia removed- steri strips applied -Start ASA + Plavix -MBS in AM -Trial of clear liquid diet- bedside swallow with thin liquids done. pt was able to intake 8 oz apple juice and broth with spoon-DO NOT USE STRAWS -HOB elevation at 90 degrees for meals and at least 30 mins after meals Problems reviewed: Yes Code(s): I63.9 - CEREBRAL INFARCTION, UNSPECIFIED (3) Prostate cancer Problems reviewed: Yes Code(s): C61 - MALIGNANT NEOPLASM OF PROSTATE (4) UTI (urinary tract infection) Assessment/Plan: -UA/UC -ID consult -Awaiting Urology consult -Empiric IV abx Problems reviewed: Yes Code(s): N39.0 - URINARY TRACT INFECTION, SITE NOT SPECIFIED (5) SBO (small bowel obstruction) Assessment/Plan: -CTAP:Interval slight decrease in the degree of dilatation of the the small bowel loops since prior CT scan of the abdomen dated 05/22/2020 again suggestive of mid to distal small bowel obstruction/partial obstruction. Extensive diverticulosis coli mainly in the sigmoid colon without evidence of acute diverticulitis. Thickening of the anorectal junction wall. Presacral edema. Exophytic right mid renal lesion measuring 3.2 cm suspicious for a solid mass. Further evaluation with renal ultrasound is needed. Multiple bilateral parapelvic renal cysts are present, left more the right Galindo catheter and suprapubic cystostomy tube are present within an empty urinary bladder with suggestion of intraluminal filling defects that may represent blood clots. Correlate clinically. Grade 1 anterolisthesis of L4 over L5, again seen -BM yesterday -Denies any N/V or abd pain -Tolerated clear liquid diet- bedside swallow with thin liquids done. pt was able to intake 8 oz apple juice and broth with spoon on 06/10/20 -Advance diet to full liquids -GI consult -Await Surgical consult -NGT if pt develops abd pain/N/V -Await AXR results done this AM -D/C IVF Problems reviewed: Yes Code(s): K56.609 - UNSP INTESTNL OBST, UNSP TO PARTIAL VERSUS COMPLETE OBST (6) SVT (supraventricular tachycardia) Assessment/Plan: -Cardiology consult -Likely benign Problems reviewed: Yes Code(s): I47.1 - SUPRAVENTRICULAR TACHYCARDIA (7) CAD (coronary artery disease) Assessment/Plan: -Continue statin -Restarted ASA + plavix Problems reviewed: Yes Code(s): I25.10 - ATHSCL HEART DISEASE OF [place] CORONARY ARTERY W/O ANG PCTRS Qualifiers: Coronary Disease-Associated Artery/Lesion type: [place] artery [place] vs. transplanted heart: [place] heart Associated angina: without angina Qualified Code(s): I25.10 - Atherosclerotic heart disease of [place] coronary artery without angina pectoris (8) Anemia Assessment/Plan: -2/2 to acute blood loss -Injectafer once yesterday -Ferrous sulfate 1 tab po bid -Monitor daily H/H -Transfuse only if Hg<7.0 to avoid fluid overload -started ASA + Plavix -Will transfuse if needed -Urology eval appreciated Problems reviewed: Yes Code(s): D64.9 - ANEMIA, UNSPECIFIED (9) Hematuria Assessment/Plan: -Seen by Urology -Await CTAP Problems reviewed: Yes Code(s): R31.9 - HEMATURIA, UNSPECIFIED
[2020-06-12 09:03] LABS: ANISOCYTOSIS 0; MACROCYTOSIS 0; PLATELET ESTIMATE NORMAL; TARGET CELLS 1+
--- NOTE | 2020-06-12 09:35 | PN ---
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 - Note 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: Selected Entries 06/10/20 06/10/20 06/10/20 14:41 18:00 22:00 Breakfast NPO Diet Tolerated Poor Poor Lunch Supper 25% Temperature Pulse Rate Blood Pressure O2 Sat by Pulse Oximetry (%) Oxygen Delivery Method 06/11/20 06/11/20 06/11/20 06:00 09:00 10:00 Breakfast 50% Diet Tolerated Fair Lunch Supper Temperature Pulse Rate Blood Pressure O2 Sat by Pulse 98 98 Oximetry (%) Oxygen Delivery Nasal Cannula Method 06/11/20 06/11/20 06/11/20 14:00 18:00 21:00 Breakfast Diet Tolerated Fair Fair Lunch 50% Supper 50% Temperature Pulse Rate Blood Pressure O2 Sat by Pulse 100 Oximetry (%) Oxygen Delivery Nasal Cannula Method 06/11/20 06/12/20 06/12/20 22:00 02:00 06:00 Breakfast Diet Tolerated Lunch Supper Temperature 98.2 F 98.7 F Pulse Rate 85 83 Blood Pressure 123/58 L 119/51 L O2 Sat by Pulse 100 96 98 Oximetry (%) Oxygen Delivery Method 06/12/20 08:44 Breakfast Diet Tolerated Lunch Supper Temperature Pulse Rate 104 H Blood Pressure 157/70 O2 Sat by Pulse 97 Oximetry (%) Oxygen Delivery Method Laboratory Tests 06/08/20 06/09/20 06/10/20 13:40 05:25 05:50 WBC 17.8 H 16.5 H 17.4 H 06/11/20 06/12/20 07:07 06:20 WBC 17.5 H 20.3 H MRI confirms an acute CVA in the posterior limb of the left internal capsule and, curiously, in the rostrum of the corpus collosum. Carotid duplex shows scattered plaques (R>L) without significant hemodynamic changes On puree/nectar thick liquid with good tolerance. Swallowing reassessed with multiple swallows without cough response with sips o9f thin liquid,. Pt is aware of dysphagia, unable top tolerate solids and thin liquid at this time Hypophonic speech with excellent improvement with cues to speak SLOW, LOUD, CLEAR. Pt will benefit from Eulogio Lund Swallowing therapy upon d/c ([facility] vs home care) Cognitively good for me. Trial of PD medication initiated by neurology
[2020-06-12] MEDS ORDERED: PT OWN MED DRAWER 7, Y5N ONE (10:36)
[2020-06-12] MEDS: KCL 10 MEQ IVPB 10 MEQ/100 ML INFUS.BAG IVPB SCH ×2 (10:54→13:26)
[2020-06-12] MEDS: amLODIPine BESYLATE 5 MG TABLET (FP) PO SCH (10:54)
[2020-06-12] MEDS: MULTIVITAMINS (DAILY MVI) TABLET (FP) PO SCH (10:54)
[2020-06-12] MEDS: metoPROLOL SUCCINATE 25 MG TAB.SR.24H (FP) PO SCH (10:55)
[2020-06-12] MEDS: ASPIRIN 81 MG CHEWABLE TABLETS PO SCH (10:55)
[2020-06-12] MEDS: FENOFIBRIC ACID 135 MG CAP PO SCH (10:55)
[2020-06-12] MEDS: CLOPIDOGREL BISULFATE 75 MG TABLET (FP) PO SCH (10:55)
[2020-06-12] MEDS: ACETAMINOPHEN 325 MG TABLET (FP) PO PRN ×2 (10:59→23:29)
--- NOTE | 2020-06-12 12:37 | PN ---
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 (short form) - Note 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: History of Present Illness: denies cp, sob, palp, dizzy - Current Medications Generic Name Dose Route Start Last Admin Trade Name Freq PRN Reason Stop Dose Admin Acetaminophen 650 mg 06/11/20 23:09 06/12/20 10:59 Tylenol - PO 650 mg Q6H PRN Administration FEVER Albuterol Sulfate 1 puff 06/10/20 11:23 Ventolin Hfa Inhaler - IH Q4H PRN ASTHMA Amino Acids 30 ml 06/10/20 17:30 06/12/20 08:35 Prosource No Carb Liquid Pkt PO 30 ml BID@0800,1730 [facility] Administration Amlodipine Besylate 5 mg 06/10/20 11:30 06/12/20 10:54 Norvasc - PO 5 mg DAILY [facility] Administration Aspirin 81 mg 06/11/20 10:00 06/12/20 10:55 Asa - PO 81 mg DAILY [facility] Administration Atorvastatin Calcium 20 mg 06/08/20 22:00 06/11/20 21:45 Lipitor - PO 20 mg HS [facility] Administration Bacitracin 1 applic 06/10/20 11:45 06/11/20 09:01 Bacitracin - TP 1 applic DAILY [facility] Administration Carbidopa/Levodopa 0.5 combo 06/12/20 08:00 06/12/20 08:35 Sinemet *Cr* 25/100 - PO 06/14/20 17:31 0.5 combo TIDCM [facility] Administration Carbidopa/Levodopa 1 combo 06/15/20 08:00 Sinemet *Cr* 25/100 - PO TIDCM [facility] Clopidogrel Bisulfate 75 mg 06/10/20 18:45 06/12/20 10:55 Plavix - PO 75 mg DAILY [facility] Administration Fenofibric Acid 135 mg 06/10/20 12:15 06/12/20 10:55 Trilipix - PO 135 mg DAILY [facility] Administration Ferrous Sulfate 325 mg 06/10/20 17:30 06/12/20 08:35 Feosol - PO 325 mg BIDWM [facility] Administration Piperacillin Sod/Tazobactam 50 mls @ 100 mls/hr 06/09/20 11:30 06/12/20 10:53 Sod 3.375 gm/ Dextrose IVPB 100 mls/hr Q8H-IV [facility] Administration Protocol Metoprolol Succinate 25 mg 06/10/20 11:30 06/12/20 10:55 Toprol Xl - PO 25 mg DAILY [facility] Administration Multivitamins/Minerals/Vitamin C 1 tab 06/10/20 11:30 06/12/20 10:54 Tab-A-Vit - PO 1 tab DAILY [facility] Administration Vital Signs Period Temp Pulse Resp BP Sys/Donald Pulse Ox Last 24 Hr 98.2 F-101.2 F 81-104 18-21 119-157/51-70 96-100 Constitutional: Yes: Well Nourished, No Distress, Calm Cardiovascular: Yes: Regular Rate and Rhythm, S1, S2. No: Gallop, Murmur Respiratory: Yes: Regular, CTA Bilaterally. No: Accessory Muscle Use Extremities: No: Cold Edema: No Neurological: Yes: Alert, Oriented Psychiatric: No: Agitated no jaundice diaphoresis CBC, BMP 06/12/20 06:20 06/12/20 06:20 Assessment/Plan echo 05/2020: nl lv/rv, no sig valve pat carotids: no sig stenosis ecg: NSR, no change tele: SR a/p: 85 m hx htn,hld, prostate ca s/p xrt/seeds, here with cva. cva: -carotids, echo unremarkable -sr on tele -neuro consulted--pt has not been given aspirin (was not on at home). d/w'd radha oslis: aspirin on hold for hematuria -monitor tele -cont statin htn: -stable, cont home meds hld: -cont statin uti: -on abx nsvt: -one brief run on tele 8 AM. Echo shows nl lvef. K and Mag wnl. Benign, monitor on tele for now.
[2020-06-12] MEDS: BACITRACIN 15 GM TUBE TOPICAL OINTMENT TP SCH (13:26)
--- NOTE | 2020-06-12 14:04 | PN ---
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, Physician Chief Complaint: ISOLATED TEMP SPIKE NOTED AWAKE, ALERT IN BED NO COMPLAINTS AFEBRILE WBC REMAINS ELEVATED REPEAT BLOOD CULTURES OBTAINED - Current Medication List Current Medications: Active Medications Acetaminophen (Tylenol -) 650 mg PO Q6H PRN PRN Reason: FEVER Last Admin: 06/12/20 10:59 Dose: 650 mg Documented by: Albuterol Sulfate (Ventolin Hfa Inhaler -) 1 puff IH Q4H PRN PRN Reason: ASTHMA Amino Acids (Prosource No Carb Liquid Pkt) 30 ml PO BID@0800,1730 [facility] Last Admin: 06/12/20 08:35 Dose: 30 ml Documented by: Amlodipine Besylate (Norvasc -) 5 mg PO DAILY [facility] Last Admin: 06/12/20 10:54 Dose: 5 mg Documented by: Aspirin (Asa -) 81 mg PO DAILY [facility] Last Admin: 06/12/20 10:55 Dose: 81 mg Documented by: Atorvastatin Calcium (Lipitor -) 20 mg PO HS [facility] Last Admin: 06/11/20 21:45 Dose: 20 mg Documented by: Bacitracin (Bacitracin -) 1 applic TP DAILY [facility] Last Admin: 06/12/20 13:26 Dose: 1 applic Documented by: Carbidopa/Levodopa (Sinemet *Cr* 25/100 -) 0.5 combo PO TIDCM [facility] Stop: 06/14/20 17:31 Last Admin: 06/12/20 13:26 Dose: 0.5 combo Documented by: Carbidopa/Levodopa (Sinemet *Cr* 25/100 -) 1 combo PO TIDCM [facility] Clopidogrel Bisulfate (Plavix -) 75 mg PO DAILY [facility] Last Admin: 06/12/20 10:55 Dose: 75 mg Documented by: Fenofibric Acid (Trilipix -) 135 mg PO DAILY [facility] Last Admin: 06/12/20 10:55 Dose: 135 mg Documented by: Ferrous Sulfate (Feosol -) 325 mg PO BIDWM [facility] Last Admin: 06/12/20 08:35 Dose: 325 mg Documented by: Piperacillin Sod/Tazobactam (Sod 3.375 gm/ Dextrose) 50 mls @ 100 mls/hr IVPB Q8H-IV [facility]; Protocol Last Admin: 06/12/20 10:53 Dose: 100 mls/hr Documented by: Metoprolol Succinate (Toprol Xl -) 25 mg PO DAILY [facility] Last Admin: 06/12/20 10:55 Dose: 25 mg Documented by: Multivitamins/Minerals/Vitamin C (Tab-A-Vit -) 1 tab PO DAILY [facility] Last Admin: 06/12/20 10:54 Dose: 1 tab Documented by: - Objective Vital Signs: Vital Signs Temperature 98.9 F 06/12/20 10:55 Pulse Rate 104 H 06/12/20 08:44 Respiratory Rate 21 H 06/12/20 08:44 Blood Pressure 157/70 06/12/20 08:44 O2 Sat by Pulse Oximetry (%) 97 06/12/20 08:44 Constitutional: Yes: No Distress Cardiovascular: Yes: Regular Rate and Rhythm, S1, S2 Respiratory: Yes: CTA Bilaterally Gastrointestinal: Yes: Normal Bowel Sounds, Soft. No: Tenderness Genitourinary: Yes: Other (SUPRAPUBIC CATHETER IN PLACE + GROSS HEMATURIA) Labs: CBC, BMP 06/12/20 06:20 06/12/20 06:20 INR, PTT INR 1.42 (0.83-1.09) H 06/09/20 05:25 Assessment/Plan EMP SPIKE LEUKOCYTOSIS ? LEUKEMOID RXN ? SEPSIS CVA PARKINSONISM AWAIT REPEAT C/S CONTINUE ZOSYN
[2020-06-12] MEDS: ATORVASTATIN CA 20 MG TABLET (FP) PO SCH (23:07)
[2020-06-13] MEDS ORDERED: MORPHINE SULFATE 2 MG/ML VIAL IVPUSH ONE (00:01)
--- NOTE | 2020-06-13 00:06 | HOSP ---
Subjective - Review of Symptoms Events since last encounter: Hospitalist Encounter Notified by the RN that the patient is in a lot of pain, she is unable to irrigate the patient's suprapubic catheter due to clots, and the patient's HR is 130, was asked to assess. Arrived to bedside, patient is alert, awake and oriented, reports pain to his lower abdomen, denies CP, palpitations or SOB. Patient examined at bedside- see EMR Plan: EKG- stat Morphine Sulfate 2mg IV Bladder Scan Call to Urologist Gastrointestinal: Yes: Abdominal Pain (supra pubic region) Physical Examination Vital Signs: Vital Signs Temperature 97.8 F 06/12/20 23:07 Pulse Rate 102 H 06/12/20 23:07 Respiratory Rate 20 06/12/20 23:07 Blood Pressure 122/52 L 06/12/20 23:07 O2 Sat by Pulse Oximetry (%) 97 06/12/20 23:07 Constitutional: Yes: Moderate Distress, Pallor, Thin Eyes: Yes: Conjunctiva Clear, EOM Intact, PERRL HENT: Yes: Atraumatic, Normocephalic Neck: Yes: Supple, Trachea Midline Cardiovascular: Yes: Tachycardia, S1, S2 Respiratory: Yes: Regular, CTA Bilaterally, On Nasal O2 Gastrointestinal: Yes: Normal Bowel Sounds, Soft, Tenderness, Other (suprapubic catheter) ...Rectal Exam: Yes: Deferred Renal/: Yes: Bladder Distention, Batres Present (supra pubic), Hematuria Breast(s): Yes: WNL Musculoskeletal: Yes: WNL Extremities: Yes: WNL Edema: No Peripheral Pulses WNL: Yes Neurological: Yes: Alert, Oriented, Facial Droop (right sided- not new), Weakness (right sided) Psychiatric: Yes: Alert, Oriented Labs: CBC, BMP 06/12/20 06:20 06/12/20 06:20 Laboratory Results - last 24 hr 06/12/20 06/12/20 06:20 06:20 WBC 20.3 H RBC 3.13 L Hgb 7.9 L Hct 24.9 L MCV 79.4 L MCH 25.3 L MCHC 31.9 L RDW 16.2 H Plt Count 382 MPV 9.8 Absolute Neuts (auto) 15.7 H Neutrophils % 77.5 Neutrophils % (Manual) 85.0 H Band Neutrophils % 1.0 Lymphocytes % 9.6 Lymphocytes % (Manual) 7.0 L Monocytes % 6.7 Monocytes % (Manual) 5 D Eosinophils % 5.5 H Eosinophils % (Manual) 2.0 Basophils % 0.7 Basophils % (Manual) 0.0 Myelocytes % (Man) 0 Promyelocytes % (Man) 0 Blast Cells % (Manual) 0 Nucleated RBC % 0 Metamyelocytes 0 Hypochromia 0 Platelet Estimate Normal Polychromasia 1+ Poikilocytosis 1+ Anisocytosis 0 Microcytosis 0 Macrocytosis 0 Target Cells 1+ Sodium 147 H Potassium 3.5 Chloride 116 H Carbon Dioxide 22 Anion Gap 9 BUN 16.2 Creatinine 0.5 L Est GFR (CKD-EPI)AfAm 114.53 Est GFR (CKD-EPI)NonAf 98.81 Random Glucose 109 H Calcium 7.6 L Total Bilirubin 0.4 AST 18 ALT 12 L Alkaline Phosphatase 72 Total Protein 5.1 L Albumin 1.5 L Intake & Output 06/10/20 06/11/20 06/12/20 06/13/20 23:59 23:59 23:59 23:59 Intake Total 1610 780 610 Output Total 1450 2000 1050 Balance 160 -1220 -440 Weight 86.183 kg Current Medications Generic Name Dose Route Start Last Admin Trade Name Freq PRN Reason Stop Dose Admin Acetaminophen 650 mg 06/11/20 23:09 06/12/20 23:29 Tylenol - PO 650 mg Q6H PRN Administration FEVER Albuterol Sulfate 1 puff 06/10/20 11:23 Ventolin Hfa Inhaler - IH Q4H PRN ASTHMA Amino Acids 30 ml 06/10/20 17:30 06/12/20 18:17 Prosource No Carb Liquid Pkt PO 30 ml BID@0800,1730 [facility] Administration Amlodipine Besylate 5 mg 06/10/20 11:30 06/12/20 10:54 Norvasc - PO 5 mg DAILY [facility] Administration Aspirin 81 mg 06/11/20 10:00 06/12/20 10:55 Asa - PO 81 mg DAILY [facility] Administration Atorvastatin Calcium 20 mg 06/08/20 22:00 06/12/20 23:07 Lipitor - PO 20 mg HS [facility] Administration Bacitracin 1 applic 06/10/20 11:45 06/12/20 13:26 Bacitracin - TP 1 applic DAILY [facility] Administration Carbidopa/Levodopa 0.5 combo 06/12/20 08:00 06/12/20 18:16 Sinemet *Cr* 25/100 - PO 06/14/20 17:31 0.5 combo TIDCM [facility] Administration Carbidopa/Levodopa 1 combo 06/15/20 08:00 Sinemet *Cr* 25/100 - PO TIDCM [facility] Fenofibric Acid 135 mg 06/10/20 12:15 06/12/20 10:55 Trilipix - PO 135 mg DAILY [facility] Administration Ferrous Sulfate 325 mg 06/10/20 17:30 06/12/20 18:16 Feosol - PO 325 mg BIDWM [facility] Administration Piperacillin Sod/Tazobactam 50 mls @ 100 mls/hr 06/09/20 11:30 06/12/20 18:17 Sod 3.375 gm/ Dextrose IVPB 100 mls/hr Q8H-IV [facility] Administration Protocol Metoprolol Succinate 25 mg 06/10/20 11:30 06/12/20 10:55 Toprol Xl - PO 25 mg DAILY [facility] Administration Multivitamins/Minerals/Vitamin C 1 tab 06/10/20 11:30 06/12/20 10:54 Tab-A-Vit - PO 1 tab DAILY [facility] Administration Hospitalist Encounter Assessment: This is a 85 y/o male with a PMHx of Diverticulitis, Colon Lesions, Prostate CA s/p radiation therapy, s/p suprapubic batres & s/p urethral batres draining hematuria, seed implants, HTN, Hypercholesterolemia, Sciatica. Admitted to Telemetry for Stroke Outcome: EKG reviewed ST with PACs and TWI in lateral leads, change from prior study SR with PACs Patient medicated with improvement, +N/V alinafran leonel RN spoke with Dr Huston, will come in for suprapubic catheter replacement Suprapubic Cath replaced by Dr Huston Hold Asa, Plavix Will continue to monitor, PMD to resume care in am Critical Care Total Critical Care Time (in minutes): 35 Critical Care Statement: The care of this patient involved high complexity decision making to prevent further life threatening deterioration of the patient's condition and/or to evaluate & treat vital organ system(s) failure or risk of failure.
[2020-06-13] MEDS ORDERED: ONDANSETRON 4 MG/2 ML VIAL IVPUSH ONE (01:06)
--- NOTE | 2020-06-13 01:50 | CON.GU ---
Consult - History of Present Illness History of Present Illness: 85 yo male with h/o prostate cancer, recent urothelial CA diagnosed that caused gross heme/clot retention/bladder rupture requiring open repair and SPT pl acement. Now admitted with CVA and started on plavix/ASA. Called for inability to irrigate SPT due to clot. 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 History of Recent Travel: No Home Medications - Allergies Allergies/Adverse Reactions: Allergies Allergy/AdvReac Type Severity Reaction Status Date / Time No Known Allergies Allergy Verified 06/08/20 13:41 - Home Medications Home Medications: Ambulatory Orders Simvastatin [Zocor -] 40 mg PO HS #0 tablet 07/13/13 Multivitamins [Multivit ([facility] Formulary)] 1 tab PO DAILY 11/09/15 Polyethylene Glycol 3350 [Miralax 119 gm Btl -] 17 gm PO DAILY 11/09/15 Psyllium Husk (with Sugar) [Metamucil Packet] 3.4 gm PO HS 11/09/15 Amlodipine Besylate 5 mg PO DAILY 10/29/18 Walker [Ultra-Light Rollator] 1 each ASDIR #1 each 11/08/18 Fenofibrate Nanocrystallized [Triglide] 160 mg PO DAILY 05/19/20 Metoprolol Succinate [Toprol Xl] 25 mg PO DAILY 05/19/20 Albuterol Sulfate Inhaler - [Ventolin HFA Inhaler -] 1 puff IH Q4H PRN inhaler 06/01/20 Amino Acids/Protein Hydrolys [Prosource No Carb Liquid Pkt] 30 ml PO BID@0800,17 30 packet 06/01/20 Family Medical History Family Hx Cancer: Father (prostate) Family Hx Cardiac Disorders: Mother, Brother (9 brothers, , some with heart ptoblems 3 , sisters, : heart problemns) Other Family History: Family Hx Cancer: Father (prostate). Family Hx Cardiac Disorders: Mother, Brother (9 brothers, , some with heart ptoblems 3 , sisters, : heart problemns) Physical Exam- Vital Signs: Vital Signs Temperature 97.8 F 06/12/20 23:07 Pulse Rate 102 H 06/12/20 23:07 Respiratory Rate 20 06/12/20 23:07 Blood Pressure 122/52 L 06/12/20 23:07 O2 Sat by Pulse Oximetry (%) 97 06/12/20 23:07 Renal/: Yes: Bladder Distention Labs: CBC, BMP 06/12/20 06:20 06/12/20 06:20 Imaging - Results Cat Scan: Report Reviewed Problem List - Problems (1) Gross hematuria Assessment/Plan: New 24 fr batres inserted and some clots irrigated and now SPT and batres appear to be draining and pt much more comfortable. Will need to hold plavix and ASA as pt does not have any surgically correctable bleeding. Hematuria is coming from residual urothelial cancer at bladder neck that is not resectable. Plan to resume ASA as soon as urine is less bloody Code(s): R31.0 - GROSS HEMATURIA
[2020-06-13] MEDS ORDERED: PIPERACILLIN/TAZOBACTAM 3.375 GM VIAL IVPB ONE ×2 (02:19→09:06)
[2020-06-13] MEDS ORDERED: DEXTROSE 5%-WATER - 50 ML IVPB ONE ×2 (02:19→09:06)
[2020-06-13] MEDS: PIPERACILLIN/TAZOB 3.375 GM 3.375 GM in DEXTROSE 5%-WATER - 50 ML IVPB SCH ×2 (02:21→09:17)
[2020-06-13 07:18] LABS: BASO % 0.5 % (0-2.0); EOS % 0.8 % (0-4.5); HEMATOCRIT 22.2 % (35.4-49); LYMPH % 7.2 % (8-40); MCH 24.7 pg (25.7-33.7); MCHC 30.8 g/dl (32.0-35.9); MEAN CELL VOLUME 80.2 fl (80-96); MEAN PLT VOLUME 9.8 fl (7.5-11.1); MONO % 6.8 % (3.8-10.2); NEUT % 84.7 % (42.8-82.8); PLATELET COUNT 400 K/MM3 (134-434); RBC 2.77 M/mm3 (4.00-5.60); RDW 16.3 % (11.9-15.9); WHITE BLOOD COUNT 26.7 K/mm3 (4.0-10.0)
[2020-06-13 07:29] LABS: ALBUMIN 1.6 g/dl (3.4-5.0); BILIRUBIN,TOTAL 0.4 mg/dL (0.2-1); BLOOD UREA NITROGEN 29.7 mg/dL (7-18); CALCIUM 7.8 mg/dL (8.5-10.1); POTASSIUM 3.8 mmol/L (3.5-5.1); TOT PROT 5.1 g/dl (6.4-8.2)
[2020-06-13] MEDS ORDERED: FUROSEMIDE 40 MG/4 ML INJECTABLE VIAL IVPUSH ONE (08:22)
--- NOTE | 2020-06-13 08:24 | PN ---
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 (short form) - Note 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: still with bloody drainage from SPT and batres 24 fr batres removed and 28fr batres placed multiple clots irrigated out again pt more comfortable plan for intermittant irrigation Q4hr with sterile water by nursing staff hold plavix ans ASA resume ASA when urine less bloody Problem List - Problems (1) Gross hematuria Code(s): R31.0 - GROSS HEMATURIA
[2020-06-13] MEDS ORDERED: PT OWN MED DRAWER 7, Y5N ONE (09:05)
[2020-06-13] MEDS: MULTIVITAMINS (DAILY MVI) TABLET (FP) PO SCH (09:17)
[2020-06-13] MEDS: amLODIPine BESYLATE 5 MG TABLET (FP) PO SCH (09:17)
[2020-06-13] MEDS: FERROUS SO4 325 MG TABLET (FP) PO SCH ×2 (09:18→18:10)
[2020-06-13] MEDS: metoPROLOL SUCCINATE 25 MG TAB.SR.24H (FP) PO SCH (09:18)
[2020-06-13] MEDS: ASPIRIN 81 MG CHEWABLE TABLETS PO SCH (09:19)
[2020-06-13] MEDS: AMINO ACIDS/PROTEIN HYDROLYS 30 ML LIQUID.PKT PO SCH ×2 (09:23→18:07)
[2020-06-13] MEDS: FENOFIBRIC ACID 135 MG CAP PO SCH (09:23)
[2020-06-13 09:51] LABS: HEMOGLOBIN 6.9 GM/dL (11.7-16.9)
--- NOTE | 2020-06-13 10:21 | PN ---
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, Physician Chief Complaint: AMS UTI Sepsis metabolic encephalopathy SBO History of Present Illness: NAD AxO x 3 Right hemiparesis Denies any pain Seen by Neurology for CVA, right hemiparesis CT head negative AXR done today- report pending MRI head + Multiple acute infarctions in the territory left middle cerebral artery predominantly in the left parietal lobe also in the posterior aspect of the corpus callosum. Started on Plavix + Asa yesterday Holding H/H Seen by Urology Ordered CTAP w/ contrast ordered - Current Medication List Current Medications: Active Medications Acetaminophen (Tylenol -) 650 mg PO Q6H PRN PRN Reason: FEVER Last Admin: 06/12/20 23:29 Dose: 650 mg Documented by: Albuterol Sulfate (Ventolin Hfa Inhaler -) 1 puff IH Q4H PRN PRN Reason: ASTHMA Amino Acids (Prosource No Carb Liquid Pkt) 30 ml PO BID@0800,1730 [facility] Last Admin: 06/13/20 09:23 Dose: 30 ml Documented by: Amlodipine Besylate (Norvasc -) 5 mg PO DAILY [facility] Last Admin: 06/13/20 09:17 Dose: 5 mg Documented by: Aspirin (Asa -) 81 mg PO DAILY [facility] Last Admin: 06/13/20 09:19 Dose: Not Given Documented by: Atorvastatin Calcium (Lipitor -) 20 mg PO HS [facility] Last Admin: 06/12/20 23:07 Dose: 20 mg Documented by: Bacitracin (Bacitracin -) 1 applic TP DAILY [facility] Last Admin: 06/12/20 13:26 Dose: 1 applic Documented by: Carbidopa/Levodopa (Sinemet *Cr* 25/100 -) 0.5 combo PO TIDCM [facility] Stop: 06/14/20 17:31 Last Admin: 06/13/20 09:18 Dose: 0.5 combo Documented by: Carbidopa/Levodopa (Sinemet *Cr* 25/100 -) 1 combo PO TIDCM [facility] Fenofibric Acid (Trilipix -) 135 mg PO DAILY [facility] Last Admin: 06/13/20 09:23 Dose: 135 mg Documented by: Ferrous Sulfate (Feosol -) 325 mg PO BIDWM [facility] Last Admin: 06/13/20 09:18 Dose: 325 mg Documented by: Piperacillin Sod/Tazobactam (Sod 3.375 gm/ Dextrose) 50 mls @ 100 mls/hr IVPB Q8H-IV [facility]; Protocol Last Admin: 06/13/20 09:17 Dose: 100 mls/hr Documented by: Metoprolol Succinate (Toprol Xl -) 25 mg PO DAILY [facility] Last Admin: 06/13/20 09:18 Dose: 25 mg Documented by: Multivitamins/Minerals/Vitamin C (Tab-A-Vit -) 1 tab PO DAILY [facility] Last Admin: 06/13/20 09:17 Dose: 1 tab Documented by: - Objective Vital Signs: Vital Signs Temperature 77 F L 06/13/20 09:40 Pulse Rate 94 H 06/13/20 09:40 Respiratory Rate 20 06/13/20 09:40 Blood Pressure 121/62 06/13/20 09:40 O2 Sat by Pulse Oximetry (%) 98 06/13/20 09:40 Labs: CBC, BMP 06/13/20 05:40 06/13/20 05:40 INR, PTT INR 1.42 (0.83-1.09) H 06/09/20 05:25 Problem List - Problems (1) Metabolic encephalopathy Code(s): G93.41 - METABOLIC ENCEPHALOPATHY (2) Cerebrovascular accident (CVA) Code(s): I63.9 - CEREBRAL INFARCTION, UNSPECIFIED (3) Prostate cancer Code(s): C61 - MALIGNANT NEOPLASM OF PROSTATE (4) UTI (urinary tract infection) Code(s): N39.0 - URINARY TRACT INFECTION, SITE NOT SPECIFIED (5) SBO (small bowel obstruction) Code(s): K56.609 - UNSP INTESTNL OBST, UNSP TO PARTIAL VERSUS COMPLETE OBST (6) SVT (supraventricular tachycardia) Code(s): I47.1 - SUPRAVENTRICULAR TACHYCARDIA (7) CAD (coronary artery disease) Code(s): I25.10 - ATHSCL HEART DISEASE OF [place] CORONARY ARTERY W/O ANG PCTRS Qualifiers: Coronary Disease-Associated Artery/Lesion type: [place] artery [place] vs. transplanted heart: [place] heart Associated angina: without angina Qualified Code(s): I25.10 - Atherosclerotic heart disease of [place] coronary artery without angina pectoris (8) Anemia Code(s): D64.9 - ANEMIA, UNSPECIFIED (9) Hematuria Code(s): R31.9 - HEMATURIA, UNSPECIFIED
--- NOTE | 2020-06-13 10:59 | PN ---
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 - Note 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: MRI head + Multiple acute infarctions in the territory left middle cerebral artery predominantly in the left parietal lobe also in the posterior aspect of the corpus callosum Selected Entries 06/12/20 06/12/20 06/12/20 02:00 06:00 08:44 Breakfast Diet Tolerated Lunch Supper Temperature 98.2 F 98.7 F Pulse Rate 85 83 104 H Blood Pressure 123/58 L 119/51 L 157/70 06/12/20 06/12/20 06/12/20 10:55 14:00 15:00 Breakfast 50% Diet Tolerated Lunch 50% Supper Temperature 98.9 F 99.3 F Pulse Rate 91 H Blood Pressure 128/57 L 06/12/20 06/12/20 06/12/20 18:00 23:00 23:07 Breakfast Diet Tolerated Well Lunch Supper 25% Temperature 97.3 F L 97.8 F Pulse Rate 92 H 102 H Blood Pressure 138/58 L 122/52 L Laboratory Tests 06/10/20 06/11/20 06/12/20 05:50 07:07 06:20 WBC 17.4 H 17.5 H 20.3 H 06/13/20 05:40 WBC 26.7 H Looks weaker today. Eyes half closed. Aspiration precautions. Reviewed with LABORATORY EQUIPMENT INSTALLER.
[2020-06-13] MEDS: BACITRACIN 15 GM TUBE TOPICAL OINTMENT TP SCH (11:25)
[2020-06-13 13:04] LABS: PLATELET ESTIMATE NORMAL
--- NOTE | 2020-06-13 13:26 | PN ---
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 (short form) - Note 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: cc: CVA s: denies cp, sob, palp, dizzy Current Medications Generic Name Dose Route Start Last Admin Trade Name Freq PRN Reason Stop Dose Admin Acetaminophen 650 mg 06/11/20 23:09 06/12/20 23:29 Tylenol - PO 650 mg Q6H PRN Administration FEVER Albuterol Sulfate 1 puff 06/10/20 11:23 Ventolin Hfa Inhaler - IH Q4H PRN ASTHMA Amino Acids 30 ml 06/10/20 17:30 06/13/20 09:23 Prosource No Carb Liquid Pkt PO 30 ml BID@0800,1730 [facility] Administration Amlodipine Besylate 5 mg 06/10/20 11:30 06/13/20 09:17 Norvasc - PO 5 mg DAILY [facility] Administration Aspirin 81 mg 06/11/20 10:00 06/13/20 09:19 Asa - PO Not Given DAILY [facility] Atorvastatin Calcium 20 mg 06/08/20 22:00 06/12/20 23:07 Lipitor - PO 20 mg HS [facility] Administration Bacitracin 1 applic 06/10/20 11:45 06/13/20 11:25 Bacitracin - TP 1 applic DAILY [facility] Administration Carbidopa/Levodopa 0.5 combo 06/12/20 08:00 06/13/20 12:58 Sinemet *Cr* 25/100 - PO 06/14/20 17:31 0.5 combo TIDCM [facility] Administration Carbidopa/Levodopa 1 combo 06/15/20 08:00 Sinemet *Cr* 25/100 - PO TIDCM [facility] Fenofibric Acid 135 mg 06/10/20 12:15 06/13/20 09:23 Trilipix - PO 135 mg DAILY [facility] Administration Ferrous Sulfate 325 mg 06/10/20 17:30 06/13/20 09:18 Feosol - PO 325 mg BIDWM [facility] Administration Piperacillin Sod/Tazobactam 50 mls @ 100 mls/hr 06/09/20 11:30 06/13/20 09:17 Sod 3.375 gm/ Dextrose IVPB 100 mls/hr Q8H-IV [facility] Administration Protocol Metoprolol Succinate 25 mg 06/10/20 11:30 06/13/20 09:18 Toprol Xl - PO 25 mg DAILY [facility] Administration Multivitamins/Minerals/Vitamin C 1 tab 06/10/20 11:30 06/13/20 09:17 Tab-A-Vit - PO 1 tab DAILY [facility] Administration Vital Signs Period Temp Pulse Resp BP Sys/Donald Pulse Ox Last 24 Hr 77 F-99.3 F 89-104 20-20 103-138/52-67 96-99 Constitutional: Yes: Well Nourished, No Distress, Calm Cardiovascular: Yes: Regular Rate and Rhythm, S1, S2. No: Gallop, Murmur Respiratory: Yes: Regular, CTA Bilaterally. No: Accessory Muscle Use Extremities: No: Cold Edema: No Neurological: Yes: Alert, Oriented Psychiatric: No: Agitated no jaundice diaphoresis Assessment/Plan echo 05/2020: nl lv/rv, no sig valve pat carotids: no sig stenosis ecg: NSR, no change tele: SR, multiple runs of NSVT 3-10 beats this AM a/p: 85 m hx htn,hld, prostate ca s/p xrt/seeds, here with cva. cva: -carotids, echo unremarkable -sr on tele -neuro consulted - aspirin on hold for hematuria -monitor tele -cont statin hematuria - manage per urology htn: -stable, cont home meds hld: -cont statin uti: -on abx nsvt: - Echo shows nl lvef. K and Mag wnl. Benign, monitor on tele for now.
--- NOTE | 2020-06-13 14:42 | PN ---
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, Physician Chief Complaint: NO RECURRENT TEMP AWAKE, ALERT IN BED NO COMPLAINTS AFEBRILE WBC REMAINS ELEVATED REPEAT BLOOD CULTURES NO GROWTH - Current Medication List Current Medications: Active Medications Acetaminophen (Tylenol -) 650 mg PO Q6H PRN PRN Reason: FEVER Last Admin: 06/12/20 23:29 Dose: 650 mg Documented by: Albuterol Sulfate (Ventolin Hfa Inhaler -) 1 puff IH Q4H PRN PRN Reason: ASTHMA Amino Acids (Prosource No Carb Liquid Pkt) 30 ml PO BID@0800,1730 [facility] Last Admin: 06/13/20 09:23 Dose: 30 ml Documented by: Amlodipine Besylate (Norvasc -) 5 mg PO DAILY [facility] Last Admin: 06/13/20 09:17 Dose: 5 mg Documented by: Aspirin (Asa -) 81 mg PO DAILY [facility] Last Admin: 06/13/20 09:19 Dose: Not Given Documented by: Atorvastatin Calcium (Lipitor -) 20 mg PO HS [facility] Last Admin: 06/12/20 23:07 Dose: 20 mg Documented by: Bacitracin (Bacitracin -) 1 applic TP DAILY [facility] Last Admin: 06/13/20 11:25 Dose: 1 applic Documented by: Carbidopa/Levodopa (Sinemet *Cr* 25/100 -) 0.5 combo PO TIDCM [facility] Stop: 06/14/20 17:31 Last Admin: 06/13/20 12:58 Dose: 0.5 combo Documented by: Carbidopa/Levodopa (Sinemet *Cr* 25/100 -) 1 combo PO TIDCM [facility] Fenofibric Acid (Trilipix -) 135 mg PO DAILY [facility] Last Admin: 06/13/20 09:23 Dose: 135 mg Documented by: Ferrous Sulfate (Feosol -) 325 mg PO BIDWM [facility] Last Admin: 06/13/20 09:18 Dose: 325 mg Documented by: Piperacillin Sod/Tazobactam (Sod 3.375 gm/ Dextrose) 50 mls @ 100 mls/hr IVPB Q8H-IV [facility]; Protocol Last Admin: 06/13/20 09:17 Dose: 100 mls/hr Documented by: Metoprolol Succinate (Toprol Xl -) 25 mg PO DAILY [facility] Last Admin: 06/13/20 09:18 Dose: 25 mg Documented by: Multivitamins/Minerals/Vitamin C (Tab-A-Vit -) 1 tab PO DAILY [facility] Last Admin: 06/13/20 09:17 Dose: 1 tab Documented by: - Objective Vital Signs: Vital Signs Temperature 77 F L 06/13/20 09:40 Pulse Rate 94 H 06/13/20 09:40 Respiratory Rate 20 06/13/20 09:40 Blood Pressure 121/62 06/13/20 09:40 O2 Sat by Pulse Oximetry (%) 98 06/13/20 09:40 Constitutional: Yes: No Distress Eyes: Yes: Conjunctiva Clear Cardiovascular: Yes: Regular Rate and Rhythm, S1, S2 Respiratory: Yes: CTA Bilaterally Gastrointestinal: Yes: Normal Bowel Sounds, Soft. No: Tenderness Genitourinary: Yes: Hematuria Peripheral Pulses WNL: No Labs: CBC, BMP 06/13/20 05:40 06/13/20 05:40 INR, PTT INR 1.42 (0.83-1.09) H 06/09/20 05:25 Assessment/Plan ISOLATED TEMP SPIKE LEUKOCYTOSIS ? LEUKEMOID RXN ? SEPSIS CVA PARKINSONISM CULTURES NEGATIVE D/C ANTIBIOTICS, OBSERVE OFF
--- NOTE | 2020-06-13 15:08 | EKG ---
Test Reason : Blood Pressure : / mmHG Vent. Rate : 126 BPM Atrial Rate : 126 BPM P-R Int : 146 ms QRS Dur : 088 ms QT Int : 316 ms P-R-T Axes : 063 -14 102 degrees QTc Int : 457 ms POOR DATA QUALITY, INTERPRETATION MAY BE ADVERSELY AFFECTED SINUS TACHYCARDIA WITH PREMATURE ATRIAL COMPLEXES NONSPECIFIC ST AND T WAVE ABNORMALITY ABNORMAL ECG WHEN COMPARED WITH ECG OF 08-JUN-2020 19:43, VENT. RATE HAS INCREASED BY 43 BPM T WAVE INVERSION NOW EVIDENT IN LATERAL LEADS Confirmed by Steve Garza MD ([id number]) on 06/13/2020 3:07:43 PM Referred By: Confirmed By:Steve Garza MD
[2020-06-13] MEDS: ACETAMINOPHEN 325 MG TABLET (FP) PO PRN (18:07)
[2020-06-13] MEDS: MORPHINE SULFATE 2 MG/ML VIAL IVPUSH PRN (20:56)
[2020-06-13] MEDS: ATORVASTATIN CA 20 MG TABLET (FP) PO SCH (21:06)
[2020-06-13] MEDS: ONDANSETRON 4 MG/2 ML VIAL IVPUSH PRN (21:41)
[2020-06-14] MEDS: MORPHINE SULFATE 2 MG/ML VIAL IVPUSH PRN ×3 (07:10→17:42)
[2020-06-14] MEDS: ONDANSETRON 4 MG/2 ML VIAL IVPUSH PRN ×3 (07:10→17:43)
[2020-06-14 07:16] LABS: BASO % 0.5 % (0-2.0); EOS % 0.8 % (0-4.5); HEMATOCRIT 27.9 % (35.4-49); HEMOGLOBIN 9.2 GM/dL (11.7-16.9); LYMPH % 5.6 % (8-40); MEAN PLT VOLUME 9.8 fl (7.5-11.1); MONO % 6.2 % (3.8-10.2); NEUT % 86.9 % (42.8-82.8); PLATELET COUNT 403 K/MM3 (134-434); RBC 3.28 M/mm3 (4.00-5.60); RDW 16.7 % (11.9-15.9)
[2020-06-14 07:33] LABS: ALBUMIN 1.8 g/dl (3.4-5.0); BILIRUBIN,TOTAL 0.7 mg/dL (0.2-1); BLOOD UREA NITROGEN 42.7 mg/dL (7-18); CALCIUM 8.1 mg/dL (8.5-10.1); CREATININE 1.2 mg/dL (0.55-1.3); POTASSIUM 3.6 mmol/L (3.5-5.1); TOT PROT 5.3 g/dl (6.4-8.2)
[2020-06-14 07:44] LABS: WHITE BLOOD COUNT 38.7 K/mm3 (4.0-10.0)
--- NOTE | 2020-06-14 08:21 | PN ---
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, Physician History of Present Illness: Chief Complaint: AMS UTI Sepsis metabolic encephalopathy SBO History of Present Illness: NAD AxO x 3 Right hemiparesis Denies any pain Seen by Neurology for CVA, right hemiparesis CT head negative AXR done today- report pending MRI head + Multiple acute infarctions in the territory left middle cerebral artery predominantly in the left parietal lobe also in the posterior aspect of the corpus callosum. Started on Plavix + Asa yesterday Holding H/H Seen by Urology Ordered CTAP w/ contrast ordered - Current Medication List Current Medications: Active Medications Acetaminophen (Tylenol -) 650 mg PO Q6H PRN PRN Reason: FEVER Last Admin: 06/13/20 18:07 Dose: 650 mg Documented by: Albuterol Sulfate (Ventolin Hfa Inhaler -) 1 puff IH Q4H PRN PRN Reason: ASTHMA Amino Acids (Prosource No Carb Liquid Pkt) 30 ml PO BID@0800,1730 [facility] Last Admin: 06/13/20 18:07 Dose: 30 ml Documented by: Amlodipine Besylate (Norvasc -) 5 mg PO DAILY [facility] Last Admin: 06/13/20 09:17 Dose: 5 mg Documented by: Aspirin (Asa -) 81 mg PO DAILY [facility] Last Admin: 06/13/20 09:19 Dose: Not Given Documented by: Atorvastatin Calcium (Lipitor -) 20 mg PO HS [facility] Last Admin: 06/13/20 21:06 Dose: 20 mg Documented by: Bacitracin (Bacitracin -) 1 applic TP DAILY [facility] Last Admin: 06/13/20 11:25 Dose: 1 applic Documented by: Carbidopa/Levodopa (Sinemet *Cr* 25/100 -) 0.5 combo PO TIDCM [facility] Stop: 06/14/20 17:31 Last Admin: 06/13/20 18:10 Dose: 0.5 combo Documented by: Carbidopa/Levodopa (Sinemet *Cr* 25/100 -) 1 combo PO TIDCM [facility] Fenofibric Acid (Trilipix -) 135 mg PO DAILY [facility] Last Admin: 06/13/20 09:23 Dose: 135 mg Documented by: Ferrous Sulfate (Feosol -) 325 mg PO BIDWM [facility] Last Admin: 06/13/20 18:10 Dose: 325 mg Documented by: Metoprolol Succinate (Toprol Xl -) 25 mg PO DAILY [facility] Last Admin: 06/13/20 09:18 Dose: 25 mg Documented by: Morphine Sulfate (Morphine Sulfate) 2 mg IVPUSH Q4H PRN PRN Reason: PAIN LEVEL 6-10 Last Admin: 06/14/20 07:10 Dose: 2 mg Documented by: Multivitamins/Minerals/Vitamin C (Tab-A-Vit -) 1 tab PO DAILY [facility] Last Admin: 06/13/20 09:17 Dose: 1 tab Documented by: Ondansetron HCl (Zofran Injection) 4 mg IVPUSH Q6H PRN PRN Reason: NAUSEA AND/OR VOMITING Last Admin: 06/14/20 07:10 Dose: 4 mg Documented by: - Objective Vital Signs: Vital Signs Temperature 98.7 F 06/14/20 05:00 Pulse Rate 104 H 06/14/20 05:00 Respiratory Rate 20 06/14/20 05:00 Blood Pressure 122/63 06/14/20 05:00 O2 Sat by Pulse Oximetry (%) 98 06/13/20 21:15 Cardiovascular: Yes: S1, S2 Respiratory: Yes: Regular, CTA Bilaterally Gastrointestinal: Yes: Normal Bowel Sounds, Soft Genitourinary: Yes: Galindo Present, Hematuria, Other (spt) Neurological: Yes: Alert, Oriented Labs: CBC, BMP 06/14/20 05:18 06/14/20 05:18 INR, PTT INR 1.42 (0.83-1.09) H 06/09/20 05:25 Assessment/Plan - Problems (1) Metabolic encephalopathy Assessment/Plan: -Resolved -ID on board -afebrile -2/2 to pne -CTAP:Bibasal consolidation and small to moderate bilateral pleural effusion are again partially included. -IV zosyn Problems reviewed: Yes Code(s): G93.41 - METABOLIC ENCEPHALOPATHY (2) Cerebrovascular accident (CVA) Assessment/Plan: -Seen by neurology -MRI without contrast:Multiple acute infarctions in the territory left middle c erebral artery predominantly in the left parietal lobe also in the posterior aspect of the corpus callosum. -Has mid abd altagracia since 05/19- altagracia removed- steri strips applied -Hold ASA + Plavix -MBS in AM -Trial of clear liquid diet- bedside swallow with thin liquids done. pt was able to intake 8 oz apple juice and broth with spoon-DO NOT USE STRAWS -HOB elevation at 90 degrees for meals and at least 30 mins after meals Problems reviewed: Yes Code(s): I63.9 - CEREBRAL INFARCTION, UNSPECIFIED (3) Prostate cancer Problems reviewed: Yes Code(s): C61 - MALIGNANT NEOPLASM OF PROSTATE (4) UTI (urinary tract infection) Assessment/Plan: -UA/UC -ID consult -Awaiting Urology consult -Empiric IV abx Problems reviewed: Yes Code(s): N39.0 - URINARY TRACT INFECTION, SITE NOT SPECIFIED (5) SBO (small bowel obstruction) Assessment/Plan: -CTAP:Interval slight decrease in the degree of dilatation of the the small bowel loops since prior CT scan of the abdomen dated 05/22/2020 again suggestive of mid to distal small bowel obstruction/partial obstruction. Extensive diverticulosis coli mainly in the sigmoid colon without evidence of acute diverticulitis. Thickening of the anorectal junction wall. Presacral edema. Exophytic right mid renal lesion measuring 3.2 cm suspicious for a solid mass. Further evaluation with renal ultrasound is needed. Multiple bilateral parapelvic renal cysts are present, left more the right Galindo catheter and supr apubic cystostomy tube are present within an empty urinary bladder with suggestion of intraluminal filling defects that may represent blood clots. Correlate clinically. Grade 1 anterolisthesis of L4 over L5, again seen -BM yesterday -Denies any N/V or abd pain -Tolerated clear liquid diet- bedside swallow with thin liquids done. pt was able to intake 8 oz apple juice and broth with spoon on 06/10/20 -Advance diet to full liquids -GI consult -Await Surgical consult -NGT if pt develops abd pain/N/V -Await AXR results done this AM -D/C IVF Problems reviewed: Yes Code(s): K56.609 - UNSP INTESTNL OBST, UNSP TO PARTIAL VERSUS COMPLETE OBST (6) SVT (supraventricular tachycardia) Assessment/Plan: -Cardiology consult -Likely benign Problems reviewed: Yes Code(s): I47.1 - SUPRAVENTRICULAR TACHYCARDIA (7) CAD (coronary artery disease) Assessment/Plan: -Continue statin -Restarted ASA + plavix Problems reviewed: Yes Code(s): I25.10 - ATHSCL HEART DISEASE OF [place] CORONARY ARTERY W/O ANG PCTRS Qualifiers: Coronary Disease-Associated Artery/Lesion type: [place] artery [place] vs. transplanted heart: [place] heart Associated angina: without angina Qualified Code(s): I25.10 - Atherosclerotic heart disease of [place] coronary artery without angina pectoris (8) Anemia Assessment/Plan: -2/2 to acute blood loss -Injectafer once yesterday -Ferrous sulfate 1 tab po bid -Monitor daily H/H -Transfused prbc -started ASA + Plavix -Will transfuse if needed -Urology eval appreciated Problems reviewed: Yes Code(s): D64.9 - ANEMIA, UNSPECIFIED (9) Hematuria Assessment/Plan: -Seen by Urology -Await CTAP -asa on hold Problems reviewed: Yes Code(s): R31.9 - HEMATURIA, UNSPECIFIED
[2020-06-14] MEDS: AMINO ACIDS/PROTEIN HYDROLYS 30 ML LIQUID.PKT PO SCH ×2 (08:46→17:34)
[2020-06-14] MEDS: FERROUS SO4 325 MG TABLET (FP) PO SCH ×2 (08:46→17:35)
[2020-06-14 10:20] LABS: ANISOCYTOSIS 0; MACROCYTOSIS 0; PLATELET ESTIMATE NORMAL
[2020-06-14] MEDS ORDERED: PT OWN MED DRAWER 7, Y5N ONE (10:40)
--- NOTE | 2020-06-14 10:40 | PN ---
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, [employer] - Note 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: Selected Entries 06/13/20 06/13/20 06/13/20 02:00 06:00 09:00 Breakfast Diet Tolerated Well Lunch Supper 25% Temperature Pulse Rate Blood Pressure 103/61 125/67 O2 Sat by Pulse 96 98 Oximetry (%) Oxygen Delivery Nasal Cannula Method Oxygen Flow 2 Rate 06/13/20 06/13/20 06/13/20 09:40 11:16 14:00 Breakfast 0 Diet Tolerated Refused Poor Lunch 25% Supper Temperature Pulse Rate Blood Pressure 121/62 132/58 L O2 Sat by Pulse 98 Oximetry (%) Oxygen Delivery Method Oxygen Flow Rate 06/13/20 06/13/20 06/13/20 18:00 21:00 21:15 Breakfast Diet Tolerated Lunch Supper Temperature Pulse Rate Blood Pressure 126/70 111/48 L O2 Sat by Pulse 100 98 98 Oximetry (%) Oxygen Delivery Nasal Cannula Method Oxygen Flow 2 Rate 06/14/20 06/14/20 01:54 05:00 Breakfast Diet Tolerated Lunch Supper Temperature 98.5 F 98.7 F Pulse Rate 109 H 104 H Blood Pressure 130/70 122/63 O2 Sat by Pulse Oximetry (%) Oxygen Delivery Method Oxygen Flow Rate Laboratory Tests 06/12/20 06/13/20 06/14/20 06:20 05:40 05:18 WBC 20.3 H 26.7 H 38.7 H* WeaK, verbal, pt reports occasional cough on nectar thick liquid, suggest puree/honey thick liquid
[2020-06-14] MEDS: MULTIVITAMINS (DAILY MVI) TABLET (FP) PO SCH (10:45)
[2020-06-14] MEDS: metoPROLOL SUCCINATE 25 MG TAB.SR.24H (FP) PO SCH (10:45)
[2020-06-14] MEDS: ASPIRIN 81 MG CHEWABLE TABLETS PO SCH (10:45)
[2020-06-14] MEDS: FENOFIBRIC ACID 135 MG CAP PO SCH (10:45)
[2020-06-14] MEDS: amLODIPine BESYLATE 5 MG TABLET (FP) PO SCH (10:45)
[2020-06-14] MEDS: BACITRACIN 15 GM TUBE TOPICAL OINTMENT TP SCH (10:46)
--- NOTE | 2020-06-14 12:23 | PN ---
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 (short form) - Note 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: cc: CVA s: denies cp, sob, palp, dizzy Current Medications Generic Name Dose Route Start Last Admin Trade Name Freq PRN Reason Stop Dose Admin Acetaminophen 650 mg 06/11/20 23:09 06/13/20 18:07 Tylenol - PO 650 mg Q6H PRN Administration FEVER Albuterol Sulfate 1 puff 06/10/20 11:23 Ventolin Hfa Inhaler - IH Q4H PRN ASTHMA Amino Acids 30 ml 06/10/20 17:30 06/14/20 08:46 Prosource No Carb Liquid Pkt PO 30 ml BID@0800,1730 [facility] Administration Amlodipine Besylate 5 mg 06/10/20 11:30 06/14/20 10:45 Norvasc - PO 5 mg DAILY [facility] Administration Aspirin 81 mg 06/11/20 10:00 06/14/20 10:45 Asa - PO 81 mg DAILY [facility] Administration Atorvastatin Calcium 20 mg 06/08/20 22:00 06/13/20 21:06 Lipitor - PO 20 mg HS [facility] Administration Bacitracin 1 applic 06/10/20 11:45 06/14/20 10:46 Bacitracin - TP 1 applic DAILY [facility] Administration Carbidopa/Levodopa 0.5 combo 06/12/20 08:00 06/14/20 08:46 Sinemet *Cr* 25/100 - PO 06/14/20 17:31 0.5 combo TIDCM [facility] Administration Carbidopa/Levodopa 1 combo 06/15/20 08:00 Sinemet *Cr* 25/100 - PO TIDCM [facility] Fenofibric Acid 135 mg 06/10/20 12:15 06/14/20 10:45 Trilipix - PO 135 mg DAILY [facility] Administration Ferrous Sulfate 325 mg 06/10/20 17:30 06/14/20 08:46 Feosol - PO 325 mg BIDWM [facility] Administration Metoprolol Succinate 25 mg 06/10/20 11:30 06/14/20 10:45 Toprol Xl - PO 25 mg DAILY [facility] Administration Morphine Sulfate 2 mg 06/13/20 19:30 06/14/20 10:46 Morphine Sulfate IVPUSH 2 mg Q4H PRN Administration PAIN LEVEL 6-10 Multivitamins/Minerals/Vitamin C 1 tab 06/10/20 11:30 06/14/20 10:45 Tab-A-Vit - PO 1 tab DAILY [facility] Administration Ondansetron HCl 4 mg 06/13/20 19:31 06/14/20 07:10 Zofran Injection IVPUSH 4 mg Q6H PRN Administration NAUSEA AND/OR VOMITING Vital Signs Period Temp Pulse Resp BP Sys/Donald Pulse Ox Last 24 Hr 97.8 F-99.0 F 86-109 20-22 111-132/48-70 98-100 Constitutional: Yes: Well Nourished, No Distress, Calm Cardiovascular: Yes: Regular Rate and Rhythm, S1, S2. No: Gallop, Murmur Respiratory: Yes: Regular, CTA Bilaterally. No: Accessory Muscle Use Extremities: No: Cold Edema: No Neurological: Yes: Alert, Oriented Psychiatric: No: Agitated no jaundice diaphoresis Assessment/Plan echo 05/2020: nl lv/rv, no sig valve pat carotids: no sig stenosis ecg: NSR, no change tele: SR, multiple runs of NSVT 3-10 beats this AM a/p: 85 m hx htn,hld, prostate ca s/p xrt/seeds, here with cva. cva: -carotids, echo unremarkable -sr on tele -neuro consulted - aspirin on hold for hematuria -monitor tele -cont statin hematuria - manage per urology htn: -stable, cont home meds hld: -cont statin uti: -on abx nsvt: - Echo shows nl lvef. K and Mag wnl. Benign, monitor on tele for now.
--- NOTE | 2020-06-14 15:29 | CONSULT ---
Consultation: Heme-Onc Resident Note REQUESTING PROVIDER: Dr. Barth CONSULT REQUEST: We have been asked to medically evaluate this patient for leukocytosis. HISTORY OF PRESENT ILLNESS: Patient is an 85 yo M with past medical history of prostate cancer (s/p radiation and seed implantation), HTN, CAD, HLD, sciatica, diverticulitis, recent admission for bladder perforation repair and suprapubic cath placement, found to have bladder Ca, was brought in from [facility] for right sided weakness. Patent was evaluated by neurology and brain MRI done revealed acute CVA in the posterior limb of the left internal capsule and, in the rostrum of the corpus collosum. On admission, patient was found to have elevated WBC, with no signs of active infection. For the past 2 days, patient had been noted to pass bloody urine with clots on both suprapubic cath and urethral batres. We have been consulted for persistent leukocytosis. Patient denies any fevers, chills, chest pain, SOB, abdominal pain. Patient very sleepy on evaluation as he just got morphine. On previous admission, bladder biopsy was done which revealed infiltrating urothelial carcinoma, poorly differentiated with focal sarcomatoid change. Outpatient PET/CT was recommended, but has not been done yet as patient has been at the long-term for [facility]. PMHx: prostate cancer, HTN, CAD, HLD, sciatica, diverticulitis, bladder Ca PSHx:prostate cancer (s/p radiation and seed implantation), Bladder perforation s/p cystoscopy/ex-lap/repair, Hernia Repair, Tonsillectomy, Allergies: NKDA SHx: denies smoking, drinking, illicit drug use REVIEW OF SYSTEMS: CONSTITUTIONAL: Absent: fever, chills, diaphoresis, generalized weakness, malaise, loss of appetite, weight change HEENT: Absent: rhinorrhea, nasal congestion, throat pain, throat swelling, difficulty swallowing, mouth swelling, ear pain, eye pain, visual changes CARDIOVASCULAR: Absent: chest pain, syncope, palpitations, irregular heart rate, lightheadedness, peripheral edema RESPIRATORY: Absent: cough, shortness of breath, dyspnea with exertion, orthopnea, wheezing, stridor, hemoptysis GASTROINTESTINAL: Absent: abdominal pain, abdominal distension, nausea, vomiting, diarrhea, constipation, melena, hematochezia GENITOURINARY: Absent: dysuria, frequency, urgency, hesitancy, hematuria, flank pain, genital pain MUSCULOSKELETAL: Absent: myalgia, arthralgia, joint swelling, back pain, neck pain SKIN: Absent: rash, itching, pallor HEMATOLOGIC/IMMUNOLOGIC: Absent: easy bleeding, easy bruising, lymphadenopathy, frequent infections ENDOCRINE: Absent: unexplained weight gain, unexplained weight loss, heat intolerance, cold intolerance NEUROLOGIC: Absent: headache, focal weakness or paresthesias, dizziness, unsteady gait, seizure, mental status changes, bladder or bowel incontinence PSYCHIATRIC: Absent: anxiety, depression, suicidal or homicidal ideation, hallucinations. PHYSICAL EXAMINATION Vital Signs - 24 hr 06/13/20 06/13/20 06/13/20 18:00 21:00 21:15 Temperature 99.0 F 98.1 F Pulse Rate 104 H 86 Respiratory 20 20 20 Rate Blood Pressure 126/70 111/48 L O2 Sat by Pulse 100 98 98 Oximetry (%) 06/14/20 06/14/20 06/14/20 01:54 05:00 09:00 Temperature 98.5 F 98.7 F 97.8 F Pulse Rate 109 H 104 H 104 H Respiratory 20 20 20 Rate Blood Pressure 130/70 122/63 117/65 O2 Sat by Pulse 98 Oximetry (%) 06/14/20 14:02 Temperature 98.0 F Pulse Rate 100 H Respiratory 18 Rate Blood Pressure 122/58 L O2 Sat by Pulse Oximetry (%) GENERAL: Somnolent, fully oriented, in no acute distress. NECK: Normal range of motion, supple LUNGS: Decreased breath sound on bilateral bases HEART: Regular rate and rhythm, normal S1 and S2 ABDOMEN: Soft, nontender, not distended, normoactive bowel sounds, suprapubic cath, urethral batres draining chong blood with clots LOWER EXTREMITIES: 2+ pulses, warm, well-perfused. No peripheral edema. SKIN: Warm, dry, normal turgor Laboratory Results - last 24 hr 06/13/20 06/14/20 06/14/20 10:00 05:18 05:18 WBC 38.7 H* RBC 3.28 L Hgb 9.2 L Hct 27.9 L D MCV 85.0 MCH 28.0 D MCHC 33.0 RDW 16.7 H Plt Count 403 MPV 9.8 Absolute Neuts (auto) 33.6 H Neutrophils % 86.9 H Neutrophils % (Manual) 83.0 H Band Neutrophils % 2.0 Lymphocytes % 5.6 L D Lymphocytes % (Manual) 6.0 L Monocytes % 6.2 Monocytes % (Manual) 6 Eosinophils % 0.8 Eosinophils % (Manual) 0.0 D Basophils % 0.5 Basophils % (Manual) 1.0 D Myelocytes % (Man) 1 Promyelocytes % (Man) 0 Blast Cells % (Manual) 0 Nucleated RBC % 1 H Metamyelocytes 0 Hypochromia 0 Platelet Estimate Normal Polychromasia 0 Poikilocytosis 0 Anisocytosis 0 Microcytosis 0 Macrocytosis 0 Sodium 150 H Potassium 3.6 Chloride 119 H Carbon Dioxide 20 L Anion Gap 11 BUN 42.7 H Creatinine 1.2 Est GFR (CKD-EPI)AfAm 63.52 Est GFR (CKD-EPI)NonAf 54.81 Random Glucose 119 H Calcium 8.1 L Total Bilirubin 0.7 AST 17 ALT 8 L Alkaline Phosphatase 70 Total Protein 5.3 L Albumin 1.8 L Blood Type A NEGATIVE Antibody Screen Negative Crossmatch See Detail Active Medications Generic Name Dose Route Start Last Admin Trade Name Freq PRN Reason Stop Dose Admin Acetaminophen 650 mg 06/11/20 23:09 06/13/20 18:07 Tylenol - PO 650 mg Q6H PRN Administration FEVER Albuterol Sulfate 1 puff 06/10/20 11:23 Ventolin Hfa Inhaler - IH Q4H PRN ASTHMA Amino Acids 30 ml 06/10/20 17:30 06/14/20 08:46 Prosource No Carb Liquid Pkt PO 30 ml BID@0800,1730 [facility] Administration Amlodipine Besylate 5 mg 06/10/20 11:30 06/14/20 10:45 Norvasc - PO 5 mg DAILY [facility] Administration Aspirin 81 mg 06/11/20 10:00 06/14/20 10:45 Asa - PO 81 mg DAILY [facility] Administration Atorvastatin Calcium 20 mg 06/08/20 22:00 06/13/20 21:06 Lipitor - PO 20 mg HS [facility] Administration Bacitracin 1 applic 06/10/20 11:45 06/14/20 10:46 Bacitracin - TP 1 applic DAILY [facility] Administration Carbidopa/Levodopa 0.5 combo 06/12/20 08:00 06/14/20 12:54 Sinemet *Cr* 25/100 - PO 06/14/20 17:31 0.5 combo TIDCM [facility] Administration Carbidopa/Levodopa 1 combo 06/15/20 08:00 Sinemet *Cr* 25/100 - PO TIDCM [facility] Fenofibric Acid 135 mg 06/10/20 12:15 06/14/20 10:45 Trilipix - PO 135 mg DAILY [facility] Administration Ferrous Sulfate 325 mg 06/10/20 17:30 06/14/20 08:46 Feosol - PO 325 mg BIDWM [facility] Administration Metoprolol Succinate 25 mg 06/10/20 11:30 06/14/20 10:45 Toprol Xl - PO 25 mg DAILY [facility] Administration Morphine Sulfate 2 mg 06/13/20 19:30 06/14/20 10:46 Morphine Sulfate IVPUSH 2 mg Q4H PRN Administration PAIN LEVEL 6-10 Multivitamins/Minerals/Vitamin C 1 tab 06/10/20 11:30 06/14/20 10:45 Tab-A-Vit - PO 1 tab DAILY [facility] Administration Ondansetron HCl 4 mg 06/13/20 19:31 06/14/20 12:56 Zofran Injection IVPUSH 4 mg Q6H PRN Administration NAUSEA AND/OR VOMITING ASSESSMENT/PLAN: Patient is an 85 yo M with past medical history of prostate cancer (s/p radiati on and seed implantation), HTN, CAD, HLD, sciatica, diverticulitis, recent admission for bladder perforation repair and suprapubic cath placement, found to have bladder Ca, was brought in from [facility] for right sided weakness found to have acute CVA. We have been consulted for persistent leukocytosis. #Leukocytosis -possible leukemoid reaction in setting of metastatic malignancy, ? sepsis -ID recs appreciated. No signs of active infection, monitored off abx #Normocytic anemia -likely 2/2 anemia of chronic disease and PENNY from hematuria -s/p 2u PRBC -Iron 16, TSAT 6% indicate iron deficiency -may benefit from IV iron #Bladder Mass -s/p cysto/exp lap/evac clots/repair bladder perf/SPT placement 05/19/20 -Bladder biopsy: infiltrating urothelial carcinoma, poorly differentiated with focal sarcomatoid change; Positive for Gata3+, AE1/3, p63, thrombomodulin and vimentin -Consider PET-CT outpatient if feasible -patient considering hospice care, application sent to [facility]: We will continue to follow the patient. Thank you for this consultative opportunity. Visit type - Medication Review Med list reviewed for High Risk Meds patients 65 and older: Yes - Emergency Visit Emergency Visit: Yes ED Registration Date: 06/08/20 Care time: The patient presented to the Emergency Department on the above date and was hospitalized for further evaluation of their emergent condition. - New Patient This patient is new to me today: Yes Date on this admission: 06/14/20 - Critical Care Critical Care patient: No ATTENDING PHYSICIAN STATEMENT I saw and evaluated the patient. I reviewed the resident's note and discussed the case with the resident. I agree with the resident's findings and plan as documented. SUBJECTIVE: OBJECTIVE: ASSESSMENT AND PLAN:
[2020-06-14] MEDS: ATORVASTATIN CA 20 MG TABLET (FP) PO SCH (22:10)
[2020-06-14] MEDS: ACETAMINOPHEN 325 MG TABLET (FP) PO PRN (22:26)
[2020-06-15] MEDS: MORPHINE SULFATE 2 MG/ML VIAL IVPUSH PRN (05:48)
[2020-06-15] MEDS ORDERED: ADENOSINE 6 MG/2 ML VIAL IVPUSH ONE (06:46)
--- NOTE | 2020-06-15 07:13 | HOSP ---
Subjective - Review of Symptoms Events since last encounter: Hospitalist Encounter Notified by the RN, that the patient's hR was in the 160's-170's. Was asked to assess Arrived to bedside, patient is lethargic but arousable to verbal/tactile stimulus. He denies CP, palpitations, SOB Plan: EKG stat Adenosine IV stat Physical Examination Vital Signs: Vital Signs Temperature 98.5 F 06/15/20 02:00 Pulse Rate 100 H 06/15/20 02:00 Respiratory Rate 18 06/15/20 02:00 Blood Pressure 115/54 L 06/15/20 02:00 O2 Sat by Pulse Oximetry (%) 97 06/15/20 02:00 Constitutional: Yes: Other (lethargic) Eyes: Yes: Conjunctiva Clear (injected), PERRL HENT: Yes: Atraumatic, Normocephalic, Other (dry mucousa) Neck: Yes: Supple, Trachea Midline Cardiovascular: Yes: Tachycardia, S1, S2 Respiratory: Yes: Diminished, On Nasal O2 Gastrointestinal: Yes: Soft Renal/: Yes: Other (suprapubic cath) Neurological: Yes: Lethargy Labs: CBC, BMP 06/14/20 05:18 06/14/20 05:18 Hospitalist Encounter Outcome: EKG- SVT 170, ST & T wave abnormality, consider inferolateral ischemia, change compared to prior study SR with PACs Post Adenocard- ST 110s Patient had no adverse reaction to medication d/w RN to call Cardiology to inform of this AM event Critical Care Total Critical Care Time (in minutes): 32 Critical Care Statement: The care of this patient involved high complexity decision making to prevent further life threatening deterioration of the patient's condition and/or to evaluate & treat vital organ system(s) failure or risk of failure.
[2020-06-15] MEDS: AMINO ACIDS/PROTEIN HYDROLYS 30 ML LIQUID.PKT PO SCH (08:34)
[2020-06-15] MEDS: FERROUS SO4 325 MG TABLET (FP) PO SCH (08:34)
[2020-06-15] MEDS: metoPROLOL SUCCINATE 25 MG TAB.SR.24H (FP) PO SCH ×2 (08:34→11:56)
--- NOTE | 2020-06-15 09:20 | PN ---
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 (short form) - Note 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: urine bloody from SPT and batres 28 fr batres removed and 30fr batres placed multiple clots irrigated out pt more comfortable plan for intermittant irrigation Q4hr with sterile water by nursing staff hold plavix and ASA prognosis is poor Problem List - Problems (1) Gross hematuria Code(s): R31.0 - GROSS HEMATURIA
--- NOTE | 2020-06-15 11:45 | PN ---
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 (short form) - Note 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: History of Present Illness: denies cp, sob, palp, dizzy - Current Medications Generic Name Dose Route Start Last Admin Trade Name Freq PRN Reason Stop Dose Admin Acetaminophen 650 mg 06/11/20 23:09 06/14/20 22:26 Tylenol - PO 650 mg Q6H PRN Administration FEVER Albuterol Sulfate 1 puff 06/10/20 11:23 Ventolin Hfa Inhaler - IH Q4H PRN ASTHMA Amino Acids 30 ml 06/10/20 17:30 06/15/20 08:34 Prosource No Carb Liquid Pkt PO 30 ml BID@0800,1730 SHELLIE Administration Amlodipine Besylate 5 mg 06/10/20 11:30 06/14/20 10:45 Norvasc - PO 5 mg DAILY SHELLIE Administration Aspirin 81 mg 06/11/20 10:00 06/14/20 10:45 Asa - PO 81 mg DAILY SHELLIE Administration Atorvastatin Calcium 20 mg 06/08/20 22:00 06/14/20 22:10 Lipitor - PO 20 mg HS SHELLIE Administration Bacitracin 1 applic 06/10/20 11:45 06/14/20 10:46 Bacitracin - TP 1 applic DAILY SHELLIE Administration Carbidopa/Levodopa 1 combo 06/15/20 08:00 06/15/20 08:34 Sinemet *Cr* 25/100 - PO 1 combo TIDCM SHELLIE Administration Fenofibric Acid 135 mg 06/10/20 12:15 06/14/20 10:45 Trilipix - PO 135 mg DAILY SHELLIE Administration Ferrous Sulfate 325 mg 06/10/20 17:30 06/15/20 08:34 Feosol - PO 325 mg BIDWM SHELLIE Administration Metoprolol Succinate 25 mg 06/10/20 11:30 06/15/20 08:34 Toprol Xl - PO 25 mg DAILY SHELLIE Administration Morphine Sulfate 2 mg 06/13/20 19:30 06/15/20 05:48 Morphine Sulfate IVPUSH 2 mg Q4H PRN Administration PAIN LEVEL 6-10 Multivitamins/Minerals/Vitamin C 1 tab 06/10/20 11:30 06/14/20 10:45 Tab-A-Vit - PO 1 tab DAILY SHELLIE Administration Ondansetron HCl 4 mg 06/13/20 19:31 06/14/20 17:43 Zofran Injection IVPUSH 4 mg Q6H PRN Administration NAUSEA AND/OR VOMITING Vital Signs Period Temp Pulse Resp BP Sys/Donald Pulse Ox Last 24 Hr 98 F-98.8 F 95-121 18-20 110-130/54-60 97-100 Constitutional: Yes: Well Nourished, No Distress, Calm Cardiovascular: Yes: Regular Rate and Rhythm, S1, S2. No: Gallop, Murmur Respiratory: Yes: Regular, CTA Bilaterally. No: Accessory Muscle Use Extremities: No: Cold Edema: No Neurological: Yes: Alert, Oriented Psychiatric: No: Agitated no jaundice diaphoresis CBC, BMP 06/14/20 05:18 06/14/20 05:18 Assessment/Plan echo 05/2020: nl lv/rv, no sig valve pat carotids: no sig stenosis ecg: NSR, no change tele: SR, episode of svt early this AM, no afib/aflutter a/p: 85 m hx htn,hld, prostate ca s/p xrt/seeds, here with cva. cva: -carotids, echo unremarkable -no afib/aflutter on tele -neuro consulting -aspirin on hold for hematuria -monitor tele -cont statin hematuria - manage per urology htn: -stable, cont home meds hld: -cont statin uti: -on abx nsvt, svt: - Echo shows nl lvef. K and Mag wnl. Benign. Cont bb.
[2020-06-15] MEDS: MULTIVITAMINS (DAILY MVI) TABLET (FP) PO SCH (11:54)
[2020-06-15] MEDS: ASPIRIN 81 MG CHEWABLE TABLETS PO SCH (11:54)
[2020-06-15] MEDS: BACITRACIN 15 GM TUBE TOPICAL OINTMENT TP SCH (11:56)
[2020-06-15] MEDS ORDERED: PT OWN MED DRAWER 7, Y5N ONE (11:57)
[2020-06-15] MEDS: FENOFIBRIC ACID 135 MG CAP PO SCH (11:58)
[2020-06-15 12:11] VITALS: TEMP 98.3
--- NOTE | 2020-06-15 12:30 | PN ---
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, Physician Chief Complaint: AMS UTI Sepsis metabolic encephalopathy SBO History of Present Illness: NAD AxO x 3 Right hemiparesis Denies any pain Seen by Neurology for CVA, right hemiparesis CT head negative AXR done today- report pending MRI head + Multiple acute infarctions in the territory left middle cerebral artery predominantly in the left parietal lobe also in the posterior aspect of the corpus callosum. Started on Plavix + Asa yesterday received more PRBC yesterday Seen by Urology Ordered CTAP w/ contrast ordered Pt and family have opted for comfort care and [place] given poor prognosis - Current Medication List Current Medications: Active Medications Acetaminophen (Tylenol -) 650 mg PO Q6H PRN PRN Reason: FEVER Last Admin: 06/14/20 22:26 Dose: 650 mg Documented by: Albuterol Sulfate (Ventolin Hfa Inhaler -) 1 puff IH Q4H PRN PRN Reason: ASTHMA Amino Acids (Prosource No Carb Liquid Pkt) 30 ml PO BID@0800,1730 [facility] Last Admin: 06/15/20 08:34 Dose: 30 ml Documented by: Amlodipine Besylate (Norvasc -) 5 mg PO DAILY [facility] Last Admin: 06/14/20 10:45 Dose: 5 mg Documented by: Aspirin (Asa -) 81 mg PO DAILY [facility] Last Admin: 06/15/20 11:54 Dose: Not Given Documented by: Atorvastatin Calcium (Lipitor -) 20 mg PO HS [facility] Last Admin: 06/14/20 22:10 Dose: 20 mg Documented by: Bacitracin (Bacitracin -) 1 applic TP DAILY [facility] Last Admin: 06/15/20 11:56 Dose: 1 applic Documented by: Carbidopa/Levodopa (Sinemet *Cr* 25/100 -) 1 combo PO TIDCM [facility] Last Admin: 06/15/20 11:55 Dose: 1 combo Documented by: Fenofibric Acid (Trilipix -) 135 mg PO DAILY [facility] Last Admin: 06/15/20 11:58 Dose: 135 mg Documented by: Ferrous Sulfate (Feosol -) 325 mg PO BIDWM [facility] Last Admin: 06/15/20 08:34 Dose: 325 mg Documented by: Metoprolol Succinate (Toprol Xl -) 25 mg PO DAILY [facility] Last Admin: 06/15/20 11:56 Dose: Not Given Documented by: Morphine Sulfate (Morphine Sulfate) 2 mg IVPUSH Q4H PRN PRN Reason: PAIN LEVEL 6-10 Last Admin: 06/15/20 05:48 Dose: 2 mg Documented by: Multivitamins/Minerals/Vitamin C (Tab-A-Vit -) 1 tab PO DAILY SHELLIE Last Admin: 06/15/20 11:54 Dose: 1 tab Documented by: Ondansetron HCl (Zofran Injection) 4 mg IVPUSH Q6H PRN PRN Reason: NAUSEA AND/OR VOMITING Last Admin: 06/14/20 17:43 Dose: 4 mg Documented by: - Objective Vital Signs: Vital Signs Temperature 98.3 F 06/15/20 12:00 Pulse Rate 93 H 06/15/20 12:00 Respiratory Rate 06/15/20 12:00 Blood Pressure 102/48 L 06/15/20 12:00 O2 Sat by Pulse Oximetry (%) 98 06/15/20 12:00 Constitutional: Yes: Well Nourished, No Distress, Calm Cardiovascular: Yes: Regular Rate and Rhythm Respiratory: Yes: Regular, CTA Bilaterally, On Nasal O2 Gastrointestinal: Yes: Normal Bowel Sounds, Soft Genitourinary: Yes: Galindo Present, Hematuria Musculoskeletal: Yes: Muscle Weakness Extremities: Yes: WNL Edema: No Peripheral Pulses WNL: Yes Neurological: Yes: Alert, Oriented Psychiatric: Yes: Alert, Oriented Labs: CBC, BMP 06/14/20 05:18 06/14/20 05:18 INR, PTT INR 1.42 (0.83-1.09) H 06/09/20 05:25 Problem List - Problems (1) Metabolic encephalopathy Assessment/Plan: -Resolved -ID on board -afebrile -2/2 to pne -CTAP:Bibasal consolidation and small to moderate bilateral pleural effusion are again partially included. Problems reviewed: Yes Code(s): G93.41 - METABOLIC ENCEPHALOPATHY (2) Cerebrovascular accident (CVA) Assessment/Plan: -Seen by neurology -MRI without contrast:Multiple acute infarctions in the territory left middle cerebral artery predominantly in the left parietal lobe also in the posterior aspect of the corpus callosum. -Had mid abd altagracia since 05/19- altagracia removed- steri strips applied -Hold ASA + Plavix -Tolerating pO intake -HOB elevation at 90 degrees for meals and at least 30 mins after meals Problems reviewed: Yes Code(s): I63.9 - CEREBRAL INFARCTION, UNSPECIFIED (3) Prostate cancer Problems reviewed: Yes Code(s): C61 - MALIGNANT NEOPLASM OF PROSTATE (4) UTI (urinary tract infection) Assessment/Plan: -UA/UC -ID consult -Urology consult Problems reviewed: Yes Code(s): N39.0 - URINARY TRACT INFECTION, SITE NOT SPECIFIED (5) SBO (small bowel obstruction) Assessment/Plan: -CTAP:Interval slight decrease in the degree of dilatation of the the small bowel loops since prior CT scan of the abdomen dated 05/22/2020 again suggestive of mid to distal small bowel obstruction/partial obstruction. Extensive diverticulosis coli mainly in the sigmoid colon without evidence of acute diverticulitis. Thickening of the anorectal junction wall. Presacral edema. Exophytic right mid renal lesion measuring 3.2 cm suspicious for a solid mass. Further evaluation with renal ultrasound is needed. Multiple bilateral parapelvic renal cysts are present, left more the right Galindo catheter and suprapubic cystostomy tube are present within an empty urinary bladder with suggestion of intraluminal filling defects that may represent blood clots. Correlate clinically. Grade 1 anterolisthesis of L4 over L5, again seen -BM yesterday -Denies any N/V or abd pain -Tolerated clear liquid diet- bedside swallow with thin liquids done. pt was able to intake 8 oz apple juice and broth with spoon on 06/10/20 -Tolerating PO intake -GI consult -Surgical consult appreciated -NGT if pt develops abd pain/N/V Problems reviewed: Yes Code(s): K56.609 - UNSP INTESTNL OBST, UNSP TO PARTIAL VERSUS COMPLETE OBST (6) SVT (supraventricular tachycardia) Assessment/Plan: -Cardiology consult -Already on BB Problems reviewed: Yes Code(s): I47.1 - SUPRAVENTRICULAR TACHYCARDIA (7) CAD (coronary artery disease) Assessment/Plan: -Continue statin -Hold ASA + plavix Problems reviewed: Yes Code(s): I25.10 - ATHSCL HEART DISEASE OF [place] CORONARY ARTERY W/O ANG PCTRS Qualifiers: Coronary Disease-Associated Artery/Lesion type: [place] artery [place] vs. transplanted heart: [place] heart Associated angina: without angina Qualified Code(s): I25.10 - Atherosclerotic heart disease of [place] coronary artery without angina pectoris (8) Anemia Assessment/Plan: -2/2 to acute blood loss -Injectafer this admission -Ferrous sulfate 1 tab po bid -Monitor daily H/H -Transfuse only if Hg<7.0 to avoid fluid overload -sHold ASA + Plavix -Will transfuse if needed -Urology eval appreciated Problems reviewed: Yes Code(s): D64.9 - ANEMIA, UNSPECIFIED (9) Hematuria Assessment/Plan: -Seen by Urology -monitor H/H -poor prognosis Problems reviewed: Yes Code(s): R31.9 - HEMATURIA, UNSPECIFIED Assessment/Plan See problem list Spoke to son Zuhair Trammell Jr about pt status, to be transferred to [place] to [facility].
--- NOTE | 2020-06-15 13:47 | DS ---
Physical Examination Vital Signs: Vital Signs Temperature 98.3 F 06/15/20 12:00 Pulse Rate 93 H 06/15/20 12:00 Respiratory Rate 19 06/15/20 12:00 Blood Pressure 102/48 L 06/15/20 12:00 O2 Sat by Pulse Oximetry (%) 98 06/15/20 12:00 Findings/Remarks: Patient is an 85 yo M with past medical history of prostate cancer (s/p radiation and seed implantation), HTN, CAD, HLD, sciatica, diverticulitis, recent admission for bladder perforation repair and suprapubic cath placement, found to have bladder Ca, was brought in from [facility] for right sided weakness. Patent was evaluated by neurology and brain MRI done revealed acute CVA in the posterior limb of the left internal capsule and, in the rostrum of the corpus collosum. On admission, patient was found to have elevated WBC, with no signs of active infection. For the past 2 days, patient had been noted to pass bloody urine with clots on both suprapubic cath and urethral batres. We have been consulted for persistent leukocytosis. Patient denies any fevers, chills, chest pain, SOB, abdominal pain. Patient very sleepy on evaluation as he just got morphine. On previous admission, bladder biopsy was done which revealed infiltrating urothelial carcinoma, poorly differentiated with focal sarcomatoid change. Outpatient PET/CT was recommended, but has not been done yet as patient has been at the care home for [place]. PMHx: prostate cancer, HTN, CAD, HLD, sciatica, diverticulitis, bladder Ca PSHx:prostate cancer (s/p radiation and seed implantation), Bladder perforation s/p cystoscopy/ex-lap/repair, Hernia Repair, Tonsillectomy, Allergies: NKDA SHx: denies smoking, drinking, illicit drug use Constitutional: Yes: Well Nourished, No Distress, Calm Cardiovascular: Yes: Regular Rate and Rhythm Respiratory: Yes: Regular, CTA Bilaterally Gastrointestinal: Yes: Normal Bowel Sounds, Soft Renal/: Yes: Batres Present, Hematuria Musculoskeletal: Yes: Muscle Weakness Extremities: Yes: WNL Edema: No Peripheral Pulses WNL: Yes Neurological: Yes: Alert, Oriented Psychiatric: Yes: Alert, Oriented Labs: CBC, BMP 06/14/20 05:18 06/14/20 05:18 Discharge Summary Problems reviewed: Yes Reason For Visit: URINARY TRACT INFECTION MALIGNANT NEOPLASM OF PROS Current Active Problems Abnormal CT of the abdomen (Acute) Anemia (Acute) Cerebrovascular accident (CVA) (Acute) Gross hematuria (Acute) Metabolic encephalopathy (Acute) Prostate cancer (Acute) SVT (supraventricular tachycardia) (Acute) UTI (urinary tract infection) (Acute) Condition: Stable - Instructions Referrals: ON STAFF,NOT [Primary Care Provider] - Disposition: TRANSFER ACUTE CARE/OTHER HOSP - Home Medications Comprehensive Discharge Medication List: Ambulatory Orders Simvastatin [Zocor -] 40 mg PO HS #0 tablet 07/13/13 Multivitamins [Multivit ([facility] Formulary)] 1 tab PO DAILY 11/09/15 Polyethylene Glycol 3350 [Miralax 119 gm Btl -] 17 gm PO DAILY 11/09/15 Psyllium Husk (with Sugar) [Metamucil Packet] 3.4 gm PO HS 11/09/15 Amlodipine Besylate 5 mg PO DAILY 10/29/18 Walker [Ultra-Light Rollator] 1 each ASDIR #1 each 11/08/18 Fenofibrate Nanocrystallized [Triglide] 160 mg PO DAILY 05/19/20 Metoprolol Succinate [Toprol Xl] 25 mg PO DAILY 05/19/20 Albuterol Sulfate Inhaler - [Ventolin HFA Inhaler -] 1 puff IH Q4H PRN inhaler 06/01/20 Amino Acids/Protein Hydrolys [Prosource No Carb Liquid Pkt] 30 ml PO BID@0800,1730 packet 06/01/20 Prescription Drug Monitoring Program (I-STOP) results: I-STOP reviewed and no issues identified
[2020-06-15] MEDS: amLODIPine BESYLATE 5 MG TABLET (FP) PO SCH (14:13)
[2020-06-15 14:44] VITALS: BP 108/49; PULSE 94
--- NOTE | 2020-06-15 14:59 | EKG ---
Test Reason : Blood Pressure : / mmHG Vent. Rate : 170 BPM Atrial Rate : 144 BPM P-R Int : 000 ms QRS Dur : 086 ms QT Int : 292 ms P-R-T Axes : 000 -14 152 degrees QTc Int : 491 ms SUPRAVENTRICULAR TACHYCARDIA ABNORMAL ECG WHEN COMPARED WITH ECG OF 13-JUN-2020 00:17, PREMATURE ATRIAL COMPLEXES ARE NO LONGER PRESENT T WAVE INVERSION NOW EVIDENT IN INFERIOR LEADS Confirmed by SAMEER BERNARD, COLLEEN ([id number]) on 06/15/2020 2:59:27 PM Referred By: Confirmed By:COLLEEN ESTRELLA MD
[2020-06-15] MEDS: ACETAMINOPHEN 325 MG TABLET (FP) PO PRN (16:15)
--- NOTE | 2020-06-17 16:10 | PN ---
Teaching Attending Note Name of Resident: Shannen Costello ATTENDING PHYSICIAN STATEMENT I saw and evaluated the patient. I reviewed the resident's note and discussed the case with the resident. I agree with the resident's findings and plan as documented. ASSESSMENT AND PLAN: 85 yo male with h/o prostate cancer, recent urothelial CA diagnosed that caused gross hematuria/clot retention/bladder rupture requiring open repair and SPT placement. Admitted with new Left CVA with right hemiparesis. ? Vertebrobasilar stroke) Underlying Parkinson's disease #Leukocytosis -possible leukemoid reaction in setting of metastatic malignancy, #Normocytic anemia -likely 2/2 anemia of chronic disease # infiltrating urothelial carcinoma, poorly differentiated with focal sarcomatoid change -s/p cysto/exp lap/evac clots/repair bladder perf/SPT placement 05/19/20 -Bladder biopsy: infiltrating urothelial carcinoma, poorly differentiated with focal sarcomatoid change; Positive for Gata3+, AE1/3, p63, thrombomodulin and vimentin Very poor performance status Had discussed with PMD Dr. Rhodes on 06/08 For hospice care
== END 2020-06-15 17:54 | disposition hospice, inpatient (51) | DRG 64 ==
LOC: JER 13:23 → JERBED 17:48 → J4S 20:05
PROVIDERS: ADMIT Internal Medicine; ATTEND Family Medicine
PROC: 30233N1 Transfusion of Nonautologous Red Blood Cells into Peripheral Vein, Percutaneous Approach (ICD-10-PCS; principal; 2020-06-13)
DX: I63.9 Cerebral infarction, unspecified (principal); G93.41 Metabolic encephalopathy; I69.351 Hemiplegia and hemiparesis following cerebral infarction affecting right dominant side; D62 Acute posthemorrhagic anemia; I47.1 Supraventricular tachycardia; N39.0 Urinary tract infection, site not specified; K56.609 Unspecified intestinal obstruction, unspecified as to partial versus complete obstruction; I25.10 Atherosclerotic heart disease of native coronary artery without angina pectoris; I10 Essential (primary) hypertension; E78.5 Hyperlipidemia, unspecified; C67.9 Malignant neoplasm of bladder, unspecified; C61 Malignant neoplasm of prostate; E78.00 Pure hypercholesterolemia, unspecified; R31.0 Gross hematuria; G20 Parkinson's disease; D72.829 Elevated white blood cell count, unspecified; R29.711 NIHSS score 11; R41.82 Altered mental status, unspecified; K64.9 Unspecified hemorrhoids; R93.5 Abnormal findings on diagnostic imaging of other abdominal regions, including retroperitoneum; R29.810 Facial weakness; R47.81 Slurred speech; D72.823 Leukemoid reaction
CPT/HCPCS: 36415; 36430; 36511; 70450-TC; 70496-TC; 70498-TC; 70551-TC; 71045-TC-FY; 74018-TC-FY; 74176-TC; 74190-TC-FY; 80048; 80053; 80061; 81003; 82550; 82728; 82962; 83036; 83540; 83550; 83721; 83735; 84100; 84484; 85025; 85610; 85730; 86850; 86900; 86901; 86922; 87040; 87086; 93005; 93010; 93306-TC; 93880-TC; 97116-GP; 97161-GP; 99291; J1439; P9038; P9058; Q9967; U0003